=== PATIENT | male | born 1945 ===

== ENCOUNTER 2018-01-14 08:34 | Observation (INO) | payer OTHER ==
[2018-01-14 08:34] VITALS: BMI 28.1
[2018-01-14] MEDS ORDERED: Sodium Chloride 0.9% 1,000 ML IV ONE ×2 (09:31→10:58)
--- NOTE | 2018-01-14 09:49 | C.PDOC ---
History Of Present Illness 72 y/o male sent by Dr. Garcia for evaluation of elevated blood sugar and pain to left rib secondary to fall 2 days ago. Patient sent to rule out weakness and evaluate high blood sugar. Patient states he takes metformin at home with no improvement. Patient denies headache, nausea, vomiting, numbness or any other complaints at this time. Time Seen by Provider: 01/14/18 08:49 Chief Complaint (Nursing): Medical Clearance History Per: Patient History/Exam Limitations: no limitations Onset/Duration Of Symptoms: Days Current Symptoms Are (Timing): Still Present Severity: Mild Past Medical History Reviewed: Historical Data, Nursing Documentation, Vital Signs Vital Signs: Last Vital Signs Temp 98.1 F 01/14/18 08:37 Pulse 70 01/14/18 08:37 Resp 18 01/14/18 08:37 BP 192/90 H 01/14/18 08:37 Pulse Ox 96 01/14/18 12:01 - Medical History PMH: Diabetes, HTN, Hypercholesterolemia Surgical History: No Surg Hx - [facility] Procedures COLONOSCOPY (11/24/13) DX ULTRASOUND NEC (08/03/14) EXCISION OF STOMACH, ENDO, DIAGN (12/07/15) FLEXIBLE SIGMOIDOSCOPY (11/03/13) FLUOROSCOPY OF LEFT HEART USING LOW OSMOLAR CONTRAST (12/07/15) FLUOROSCOPY OF MULT COR ART USING L OSM CONTRAST (12/07/15) INSPECTION OF LOWER INTESTINAL TRACT, ENDO (12/07/15) INSPECTION OF UPPER INTESTINAL TRACT, ENDO (06/04/16) MEASURE OF CARDIAC SAMPL & PRESSURE, L HEART, PERC APPROACH (12/07/15) PERCUTAN NEEDLE BIOPSY OF PROSTATE (08/03/14) RADICAL EXCIS SKIN LES (11/23/12) TRANSFUSE NONAUT RED BLOOD CELLS IN PERIPH VEIN, PERC (12/07/15) TRANSFUSE NONAUT WHOLE BLOOD IN PERIPH VEIN, PERC (06/04/16) Family History: States: No Known Family Hx - Social History Hx Alcohol Use: No Hx Substance Use: No - Immunization History Hx Tetanus Toxoid Vaccination: No Hx Influenza Vaccination: No Hx Pneumococcal Vaccination: No Review Of Systems Constitutional: Negative for: Fever, Chills Cardiovascular: Negative for: Chest Pain Respiratory: Negative for: Shortness of Breath Gastrointestinal: Negative for: Nausea, Vomiting Musculoskeletal: Positive for: Other (rib pain) Skin: Negative for: Rash Neurological: Positive for: Weakness. Negative for: Numbness Physical Exam - Physical Exam Appears: Non-toxic, No Acute Distress Skin: Warm, Dry, No Rash Head: Atraumatic, Normacephalic Eye(s): bilateral: Normal Inspection Oral Mucosa: Moist Throat: Normal Neck: Supple Chest: Tenderness (left lateral rib ), No Ecchymosis Cardiovascular: Rhythm Regular Respiratory: Normal Breath Sounds, No Rales, No Rhonchi, No Wheezing, Other ( tenderness over lateral left rib area) Gastrointestinal/Abdominal: Soft, No Tenderness, No Guarding, No Rebound Back: Normal Inspection Extremity: Normal ROM, Capillary Refill (<2 seconds) Neurological/Psych: Oriented x3, Normal Speech, Normal Cognition, Normal Motor, Normal Sensation ED Course And Treatment - Laboratory Results Result Diagrams: 01/14/18 09:57 01/14/18 09:57 Lab Interpretation: Abnormal ECG: Interpreted By Ca ECG Rhythm: Sinus Bradycardia ECG Interpretation: No Acute Changes Rate From EC O2 Sat by Pulse Oximetry: 96 (RA) Pulse Ox Interpretation: Normal - Radiology CXR: Interpreted by Me CXR Interpretation: Yes: No Acute Disease Progress Note: CXR, EKG, IV fluids, UA. Trteated with additional NSS and insulin 8 U SQ Reassessment Condition: Improved - Physician Consult Information Physician Contacted: Rhett Durán Jr. Outcome Of Conversation: admit to obs Disposition Discussed With Dr.: Rhett Durán Jr. Doctor Will See Patient In The: Hospital - Disposition Disposition: HOSPITALIZED Disposition Time: 13:00 Condition: STABLE - Clinical Impression Clinical Impression: Weakness, Diabetes - PA / AERIAL INSTALLER / Resident Statement MD/DO has reviewed & agrees with the documentation as recorded. - Scribe Statement The provider has reviewed the documentation as recorded by the Paulinaibtiago Miranda All medical record entries made by the Archana were at my direction and personally dictated by me. I have reviewed the chart and agree that the record accurately reflects my personal performance of the history, physical exam, medical decision making, and the department course for this patient. I have also personally directed, reviewed, and agree with the discharge instructions and disposition. Decision To Admit - Pt Status Changed To: Hospital Disposition Of: Observation - . Bed Request Type: Regular Admitting Physician: Rhett Durán Jr. Patient Diagnosis: Weakness, Diabetes
[2018-01-14 10:06] LABS: BASO # 0.1 K/uL (0.0-0.2); BASO % 1.2 % (0.0-2.0); EOS % 0.6 % (0.0-4.0); HEMOGLOBIN 12.8 g/dL (12.0-18.0); LYMPH % 19.1 % (20.0-40.0); MEAN CELL VOLUME 87.8 fL (80.0-94.0); MEAN CORPUSCULAR HEMOGLOBIN 28.9 pg (27.0-31.0); MEAN CORPUSCULAR HGB CONC 32.9 g/dL (33.0-37.0); MONO # 0.4 K/uL (0.0-0.8); MONO % 8.1 % (0.0-10.0); NEUT # 3.7 K/uL (1.8-7.0); RBC 4.44 Mil/uL (4.40-5.90); RED CELL DISTRIBUTION WIDTH 14.1 % (11.5-14.5); WHITE BLOOD COUNT 5.3 K/uL (4.8-10.8)
[2018-01-14 10:13] LABS: URINE BILIRUBIN NEGATIVE (NEGATIVE); URINE BLOOD NEGATIVE (NEGATIVE); URINE CLARITY Clear (Clear); URINE COLOR Straw (YELLOW); URINE GLUCOSE (UA) 3+ mg/dL (Normal); URINE LEUKOCYTE ESTERASE NEG Leu/uL (Negative); URINE PROTEIN 2+ mg/dL (NEGATIVE); URINE UROBILINOGEN NORMAL mg/dL (0.2-1.0)
[2018-01-14 10:44] LABS: ALB/GLOB RATIO 1.3 (1.0-2.1); ALBUMIN 4.2 g/dL (3.5-5.0); ALT/SGPT 28 U/L (21-72); AST/SGOT 29 U/L (17-59); BLOOD UREA NITROGEN 15 mg/dL (9-20); CALCIUM 9.6 mg/dl (8.6-10.4); GFR NON-AFRICAN AMERICAN > 60
[2018-01-14] MEDS ORDERED: (Novolin R) Insulin Human Regular 100 units/ml vial ONE (11:26)
[2018-01-14] MEDS: (Novolin R) Insulin Human Regular 100 units/ml vial SC SCH ×3 (11:27→17:49)
--- NOTE | 2018-01-14 13:38 | CP.PCM.HP ---
History of Present Illness - History of Present Illness History of Present Illness: CC: sugar was high as told by "lady doctor" HPI: Patient is a 72 yo male with poorly described PMH of DM, Arthritis, HTN, CAD, mitral regurgitation (confirmed with Dr. Durán - PMD) presents to hospital after lady doctor checked his blood sugar and recommended he comes into the hospital. Patient does not regularly check his blood sugars at home. At admission his blood sugar 507, given 2 Liters of fluids and 8 units of insulin, and now currently at 331. Patient seems to be a poor historian not completely remembering his medical problems and not following multiple times outpatient for continued management. Patient states that he has not followed outpatient with numerous doctors including his hospice/home health aide, urologist (dr. thayer), wildlife science professor (Dr. Wyman). Patient states he has been peeing and drinking often for the past month however has not followed up with a doctor until today. PMH: DM, Arthritis, HTN, CAD PSH: back surgery (20 years ago), prostate radiation ??? Meds: Lactulose (PRN for constipation), Cosopt 1 drop bid, Lisinopril 10mg daily , Simvastatin 40mg daily, Omeprazole 20mg daily, Metformin 1000mg bid Allergies: NKDA Social Hx: Former smoker quit years ago, denies alcohol and drug use Code: Full Code PMD: Dr. Durán Review of Systems: Pertinent Positives: polyuria, polydipsia, constipation at times (2 days since last Bowel movement) Pertinent Negatives: abdominal pain, n/v, fevers, chills, sob, chest pain, numbness, tingling, vision changes, headaches, diarrhea Present on Admission - Present on Admission Any Indicators Present on Admission: No Review of Systems - Constitutional Constitutional: absent: Chills, Fatigue, Fever - EENT Eyes: absent: Blurred Vision, Change in Vision Additional comments: Right eye unspecified problem - Cardiovascular Cardiovascular: absent: Chest Pain, Chest Pain at Rest, Diaphoresis, Dyspnea, Pedal Edema - Respiratory Respiratory: absent: Cough, Dyspnea, Wheezing - Gastrointestinal Gastrointestinal: Constipation. absent: Abdominal Pain, Diarrhea, Nausea, Vomiting - Genitourinary Genitourinary: Urinary Frequency - Musculoskeletal Musculoskeletal: absent: Back Pain, Numbness, Tingling - Integumentary Integumentary: absent: Pruritus, Skin Ulcer - Neurological Neurological: absent: Numbness, Headaches, Tingling - Endocrine Endocrine: Polydipsia. absent: Palpitations Past Patient History - Infectious Disease Hx of Infectious Diseases: None, VRE - Past Medical History & Family History Past Medical History?: Yes - Past Social History Smoking Status: Former Smoker - CARDIAC Hx Hypercholesterolemia: Yes Hx Hypertension: Yes - PULMONARY Hx Respiratory Disorders: Yes (SOB) - NEUROLOGICAL Hx Neurological Disorder: No - HEENT Hx HEENT Problems: Yes (PARTIAL LOSS OF SIGHT RIGHT EYE FROM ACCIDENT) - RENAL Hx Chronic Kidney Disease: No - ENDOCRINE/METABOLIC Hx Endocrine Disorders: Yes Hx Diabetes Mellitus Type 2: Yes - HEMATOLOGICAL/ONCOLOGICAL Hx Blood Disorders: Yes Hx Cancer: Yes (PROSTATE) - INTEGUMENTARY Hx Dermatological Problems: No - MUSCULOSKELETAL/RHEUMATOLOGICAL Hx Falls: No - GASTROINTESTINAL Hx Gastrointestinal Disorders: Yes Hx Hemorrhoids: Yes Other/Comment: internal hemorrhoids - GENITOURINARY/GYNECOLOGICAL Hx Genitourinary Disorders: Yes Hx Prostate Cancer: Yes Hx Prostate Problems: Yes - PSYCHIATRIC Hx Substance Use: No - SURGICAL HISTORY Hx Surgeries: Yes Hx Eye Surgery: Yes (RIGHT) Hx Musculoskeletal Surgery: Yes (LUMBAR) Other/Comment: PROSTATE BX RADIATION - ANESTHESIA Hx Anesthesia: Yes Hx Anesthesia Reactions: Yes (DIFFICULTY VOIDING) Hx Malignant Hyperthermia: No Meds Allergies/Adverse Reactions: Allergies Allergy/AdvReac Type Severity Reaction Status Date / Time No Known Allergies Allergy Verified 01/14/18 09:36 Physical Exam - Constitutional Appears: Non-toxic, No Acute Distress - Head Exam Head Exam: NORMAL INSPECTION, NORMOCEPHALIC - Eye Exam Eye Exam: EOMI, Normal appearance. absent: Nystagmus, Scleral icterus - ENT Exam ENT Exam: Mucous Membranes Moist, Normal Exam - Respiratory Exam Respiratory Exam: Clear to Auscultation Bilateral, NORMAL BREATHING PATTERN. absent: Rales, Rhonchi, Wheezes - Cardiovascular Exam Cardiovascular Exam: REGULAR RHYTHM, +S1, +S2. absent: Tachycardia - GI/Abdominal Exam GI & Abdominal Exam: Normal Bowel Sounds, Soft. absent: Distended, Firm, Guarding, Tenderness - Extremities Exam Extremities exam: Positive for: normal inspection. Negative for: calf tenderness, pedal edema - Back Exam Back exam: NORMAL INSPECTION. absent: CVA tenderness (L), CVA tenderness (R) - Neurological Exam Neurological exam: Alert, Oriented x3 - Psychiatric Exam Psychiatric exam: Normal Affect, Normal Mood - Skin Skin Exam: Intact, Normal Color Results - Vital Signs Recent Vital Signs: Last Vital Signs Temp 98.1 F 01/14/18 08:37 Pulse 70 01/14/18 08:37 Resp 18 01/14/18 08:37 BP 192/90 H 01/14/18 08:37 Pulse Ox 96 01/14/18 13:02 - Labs Result Diagrams: 01/14/18 09:57 01/14/18 09:57 Labs: Laboratory Results - last 24 hr 01/14/18 01/14/18 01/14/18 09:57 09:57 09:57 WBC 5.3 RBC 4.44 Hgb 12.8 D Hct 39.0 MCV 87.8 D MCH 28.9 MCHC 32.9 L RDW 14.1 Plt Count 235 MPV 10.0 Neut % (Auto) 71.0 Lymph % (Auto) 19.1 L [place] % (Auto) 8.1 Eos % (Auto) 0.6 Baso % (Auto) 1.2 Neut # (Auto) 3.7 Lymph # (Auto) 1.0 [place] # (Auto) 0.4 Eos # (Auto) 0.0 Baso # (Auto) 0.1 Sodium 132 Potassium 4.8 Chloride 92 L Carbon Dioxide 30 Anion Gap 15 BUN 15 Creatinine 0.9 Est GFR ( Amer) > 60 Est GFR (Non-Af Amer) > 60 POC Glucose (mg/dL) Random Glucose 507 H* Calcium 9.6 Total Bilirubin 0.5 AST 29 ALT 28 Alkaline Phosphatase 121 CK-MB (Mass) 2.70 Troponin I < 0.0120 Total Protein 7.4 Albumin 4.2 Globulin 3.2 Albumin/Globulin Ratio 1.3 Urine Color Straw Urine Clarity Clear Urine pH 7.0 Ur Specific [place] 1.024 Urine Protein 2+ H Urine Glucose (UA) 3+ H Urine Ketones Negative Urine Blood Negative Urine Nitrate Negative Urine Bilirubin Negative Urine Urobilinogen Normal Ur Leukocyte Esterase Neg Urine RBC (Auto) 1 01/14/18 01/14/18 11:09 12:50 WBC RBC Hgb Hct MCV MCH MCHC RDW Plt Count MPV Neut % (Auto) Lymph % (Auto) [place] % (Auto) Eos % (Auto) Baso % (Auto) Neut # (Auto) Lymph # (Auto) [place] # (Auto) Eos # (Auto) Baso # (Auto) Sodium Potassium Chloride Carbon Dioxide Anion Gap BUN Creatinine Est GFR ( Amer) Est GFR (Non-Af Amer) POC Glucose (mg/dL) 443 H* 331 H Random Glucose Calcium Total Bilirubin AST ALT Alkaline Phosphatase CK-MB (Mass) Troponin I Total Protein Albumin Globulin Albumin/Globulin Ratio Urine Color Urine Clarity Urine pH Ur Specific [place] Urine Protein Urine Glucose (UA) Urine Ketones Urine Blood Urine Nitrate Urine Bilirubin Urine Urobilinogen Ur Leukocyte Esterase Urine RBC (Auto) Assessment & Plan - Assessment and Plan (Free Text) Assessment: DM2 Upon admission 507 blood sugar; s/p 2 units of NS and 8 units of insulin; Blood sugar 331 A1C pending ISS- high dose Hypoglycemic protocol; ACHS Metformin 1000mg po bid Levemir 30units sc daily NS @ 150mls/hr Carb Diet HTN 192/90 Lisinopril 40mg po daily (increased from 10mg home med) CAD Rosuvastatin 10mg po daily Hx of Mitral Regurgitation Cardio Consulted: Dr. Wyman- recommendations appreciated PPx DVT ppx: Heparin 5000 units sc q8h GI ppx: Protonix 40mg po daily
--- NOTE | 2018-01-14 13:45 | RAD ---
Chest x-ray two views History: Shortness of breath. Comparison: 06/04/2016 Findings: No focal infiltrate or effusion. Heart size within normal limits. Degenerative changes in the spine and shoulders. Impression: No focal infiltrate or effusion. Heart size within normal limits.
[2018-01-14] MEDS ORDERED: Glucagon Recombinant 1 mg Inj IM PRN ×2 (13:51→13:54)
[2018-01-14] MEDS ORDERED: Dextrose 50% SYRINGE Inj (50 ml) IV PRN ×2 (13:51→13:54)
[2018-01-14] MEDS ORDERED: Dextrose 50% SYRINGE Inj (50 ml) IVP PRN (13:51)
[2018-01-14] MEDS ORDERED: Insulin Detemir 100 units/ml Vial (Levemir) SC SCH (14:15)
[2018-01-14] MEDS: Pantoprazole 40 mg EC Tab PO SCH (14:28)
[2018-01-14 16:05] VITALS: RESP 20
[2018-01-14] MEDS: Sodium Chloride 0.9% 1,000 ML IV SCH ×2 (17:53→21:33)
[2018-01-14] MEDS ORDERED: Pneumococcal 23-Valent Vaccine IM ONE (19:09)
--- NOTE | 2018-01-14 23:15 | CP.PCM.CON ---
History of Present Illness - History of Present Illness History of Present Illness: HPI: Patient is a 72 yo male with poorly described PMH of DM, Arthritis, HTN, CAD, mitral regurgitation (confirmed with Dr. Durán - PMD) admitted for low sugar PMH: DM, Arthritis, HTN, CAD PSH: back surgery (20 years ago), prostate radiation ??? Meds: Lactulose (PRN for constipation), Cosopt 1 drop bid, Lisinopril 10mg daily , Simvastatin 40mg daily, Omeprazole 20mg daily, Metformin 1000mg bid Allergies: NKDA Social Hx: Former smoker quit years ago, denies alcohol and drug use Code: Full Code PMD: Dr. Durán Review of Systems: Pertinent Positives: polyuria, polydipsia, constipation at times (2 days since last Bowel movement) Pertinent Negatives: abdominal pain, n/v, fevers, chills, sob, chest pain, numbness, tingling, vision changes, headaches, diarrhea Present on Admission - Present on Admission Any Indicators Present on Admission: No Review of Systems - Constitutional Constitutional: absent: Chills, Fatigue, Fever - EENT Eyes: absent: Blurred Vision, Change in Vision Additional comments: Right eye unspecified problem - Cardiovascular Cardiovascular: absent: Chest Pain, Chest Pain at Rest, Diaphoresis, Dyspnea, Pedal Edema - Respiratory Respiratory: absent: Cough, Dyspnea, Wheezing - Gastrointestinal Gastrointestinal: Constipation. absent: Abdominal Pain, Diarrhea, Nausea, Vomiting - Genitourinary Genitourinary: Urinary Frequency - Musculoskeletal Musculoskeletal: absent: Back Pain, Numbness, Tingling - Integumentary Integumentary: absent: Pruritus, Skin Ulcer - Neurological Neurological: absent: Numbness, Headaches, Tingling - Endocrine Endocrine: Polydipsia. absent: Palpitations Physical Exam - Constitutional Appears: Non-toxic, No Acute Distress - Head Exam Head Exam: NORMAL INSPECTION, NORMOCEPHALIC - Eye Exam Eye Exam: EOMI, Normal appearance. absent: Nystagmus, Scleral icterus - ENT Exam ENT Exam: Mucous Membranes Moist, Normal Exam - Respiratory Exam Respiratory Exam: Clear to Auscultation Bilateral, NORMAL BREATHING PATTERN. absent: Rales, Rhonchi, Wheezes - Cardiovascular Exam Cardiovascular Exam: REGULAR RHYTHM, +S1, +S2. absent: Tachycardia - GI/Abdominal Exam GI & Abdominal Exam: Normal Bowel Sounds, Soft. absent: Distended, Firm, Guarding, Tenderness - Extremities Exam Extremities exam: Positive for: normal inspection. Negative for: calf tenderness, pedal edema - Back Exam Back exam: NORMAL INSPECTION. absent: CVA tenderness (L), CVA tenderness (R) - Neurological Exam Neurological exam: Alert, Oriented x3 - Psychiatric Exam Psychiatric exam: Normal Affect, Normal Mood - Skin Skin Exam: Intact, Normal Color Past Patient History - Infectious Disease Hx of Infectious Diseases: None, VRE - Past Medical History & Family History Past Medical History?: Yes - Past Social History Smoking Status: Former Smoker - CARDIAC Hx Hypercholesterolemia: Yes Hx Hypertension: Yes - PULMONARY Hx Respiratory Disorders: Yes (SOB) - NEUROLOGICAL Hx Neurological Disorder: No - HEENT Hx HEENT Problems: Yes (PARTIAL LOSS OF SIGHT RIGHT EYE FROM ACCIDENT) - RENAL Hx Chronic Kidney Disease: No - ENDOCRINE/METABOLIC Hx Endocrine Disorders: Yes Hx Diabetes Mellitus Type 2: Yes - HEMATOLOGICAL/ONCOLOGICAL Hx Blood Disorders: Yes Hx Cancer: Yes (PROSTATE) - INTEGUMENTARY Hx Dermatological Problems: No - MUSCULOSKELETAL/RHEUMATOLOGICAL Hx Falls: No - GASTROINTESTINAL Hx Gastrointestinal Disorders: Yes Hx Hemorrhoids: Yes Other/Comment: internal hemorrhoids - GENITOURINARY/GYNECOLOGICAL Hx Genitourinary Disorders: Yes Hx Prostate Cancer: Yes Hx Prostate Problems: Yes - PSYCHIATRIC Hx Substance Use: No - SURGICAL HISTORY Hx Surgeries: Yes Hx Eye Surgery: Yes (RIGHT) Hx Musculoskeletal Surgery: Yes (LUMBAR) Other/Comment: PROSTATE BX RADIATION - ANESTHESIA Hx Anesthesia: Yes Hx Anesthesia Reactions: Yes (DIFFICULTY VOIDING) Hx Malignant Hyperthermia: No Meds Allergies/Adverse Reactions: Allergies Allergy/AdvReac Type Severity Reaction Status Date / Time No Known Allergies Allergy Verified 01/14/18 09:36 - Medications Medications: Current Medications Dextrose (Dextrose 50% Inj) 0 ml IV STAT PRN; Protocol PRN Reason: Hypoglycemia Protocol Dextrose (Glutose 15) 15 gm PO ONCE PRN; Protocol PRN Reason: Hypoglycemia Protocol Glucagon (Glucagen Diagnostic Kit) 1 mg IM STAT PRN; Protocol PRN Reason: Hypoglycemia Protocol Heparin Sodium (Porcine) (Heparin) 5,000 units SC Q8 [facility] Last Admin: 01/14/18 21:27 Dose: 5,000 units Sodium Chloride (Sodium Chloride 0.9%) 1,000 mls @ 150 mls/hr IV .Q6H40M [facility] Last Admin: 01/14/18 21:33 Dose: 150 mls/hr Dextrose (Dextrose 5% In Water 1000 Ml) 1,000 mls @ 0 mls/hr IV .Q0M PRN; Protocol; Per Protocol PRN Reason: Hypoglycemia Protocol Insulin Detemir (Levemir) 30 unit SC DAILY [facility] Insulin Human Regular (Novolin R) 8 unit SC ACHS [facility] Last Admin: 01/14/18 17:49 Dose: 8 units Insulin Human Regular (Novolin R) 0 unit SC ACHS [facility] PRN Reason: Protocol Last Admin: 01/14/18 17:48 Dose: 6 units Lactulose (Enulose) 10 gm PO DAILY PRN PRN Reason: Constipation Last Admin: 01/14/18 17:48 Dose: 10 gm Lisinopril (Zestril) 40 mg PO DAILY [facility] Last Admin: 01/14/18 14:28 Dose: 40 mg Metformin HCl (Glucophage) 1,000 mg PO BID [facility] Last Admin: 01/14/18 17:48 Dose: 1,000 mg Pantoprazole Sodium (Protonix Ec Tab) 40 mg PO DAILY [facility] Last Admin: 01/14/18 14:28 Dose: 40 mg Rosuvastatin Calcium (Crestor) 10 mg PO HS [facility] Last Admin: 01/14/18 21:27 Dose: 10 mg Results - Vital Signs Recent Vital Signs: Last Vital Signs Temp 98.3 F 01/14/18 16:04 Pulse 74 01/14/18 16:04 Resp 20 01/14/18 16:04 BP 149/62 01/14/18 16:04 Pulse Ox 100 01/14/18 16:04 - Labs Result Diagrams: 01/14/18 09:57 01/14/18 09:57 Labs: Laboratory Results - last 24 hr 01/14/18 01/14/18 01/14/18 08:44 08:45 09:57 WBC 5.3 RBC 4.44 Hgb 12.8 D Hct 39.0 MCV 87.8 D MCH 28.9 MCHC 32.9 L RDW 14.1 Plt Count 235 MPV 10.0 Neut % (Auto) 71.0 Lymph % (Auto) 19.1 L [place] % (Auto) 8.1 Eos % (Auto) 0.6 Baso % (Auto) 1.2 Neut # (Auto) 3.7 Lymph # (Auto) 1.0 [place] # (Auto) 0.4 Eos # (Auto) 0.0 Baso # (Auto) 0.1 Sodium Potassium Chloride Carbon Dioxide Anion Gap BUN Creatinine Est GFR ( Amer) Est GFR (Non-Af Amer) POC Glucose (mg/dL) > 500 H* > 500 H* Random Glucose Hemoglobin A1c Calcium Total Bilirubin AST ALT Alkaline Phosphatase CK-MB (Mass) Troponin I Total Protein Albumin Globulin Albumin/Globulin Ratio Urine Color Urine Clarity Urine pH Ur Specific [place] Urine Protein Urine Glucose (UA) Urine Ketones Urine Blood Urine Nitrate Urine Bilirubin Urine Urobilinogen Ur Leukocyte Esterase Urine RBC (Auto) 01/14/18 01/14/18 01/14/18 09:57 09:57 11:09 WBC RBC Hgb Hct MCV MCH MCHC RDW Plt Count MPV Neut % (Auto) Lymph % (Auto) [place] % (Auto) Eos % (Auto) Baso % (Auto) Neut # (Auto) Lymph # (Auto) [place] # (Auto) Eos # (Auto) Baso # (Auto) Sodium 132 Potassium 4.8 Chloride 92 L Carbon Dioxide 30 Anion Gap 15 BUN 15 Creatinine 0.9 Est GFR ( Amer) > 60 Est GFR (Non-Af Amer) > 60 POC Glucose (mg/dL) 443 H* Random Glucose 507 H* Hemoglobin A1c Calcium 9.6 Total Bilirubin 0.5 AST 29 ALT 28 Alkaline Phosphatase 121 CK-MB (Mass) 2.70 Troponin I < 0.0120 Total Protein 7.4 Albumin 4.2 Globulin 3.2 Albumin/Globulin Ratio 1.3 Urine Color Straw Urine Clarity Clear Urine pH 7.0 Ur Specific [place] 1.024 Urine Protein 2+ H Urine Glucose (UA) 3+ H Urine Ketones Negative Urine Blood Negative Urine Nitrate Negative Urine Bilirubin Negative Urine Urobilinogen Normal Ur Leukocyte Esterase Neg Urine RBC (Auto) 1 01/14/18 01/14/18 01/14/18 12:50 16:20 18:26 WBC RBC Hgb Hct MCV MCH MCHC RDW Plt Count MPV Neut % (Auto) Lymph % (Auto) [place] % (Auto) Eos % (Auto) Baso % (Auto) Neut # (Auto) Lymph # (Auto) [place] # (Auto) Eos # (Auto) Baso # (Auto) Sodium Potassium Chloride Carbon Dioxide Anion Gap BUN Creatinine Est GFR ( Amer) Est GFR (Non-Af Amer) POC Glucose (mg/dL) 331 H 263 H Random Glucose Hemoglobin A1c 18.6 H Calcium Total Bilirubin AST ALT Alkaline Phosphatase CK-MB (Mass) Troponin I Total Protein Albumin Globulin Albumin/Globulin Ratio Urine Color Urine Clarity Urine pH Ur Specific [place] Urine Protein Urine Glucose (UA) Urine Ketones Urine Blood Urine Nitrate Urine Bilirubin Urine Urobilinogen Ur Leukocyte Esterase Urine RBC (Auto) 01/14/18 21:11 WBC RBC Hgb Hct MCV MCH MCHC RDW Plt Count MPV Neut % (Auto) Lymph % (Auto) [place] % (Auto) Eos % (Auto) Baso % (Auto) Neut # (Auto) Lymph # (Auto) [place] # (Auto) Eos # (Auto) Baso # (Auto) Sodium Potassium Chloride Carbon Dioxide Anion Gap BUN Creatinine Est GFR ( Amer) Est GFR (Non-Af Amer) POC Glucose (mg/dL) 147 H Random Glucose Hemoglobin A1c Calcium Total Bilirubin AST ALT Alkaline Phosphatase CK-MB (Mass) Troponin I Total Protein Albumin Globulin Albumin/Globulin Ratio Urine Color Urine Clarity Urine pH Ur Specific [place] Urine Protein Urine Glucose (UA) Urine Ketones Urine Blood Urine Nitrate Urine Bilirubin Urine Urobilinogen Ur Leukocyte Esterase Urine RBC (Auto) Assessment & Plan - Assessment and Plan (Free Text) Assessment: DM2 Upon admission 507 blood sugar; s/p 2 units of NS and 8 units of insulin; Blood sugar 331 A1C pending ISS- high dose Hypoglycemic protocol; ACHS Metformin 1000mg po bid Levemir 30units sc daily NS @ 150mls/hr Carb Diet HTN 192/90 Lisinopril 40mg po daily (increased from 10mg home med) CAD Rosuvastatin 10mg po daily Hx of Mitral Regurgitation ECHO ordered to evaluate MR PPx DVT ppx: Heparin 5000 units sc q8h GI ppx: Protonix 40mg po daily
[2018-01-15] MEDS: Sodium Chloride 0.9% 1,000 ML IV SCH ×2 (03:00→08:45)
[2018-01-15] MEDS: (Novolin R) Insulin Human Regular 100 units/ml vial SC SCH ×4 (08:30→12:29)
[2018-01-15] MEDS: Pantoprazole 40 mg EC Tab PO SCH (09:38)
[2018-01-15 11:24] LABS: BASO % 0.6 % (0.0-2.0); EOS % 0.7 % (0.0-4.0); HEMOGLOBIN 11.1 g/dL (12.0-18.0); LYMPH # 1.1 K/uL (1.0-4.3); LYMPH % 25.6 % (20.0-40.0); MEAN CELL VOLUME 87.3 fL (80.0-94.0); MEAN CORPUSCULAR HGB CONC 33.2 g/dL (33.0-37.0); MEAN PLATELET VOLUME 10.2 fL (7.2-11.7); MONO # 0.3 K/uL (0.0-0.8); MONO % 7.8 % (0.0-10.0); NEUT # 2.8 K/uL (1.8-7.0); NEUT % 65.3 % (50.0-75.0); RBC 3.82 Mil/uL (4.40-5.90); RED CELL DISTRIBUTION WIDTH 14.2 % (11.5-14.5); WHITE BLOOD COUNT 4.2 K/uL (4.8-10.8)
[2018-01-15 11:40] LABS: ALB/GLOB RATIO 1.2 (1.0-2.1); ALBUMIN 3.1 g/dL (3.5-5.0); ALT/SGPT 31 U/L (21-72); AST/SGOT 29 U/L (17-59); BLOOD UREA NITROGEN 13 mg/dL (9-20); CALCIUM 8.5 mg/dl (8.6-10.4); GFR NON-AFRICAN AMERICAN > 60
--- NOTE | 2018-01-15 14:17 | CP.PCM.PN ---
Subjective - Date & Time of Evaluation Date of Evaluation: 01/15/18 Objective - Vital Signs/Intake and Output Vital Signs (last 24 hours): Temp Pulse Resp BP Pulse Ox 97.7 F 78 20 176/78 H 99 01/15/18 08:00 01/15/18 08:00 01/15/18 08:00 01/15/18 08:00 01/15/18 08:00 Intake and Output: 01/15/18 01/15/18 06:59 18:59 Intake Total 1830 Output Total 650 Balance 1180 - Medications Medications: Current Medications Dextrose (Dextrose 50% Inj) 0 ml IV STAT PRN; Protocol PRN Reason: Hypoglycemia Protocol Dextrose (Glutose 15) 15 gm PO ONCE PRN; Protocol PRN Reason: Hypoglycemia Protocol Glucagon (Glucagen Diagnostic Kit) 1 mg IM STAT PRN; Protocol PRN Reason: Hypoglycemia Protocol Heparin Sodium (Porcine) (Heparin) 5,000 units SC Q8 [facility] Last Admin: 01/15/18 05:15 Dose: 5,000 units Sodium Chloride (Sodium Chloride 0.9%) 1,000 mls @ 150 mls/hr IV .Q6H40M [facility] Last Admin: 01/15/18 08:45 Dose: 150 mls/hr Dextrose (Dextrose 5% In Water 1000 Ml) 1,000 mls @ 0 mls/hr IV .Q0M PRN; Protocol; Per Protocol PRN Reason: Hypoglycemia Protocol Insulin Detemir (Levemir) 30 unit SC DAILY [facility] Last Admin: 01/15/18 09:38 Dose: 30 units Insulin Human Regular (Novolin R) 8 unit SC ACHS [facility] Last Admin: 01/15/18 12:28 Dose: 8 units Insulin Human Regular (Novolin R) 0 unit SC [facility] PRN Reason: Protocol Last Admin: 01/15/18 12:29 Dose: 8 units Lactulose (Enulose) 10 gm PO DAILY PRN PRN Reason: Constipation Last Admin: 01/14/18 17:48 Dose: 10 gm Lisinopril (Zestril) 40 mg PO DAILY [facility] Last Admin: 01/15/18 09:47 Dose: 40 mg Metformin HCl (Glucophage) 1,000 mg PO BID [facility] Last Admin: 01/15/18 09:38 Dose: 1,000 mg Pantoprazole Sodium (Protonix Ec Tab) 40 mg PO DAILY [facility] Last Admin: 01/15/18 09:38 Dose: 40 mg Rosuvastatin Calcium (Crestor) 10 mg PO [facility] Last Admin: 01/14/18 21:27 Dose: 10 mg - Labs Labs: 01/15/18 11:17 01/15/18 11:17
--- NOTE | 2018-01-15 17:01 | CP.PCM.DIS ---
Provider - Provider Date of Admission: 01/14/18 11:58 Attending physician: Rhett Durán Jr, MD Consults: Dr. Wyman Time Spent in preparation of Discharge (in minutes): 45 Hospital Course - Lab Results Lab Results: Most Recent Lab Values WBC 4.2 K/uL (4.8-10.8) L 01/15/18 11:17 RBC 3.82 Mil/uL (4.40-5.90) L 01/15/18 11:17 Hgb 11.1 g/dL (12.0-18.0) L 01/15/18 11:17 Hct 33.4 % (35.0-51.0) L 01/15/18 11:17 MCV 87.3 fL (80.0-94.0) 01/15/18 11:17 MCH 29.0 pg (27.0-31.0) 01/15/18 11:17 MCHC 33.2 g/dL (33.0-37.0) 01/15/18 11:17 RDW 14.2 % (11.5-14.5) 01/15/18 11:17 Plt Count 200 K/uL (130-400) 01/15/18 11:17 MPV 10.2 fL (7.2-11.7) 01/15/18 11:17 Neut % (Auto) 65.3 % (50.0-75.0) 01/15/18 11:17 Lymph % (Auto) 25.6 % (20.0-40.0) 01/15/18 11:17 [place] % (Auto) 7.8 % (0.0-10.0) 01/15/18 11:17 Eos % (Auto) 0.7 % (0.0-4.0) 01/15/18 11:17 Baso % (Auto) 0.6 % (0.0-2.0) 01/15/18 11:17 Neut # (Auto) 2.8 K/uL (1.8-7.0) 01/15/18 11:17 Lymph # (Auto) 1.1 K/uL (1.0-4.3) 01/15/18 11:17 [place] # (Auto) 0.3 K/uL (0.0-0.8) 08/23/18 11:17 Eos # (Auto) 0.0 K/uL (0.0-0.7) 01/15/18 11:17 Baso # (Auto) 0.0 K/uL (0.0-0.2) 01/15/18 11:17 Sodium 135 mmol/L (132-148) 01/15/18 11:17 Potassium 4.8 mmol/L (3.6-5.2) 01/15/18 11:17 Chloride 103 mmol/L (98-107) 01/15/18 11:17 Carbon Dioxide 25 mmol/L (22-30) 01/15/18 11:17 Anion Gap 12 (10-20) 01/15/18 11:17 BUN 13 mg/dL (9-20) 01/15/18 11:17 Creatinine 0.8 mg/dL (0.8-1.5) 01/15/18 11:17 Est GFR ( Amer) > 60 01/15/18 11:17 Est GFR (Non-Af Amer) > 60 01/15/18 11:17 POC Glucose (mg/dL) 355 mg/dL (65-110) H 01/15/18 11:10 Random Glucose 285 mg/dL (75-110) H 01/15/18 11:17 Hemoglobin A1c 18.6 % (4.2-6.5) H 01/14/18 18:26 Calcium 8.5 mg/dl (8.6-10.4) L 01/15/18 11:17 Phosphorus 3.0 mg/dL (2.5-4.5) 01/15/18 11:17 Magnesium 1.9 mg/dL (1.6-2.3) 01/15/18 11:17 Total Bilirubin 0.3 mg/dL (0.2-1.3) 01/15/18 11:17 AST 29 U/L (17-59) 01/15/18 11:17 ALT 31 U/L (21-72) 01/15/18 11:17 Alkaline Phosphatase 77 U/L (38-126) 01/15/18 11:17 CK-MB (Mass) 2.70 ng/mL (0.0-3.38) 01/14/18 09:57 Troponin I < 0.0120 ng/mL (0.00-0.120) 01/14/18 09:57 Total Protein 5.8 g/dL (6.3-8.3) L 01/15/18 11:17 Albumin 3.1 g/dL (3.5-5.0) L D 01/15/18 11:17 Globulin 2.7 gm/dL (2.2-3.9) 01/15/18 11:17 Albumin/Globulin Ratio 1.2 (1.0-2.1) 01/15/18 11:17 Urine Color Straw (YELLOW) 01/14/18 09:57 Urine Clarity Clear (Clear) 01/14/18 09:57 Urine pH 7.0 (5.0-8.0) 01/14/18 09:57 Ur Specific [place] 1.024 (1.003-1.030) 01/14/18 09:57 Urine Protein 2+ mg/dL (NEGATIVE) H 01/14/18 09:57 Urine Glucose (UA) 3+ mg/dL (Normal) H 01/14/18 09:57 Urine Ketones Negative mg/dL (NEGATIVE) 01/14/18 09:57 Urine Blood Negative (NEGATIVE) 01/14/18 09:57 Urine Nitrate Negative (NEGATIVE) 01/14/18 09:57 Urine Bilirubin Negative (NEGATIVE) 01/14/18 09:57 Urine Urobilinogen Normal mg/dL (0.2-1.0) 01/14/18 09:57 Ur Leukocyte Esterase Neg [place]/uL (Negative) 01/14/18 09:57 Urine RBC (Auto) 1 /hpf (0-3) 01/14/18 09:57 - Hospital Course Hospital Course: Upon Admission: HPI: Patient is a 72 yo male with poorly described PMH of DM, Arthritis, HTN, CAD, mitral regurgitation (confirmed with Dr. Durán - PMD) presents to hospital after lady doctor checked his blood sugar and recommended he comes into the hospital. Patient does not regularly check his blood sugars at home. At admission his blood sugar 507, given 2 Liters of fluids and 8 units of insulin, and now currently at 331. Patient seems to be a poor historian not completely remembering his medical problems and not following multiple times outpatient for continued management. Patient states that he has not followed outpatient with numerous doctors including his carding machine operator, urologist (dr. thayer), private inquiry agent (Dr. Wyman). Patient states he has been peeing and drinking often for the past month however has not followed up with a doctor until today. PMH: DM, Arthritis, HTN, CAD PSH: back surgery (20 years ago), prostate radiation ??? Meds: Lactulose (PRN for constipation), Cosopt 1 drop bid, Lisinopril 10mg daily , Simvastatin 40mg daily, Omeprazole 20mg daily, Metformin 1000mg bid Allergies: NKDA Social Hx: Former smoker quit years ago, denies alcohol and drug use Code: Full Code PMD: Dr. Durán Hospital Course: 72 yo male comes to hospital for evaluation of elevated blood sugars a/w with polyuria and polydipsia. On admission patient's blood sugar was above 500; treated with insulin and IVF 2L; continued on insulin sliding scale w/ metformin ; repeated sugars were 120-150; A1C was 18.6; patient educated to followup outpatient with Dr. Durán as his sugars are very uncontrolled and he is not compliant. Discharge Plan: Patient is stable for discharge to home as per Dr. Durán. Patient is to followup with Dr. Durán within 1 week of discharge from hospital. Patient is to followup with Dr. Wyman within 1 week of discharge from hospital. Patient is to resume all of his home medications as no medication adjustments were made during this admission. Patient is instructed to return to hospital if symptoms recur or worsen. Patient understands the plan as above and agrees. Disclaimer: Written above is a synopsis of patient current hospital admission. For full report refer to EMR. Discharge Exam - Head Exam Head Exam: NORMAL INSPECTION, NORMOCEPHALIC - Eye Exam Eye Exam: EOMI, Normal appearance. absent: Nystagmus, Scleral icterus - Respiratory Exam Respiratory Exam: NORMAL BREATHING PATTERN. absent: Accessory Muscle Use, Rales , Rhonchi, Wheezes - Cardiovascular Exam Cardiovascular Exam: REGULAR RHYTHM, RRR, +S1, +S2 - GI/Abdominal Exam GI & Abdominal Exam: Normal Bowel Sounds. absent: Distended, Firm - Extremities Exam Extremities exam: normal inspection - Back Exam Back exam: NORMAL INSPECTION - Neurological Exam Neurological exam: Alert, Normal Gait, Oriented x3 - Psychiatric Exam Psychiatric exam: Normal Affect, Normal Mood - Skin Skin Exam: Intact, Normal Color Discharge Plan - Follow Up Plan Condition: STABLE Disposition: HOME/ ROUTINE Instructions: Weakness (ED) Additional Instructions: Patient is stable for discharge to home as per Dr. Durán. Patient is to followup with Dr. Durán within 1 week of discharge from hospital. Patient is to followup with Dr. Wyman within 1 week of discharge from hospital. Patient is to resume all of his home medications as no medication adjustments were made during this admission. Patient is instructed to return to hospital if symptoms recur or worsen. Patient understands the plan as above and agrees. Referrals: Jesus Manuel Wyman MD [Staff Provider] -
[2018-01-15 17:36] VITALS: BP 131/55; PULSE 63; TEMP 98.3; O2SAT 95
--- NOTE | 2018-01-15 22:21 | CARD ---
APPROVED REPORT Date of service: 01/15/2018 EXAM: Two-dimensional and M-mode echocardiogram with Doppler and color Doppler. Other Information Quality : GoodRhythm : INDICATION Mitral Valve Disease Mitral Valve Prolapse RISK FACTORS Hypertension Diabetes 2D DIMENSIONS IVSd1.0 (0.7-1.1cm)LVDd4.5 (3.9-5.9cm) PWd1.2 (0.7-1.1cm)LVDs2.7 (2.5-4.0cm) FS (%) 40.9 %LVEF (%)71.8 (>50%) M-Mode DIMENSIONS Left Atrium (MM)3.63 (2.5-4.0cm)IVSd1.05 (0.7-1.1cm) Aortic Root4.00 (2.2-3.7cm)LVDd5.14 (4.0-5.6cm) Aortic Cusp Exc.2.23 (1.5-2.0cm)PWd0.92 (0.7-1.1cm) FS (%) 38 %LVDs3.20 (2.0-3.8cm) LVEF (%)68 (>50%) Mitral Valve MV E Tndpyqhq46.3cm/sMV A Otiwphxp72.3cm/sE/A ratio0.9 TDI E/Lateral E'0.0E/Medial E'0.0 Tricuspid Valve TR Peak Pfcpydea621ab/sTR Peak Gr.[id number] LEFT VENTRICLE The left ventricle is normal size. There is normal left ventricular wall thickness. Left ventricle systolic function is normal. The Ejection Fraction is >70%. There is normal LV segmental wall motion. Tissue Doppler imaging reveals abnormal left ventricular diastolic dysfunction. RIGHT VENTRICLE The right ventricle is normal size. There is normal right ventricular wall thickness. The right ventricular systolic function is normal. ATRIA The left atrium size is normal. The right atrium size is normal. The interatrial septum is intact with no evidence for an atrial septal defect. AORTIC VALVE The aortic valve is normal in structure. No aortic regurgitation is present. MITRAL VALVE The mitral valve is normal in structure. There is no evidence of mitral valve prolapse. There is no mitral valve stenosis. Mitral regurgitation is mild. TRICUSPID VALVE The tricuspid valve is normal in structure. There is mild tricuspid regurgitation. Right ventricular systolic pressure is estimated at less than 30 mmHg. There is no pulmonary hypertension. PULMONIC VALVE The pulmonic valve is not well visualized. There is no pulmonic valvular regurgitation. GREAT VESSELS The aortic root is normal in size. PERICARDIAL EFFUSION There is no significant pericardial effusion. <Conclusion> Left ventricle systolic function is normal. The Ejection Fraction is >70%. Diastolic dysfunction. No aortic regurgitation is present. Mitral regurgitation is mild. There is mild tricuspid regurgitation. There is no pulmonary hypertension. There is no pulmonic valvular regurgitation.
--- NOTE | 2018-01-16 02:19 | CARD ---
APPROVED REPORT Date of service: 01/14/2018 EKG Measurement Heart [id number] <Conclusion> Sinus bradycardia Minimal voltage criteria for LVH, may be normal variant Borderline ECG
== END 2018-01-15 19:10 | disposition home or self-care (01) ==
LOC: C.ER 08:34 → C.9E 11:58 → C.3T 14:18
PROVIDERS: ADMIT Internal Medicine; ATTEND Internal Medicine
DX: E11.65 Type 2 diabetes mellitus with hyperglycemia (principal); I10 Essential (primary) hypertension; I25.10 Atherosclerotic heart disease of native coronary artery without angina pectoris; I34.0 Nonrheumatic mitral (valve) insufficiency; Z85.46 Personal history of malignant neoplasm of prostate; Z87.891 Personal history of nicotine dependence; Z91.81 History of falling
CPT/HCPCS: 36415; 71046; 80053; 81001; 82553; 82948; 83036; 83735; 84100; 84484; 85025; 93306; 96360; 96372; 99283; G0378; J1644; J7030

== ENCOUNTER 2018-04-01 11:13 | Observation (INO) | payer OTHER ==
[2018-04-01 11:30] VITALS: BMI 20.4
--- NOTE | 2018-04-01 13:03 | C.PDOC ---
Time Seen by Provider: 04/01/18 12:21 Chief Complaint (Nursing): Medical Clearance Past Medical History Vital Signs: Last Vital Signs Temp 98.4 F 04/01/18 11:30 Pulse 74 04/01/18 11:30 Resp 18 04/01/18 11:30 BP 177/87 H 04/01/18 11:30 Pulse Ox 100 04/01/18 11:30 - Medical History PMH: Diabetes, HTN, Hypercholesterolemia Denies: Chronic Kidney Disease - [facility] Procedures COLONOSCOPY (11/24/13) DX ULTRASOUND NEC (08/03/14) EXCISION OF STOMACH, ENDO, DIAGN (12/07/15) FLEXIBLE SIGMOIDOSCOPY (11/03/13) FLUOROSCOPY OF LEFT HEART USING LOW OSMOLAR CONTRAST (12/07/15) FLUOROSCOPY OF MULT COR ART USING L OSM CONTRAST (12/07/15) INSPECTION OF LOWER INTESTINAL TRACT, ENDO (12/07/15) INSPECTION OF UPPER INTESTINAL TRACT, ENDO (06/04/16) MEASURE OF CARDIAC SAMPL & PRESSURE, L HEART, PERC APPROACH (12/07/15) PERCUTAN NEEDLE BIOPSY OF PROSTATE (08/03/14) RADICAL EXCIS SKIN LES (11/23/12) TRANSFUSE NONAUT RED BLOOD CELLS IN PERIPH VEIN, PERC (12/07/15) TRANSFUSE NONAUT WHOLE BLOOD IN PERIPH VEIN, PERC (06/04/16) Family History: States: Unknown Family Hx - Social History Hx Alcohol Use: No Hx Substance Use: No - Immunization History Hx Tetanus Toxoid Vaccination: No Hx Influenza Vaccination: No Hx Pneumococcal Vaccination: No ED Course And Treatment O2 Sat by Pulse Oximetry: 100 Disposition - Disposition Forms: [employer] (Greek)
--- NOTE | 2018-04-01 13:06 | C.PDOC ---
History Of Present Illness 72 year old male with a history of prostate cancer, hypertension, diabetes, and coronary artery disease was sent to the ED by Dr. Garcia for evaluation of recent weight loss. Pt reports he lost "20 pounds in 2 months". States he is frequently hungry and thirsty. Also notes urinating frequently. His sugar is usually in the 500s. He also notes he stubbed his right toe three days ago and continues to have pain. Poor historian. Denies fever, chest pain, sob, fever, abdominal pain, change in gait, nausea, vomiting and any other associated symptoms. Time Seen by Provider: 04/01/18 12:21 Chief Complaint (Nursing): Medical Clearance History Per: Patient History/Exam Limitations: other (poor historian.) Onset/Duration Of Symptoms: Days Current Symptoms Are (Timing): Still Present Past Medical History Reviewed: Historical Data, Nursing Documentation, Vital Signs Vital Signs: Last Vital Signs Temp 98.4 F 04/01/18 11:30 Pulse 74 04/01/18 11:30 Resp 18 04/01/18 11:30 BP 177/87 H 04/01/18 11:30 Pulse Ox 100 04/01/18 13:03 - Medical History PMH: Diabetes, HTN, Hypercholesterolemia Denies: Chronic Kidney Disease - [facility] Procedures COLONOSCOPY (11/24/13) DX ULTRASOUND NEC (08/03/14) EXCISION OF STOMACH, ENDO, DIAGN (12/07/15) FLEXIBLE SIGMOIDOSCOPY (11/03/13) FLUOROSCOPY OF LEFT HEART USING LOW OSMOLAR CONTRAST (12/07/15) FLUOROSCOPY OF MULT COR ART USING L OSM CONTRAST (12/07/15) INSPECTION OF LOWER INTESTINAL TRACT, ENDO (12/07/15) INSPECTION OF UPPER INTESTINAL TRACT, ENDO (06/04/16) MEASURE OF CARDIAC SAMPL & PRESSURE, L HEART, PERC APPROACH (12/07/15) PERCUTAN NEEDLE BIOPSY OF PROSTATE (08/03/14) RADICAL EXCIS SKIN LES (11/23/12) TRANSFUSE NONAUT RED BLOOD CELLS IN PERIPH VEIN, PERC (12/07/15) TRANSFUSE NONAUT WHOLE BLOOD IN PERIPH VEIN, PERC (06/04/16) Family History: States: Unknown Family Hx - Social History Hx Alcohol Use: No Hx Substance Use: No - Immunization History Hx Tetanus Toxoid Vaccination: No Hx Influenza Vaccination: No Hx Pneumococcal Vaccination: No Review Of Systems Except As Marked, All Systems Reviewed And Found Negative. Constitutional: Positive for: Weight loss (25-30lbs. ). Negative for: Fever Gastrointestinal: Negative for: Nausea, Vomiting Musculoskeletal: Positive for: Other (right toe pain.) Physical Exam - Physical Exam Appears: Well, Non-toxic, No Acute Distress, Chronically Ill Skin: Normal Color, Warm, Dry Head: Atraumatic, Normacephalic Eye(s): bilateral: Normal Inspection, EOMI Nose: Normal Oral Mucosa: Moist Neck: Normal ROM, Supple Chest: Symmetrical, No Deformity Cardiovascular: Rhythm Regular, Murmur Respiratory: Normal Breath Sounds, No Rales, No Rhonchi, No Wheezing Gastrointestinal/Abdominal: Normal Exam, Soft, No Tenderness Extremity: Normal ROM, Tenderness (over the right 1st toe with mild swelling and erythema), No Pedal Edema, No Calf Tenderness, Capillary Refill (less than 2 seconds.), No Deformity Neurological/Psych: Oriented x3, Normal Speech ED Course And Treatment - Laboratory Results Result Diagrams: 04/01/18 13:07 04/01/18 13:07 O2 Sat by Pulse Oximetry: 100 (RA) Pulse Ox Interpretation: Normal - Other Rad X-ray ABD obstr. series X-Ray: Viewed By Me, Read By Radiologist Interpretation: FINDINGS: CHEST: Lungs: No infiltrate. Vaguely nodular opacity at left base overlying posterior 9th rib and anterior 6th rib. This may be artifactual due to confluence. However, further radiographic evaluation is advised with shallow frontal oblique chest radiographs. As this could also represent a nipple shadow, recommend these additional views be performed with nipple markers. Cardiovascular: Normal size heart. No pulmonary vascular con gestion. Pleura: No pleural fluid. No pneumothorax. Other findings: None. ABDOMEN AND PELVIS: Bowel: No evidence of bowel obstruction. Moderate retained feces. No hepatic or splenic enlargement. No masses or abnormal intra-abdominal calcifications. Free air: None. Bones: Unremarkable. Other findings: None. IMPRESSION: Moderate retained feces. Nodular opacity seen at left lung base. Recommend further radiographic evaluation with shallow frontal obliques performed with radiopaque nipple markers. Progress Note: Plan: EKG. Blood sent. Urinalysis. X-ray Obstructive Series. 12:50pm : Spoke with Dr. Garcia regarding patient's case who notes the patient lost 25-30lbs in 6 months, has had frequent falls, unsteady gait, uncontrolled diabetes, and non-compliant with outpatient follow ups. Dr. Strong requests admission under Dr. Durán. 1:55pm : Case discussed with Dr Durán, agreed upon plan and admission. Disposition - Disposition Disposition: HOSPITALIZED Disposition Time: 16:00 Condition: STABLE - Clinical Impression Clinical Impression: Weight loss, unintentional, Uncontrolled diabetes mellitus - PA / LINE DECORATOR / Resident Statement MD/DO has reviewed & agrees with the documentation as recorded. - Scribe Statement The provider has reviewed the documentation as recorded by the Scribe (Bernie Spain) All medical record entries made by the Scribe were at my direction and personally dictated by me. I have reviewed the chart and agree that the record accurately reflects my personal performance of the history, physical exam, medical decision making, and the department course for this patient. I have also personally directed, reviewed, and agree with the discharge instructions and disposition.
[2018-04-01 13:15] LABS: BASO % 0.6 % (0.0-2.0); EOS % 0.3 % (0.0-4.0); HEMOGLOBIN 12.4 g/dL (12.0-18.0); LYMPH # 0.7 K/uL (1.0-4.3); LYMPH % 12.2 % (20.0-40.0); MEAN CELL VOLUME 89.4 fL (80.0-94.0); MEAN CORPUSCULAR HEMOGLOBIN 29.3 pg (27.0-31.0); MEAN CORPUSCULAR HGB CONC 32.7 g/dL (33.0-37.0); MEAN PLATELET VOLUME 9.3 fL (7.2-11.7); MONO # 0.4 K/uL (0.0-0.8); MONO % 7.7 % (0.0-10.0); NEUT # 4.5 K/uL (1.8-7.0); NEUT % 79.2 % (50.0-75.0); NRBC % 0.1 % (0.0-2.0); RBC 4.24 Mil/uL (4.40-5.90); URINE BILIRUBIN NEGATIVE (NEGATIVE); URINE BLOOD 1+ (NEGATIVE); URINE CLARITY Clear (Clear); URINE COLOR Straw (YELLOW); URINE GLUCOSE (UA) 3+ mg/dL (Normal); URINE LEUKOCYTE ESTERASE NEG Leu/uL (Negative); URINE PROTEIN 3+ mg/dL (NEGATIVE); URINE UROBILINOGEN NORMAL mg/dL (0.2-1.0); WHITE BLOOD COUNT 5.7 K/uL (4.8-10.8)
[2018-04-01 13:19] LABS: INR 0.9
[2018-04-01 13:37] LABS: ALB/GLOB RATIO 1.3 (1.0-2.1); ALBUMIN 4.2 g/dL (3.5-5.0); ALT/SGPT 42 U/L (21-72); AST/SGOT 50 U/L (17-59); BLOOD UREA NITROGEN 20 mg/dL (9-20); CALCIUM 9.2 mg/dl (8.6-10.4); GFR NON-AFRICAN AMERICAN > 60; LIPASE 180 U/L (23-300)
[2018-04-01 13:47] LABS: PROTHROMBIN TIME 9.9 SECONDS (9.7-12.2)
[2018-04-01] MEDS ORDERED: Sodium Chloride 0.9% 1,000 ML IV ONE ×2 (13:52→14:43)
[2018-04-01] MEDS ORDERED: (Novolin R) Insulin Human Regular 100 units/ml vial IVP ONE (13:53)
[2018-04-01] MEDS ORDERED: (Novolin R) Insulin Human Regular 100 units/ml vial ONE (14:03)
[2018-04-01] MEDS ORDERED: Sodium Chloride 0.9% 1,000 ML ONE (14:03)
--- NOTE | 2018-04-01 14:43 | RAD ---
Date of service: 04/01/2018 PROCEDURE: Radiographs of the chest and abdomen (obstructive series) HISTORY: Abd Pain COMPARISON: Chest radiograph 01/14/2018. TECHNIQUE: AP radiograph of the chest, with upright and supine radiographs of the abdomen. FINDINGS: CHEST: Lungs: No infiltrate. Vaguely nodular opacity at left base overlying posterior 9th rib and anterior 6th rib. This may be artifactual due to confluence. However, further radiographic evaluation is advised with shallow frontal oblique chest radiographs. As this could also represent a nipple shadow, recommend these additional views be performed with nipple markers. Cardiovascular: Normal size heart. No pulmonary vascular congestion. Pleura: No pleural fluid. No pneumothorax. Other findings: None ABDOMEN AND PELVIS: Bowel: No evidence of bowel obstruction. Moderate retained feces. No hepatic or splenic enlargement. No masses or abnormal intra-abdominal calcifications. Free air: None. Bones: Unremarkable. Other findings: None IMPRESSION: Moderate retained feces. Nodular opacity seen at left lung base. Recommend further radiographic evaluation with shallow frontal obliques performed with radiopaque nipple markers.
--- NOTE | 2018-04-01 15:02 | CP.PCM.HP ---
History of Present Illness - History of Present Illness History of Present Illness: cc: "weight loss" Mr. Samuel is a 72 year old male PMH uncontrolled DM, arthritis, HTN, CAD, prostate CA s/p radiation comes to [place] upon appointment with Dr. Garcia. In the ED he was found to have a blood sugar in the 500s and remained in the 400s despite insulin administration. Patient is noncompliant with his medication because he only takes 1 pill from each bottle despite dosing instructions. He also constantly skips meals when lunchtime passes and has lost about 20 lbs in the last year unintentionally. Complained in the ED about stomach cramping, however since had a BM and a meal and is no longer having such complaints. He tripped and stubbed his toe 3 days ago and complains that his R great toe is still throbbing, although he is able to bear weight and walk normally. PMD: Dr. Durán PMH: DM, Arthritis, HTN, CAD PSH: back surgery (20 years ago), prostate radiation ??? Meds: Glipezide 10mg bid, Jardiance 10mg daily, omeprazole 20mg daily, lisinopril 10mg daily, metformin 1000 bid Allergies: NKDA Social Hx: Former smoker quit years ago, denies alcohol and drug use Code: Full Code Present on Admission - Present on Admission Any Indicators Present on Admission: No Review of Systems - Constitutional Constitutional: Anorexia, Weight Loss. absent: Fatigue, Fever, Frequent Falls, Headache, Weight Gain - EENT Eyes: Requires Corrective Lenses. absent: Blind Spots, Blurred Vision, Diplopia, Discharge, Photophobia, Loss of Vision Ears: absent: Decreased Hearing, Tinnitus, Disequilibrium, Dizziness Nose/Mouth/Throat: absent: Hoarsness - Cardiovascular Cardiovascular: absent: Chest Pain, Chest Pain at Rest, Chest Pain with Activity, Claudication, Diaphoresis, Dyspnea on Exertion, Irregular Heart Rhythm, Lightheadedness, Pedal Edema, Radiating Pain - Respiratory Respiratory: absent: Cough, Dyspnea, Hemoptysis, Dyspnea on Exertion - Gastrointestinal Gastrointestinal: Cramping. absent: Abdominal Pain, Belching, Constipation, Diarrhea, Dyspepsia, Dysphagia, Odynophagia - Genitourinary Genitourinary: absent: Change in Urinary Stream, Difficulty Urinating, Dysuria - Musculoskeletal Musculoskeletal: Arthralgias, Tingling. absent: Back Pain, Muscle Cramps, Muscle Weakness, Myalgias, Numbness - Integumentary Integumentary: absent: Sores, Swelling, Unusual Bruising - Neurological Neurological: Sensory Deficit, Tingling. absent: Dizziness, Numbness, Frequent Falls - Psychiatric Psychiatric: absent: Hallucinations, Mood Swings - Endocrine Endocrine: Cold Intolorance. absent: Heat Intolorance, Polydipsia, Polyphagia, Polyuria - Hematologic/Lymphatic Hematologic: absent: Easy Bleeding, Easy Bruising Past Patient History - Infectious Disease Hx of Infectious Diseases: None, VRE - Past Medical History & Family History Past Medical History?: Yes - Past Social History Smoking Status: Former Smoker Alcohol: None Drugs: Denies - CARDIAC Hx Hypercholesterolemia: Yes Hx Hypertension: Yes - PULMONARY Hx Respiratory Disorders: Yes (SOB) - NEUROLOGICAL Hx Neurological Disorder: No - HEENT Hx HEENT Problems: Yes (PARTIAL LOSS OF SIGHT RIGHT EYE FROM ACCIDENT) - RENAL Hx Chronic Kidney Disease: No - ENDOCRINE/METABOLIC Hx Endocrine Disorders: Yes Hx Diabetes Mellitus Type 2: Yes - HEMATOLOGICAL/ONCOLOGICAL Hx Blood Disorders: Yes Hx Cancer: Yes (PROSTATE- treated) - INTEGUMENTARY Hx Dermatological Problems: No - MUSCULOSKELETAL/RHEUMATOLOGICAL Hx Falls: No - GASTROINTESTINAL Hx Gastrointestinal Disorders: Yes - GENITOURINARY/GYNECOLOGICAL Hx Genitourinary Disorders: Yes Hx Prostate Cancer: Yes Hx Prostate Problems: Yes - PSYCHIATRIC Hx Substance Use: No - SURGICAL HISTORY Hx Surgeries: Yes Hx Eye Surgery: Yes (RIGHT) Hx Musculoskeletal Surgery: Yes (LUMBAR) Other/Comment: PROSTATE BX RADIATION - ANESTHESIA Hx Anesthesia: Yes Hx Anesthesia Reactions: Yes (DIFFICULTY VOIDING) Hx Malignant Hyperthermia: No Meds Allergies/Adverse Reactions: Allergies Allergy/AdvReac Type Severity Reaction Status Date / Time No Known Allergies Allergy Verified 04/01/18 11:29 Physical Exam - Constitutional Appears: Non-toxic, No Acute Distress - Head Exam Head Exam: ATRAUMATIC, NORMOCEPHALIC - Eye Exam Eye Exam: EOMI, PERRL Additional comments: glasses L pterygium - ENT Exam ENT Exam: Mucous Membranes Moist Additional comments: poor dentition, does not have upper dentures - Respiratory Exam Respiratory Exam: Clear to Auscultation Bilateral, NORMAL BREATHING PATTERN. absent: Rales, Rhonchi, Wheezes - Cardiovascular Exam Cardiovascular Exam: REGULAR RHYTHM, +S1, +S2, Systolic Murmur. absent: Gallop, Rubs Additional comments: holosystolic whoosh with radiation to axilla - GI/Abdominal Exam GI & Abdominal Exam: Normal Bowel Sounds, Soft. absent: Tenderness - Extremities Exam Additional comments: IV access in R hand R great toe erythematous, warm to touch, full active and passive ROM with tenderness upon passively reaching barrier decreased sensation on bottom of feet bilaterally - Back Exam Back exam: absent: CVA tenderness (L), CVA tenderness (R) - Neurological Exam Neurological exam: Alert, CN II-XII Intact, Normal Gait, Oriented x3, Reflexes Normal - Psychiatric Exam Psychiatric exam: Normal Affect, Normal Mood - Skin Skin Exam: Dry, Normal Color, Warm Results - Vital Signs Recent Vital Signs: Last Vital Signs Temp 98.3 F 04/01/18 14:06 Pulse 63 04/01/18 14:06 Resp 16 04/01/18 14:06 BP 186/76 H 04/01/18 14:06 Pulse Ox 100 04/01/18 14:06 - Labs Result Diagrams: 04/01/18 13:07 04/01/18 13:07 Labs: Laboratory Results - last 24 hr 04/01/18 04/01/18 04/01/18 13:07 13:07 13:07 WBC 5.7 RBC 4.24 L Hgb 12.4 Hct 37.9 MCV 89.4 D MCH 29.3 MCHC 32.7 L RDW 15.0 H Plt Count 265 MPV 9.3 Neut % (Auto) 79.2 H Lymph % (Auto) 12.2 L [place] % (Auto) 7.7 Eos % (Auto) 0.3 Baso % (Auto) 0.6 Neut # (Auto) 4.5 Lymph # (Auto) 0.7 L [place] # (Auto) 0.4 Eos # (Auto) 0.0 Baso # (Auto) 0.0 PT 9.9 INR 0.9 APTT 28 Sodium Potassium Chloride Carbon Dioxide Anion Gap BUN Creatinine Est GFR ( Amer) Est GFR (Non-Af Amer) POC Glucose (mg/dL) Random Glucose Calcium Total Bilirubin AST ALT Alkaline Phosphatase Total Protein Albumin Globulin Albumin/Globulin Ratio Lipase Urine Color Straw Urine Clarity Clear Urine pH 6.0 Ur Specific [place] 1.030 Urine Protein 3+ H Urine Glucose (UA) 3+ H Urine Ketones Negative Urine Blood 1+ H Urine Nitrate Negative Urine Bilirubin Negative Urine Urobilinogen Normal Ur Leukocyte Esterase Neg Urine WBC (Auto) < 1 Urine RBC (Auto) 6 H 04/01/18 04/01/18 13:07 14:33 WBC RBC Hgb Hct MCV MCH MCHC RDW Plt Count MPV Neut % (Auto) Lymph % (Auto) [place] % (Auto) Eos % (Auto) Baso % (Auto) Neut # (Auto) Lymph # (Auto) [place] # (Auto) Eos # (Auto) Baso # (Auto) PT INR APTT Sodium 134 Potassium 4.3 Chloride 99 Carbon Dioxide 27 Anion Gap 12 BUN 20 Creatinine 0.8 Est GFR ( Amer) > 60 Est GFR (Non-Af Amer) > 60 POC Glucose (mg/dL) 463 H* Random Glucose 521 H* D Calcium 9.2 Total Bilirubin 0.4 AST 50 ALT 42 Alkaline Phosphatase 105 Total Protein 7.4 Albumin 4.2 Globulin 3.2 Albumin/Globulin Ratio 1.3 Lipase 180 Urine Color Urine Clarity Urine pH Ur Specific [place] Urine Protein Urine Glucose (UA) Urine Ketones Urine Blood Urine Nitrate Urine Bilirubin Urine Urobilinogen Ur Leukocyte Esterase Urine WBC (Auto) Urine RBC (Auto) Assessment & Plan - Assessment and Plan (Free Text) Assessment: 72yoM PMH DM2, arthritis, HTN, CAD, prostate CA s/p radiation admitted for uncontrolled DM. Plan: Diabetes Mellitus - uncontrolled - Blood glucose on admission 521 -> given 4u insulin in ED -> POC 463 - A1c (01/14) 18.6 last admission - f/u beta-hydroxybuterate - f/u Hgb A1c - home Metformin 1000mg po bid - home glipezide 10mg po bid - home Jardiance 10mg po daily non-formulary - Lantus 10u SC HS - ISS - high - Accucheck ACHS R great toe swelling - f/u XR R foot - Tylenol 650mg po q8 prn for pain Hypertension - home Lisinopril 10mg increased to 40mg po daily - monitor vitals CAD - Crestor 10mg po HS - f/u lipid panel Abdominal cramping - resolved - Obstructive series (04/01): moderate retained feces. Nodular opacities seen at L lung base - self resolved after patient ate lunch and had a BM PPx DVT: Heparin 5000u sc q12, SCDs GI: not indicated at this time Diet: HHD 2g Na, low carb 1/2NS@200 4L d/w Dr. Leeanna Peralta PGY-1 - Date & Time Date: 04/01/18 Time: 15:00
[2018-04-01] MEDS ORDERED: Dextrose 50% SYRINGE Inj (50 ml) IV PRN (15:13)
[2018-04-01] MEDS ORDERED: Glucagon Recombinant 1 mg Inj IM PRN (15:13)
[2018-04-01 16:05] VITALS: RESP 20
[2018-04-01] MEDS: Sodium Chloride 0.45% 1,000 ML IV SCH ×2 (16:55→21:45)
[2018-04-01] MEDS: (Novolog) Insulin Aspart, Recombinant 100 u/ml 10 ml vial SC SCH ×2 (16:55→22:49)
[2018-04-01] MEDS: GlipiZIDE 10 mg SR Tab PO SCH (18:45)
[2018-04-01] MEDS ORDERED: (Lantus) Insulin Glargine, Recombinant SC SCH (22:00)
[2018-04-02] MEDS: Sodium Chloride 0.45% 1,000 ML IV SCH ×2 (02:30→07:45)
[2018-04-02 06:15] LABS: BASO % 0.7 % (0.0-2.0); EOS # 0.1 K/uL (0.0-0.7); EOS % 1.3 % (0.0-4.0); LYMPH # 1.2 K/uL (1.0-4.3); LYMPH % 23.2 % (20.0-40.0); MEAN CELL VOLUME 89.3 fL (80.0-94.0); MEAN CORPUSCULAR HEMOGLOBIN 29.3 pg (27.0-31.0); MEAN CORPUSCULAR HGB CONC 32.8 g/dL (33.0-37.0); MEAN PLATELET VOLUME 8.9 fL (7.2-11.7); MONO # 0.5 K/uL (0.0-0.8); MONO % 9.6 % (0.0-10.0); NEUT # 3.3 K/uL (1.8-7.0); NEUT % 65.2 % (50.0-75.0); RBC 3.74 Mil/uL (4.40-5.90); RED CELL DISTRIBUTION WIDTH 15.1 % (11.5-14.5); WHITE BLOOD COUNT 5.1 K/uL (4.8-10.8)
[2018-04-02 06:40] LABS: LDL CHOLESTEROL 170 mg/dL (0-129)
[2018-04-02 06:41] LABS: ALB/GLOB RATIO 1.1 (1.0-2.1); ALT/SGPT 46 U/L (21-72); AST/SGOT 55 U/L (17-59); BLOOD UREA NITROGEN 16 mg/dL (9-20); CALCIUM 8.5 mg/dl (8.6-10.4); GFR NON-AFRICAN AMERICAN > 60; HDL CHOLESTEROL 60 mg/dL (30-70)
[2018-04-02] MEDS: (Novolog) Insulin Aspart, Recombinant 100 u/ml 10 ml vial SC SCH ×3 (07:27→17:17)
--- NOTE | 2018-04-02 08:37 | RAD ---
Date of service: 04/01/2018 PROCEDURE: Right Foot Radiographs. HISTORY: R toe swelling COMPARISON: None. FINDINGS: BONES: No fracture. First distal phalangeal medial exostosis. Osseous hypertrophic changes distal phalanges-2nd through 5th digits. Os peroneum present JOINTS: Mild 1st MTP arthrosis. Mild diffuse proximal and distal interphalangeal joint space narrowing SOFT TISSUES: Normal. OTHER FINDINGS: Clinodactyly and hammertoe like orientations noted. IMPRESSION: No fracture or lytic lesion. Multifocal arthrosis as above. Other findings as above.
[2018-04-02] MEDS: GlipiZIDE 10 mg SR Tab PO SCH (10:29)
--- NOTE | 2018-04-02 16:16 | CP.PCM.DIS ---
Provider - Provider Date of Admission: 04/01/18 13:57 Attending physician: Rhett Durán Jr, MD Time Spent in preparation of Discharge (in minutes): 45 Diagnosis - Discharge Diagnosis (1) Uncontrolled diabetes mellitus Status: Acute Hospital Course - Lab Results Lab Results: Most Recent Lab Values WBC 5.1 K/uL (4.8-10.8) 04/02/18 06:07 RBC 3.74 Mil/uL (4.40-5.90) L 04/02/18 06:07 Hgb 11.0 g/dL (12.0-18.0) L 04/02/18 06:07 Hct 33.4 % (35.0-51.0) L 04/02/18 06:07 MCV 89.3 fL (80.0-94.0) 04/02/18 06:07 MCH 29.3 pg (27.0-31.0) 04/02/18 06:07 MCHC 32.8 g/dL (33.0-37.0) L 04/02/18 06:07 RDW 15.1 % (11.5-14.5) H 04/02/18 06:07 Plt Count 224 K/uL (130-400) 04/02/18 06:07 MPV 8.9 fL (7.2-11.7) 04/02/18 06:07 Neut % (Auto) 65.2 % (50.0-75.0) 04/02/18 06:07 Lymph % (Auto) 23.2 % (20.0-40.0) 04/02/18 06:07 [place] % (Auto) 9.6 % (0.0-10.0) 04/02/18 06:07 Eos % (Auto) 1.3 % (0.0-4.0) 04/02/18 06:07 Baso % (Auto) 0.7 % (0.0-2.0) 04/02/18 06:07 Neut # (Auto) 3.3 K/uL (1.8-7.0) 04/02/18 06:07 Lymph # (Auto) 1.2 K/uL (1.0-4.3) 04/02/18 06:07 [place] # (Auto) 0.5 K/uL (0.0-0.8) 04/02/18 06:07 Eos # (Auto) 0.1 K/uL (0.0-0.7) 04/02/18 06:07 Baso # (Auto) 0.0 K/uL (0.0-0.2) 04/02/18 06:07 PT 9.9 SECONDS (9.7-12.2) 04/01/18 13:07 INR 0.9 04/01/18 13:07 APTT 28 SECONDS (21-34) 04/01/18 13:07 Sodium 138 mmol/L (132-148) 04/02/18 06:07 Potassium 4.6 mmol/L (3.6-5.2) 04/02/18 06:07 Chloride 109 mmol/L (98-107) H 04/02/18 06:07 Carbon Dioxide 27 mmol/L (22-30) 04/02/18 06:07 Anion Gap 7 (10-20) L 04/02/18 06:07 BUN 16 mg/dL (9-20) 04/02/18 06:07 Creatinine 0.7 mg/dL (0.8-1.5) L 04/02/18 06:07 Est GFR ( Amer) > 60 04/02/18 06:07 Est GFR (Non-Af Amer) > 60 04/02/18 06:07 POC Glucose (mg/dL) 292 mg/dL (65-110) H 04/02/18 11:00 Random Glucose 100 mg/dL (75-110) 04/02/18 06:07 Hemoglobin A1c 12.9 % (4.2-6.5) H D 04/02/18 06:07 Calcium 8.5 mg/dl (8.6-10.4) L 04/02/18 06:07 Phosphorus 3.0 mg/dL (2.5-4.5) 04/02/18 06:07 Magnesium 2.1 mg/dL (1.6-2.3) 04/02/18 06:07 Total Bilirubin 0.2 mg/dL (0.2-1.3) 04/02/18 06:07 AST 55 U/L (17-59) 04/02/18 06:07 ALT 46 U/L (21-72) 04/02/18 06:07 Alkaline Phosphatase 79 U/L (38-126) 04/02/18 06:07 Total Protein 5.7 g/dL (6.3-8.3) L 04/02/18 06:07 Albumin 3.0 g/dL (3.5-5.0) L D 04/02/18 06:07 Globulin 2.7 gm/dL (2.2-3.9) 04/02/18 06:07 Albumin/Globulin Ratio 1.1 (1.0-2.1) 04/02/18 06:07 Triglycerides 177 mg/dL (0-149) H 04/02/18 06:07 Cholesterol 266 mg/dL (0-199) H 04/02/18 06:07 LDL Cholesterol Direct 170 mg/dL (0-129) H 04/02/18 06:07 HDL Cholesterol 60 mg/dL (30-70) 04/02/18 06:07 Lipase 180 U/L (23-300) 04/01/18 13:07 Urine Color Straw (YELLOW) 04/01/18 13:07 Urine Clarity Clear (Clear) 04/01/18 13:07 Urine pH 6.0 (5.0-8.0) 04/01/18 13:07 Ur Specific [place] 1.030 (1.003-1.030) 04/01/18 13:07 Urine Protein 3+ mg/dL (NEGATIVE) H 04/01/18 13:07 Urine Glucose (UA) 3+ mg/dL (Normal) H 04/01/18 13:07 Urine Ketones Negative mg/dL (NEGATIVE) 04/01/18 13:07 Urine Blood 1+ (NEGATIVE) H 04/01/18 13:07 Urine Nitrate Negative (NEGATIVE) 04/01/18 13:07 Urine Bilirubin Negative (NEGATIVE) 04/01/18 13:07 Urine Urobilinogen Normal mg/dL (0.2-1.0) 04/01/18 13:07 Ur Leukocyte Esterase Neg [place]/uL (Negative) 04/01/18 13:07 Urine WBC (Auto) < 1 /hpf (0-5) 04/01/18 13:07 Urine RBC (Auto) 6 /hpf (0-3) H 04/01/18 13:07 B-Hydroxybutyrate 0.14 mM (0.02-0.27) 11/07/18 17:13 - Hospital Course Hospital Course: Mr. Samuel is a 72 year old male PMH uncontrolled DM, arthritis, HTN, CAD, prostate CA s/p radiation comes to [place] upon appointment with Dr. Garcia. In the ED he was found to have a blood sugar in the 500s and remained in the 400s despite insulin administration. Patient is noncompliant with his medication because he only takes 1 pill from each bottle despite dosing instructions. He also constantly skips meals when lunchtime passes and has lost about 20 lbs in the last year unintentionally. Complained in the ED about stomach cramping, however since had a BM and a meal and is no longer having such complaints. He tripped and stubbed his toe 3 days ago and complains that his R great toe is still throbbing, although he is able to bear weight and walk normally. ED did a Obstructive XR which was unremarkable. EKG and UA unremarkable. Restarted on home DM medications. Hgb A1c 12.9. XR of R foot showed no fracture; age related arthrosis. Overnight Lantus 10 given. Home Lisinopril 10mg increased to 40mg per PMD Dr. Durán. Home statin switched to Crestor while hospitalized. With compliance to medication, blood sugar stabilized to an acceptable level and patient clinically better. Primary Diagnosis: Uncontrolled Diabetes Mellitus type 2 Patient is clear for discharge per Dr. Durán. He is being discharged with a couple of medication changes and should take them as prescribed: Glipizide 10mg by mouth once a day Lisinopril 40mg by mouth once a day Metformin 1000mg by mouth twice a day Simvastatin 20mg by mouth at bedtime It is important to take your diabetes medication as prescribed. For example, your Metformin is given to you in 500mg tablets. So you must take two tablets each time, twice a day. Please take them as prescribed so your sugar doesn't spike again. You need to follow up with Dr. Durán on Fri or Mon. he is expecting you at the office. Please return to the ED if your sugar spikes again, if you feel headaches, nauseous, vomiting, dizziness, numbness, tingling. Plan was discussed with patient who understood and agreed. This is a summary of the hospital course. Please refer to the EMR for more detail. - Date & Time of H&P Date of H&P: 04/02/18 Time of H&P: 15:45 Discharge Exam - Head Exam Head Exam: ATRAUMATIC, NORMOCEPHALIC - Eye Exam Eye Exam: EOMI, PERRL Additional comments: glasses - ENT Exam ENT Exam: Mucous Membranes Moist Additional comments: poor dentition, does not have upper dentures - Respiratory Exam Respiratory Exam: Clear to PA & Lateral, NORMAL BREATHING PATTERN. absent: Rales, Rhonchi, Wheezes - Cardiovascular Exam Cardiovascular Exam: REGULAR RHYTHM, +S1, +S2, Systolic Murmur. absent: Gallop, Rubs Additional comments: holosystolic whoosh with radiation to axilla - GI/Abdominal Exam GI & Abdominal Exam: Normal Bowel Sounds, Soft. absent: Tenderness - Extremities Exam Additional comments: IV access in R hand removed prior to discharge R great toe erythematous, warm to touch, full active and passive ROM with tenderness upon passively reaching barrier decreased sensation on bottom of feet bilaterally - Neurological Exam Neurological exam: Alert, CN II-XII Intact, Normal Gait, Oriented x3, Reflexes Normal - Psychiatric Exam Psychiatric exam: Normal Affect, Normal Mood - Skin Skin Exam: Dry, Normal Color, Warm Discharge Plan - Discharge Medications Prescriptions: Glipizide [Glipizide Xl] 10 mg PO BID #14 tab.er.24 Lisinopril [Zestril] 40 mg PO DAILY #7 tab metFORMIN [glucOPHAGE] 1,000 mg PO BID #14 tab Simvastatin 20 mg PO HS #7 tablet - Follow Up Plan Condition: STABLE Disposition: HOME/ ROUTINE Instructions: Type 2 Diabetes, Diabetes Diet , Lisinopril, Simvastatin Additional Instructions: Patient is clear for discharge per Dr. Durán. He is being discharged with a couple of medication changes and should take them as prescribed: Glipizide 10mg by mouth once a day Lisinopril 40mg by mouth once a day Metformin 1000mg by mouth twice a day Simvastatin 20mg by mouth at bedtime It is important to take your diabetes medication as prescribed. For example, your Metformin is given to you in 500mg tablets. So you must take two tablets each time, twice a day. Please take them as prescribed so your sugar doesn't spike again. You need to follow up with Dr. Durán on Fri or Mon. he is expecting you at the office. Please return to the ED if your sugar spikes again, if you feel headaches, nauseous, vomiting, dizziness, numbness, tingling. Plan was discussed with patient who understood and agreed. Referrals: Rhett Durán Jr., MD [Medical Doctor] -
[2018-04-02 16:29] VITALS: BP 158/67; PULSE 61; TEMP 98.1; O2SAT 99
--- NOTE | 2018-04-02 21:44 | CARD ---
APPROVED REPORT Date of service: 04/01/2018 EKG Measurement Heart [id number] <Conclusion> Normal sinus rhythm Minimal voltage criteria for LVH, may be normal variant Borderline ECG
== END 2018-04-02 17:50 | disposition home or self-care (01) ==
LOC: C.ER 11:13 → C.9E 13:57 → C.5S 14:19
PROVIDERS: ADMIT Internal Medicine; ATTEND Internal Medicine
DX: E11.65 Type 2 diabetes mellitus with hyperglycemia (principal); I10 Essential (primary) hypertension; I25.10 Atherosclerotic heart disease of native coronary artery without angina pectoris; Z85.46 Personal history of malignant neoplasm of prostate; Z87.891 Personal history of nicotine dependence; Z91.14 Patient's other noncompliance with medication regimen; E78.00 Pure hypercholesterolemia, unspecified; S99.929A Unspecified injury of unspecified foot, initial encounter; W22.8XXA Striking against or struck by other objects, initial encounter; Z79.84 Long term (current) use of oral hypoglycemic drugs; Z92.3 Personal history of irradiation
CPT/HCPCS: 36415; 73630; 74022; 80053; 80061; 81001; 82009; 82948; 83036; 83690; 83735; 84100; 85025; 85610; 85730; 93005; 96361; 96372; 96374; 99285; G0378; J1644; J7030

== ENCOUNTER 2018-07-27 19:27 | Inpatient (IN) | payer MEDICARE, OTHER | END 2018-08-03 20:22 | disposition home or self-care (01) | DRG 638 | LOC: C.ER 19:27 → C.9E 21:41 → C.5S 22:35 | DX: E11.65 Type 2 diabetes mellitus with hyperglycemia (principal); Z68.1 Body mass index [BMI] 19.9 or less, adult; E78.2 Mixed hyperlipidemia; E87.5 Hyperkalemia; I11.9 Hypertensive heart disease without heart failure; I25.10 Atherosclerotic heart disease of native coronary artery without angina pectoris; N40.0 Benign prostatic hyperplasia without lower urinary tract symptoms; R29.6 Repeated falls; R62.7 Adult failure to thrive; Z79.84 Long term (current) use of oral hypoglycemic drugs; Z87.891 Personal history of nicotine dependence; E11.40 Type 2 diabetes mellitus with diabetic neuropathy, unspecified; G31.84 Mild cognitive impairment of uncertain or unknown etiology; I05.9 Rheumatic mitral valve disease, unspecified; Z85.46 Personal history of malignant neoplasm of prostate ==

== ENCOUNTER 2018-09-01 15:33 | Inpatient (IN) | payer OTHER ==
[2018-09-01 15:34] VITALS: BMI 20.4
--- NOTE | 2018-09-01 16:20 | C.PDOC ---
History Of Present Illness Patient is a 73 year old male, with a PMHx of prior anemia due to hematuria, who presents to the ED c/o recurrent hematuria that began today. Patient states that he has had intermittent hematuria for the past month, positive gross bright red blood with clots. Patient is positive for a chronic sanchez and is s/p multiple cystoscopy and CBI at [facility] for the same. He also currently c/o increased generalized weakness. Positive UO without difference. He denies any abdominal pain, swelling or other associated symptoms. RECUR HEMATURIA TODAY. INTERMIT HEMATURIA X 1 MO, +GROSS BRB W CLOTS. +CHRONIC SANCHEZ. S/P MULT CYSTOSCOPY AND CBI @ [facility] FOR SAME. HO PRIOR ANEMIA DUE TO HEMATURIA. PT CO INCR GEN WEAKNESS. +UO WO DIFF. NO ABD PAIN, SWELL OTHER ASSOC SX. FAMILY STATES BASELINE HGB >10 EXAM NONTOXIC HEENT NO PALLOR ABD SOFT NT ND NO R/G SANCHEZ IN PLACE +GROSS HEMATURIA REMAINDER NEG Time Seen by Provider: 09/01/18 16:10 Chief Complaint (Nursing): Male Genitourinary History Per: Patient History/Exam Limitations: no limitations Onset/Duration Of Symptoms: Hrs Current Symptoms Are (Timing): Still Present Associated Symptoms: Other (generalized weakness) Recent travel outside of the [place]: No Additional History Per: Patient Past Medical History Reviewed: Historical Data, Nursing Documentation, Vital Signs Vital Signs: Last Vital Signs Temp 98.3 F 09/01/18 15:47 Pulse 85 09/01/18 15:47 Resp 18 09/01/18 15:47 BP 120/67 09/01/18 15:47 Pulse Ox 99 09/01/18 15:47 - Medical History PMH: Diabetes, HTN, Hypercholesterolemia Denies: Chronic Kidney Disease Surgical History: No Surg Hx - [facility] Procedures COLONOSCOPY (11/24/13) DX ULTRASOUND NEC (08/03/14) EXCISION OF STOMACH, ENDO, DIAGN (12/07/15) FLEXIBLE SIGMOIDOSCOPY (11/03/13) FLUOROSCOPY OF LEFT HEART USING LOW OSMOLAR CONTRAST (12/07/15) FLUOROSCOPY OF MULT COR ART USING L OSM CONTRAST (12/07/15) INSPECTION OF LOWER INTESTINAL TRACT, ENDO (12/07/15) INSPECTION OF UPPER INTESTINAL TRACT, ENDO (06/04/16) MEASURE OF CARDIAC SAMPL & PRESSURE, L HEART, PERC APPROACH (12/07/15) PERCUTAN NEEDLE BIOPSY OF PROSTATE (08/03/14) RADICAL EXCIS SKIN LES (11/23/12) TRANSFUSE NONAUT RED BLOOD CELLS IN PERIPH VEIN, PERC (12/07/15) TRANSFUSE NONAUT WHOLE BLOOD IN PERIPH VEIN, PERC (06/04/16) Family History: States: Unknown Family Hx - Social History Hx Alcohol Use: No Hx Substance Use: No - Immunization History Hx Tetanus Toxoid Vaccination: No Hx Influenza Vaccination: No Hx Pneumococcal Vaccination: No Review Of Systems Except As Marked, All Systems Reviewed And Found Negative. Constitutional: Positive for: Weakness Gastrointestinal: Negative for: Abdominal Pain Genitourinary: Positive for: Hematuria (with positive bright red blood with clots) Physical Exam - Physical Exam Appears: Non-toxic Head: Atraumatic, Normacephalic, Other (NO PALLOR) Neck: Supple Chest: Symmetrical, No Deformity Cardiovascular: Rhythm Regular, No Murmur Respiratory: No Rales, No Rhonchi, No Wheezing, Other (NARD) Gastrointestinal/Abdominal: Soft, No Tenderness, No Distention, No Guarding, No Rebound Male Genital: Other (SANCHEZ IN PLACE +GROSS HEMATURIA) Extremity: Normal ROM Neurological/Psych: Oriented x3, Normal Speech, Normal Cognition ED Course And Treatment - Laboratory Results Result Diagrams: 09/01/18 16:50 O2 Sat by Pulse Oximetry: 99 (on RA) Pulse Ox Interpretation: Normal Progress Note: Plan: Labs. Urinalysis Progress - Re-Evaluation Re-evaluation Note: 09/01/18 17:13 EXMA UNCH. +ANEMIA WILL TRANSFUSE D/W DR KWONG WILL ADMIT - Data Reviewed Data Reviewed: Lab, Diagnostic imaging, Old records Disposition Counseled Patient/Family Regarding: Studies Performed, Diagnosis - Disposition Disposition: HOSPITALIZED Disposition Time: 17:14 Condition: STABLE Forms: [facility] ([place] Islander) - POA Present On Arrival: None - Clinical Impression Clinical Impression: Symptomatic anemia, Hematuria - Scribe Statement The provider has reviewed the documentation as recorded by the Archana Williamson All medical record entries made by the Paulinaibtiago were at my direction and personally dictated by me. I have reviewed the chart and agree that the record accurately reflects my personal performance of the history, physical exam, medical decision making, and the department course for this patient. I have also personally directed, reviewed, and agree with the discharge instructions and disposition.
[2018-09-01 17:03] LABS: BASO # 0.1 K/uL (0.0-0.2); BASO % 0.7 % (0.0-2.0); EOS # 0.1 K/uL (0.0-0.7); EOS % 0.9 % (0.0-4.0); HEMOGLOBIN 7.8 g/dL (12.0-18.0); LYMPH # 0.9 K/uL (1.0-4.3); LYMPH % 11.3 % (20.0-40.0); MEAN CELL VOLUME 89.1 fL (80.0-94.0); MEAN CORPUSCULAR HEMOGLOBIN 29.2 pg (27.0-31.0); MEAN CORPUSCULAR HGB CONC 32.8 g/dL (33.0-37.0); MEAN PLATELET VOLUME 7.4 fL (7.2-11.7); MONO # 0.7 K/uL (0.0-0.8); MONO % 9.4 % (0.0-10.0); NEUT % 77.7 % (50.0-75.0); RBC 2.66 Mil/uL (4.40-5.90); RED CELL DISTRIBUTION WIDTH 15.1 % (11.5-14.5); WHITE BLOOD COUNT 7.8 K/uL (4.8-10.8)
[2018-09-01 17:20] LABS: URINE BACTERIA RARE (<OCC); URINE BILIRUBIN NEGATIVE (NEGATIVE); URINE BLOOD 3+ (NEGATIVE); URINE CLARITY Hazy (Clear); URINE GLUCOSE (UA) 3+ mg/dL (Normal); URINE LEUKOCYTE ESTERASE NEG Leu/uL (Negative); URINE PROTEIN 2+ mg/dL (NEGATIVE); URINE UROBILINOGEN NORMAL mg/dL (0.2-1.0)
[2018-09-01 17:21] LABS: URINE COLOR RED (YELLOW)
[2018-09-01 17:48] LABS: BLOOD UREA NITROGEN 34 mg/dL (9-20); CALCIUM 8.2 mg/dl (8.6-10.4); GFR NON-AFRICAN AMERICAN 59
[2018-09-01 18:08] LABS: PROTHROMBIN TIME 10.8 SECONDS (9.7-12.2)
[2018-09-01] MEDS ORDERED: Glucagon Recombinant 1 mg Inj IM PRN (21:02)
[2018-09-01] MEDS ORDERED: Dextrose 50% SYRINGE Inj (50 ml) IV PRN (21:02)
[2018-09-01] MEDS: (Novolin R) Insulin Human Regular 100 units/ml vial SC SCH (23:01)
[2018-09-01] MEDS: (Lantus) Insulin Glargine, Recombinant SC SCH (23:02)
--- NOTE | 2018-09-02 03:55 | CP.PCM.HP ---
History of Present Illness - History of Present Illness History of Present Illness: cc: "look at my pee" Patient is a 73 year old male with a PMH DM, HTN, arthritis, CAD sent in by Dr. Garcia for pete red urine in Harris. Patient is a poor historian and does not remember when the Harris was placed or replaced. He is uncooperative with interview and physical, demanding that he be given pain medication and have his Harris changed prior to answering any questions. Admits to suprapubic pain. Denies other symptoms, including chest pain, shortness of breath, abdominal pain, numbness, tingling, bleeding from other areas. Patient does not recall when his last meal, nor his last BM was. He was recently hospitalized at [facility] 07/27-04/13 for poor DM control and frequent falls. PMH: DM, Arthritis, HTN, CAD PSH: back surgery (20 years ago), prostate radiation ??? Meds: -Glipizide 10mg by mouth PO daily -Lisinopril 40mg by mouth PO daily -Metformin 1000mg PO BID -Simvastatin 20mg PO HS Allergies: NKDA Social Hx: Former smoker quit years ago, denies alcohol and drug use Code: Full Code Present on Admission - Present on Admission Any Indicators Present on Admission: Yes History of Uncontrolled Diabetes: Yes Review of Systems - Review of Systems Systems not reviewed;Unavailable: Altered Mental Status, Uncooperative - Constitutional Constitutional: absent: Chills, Fever, Headache, Weakness Past Patient History - Infectious Disease Hx of Infectious Diseases: None - Past Medical History & Family History Past Medical History?: Yes - Past Social History Smoking Status: Former Smoker Alcohol: None Drugs: Denies - CARDIAC Hx Hypercholesterolemia: Yes Hx Hypertension: Yes - PULMONARY Hx Respiratory Disorders: Yes (SOB) - NEUROLOGICAL Hx Neurological Disorder: No - HEENT Hx HEENT Problems: Yes (PARTIAL LOSS OF SIGHT RIGHT EYE FROM ACCIDENT) - RENAL Hx Chronic Kidney Disease: No - ENDOCRINE/METABOLIC Hx Endocrine Disorders: Yes Hx Diabetes Mellitus Type 2: Yes - HEMATOLOGICAL/ONCOLOGICAL Hx Blood Disorders: Yes Hx Cancer: Yes (PROSTATE- treated) - INTEGUMENTARY Hx Dermatological Problems: No - MUSCULOSKELETAL/RHEUMATOLOGICAL Hx Falls: No - GASTROINTESTINAL Hx Gastrointestinal Disorders: Yes - GENITOURINARY/GYNECOLOGICAL Hx Genitourinary Disorders: Yes Hx Prostate Cancer: Yes Hx Prostate Problems: Yes - PSYCHIATRIC Hx Substance Use: No - SURGICAL HISTORY Hx Surgeries: Yes Hx Eye Surgery: Yes (RIGHT) Hx Musculoskeletal Surgery: Yes (LUMBAR) Other/Comment: PROSTATE BX RADIATION - ANESTHESIA Hx Anesthesia: Yes Hx Anesthesia Reactions: Yes (DIFFICULTY VOIDING) Hx Malignant Hyperthermia: No Meds Allergies/Adverse Reactions: Allergies Allergy/AdvReac Type Severity Reaction Status Date / Time No Known Allergies Allergy Verified 09/01/18 15:52 Physical Exam - Constitutional Appears: Non-toxic, No Acute Distress - Head Exam Head Exam: ATRAUMATIC, NORMOCEPHALIC - Eye Exam Eye Exam: EOMI, PERRL Pupil Exam: NORMAL ACCOMODATION - ENT Exam ENT Exam: Mucous Membranes Dry - Respiratory Exam Respiratory Exam: Clear to Auscultation Bilateral, NORMAL BREATHING PATTERN. absent: Rales, Rhonchi, Wheezes - Cardiovascular Exam Cardiovascular Exam: REGULAR RHYTHM, +S1, +S2, Systolic Murmur Additional comments: holosystolic murmur at apex - GI/Abdominal Exam GI & Abdominal Exam: Normal Bowel Sounds, Soft. absent: Tenderness - Exam Exam: absent: Bladder Distension Additional comments: Harris in place red dried blood at urethral meatus Harris collection bag showing heather red urine - Extremities Exam Extremities exam: Positive for: normal capillary refill, normal inspection, pedal pulses present - Back Exam Back exam: absent: CVA tenderness (L), CVA tenderness (R) - Neurological Exam Neurological exam: Alert Additional comments: forgetful, oriented to person only uncooperative with exam - Psychiatric Exam Psychiatric exam: Agitated - Skin Skin Exam: Dry, Pallor Results - Vital Signs Recent Vital Signs: Last Vital Signs Temp 98.7 F 09/02/18 00:14 Pulse 80 09/02/18 00:14 Resp 20 09/02/18 00:14 BP 156/42 H 09/02/18 00:14 Pulse Ox 97 09/02/18 00:00 - Labs Result Diagrams: 09/01/18 16:50 09/01/18 16:50 Labs: Laboratory Results - last 24 hr 09/01/18 09/01/18 09/01/18 16:50 16:50 16:50 WBC 7.8 D RBC 2.66 L Hgb 7.8 L Hct 23.7 L MCV 89.1 MCH 29.2 MCHC 32.8 L RDW 15.1 H Plt Count 428 H D MPV 7.4 Neut % (Auto) 77.7 H Lymph % (Auto) 11.3 L [place] % (Auto) 9.4 Eos % (Auto) 0.9 Baso % (Auto) 0.7 Neut # (Auto) 6.0 Lymph # (Auto) 0.9 L [place] # (Auto) 0.7 Eos # (Auto) 0.1 Baso # (Auto) 0.1 PT INR APTT Sodium 134 Potassium 4.6 Chloride 101 Carbon Dioxide 32 H Anion Gap 6 L BUN 34 H Creatinine 1.2 Est GFR ( Amer) > 60 Est GFR (Non-Af Amer) 59 POC Glucose (mg/dL) Random Glucose 185 H Calcium 8.2 L Urine Color Red Urine Clarity Hazy Urine pH 6.0 Ur Specific [place] 1.018 Urine Protein 2+ H Urine Glucose (UA) 3+ H Urine Ketones Negative Urine Blood 3+ H Urine Nitrate Negative Urine Bilirubin Negative Urine Urobilinogen Normal Ur Leukocyte Esterase Neg Urine WBC (Auto) 6 H Urine RBC (Auto) 80073 H Urine Bacteria Rare Blood Type Antibody Screen 09/01/18 09/01/18 09/01/18 17:38 17:42 21:03 WBC RBC Hgb Hct MCV MCH MCHC RDW Plt Count MPV Neut % (Auto) Lymph % (Auto) [place] % (Auto) Eos % (Auto) Baso % (Auto) Neut # (Auto) Lymph # (Auto) [place] # (Auto) Eos # (Auto) Baso # (Auto) PT 10.8 INR 1.0 APTT 30 Sodium Potassium Chloride Carbon Dioxide Anion Gap BUN Creatinine Est GFR ( Amer) Est GFR (Non-Af Amer) POC Glucose (mg/dL) 328 H Random Glucose Calcium Urine Color Urine Clarity Urine pH Ur Specific [place] Urine Protein Urine Glucose (UA) Urine Ketones Urine Blood Urine Nitrate Urine Bilirubin Urine Urobilinogen Ur Leukocyte Esterase Urine WBC (Auto) Urine RBC (Auto) Urine Bacteria Blood Type A POSITIVE Antibody Screen Negative Assessment & Plan - Assessment and Plan (Free Text) Assessment: 73yo M PMH DM, HTN, arthritis, CAD admitted for anemia and heather hematuria. 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 Leeanna Peralta PGY-1 - Date & Time Date: 09/01/18 Time: 21:05
[2018-09-02 07:24] LABS: BASO # 0.1 K/uL (0.0-0.2); BASO % 0.8 % (0.0-2.0); EOS # 0.1 K/uL (0.0-0.7); EOS % 0.7 % (0.0-4.0); HEMOGLOBIN 8.7 g/dL (12.0-18.0); LYMPH # 0.7 K/uL (1.0-4.3); LYMPH % 8.8 % (20.0-40.0); MEAN CORPUSCULAR HEMOGLOBIN 30.3 pg (27.0-31.0); MEAN CORPUSCULAR HGB CONC 34.4 g/dL (33.0-37.0); MEAN PLATELET VOLUME 7.8 fL (7.2-11.7); MONO # 0.6 K/uL (0.0-0.8); MONO % 7.8 % (0.0-10.0); NEUT # 6.2 K/uL (1.8-7.0); NEUT % 81.9 % (50.0-75.0); PLATELET COUNT 376 K/uL (130-400); RBC 2.86 Mil/uL (4.40-5.90); RED CELL DISTRIBUTION WIDTH 14.7 % (11.5-14.5); WHITE BLOOD COUNT 7.5 K/uL (4.8-10.8)
--- NOTE | 2018-09-02 07:24 | CP.PCM.PN ---
Subjective - Date & Time of Evaluation Date of Evaluation: 09/02/18 Time of Evaluation: 08:15 - Subjective Subjective: Medicine progress note for Dr. Durán Pt seen and examined at bedside. Patient continues to have heather hematuria w/ pain around the area. Denies burning, trauma, chest pain, headaches, vision changes, SOB, N/V. Objective - Vital Signs/Intake and Output Vital Signs (last 24 hours): Temp Pulse Resp BP Pulse Ox 98.7 F 80 20 156/42 H 97 09/02/18 00:14 09/02/18 00:14 09/02/18 00:14 09/02/18 00:14 09/02/18 00:00 Intake and Output: 09/02/18 09/02/18 06:59 18:59 Intake Total 1000 Output Total 1000 Balance 0 - Medications Medications: Current Medications Dextrose (Dextrose 50% Inj) 0 ml IV STAT PRN; Protocol PRN Reason: Hypoglycemia Protocol Dextrose (Glutose 15) 0 gm PO ONCE PRN; Protocol PRN Reason: Hypoglycemia Protocol Docusate Sodium (Colace) 100 mg PO BID [facility] Gabapentin (Neurontin) 300 mg PO TID [facility] Glipizide (Glucotrol Xl) 10 mg PO BID [facility] Glucagon (Glucagen Diagnostic Kit) 0 mg IM STAT PRN; Protocol PRN Reason: Hypoglycemia Protocol Home Med (Empagliflozin [Jardiance]) 10 mg PO DAILY [facility] Dextrose (Dextrose 5% In Water 1000 Ml) 1,000 mls @ 0 mls/hr IV .Q0M PRN; Protocol PRN Reason: Hypoglycemia Protocol Insulin Glargine (Lantus) 10 unit SC HS [facility] Last Admin: 09/01/18 23:02 Dose: 10 u Insulin Human Regular (Novolin R) 0 unit SC [facility]; Protocol Last Admin: 09/01/18 23:01 Dose: 2 u Lisinopril (Zestril) 40 mg PO DAILY [facility] Metformin HCl (Glucophage) 500 mg PO BID [facility] Rosuvastatin Calcium (Crestor) 5 mg PO HS [facility] Last Admin: 09/01/18 23:04 Dose: 5 mg Tamsulosin HCl (Flomax) 0.4 mg PO DAILY [facility] - Labs Labs: 09/01/18 16:50 09/01/18 16:50 PT 10.8 SECONDS (9.7-12.2) 09/01/18 17:42 INR 1.0 09/01/18 17:42 APTT 30 SECONDS (21-34) 09/01/18 17:42 - Constitutional Appears: Non-toxic, No Acute Distress - Head Exam Head Exam: NORMAL INSPECTION - Eye Exam Eye Exam: EOMI, Normal appearance - ENT Exam ENT Exam: Mucous Membranes Moist - Respiratory Exam Respiratory Exam: Clear to Ausculation Bilateral, NORMAL BREATHING PATTERN. absent: Rales, Rhonchi, Wheezes - Cardiovascular Exam Cardiovascular Exam: +S1, +S2, Murmur - GI/Abdominal Exam GI & Abdominal Exam: Soft, Normal Bowel Sounds - Exam Additional comments: sanchez in place, producing heather hematuria - Back Exam Back Exam: absent: CVA tenderness (L), CVA tenderness (R) - Neurological Exam Neurological Exam: Alert, Awake, Oriented x3 - Psychiatric Exam Psychiatric exam: Normal Affect, Normal Mood - Skin Skin Exam: Dry, Normal Color, Warm Assessment and Plan - Assessment and Plan (Free Text) Assessment: 73yo M PMH DM, HTN, arthritis, CAD, prostate cancer, admitted for anemia and heather hematuria. Plan: Heather hematuria Anemia Hgb 7.8 on admission; x 1 PRBC, now hgb 8.7 UA 2+ protein, 3+ glucose, 3+ blood, 6 WBC, [address] RBC UC: Staph aureus - vancomyocin 1g Q12 - F/u uro Dr. 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
[2018-09-02 07:46] LABS: ALB/GLOB RATIO 0.9 (1.0-2.1); ALBUMIN 2.5 g/dL (3.5-5.0); ALT/SGPT 62 U/L (21-72); AST/SGOT 82 U/L (17-59); BLOOD UREA NITROGEN 33 mg/dL (9-20); CALCIUM 7.8 mg/dl (8.6-10.4); GFR NON-AFRICAN AMERICAN > 60
[2018-09-02] MEDS: (Novolin R) Insulin Human Regular 100 units/ml vial SC SCH ×4 (08:25→22:10)
[2018-09-02 08:34] LABS: ANISOCYTOSIS SLIGHT; EOSINOPHIL 2 % (0-4); HYPOCHROMIC SLIGHT; LYMPHOCYTE 8 % (20-40); MONOCYTE 7 % (0-10); NEUTROPHIL 83 % (50-75); PLATELET ESTIMATE NORMAL (NORMAL); POIKILOCYTOSIS SLIGHT; TOTAL CELLS COUNTED 100
[2018-09-02 08:35] LABS: TARGET CELLS SLIGHT
[2018-09-02] MEDS: GlipiZIDE 10 mg SR Tab PO SCH ×2 (09:05→18:56)
--- NOTE | 2018-09-02 12:15 | CP.PCM.PN ---
Subjective - Date & Time of Evaluation Date of Evaluation: 09/02/18 Time of Evaluation: 12:13 - Subjective Subjective: Tcept thehis patient is a patient Monico Ya. Please call him and have Resident call me. I do not ac patients insurance. Nacho Objective - Vital Signs/Intake and Output Vital Signs (last 24 hours): Temp Pulse Resp BP Pulse Ox 98.8 F 76 20 168/68 H 99 09/02/18 07:00 09/02/18 09:08 09/02/18 07:00 09/02/18 09:08 09/02/18 07:00 Intake and Output: 09/02/18 09/02/18 06:59 18:59 Intake Total 1000 325 Output Total 1000 Balance 0 325 - Medications Medications: Current Medications Dextrose (Dextrose 50% Inj) 0 ml IV STAT PRN; Protocol PRN Reason: Hypoglycemia Protocol Dextrose (Glutose 15) 0 gm PO ONCE PRN; Protocol PRN Reason: Hypoglycemia Protocol Docusate Sodium (Colace) 100 mg PO BID [facility] Last Admin: 09/02/18 09:06 Dose: 100 mg Gabapentin (Neurontin) 300 mg PO TID [facility] Last Admin: 09/02/18 09:06 Dose: 300 mg Glipizide (Glucotrol Xl) 10 mg PO BID [facility] Last Admin: 09/02/18 09:05 Dose: 10 mg Glucagon (Glucagen Diagnostic Kit) 0 mg IM STAT PRN; Protocol PRN Reason: Hypoglycemia Protocol Home Med (Empagliflozin [Jardiance]) 10 mg PO DAILY [facility] Dextrose (Dextrose 5% In Water 1000 Ml) 1,000 mls @ 0 mls/hr IV .Q0M PRN; Protocol PRN Reason: Hypoglycemia Protocol Insulin Glargine (Lantus) 10 unit SC [facility] Last Admin: 09/01/18 23:02 Dose: 10 u Insulin Human Regular (Novolin R) 0 unit SC [facility]; Protocol Last Admin: 09/02/18 08:25 Dose: 4 u Lisinopril (Zestril) 40 mg PO DAILY [facility] Last Admin: 09/02/18 09:06 Dose: 40 mg Metformin HCl (Glucophage) 500 mg PO BID [facility] Last Admin: 09/02/18 09:06 Dose: 500 mg Rosuvastatin Calcium (Crestor) 5 mg PO [facility] Last Admin: 09/01/18 23:04 Dose: 5 mg Tamsulosin HCl (Flomax) 0.4 mg PO DAILY [facility] Last Admin: 09/02/18 09:05 Dose: 0.4 mg - Labs Labs: 09/02/18 07:12 09/02/18 07:12 PT 10.8 SECONDS (9.7-12.2) 09/01/18 17:42 INR 1.0 09/01/18 17:42 APTT 30 SECONDS (21-34) 09/01/18 17:42
[2018-09-02] MEDS: Oxycodone/Acetaminophen 5/325 mg Tab PO PRN (16:26)
[2018-09-02] MEDS ORDERED: Iodixanol 320 MG/ML 100 ML BOTTLE IV ONE (16:47)
[2018-09-02] MEDS: Vancomycin 1 gm/NS 200 ml 1 GM/200 ML BAG IVPB SCH (18:55)
[2018-09-02] MEDS: (Lantus) Insulin Glargine, Recombinant SC SCH (22:06)
[2018-09-03] MEDS: Oxycodone/Acetaminophen 5/325 mg Tab PO PRN ×3 (04:59→22:09)
[2018-09-03] MEDS: Vancomycin 1 gm/NS 200 ml 1 GM/200 ML BAG IVPB SCH ×2 (06:13→17:42)
[2018-09-03] MEDS: (Novolin R) Insulin Human Regular 100 units/ml vial SC SCH ×4 (07:24→21:34)
[2018-09-03 07:39] LABS: BASO % 0.8 % (0.0-2.0); EOS # 0.1 K/uL (0.0-0.7); EOS % 2.6 % (0.0-4.0); HEMOGLOBIN 8.6 g/dL (12.0-18.0); LYMPH # 0.7 K/uL (1.0-4.3); MEAN CELL VOLUME 88.5 fL (80.0-94.0); MEAN CORPUSCULAR HEMOGLOBIN 29.3 pg (27.0-31.0); MEAN CORPUSCULAR HGB CONC 33.1 g/dL (33.0-37.0); MEAN PLATELET VOLUME 7.8 fL (7.2-11.7); MONO # 0.5 K/uL (0.0-0.8); MONO % 10.3 % (0.0-10.0); NEUT # 3.4 K/uL (1.8-7.0); NEUT % 71.3 % (50.0-75.0); NRBC % 0.1 % (0.0-2.0); RBC 2.94 Mil/uL (4.40-5.90); WHITE BLOOD COUNT 4.7 K/uL (4.8-10.8)
[2018-09-03 07:51] LABS: ALBUMIN 2.6 g/dL (3.5-5.0); ALT/SGPT 51 U/L (21-72); AST/SGOT 65 U/L (17-59); BLOOD UREA NITROGEN 25 mg/dL (9-20); CALCIUM 8.2 mg/dl (8.6-10.4); GFR NON-AFRICAN AMERICAN > 60
[2018-09-03 08:36] LABS: TESTOSTERONE 341 ng/mL
[2018-09-03] MEDS: GlipiZIDE 10 mg SR Tab PO SCH ×2 (10:23→17:43)
--- NOTE | 2018-09-03 10:54 | CT ---
Date of service: 09/02/2018 PROCEDURE: CT Abdomen and Pelvis with and without intravenous contrast HISTORY: hx prostate cancer, BPH, heather hematuria COMPARISON: CT abdomen and pelvis with contrast performed 03/26/17 TECHNIQUE: Axial images of the abdomen were obtained in the pre contrast, portal venous and delayed phases of enhancement. Coronal and sagittal reformats were generated and reviewed. Contrast dose: 100 cc Visipaque 320 IV Radiation dose: Total exam DLP = 1436.45 mGy-cm. This CT exam was performed using one or more of the following dose reduction techniques: Automated exposure control, adjustment of the mA and/or kV according to patient size, and/or use of iterative reconstruction technique. FINDINGS: LOWER THORAX: Small bilateral pleural effusions and associated consolidations. No visible pneumothorax. LIVER: Unremarkable. GALLBLADDER AND BILE DUCTS: Contracted state limits evaluation. Otherwise unremarkable. PANCREAS: Unremarkable. SPLEEN: Unremarkable. ADRENALS: Unremarkable. KIDNEYS AND URETERS: The kidneys enhance symmetrically. Bilateral hydroureteronephrosis. Redundant appearance of the right ureter which makes and apparent loop at the L4 level. VASCULATURE: No aortic aneurysm. Dense atherosclerotic calcifications of the aorta and branches. BOWEL: Stomach is nondistended. Lack of oral contrast limits evaluation for bowel pathology. Bowel loops appear within normal limits of caliber without evidence of obstruction. Constipation. APPENDIX: The appendix appears within normal limits of caliber. No secondary signs of acute appendicitis. PERITONEUM: No significant free fluid. No definite free air. LYMPH NODES: No bulky adenopathy. BLADDER: Distended urinary bladder appears irregularly thick walled. Harris catheter present without decompression of the urinary bladder. Question presence of debris or neoplasm within the dependent portion of the urinary bladder. REPRODUCTIVE: Heterogeneous enlarged prostate gland measures approximately 5.3 x 6.3 cm. BONES: Osseous demineralization. Degenerative changes. OTHER FINDINGS: None. IMPRESSION: Bilateral hydroureteronephrosis. Redundant appearance of the right ureter which makes and apparent loop at the L4 level. Distended urinary bladder appears irregularly thick walled. Harris catheter present without decompression of the urinary bladder. Question presence of debris or neoplasm within the dependent portion of the urinary bladder. Heterogeneous enlarged prostate gland. Recommend correlation with PSA. Small bilateral pleural effusions. Additional findings as above. Preliminary impression was provided by [employer]
--- NOTE | 2018-09-03 11:43 | CP.PCM.PN ---
Subjective - Date & Time of Evaluation Date of Evaluation: 09/03/18 Time of Evaluation: 11:41 - Subjective Subjective: DR KWONG SERVICE-IM Pt s/e at bedside, complains of persistent hematuria per sanchez, pt denies pain in the region, denies CP SOB [facility] at this time, denies syncope. Pt understands he needs to be seen by Urology for possible Cystoscopy. Objective - Vital Signs/Intake and Output Vital Signs (last 24 hours): Temp Pulse Resp BP Pulse Ox 98.5 F 65 20 163/71 H 96 09/03/18 08:00 09/03/18 08:00 09/03/18 08:00 09/03/18 08:00 09/03/18 08:00 Intake and Output: 09/03/18 09/03/18 06:59 18:59 Output Total 2250 Balance -2250 - Medications Medications: Current Medications Dextrose (Dextrose 50% Inj) 0 ml IV STAT PRN; Protocol PRN Reason: Hypoglycemia Protocol Dextrose (Glutose 15) 0 gm PO ONCE PRN; Protocol PRN Reason: Hypoglycemia Protocol Docusate Sodium (Colace) 100 mg PO BID [facility] Last Admin: 09/03/18 10:23 Dose: 100 mg Gabapentin (Neurontin) 300 mg PO TID [facility] Last Admin: 09/03/18 10:24 Dose: 300 mg Glipizide (Glucotrol Xl) 10 mg PO BID [facility] Last Admin: 09/03/18 10:23 Dose: 10 mg Glucagon (Glucagen Diagnostic Kit) 0 mg IM STAT PRN; Protocol PRN Reason: Hypoglycemia Protocol Home Med (Empagliflozin [Jardiance]) 10 mg PO DAILY [facility] Dextrose (Dextrose 5% In Water 1000 Ml) 1,000 mls @ 0 mls/hr IV .Q0M PRN; Protocol PRN Reason: Hypoglycemia Protocol Vancomycin/Sodium Chloride (Vancomycin 1 Gm/Ns 200 Ml) 1 gm in 200 mls @ 133 mls/hr IVPB Q12H [facility]; Protocol Stop: 09/07/18 18:01 Last Admin: 09/03/18 06:13 Dose: 133 mls/hr Insulin Glargine (Lantus) 10 unit SC HS [facility] Last Admin: 09/02/18 22:06 Dose: 10 u Insulin Human Regular (Novolin R) 0 unit SC [facility]; Protocol Last Admin: 09/03/18 07:24 Dose: Not Given Lisinopril (Zestril) 40 mg PO DAILY [facility] Last Admin: 09/03/18 10:23 Dose: 40 mg Metformin HCl (Glucophage) 500 mg PO BID [facility] Last Admin: 09/02/18 09:06 Dose: 500 mg Oxycodone/Acetaminophen (Percocet 5/325 Mg Tab) 1 tab PO Q8H PRN PRN Reason: Pain, severe (8-10) Stop: 09/05/18 13:42 Last Admin: 09/03/18 04:59 Dose: 1 tab Rosuvastatin Calcium (Crestor) 5 mg PO HS [facility] Last Admin: 09/02/18 22:07 Dose: 5 mg Tamsulosin HCl (Flomax) 0.4 mg PO DAILY [facility] Last Admin: 09/03/18 10:23 Dose: 0.4 mg - Labs Labs: 09/03/18 07:15 09/03/18 07:15 PT 10.8 SECONDS (9.7-12.2) 09/01/18 17:42 INR 1.0 09/01/18 17:42 APTT 30 SECONDS (21-34) 09/01/18 17:42 - Additional Findings Additional findings: - Constitutional Appears: Non-toxic, No Acute Distress - Head Exam Head Exam: ATRAUMATIC, NORMOCEPHALIC - Eye Exam Eye Exam: EOMI, PERRL Pupil Exam: NORMAL ACCOMODATION - ENT Exam ENT Exam: Mucous Membranes Dry - Respiratory Exam Respiratory Exam: Clear to Auscultation Bilateral, NORMAL BREATHING PATTERN. absent: Rales, Rhonchi, Wheezes - Cardiovascular Exam Cardiovascular Exam: REGULAR RHYTHM, +S1, +S2, Systolic Murmur Additional comments: holosystolic murmur at apex - GI/Abdominal Exam GI & Abdominal Exam: Normal Bowel Sounds, Soft. absent: Tenderness - Exam Exam: absent: Bladder Distension Additional comments: Sanchez in place red dried blood at urethral meatus Sanchez collection bag showing heather red urine - Extremities Exam Extremities exam: Positive for: normal capillary refill, normal inspection, pedal pulses present - Back Exam Back exam: absent: CVA tenderness (L), CVA tenderness (R) - Neurological Exam Neurological exam: Alert Additional comments: forgetful, oriented to person only uncooperative with exam - Psychiatric Exam Psychiatric exam: Agitated - Skin Skin Exam: Dry, Pallor Assessment and Plan - Assessment and Plan (Free Text) Assessment: 73yo M PMH DM, HTN, arthritis, CAD, prostate cancer, admitted for anemia and heather hematuria. Plan: Heather hematuria Anemia Hgb 7.8 on admission; x 1 PRBC, now hgb 8.7 UA 2+ protein, 3+ glucose, 3+ blood, 6 WBC, [address]66 RBC UC: Staph aureus - vancomyocin 1g Q12 - F/u uro Dr. 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
[2018-09-03] MEDS: (Lantus) Insulin Glargine, Recombinant SC SCH (21:31)
[2018-09-04] MEDS: Vancomycin 1 gm/NS 200 ml 1 GM/200 ML BAG IVPB SCH (06:05)
[2018-09-04] MEDS: Oxycodone/Acetaminophen 5/325 mg Tab PO PRN ×2 (06:28→15:41)
[2018-09-04 06:41] LABS: BASO % 0.7 % (0.0-2.0); EOS # 0.1 K/uL (0.0-0.7); EOS % 2.4 % (0.0-4.0); HEMOGLOBIN 7.4 g/dL (12.0-18.0); LYMPH # 0.9 K/uL (1.0-4.3); LYMPH % 18.1 % (20.0-40.0); MEAN CELL VOLUME 88.4 fL (80.0-94.0); MEAN CORPUSCULAR HGB CONC 32.8 g/dL (33.0-37.0); MEAN PLATELET VOLUME 7.9 fL (7.2-11.7); MONO # 0.5 K/uL (0.0-0.8); MONO % 10.1 % (0.0-10.0); NEUT # 3.5 K/uL (1.8-7.0); NEUT % 68.7 % (50.0-75.0); RBC 2.57 Mil/uL (4.40-5.90); RED CELL DISTRIBUTION WIDTH 14.7 % (11.5-14.5); WHITE BLOOD COUNT 5.1 K/uL (4.8-10.8)
[2018-09-04 07:41] LABS: ALB/GLOB RATIO 0.9 (1.0-2.1); ALBUMIN 2.4 g/dL (3.5-5.0); ALT/SGPT 76 U/L (21-72); AST/SGOT 94 U/L (17-59); BLOOD UREA NITROGEN 33 mg/dL (9-20); CALCIUM 7.8 mg/dl (8.6-10.4); GFR NON-AFRICAN AMERICAN 59
[2018-09-04] MEDS: (Novolin R) Insulin Human Regular 100 units/ml vial SC SCH ×4 (08:04→21:27)
--- NOTE | 2018-09-04 08:26 | CP.PCM.PN ---
Subjective - Date & Time of Evaluation Date of Evaluation: 09/04/18 Time of Evaluation: 08:26 - Subjective Subjective: Dr Durán Service- IM Pt s/e at bedside, complains of dark red blood per sanchez, denies pain in the area, denies any syncope, racing heart, loss of vision/balance, pt understands and agrees with plan for cystoscopy w/ Dr Wellington today. denies CP SOB FC [place] Objective - Vital Signs/Intake and Output Vital Signs (last 24 hours): Temp Pulse Resp BP Pulse Ox 97.7 F 72 20 169/76 H 99 09/04/18 08:00 09/04/18 08:00 09/04/18 08:00 09/04/18 08:00 09/04/18 08:00 Intake and Output: 09/04/18 09/04/18 06:59 18:59 Output Total 700 Balance -700 - Medications Medications: Current Medications Dextrose (Dextrose 50% Inj) 0 ml IV STAT PRN; Protocol PRN Reason: Hypoglycemia Protocol Dextrose (Glutose 15) 0 gm PO ONCE PRN; Protocol PRN Reason: Hypoglycemia Protocol Docusate Sodium (Colace) 100 mg PO BID [facility] Last Admin: 09/03/18 17:43 Dose: 100 mg Gabapentin (Neurontin) 300 mg PO TID [facility] Last Admin: 09/03/18 17:44 Dose: 300 mg Glipizide (Glucotrol Xl) 10 mg PO BID [facility] Last Admin: 09/03/18 17:43 Dose: 10 mg Glucagon (Glucagen Diagnostic Kit) 0 mg IM STAT PRN; Protocol PRN Reason: Hypoglycemia Protocol Dextrose (Dextrose 5% In Water 1000 Ml) 1,000 mls @ 0 mls/hr IV .Q0M PRN; Protocol PRN Reason: Hypoglycemia Protocol Vancomycin/Sodium Chloride (Vancomycin 1 Gm/Ns 200 Ml) 1 gm in 200 mls @ 133 mls/hr IVPB Q12H [facility]; Protocol Stop: 09/07/18 18:01 Last Admin: 09/04/18 06:05 Dose: 133 mls/hr Insulin Glargine (Lantus) 10 unit SC HS [facility] Last Admin: 09/03/18 21:31 Dose: 10 u Insulin Human Regular (Novolin R) 0 unit SC ACHS [facility]; Protocol Last Admin: 09/04/18 08:04 Dose: Not Given Lisinopril (Zestril) 40 mg PO DAILY [facility] Last Admin: 09/03/18 10:23 Dose: 40 mg Metformin HCl (Glucophage) 500 mg PO BID [facility] Last Admin: 09/02/18 09:06 Dose: 500 mg Morphine Sulfate (Morphine) 1 mg IVP STAT STA Stop: 09/04/18 08:25 Oxycodone/Acetaminophen (Percocet 5/325 Mg Tab) 1 tab PO Q8H PRN PRN Reason: Pain, severe (8-10) Stop: 09/05/18 13:42 Last Admin: 09/04/18 06:28 Dose: 1 tab Rosuvastatin Calcium (Crestor) 5 mg PO HS [facility] Last Admin: 09/03/18 21:30 Dose: 5 mg Sitagliptin Phosphate (Januvia) 50 mg PO DAILY [facility] Tamsulosin HCl (Flomax) 0.4 mg PO DAILY [facility] Last Admin: 09/03/18 10:23 Dose: 0.4 mg - Labs Labs: 09/04/18 06:30 09/04/18 06:30 PT 10.8 SECONDS (9.7-12.2) 09/01/18 17:42 INR 1.0 09/01/18 17:42 APTT 30 SECONDS (21-34) 09/01/18 17:42 - Additional Findings Additional findings: - Constitutional Appears: Non-toxic, No Acute Distress - Head Exam Head Exam: ATRAUMATIC, NORMOCEPHALIC - Eye Exam Eye Exam: EOMI, PERRL Pupil Exam: NORMAL ACCOMODATION - ENT Exam ENT Exam: Mucous Membranes Dry - Respiratory Exam Respiratory Exam: Clear to Auscultation Bilateral, NORMAL BREATHING PATTERN. absent: Rales, Rhonchi, Wheezes - Cardiovascular Exam Cardiovascular Exam: REGULAR RHYTHM, +S1, +S2, Systolic Murmur Additional comments: holosystolic murmur at apex - GI/Abdominal Exam GI & Abdominal Exam: Normal Bowel Sounds, Soft. absent: Tenderness - Exam Exam: absent: Bladder Distension Additional comments: Sanchez in place red dried blood at urethral meatus Sanchez collection bag showing dark red urine - Extremities Exam Extremities exam: Positive for: normal capillary refill, normal inspection, pedal pulses present - Back Exam Back exam: absent: CVA tenderness (L), CVA tenderness (R) - Neurological Exam Neurological exam: Alert Additional comments: forgetful, oriented to person only uncooperative with exam - Psychiatric Exam Psychiatric exam: Agitated - Skin Skin Exam: Dry, Pallor Assessment and Plan - Assessment and Plan (Free Text) Assessment: 73yo M PMH DM, HTN, arthritis, CAD, prostate cancer, admitted for anemia and heather hematuria. Plan: Heather hematuria Anemia Hgb 7.4 today, down from yesterday UA 2+ protein, 3+ glucose, 3+ blood, 6 WBC, [address] RBC UC: pending - Urology Dr. 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
--- NOTE | 2018-09-04 09:26 | RAD ---
Chest x-ray single frontal view History: Preoperative evaluation. COMPARISON: 07/27/2018 Findings: Mild venous congestion. Right hilar prominence. Atherosclerotic calcification at the aortic knob. Tortuous aorta. Heart size within normal limits. Degenerative changes in the spine and shoulders. Impression: Mild venous congestion. Right hilar prominence. Atherosclerotic calcification at the aortic knob. Tortuous aorta.
[2018-09-04] MEDS: GlipiZIDE 10 mg SR Tab PO SCH ×2 (09:41→17:12)
[2018-09-04] MEDS ORDERED: Propofol 10 mg/ml Inj (20 ML) ONE (11:17)
[2018-09-04] MEDS ORDERED: Lidocaine 2% Jelly (Uro-Jet) ONE (11:18)
[2018-09-04] MEDS ORDERED: Iohexol 240 (50 ml) ONE (11:18)
[2018-09-04] MEDS ORDERED: cefTRIAXone 1 gm 1 GM/100 ML BAG IVPB ONE (11:18)
--- NOTE | 2018-09-04 11:36 | CP.PCM.CON ---
Past Patient History - Infectious Disease Hx of Infectious Diseases: None - Past Medical History & Family History Past Medical History?: Yes - Past Social History Smoking Status: Former Smoker Alcohol: None Drugs: Denies - CARDIAC Hx Hypercholesterolemia: Yes Hx Hypertension: Yes - PULMONARY Hx Respiratory Disorders: Yes (SOB) - NEUROLOGICAL Hx Neurological Disorder: No - HEENT Hx HEENT Problems: Yes (PARTIAL LOSS OF SIGHT RIGHT EYE FROM ACCIDENT) - RENAL Hx Chronic Kidney Disease: No - ENDOCRINE/METABOLIC Hx Diabetes Mellitus Type 2: Yes - HEMATOLOGICAL/ONCOLOGICAL Hx Blood Disorders: Yes Hx Cancer: Yes (PROSTATE- treated) - INTEGUMENTARY Hx Dermatological Problems: No - MUSCULOSKELETAL/RHEUMATOLOGICAL Hx Falls: No - GASTROINTESTINAL Hx Gastrointestinal Disorders: Yes - GENITOURINARY/GYNECOLOGICAL Hx Genitourinary Disorders: Yes Hx Prostate Cancer: Yes Hx Prostate Problems: Yes - PSYCHIATRIC Hx Substance Use: No - SURGICAL HISTORY Hx Surgeries: Yes Hx Eye Surgery: Yes (RIGHT) Hx Musculoskeletal Surgery: Yes (LUMBAR) Other/Comment: PROSTATE BX RADIATION - ANESTHESIA Hx Anesthesia: Yes Hx Anesthesia Reactions: Yes (DIFFICULTY VOIDING) Hx Malignant Hyperthermia: No Meds Allergies/Adverse Reactions: Allergies Allergy/AdvReac Type Severity Reaction Status Date / Time No Known Allergies Allergy Verified 09/01/18 15:52 - Medications Medications: Current Medications Dextrose (Dextrose 50% Inj) 0 ml IV STAT PRN; Protocol PRN Reason: Hypoglycemia Protocol Dextrose (Glutose 15) 0 gm PO ONCE PRN; Protocol PRN Reason: Hypoglycemia Protocol Docusate Sodium (Colace) 100 mg PO BID [facility] Last Admin: 09/04/18 09:41 Dose: Not Given Gabapentin (Neurontin) 300 mg PO TID [facility] Last Admin: 09/04/18 09:41 Dose: Not Given Glipizide (Glucotrol Xl) 10 mg PO BID [facility] Last Admin: 09/04/18 09:41 Dose: Not Given Glucagon (Glucagen Diagnostic Kit) 0 mg IM STAT PRN; Protocol PRN Reason: Hypoglycemia Protocol Dextrose (Dextrose 5% In Water 1000 Ml) 1,000 mls @ 0 mls/hr IV .Q0M PRN; Protocol PRN Reason: Hypoglycemia Protocol Insulin Glargine (Lantus) 10 unit SC [facility] Last Admin: 09/03/18 21:31 Dose: 10 u Insulin Human Regular (Novolin R) 0 unit SC [facility]; Protocol Last Admin: 09/04/18 08:04 Dose: Not Given Lisinopril (Zestril) 40 mg PO DAILY [facility] Last Admin: 09/04/18 09:41 Dose: Not Given Metformin HCl (Glucophage) 500 mg PO BID [facility] Last Admin: 09/02/18 09:06 Dose: 500 mg Oxycodone/Acetaminophen (Percocet 5/325 Mg Tab) 1 tab PO Q8H PRN PRN Reason: Pain, severe (8-10) Stop: 09/05/18 13:42 Last Admin: 09/04/18 06:28 Dose: 1 tab Rosuvastatin Calcium (Crestor) 5 mg PO HS [facility] Last Admin: 09/03/18 21:30 Dose: 5 mg Sitagliptin Phosphate (Januvia) 50 mg PO DAILY [facility] Last Admin: 09/04/18 09:41 Dose: Not Given Tamsulosin HCl (Flomax) 0.4 mg PO DAILY [facility] Last Admin: 09/04/18 09:41 Dose: Not Given Results - Vital Signs Recent Vital Signs: Last Vital Signs Temp 97.6 F 09/04/18 10:21 Pulse 65 09/04/18 10:21 Resp 20 09/04/18 10:21 BP 169/75 H 09/04/18 10:21 Pulse Ox 99 09/04/18 10:21 - Labs Result Diagrams: 09/04/18 06:30 09/04/18 06:30 Labs: Laboratory Results - last 24 hr 09/03/18 09/03/18 09/04/18 16:15 21:14 06:14 WBC RBC Hgb Hct MCV MCH MCHC RDW Plt Count MPV Neut % (Auto) Lymph % (Auto) [place] % (Auto) Eos % (Auto) Baso % (Auto) Neut # (Auto) Lymph # (Auto) [place] # (Auto) Eos # (Auto) Baso # (Auto) Sodium Potassium Chloride Carbon Dioxide Anion Gap BUN Creatinine Est GFR ( Amer) Est GFR (Non-Af Amer) POC Glucose (mg/dL) 216 H 257 H 178 H Random Glucose Calcium Phosphorus Magnesium Total Bilirubin AST ALT Alkaline Phosphatase Total Protein Albumin Globulin Albumin/Globulin Ratio 09/04/18 09/04/18 06:30 06:30 WBC 5.1 RBC 2.57 L Hgb 7.4 L Hct 22.7 L MCV 88.4 MCH 29.0 MCHC 32.8 L RDW 14.7 H Plt Count 328 MPV 7.9 Neut % (Auto) 68.7 Lymph % (Auto) 18.1 L [place] % (Auto) 10.1 H Eos % (Auto) 2.4 Baso % (Auto) 0.7 Neut # (Auto) 3.5 Lymph # (Auto) 0.9 L [place] # (Auto) 0.5 Eos # (Auto) 0.1 Baso # (Auto) 0.0 Sodium 133 Potassium 4.7 Chloride 105 Carbon Dioxide 29 Anion Gap 4 L BUN 33 H Creatinine 1.2 Est GFR ( Amer) > 60 Est GFR (Non-Af Amer) 59 POC Glucose (mg/dL) Random Glucose 174 H D Calcium 7.8 L Phosphorus 3.5 Magnesium 2.3 Total Bilirubin 0.1 L AST 94 H D ALT 76 H D Alkaline Phosphatase 171 H Total Protein 4.9 L Albumin 2.4 L Globulin 2.5 Albumin/Globulin Ratio 0.9 L Assessment & Plan - Assessment and Plan (Free Text) Assessment: IMP: hematuria hx of prostate ca DM full note tbd YS - Date & Time Date: 09/04/18 Time: 11:15
[2018-09-04] MEDS ORDERED: ePHEDrine 50 mg/ml Inj ONE (11:51)
--- NOTE | 2018-09-04 12:13 | PCM.SURG1 ---
Surgeon's Initial Post Op Note - Surgeon's Notes Surgeon: Justus Wellington Cloud Engagement Partner: none Type of Anesthesia: General LMA Pre-Operative Diagnosis: Hematuria Operative Findings: Bleeding of prostate and bladder origin. clot retention Post-Operative Diagnosis: same Operation Performed: cysto. evacuation of clots. tur-bn and prostate Specimen/Specimens Removed: bn, prostate Estimated Blood Loss: EBL {In ML}: 50 Blood Products Given: N/A Date of Surgery/Procedure: 09/04/18 Time of Surgery/Procedure: 12:15
[2018-09-04] MEDS ORDERED: Lactated Ringer's 1,000 ML IV SCH (12:30)
--- NOTE | 2018-09-04 13:15 | RAD ---
Date of service: 09/04/2018 HISTORY: HEMATURIA COMPARISON: None available. TECHNIQUE: 1 view obtained. FINDINGS: Large amount of stool in the colon and bowel gas obscure the renal silhouette bilaterally. There are no calcifications in the pelvis along the expected course of the ureters. BOWEL: Normal. No obstruction. No free air. BONES: Normal. OTHER FINDINGS: None. IMPRESSION: Evaluation of nephrolithiasis is not possible due to extensive fecal material and bowel gas obscuring the renal silhouette. No evidence of calcifications in the pelvis along the expected course of the ureters.
[2018-09-04] MEDS: Lactated Ringer's 1,000 ML IV SCH (16:01)
[2018-09-04] MEDS: (Lantus) Insulin Glargine, Recombinant SC SCH (21:15)
[2018-09-05] MEDS: Oxycodone/Acetaminophen 5/325 mg Tab PO PRN ×2 (05:23→16:02)
[2018-09-05 07:11] LABS: BASO # 0.1 K/uL (0.0-0.2); BASO % 0.7 % (0.0-2.0); EOS % 0.4 % (0.0-4.0); HEMOGLOBIN 6.9 g/dL (12.0-18.0); LYMPH # 0.7 K/uL (1.0-4.3); LYMPH % 7.5 % (20.0-40.0); MEAN CORPUSCULAR HEMOGLOBIN 30.4 pg (27.0-31.0); MEAN CORPUSCULAR HGB CONC 34.5 g/dL (33.0-37.0); MEAN PLATELET VOLUME 8.3 fL (7.2-11.7); MONO # 0.8 K/uL (0.0-0.8); MONO % 8.7 % (0.0-10.0); NEUT # 7.4 K/uL (1.8-7.0); NEUT % 82.7 % (50.0-75.0); PLATELET COUNT 343 K/uL (130-400); RBC 2.26 Mil/uL (4.40-5.90); RED CELL DISTRIBUTION WIDTH 14.7 % (11.5-14.5)
[2018-09-05 07:34] LABS: ALBUMIN 2.5 g/dL (3.5-5.0); ALT/SGPT 63 U/L (21-72); AST/SGOT 57 U/L (17-59); BLOOD UREA NITROGEN 31 mg/dL (9-20); CALCIUM 8.2 mg/dl (8.6-10.4); GFR NON-AFRICAN AMERICAN > 60
--- NOTE | 2018-09-05 08:06 | CP.PCM.PN ---
Subjective - Date & Time of Evaluation Date of Evaluation: 09/05/18 Time of Evaluation: 08:00 - Subjective Subjective: Medicine Progress Note for Dr. Durán: Patient was seen and examined at bedside in the AM. Patient states he has slight pain at the sanchez site but otherwise is feeling well. Patient denies chest pain, shortness of breath, nausea, vomiting, fever or chills. Objective - Vital Signs/Intake and Output Vital Signs (last 24 hours): Temp Pulse Resp BP Pulse Ox 98 F 82 20 152/61 H 96 09/05/18 07:00 09/05/18 07:46 09/05/18 07:00 09/05/18 07:00 09/05/18 07:00 Intake and Output: 09/05/18 09/05/18 06:59 18:59 Intake Total 92831 Output Total 09928 Balance -1950 - Medications Medications: Current Medications Dextrose (Dextrose 50% Inj) 0 ml IV STAT PRN; Protocol PRN Reason: Hypoglycemia Protocol Dextrose (Glutose 15) 0 gm PO ONCE PRN; Protocol PRN Reason: Hypoglycemia Protocol Docusate Sodium (Colace) 100 mg PO BID [facility] Last Admin: 09/04/18 18:15 Dose: 100 mg Gabapentin (Neurontin) 300 mg PO TID [facility] Last Admin: 09/04/18 18:15 Dose: 300 mg Glipizide (Glucotrol Xl) 10 mg PO BID [facility] Last Admin: 09/04/18 17:12 Dose: Not Given Glucagon (Glucagen Diagnostic Kit) 0 mg IM STAT PRN; Protocol PRN Reason: Hypoglycemia Protocol Lactated Ringer's (Lactated Ringer's) 1,000 mls @ 50 mls/hr IV .Q20H [facility] Last Admin: 09/04/18 16:01 Dose: Not Given Insulin Glargine (Lantus) 10 unit SC HS [facility] Last Admin: 09/04/18 21:15 Dose: 10 u Insulin Human Regular (Novolin R) 0 unit SC ACHS [facility]; Protocol Last Admin: 09/04/18 21:27 Dose: 4 u Lisinopril (Zestril) 40 mg PO DAILY [facility] Last Admin: 09/04/18 09:41 Dose: Not Given Metformin HCl (Glucophage) 500 mg PO BID [facility] Last Admin: 09/02/18 09:06 Dose: 500 mg Oxycodone/Acetaminophen (Percocet 5/325 Mg Tab) 1 tab PO Q8H PRN PRN Reason: Pain, severe (8-10) Stop: 09/05/18 13:42 Last Admin: 09/05/18 05:23 Dose: 1 tab Rosuvastatin Calcium (Crestor) 5 mg PO HS [facility] Last Admin: 09/04/18 21:15 Dose: 5 mg Sitagliptin Phosphate (Januvia) 50 mg PO DAILY [facility] Last Admin: 09/04/18 09:41 Dose: Not Given Tamsulosin HCl (Flomax) 0.4 mg PO DAILY [facility] Last Admin: 09/04/18 09:41 Dose: Not Given - Labs Labs: 09/05/18 07:00 09/05/18 07:00 PT 10.8 SECONDS (9.7-12.2) 09/01/18 17:42 INR 1.0 09/01/18 17:42 APTT 30 SECONDS (21-34) 09/01/18 17:42 - Constitutional Appears: No Acute Distress - Head Exam Head Exam: ATRAUMATIC, NORMAL INSPECTION - Eye Exam Eye Exam: EOMI, Normal appearance - ENT Exam ENT Exam: Mucous Membranes Moist - Respiratory Exam Respiratory Exam: Clear to Ausculation Bilateral, NORMAL BREATHING PATTERN - Cardiovascular Exam Cardiovascular Exam: REGULAR RHYTHM, +S1, +S2 - GI/Abdominal Exam GI & Abdominal Exam: Soft, Normal Bowel Sounds. absent: Tenderness - Exam Additional comments: sanchez - urine clear - Extremities Exam Extremities Exam: Normal Inspection - Neurological Exam Neurological Exam: Alert, Awake, Oriented x3 - Psychiatric Exam Psychiatric exam: Normal Affect - Skin Skin Exam: Normal Color Assessment and Plan - Assessment and Plan (Free Text) Assessment: 73yo M PMH DM, HTN, arthritis, CAD, prostate cancer, admitted for anemia and heather hematuria. Plan: Heather hematuria Anemia - H/H 6.8/19.9 * Transferred 1 unit of PRBC * f/u CBC @6pm - UA 2+ protein, 3+ glucose, 3+ blood, 6 WBC, 38397 RBC - UC: pending - Total PSA 0.1 - Testosterone level 341 - Images: * Abdomen/Pelvis CT: Bilateral hydroureteronephrosis. Redundant appearance of the right ureter which makes and apparent loop at the L4 level. Distended urinary bladder appears irregularly thick walled. Sanchez catheter present without decompression of the urinary bladder. Question presence of debris or neoplasm within the dependent portion of the urinary bladder. Heterogeneous enlarged prostate gland. Recommend correlation with PSA. Small bilateral pleural effusions. * Abdominal Xray: Evaluation of nephrolithiasis is not possible due to extensive fecal material and bowel gas obscuring the renal silhouette. No evidence of calcifications in the pelvis along the expected course of the ureters. - Urology Dr. Ya recommending inpatient care to be continued with Dr Justus Wellington --> help appreciated * s/p Cystoscopy 09/04/18 * per Dr. 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
[2018-09-05] MEDS: (Novolin R) Insulin Human Regular 100 units/ml vial SC SCH ×4 (08:28→21:40)
[2018-09-05 08:55] LABS: BANDS 1 % (0-2); EOSINOPHIL 1 % (0-4); LYMPHOCYTE 9 % (20-40); MONOCYTE 9 % (0-10); NEUTROPHIL 80 % (50-75); TOTAL CELLS COUNTED 100
[2018-09-05 08:56] LABS: PLATELET ESTIMATE NORMAL (NORMAL)
[2018-09-05 08:57] LABS: GIANT PLATELETS PRESENT
[2018-09-05 08:58] LABS: ANISOCYTOSIS SLIGHT; OVALOCYTES SLIGHT
[2018-09-05] MEDS: GlipiZIDE 10 mg SR Tab PO SCH ×2 (09:27→17:32)
[2018-09-05] MEDS: Lactated Ringer's 1,000 ML IV SCH (11:22)
[2018-09-05 19:33] LABS: BASO # 0.1 K/uL (0.0-0.2); BASO % 1.1 % (0.0-2.0); EOS # 0.1 K/uL (0.0-0.7); EOS % 0.7 % (0.0-4.0); HEMOGLOBIN 8.1 g/dL (12.0-18.0); LYMPH # 0.6 K/uL (1.0-4.3); LYMPH % 7.7 % (20.0-40.0); MEAN CELL VOLUME 90.5 fL (80.0-94.0); MEAN CORPUSCULAR HEMOGLOBIN 29.3 pg (27.0-31.0); MEAN CORPUSCULAR HGB CONC 32.4 g/dL (33.0-37.0); MEAN PLATELET VOLUME 8.3 fL (7.2-11.7); MONO # 0.6 K/uL (0.0-0.8); MONO % 7.3 % (0.0-10.0); NEUT # 6.5 K/uL (1.8-7.0); NEUT % 83.2 % (50.0-75.0); PLATELET COUNT 289 K/uL (130-400); RBC 2.76 Mil/uL (4.40-5.90); WHITE BLOOD COUNT 7.8 K/uL (4.8-10.8)
[2018-09-05 20:58] LABS: ANISOCYTOSIS SLIGHT; BURR CELLS SLIGHT; HYPOCHROMIC SLIGHT; LYMPHOCYTE 9 % (20-40); MICROCYTOSIS SLIGHT; MONOCYTE 3 % (0-10); NEUTROPHIL 88 % (50-75); OVALOCYTES SLIGHT; PLATELET ESTIMATE INCREASED (NORMAL); POIKILOCYTOSIS SLIGHT; TARGET CELLS SLIGHT; TOTAL CELLS COUNTED 100
[2018-09-05 20:59] LABS: LARGE PLATELETS PRESENT; PLATELET CLUMPS PRESENT
[2018-09-05] MEDS: (Lantus) Insulin Glargine, Recombinant SC SCH (21:39)
--- NOTE | 2018-09-06 06:20 | OP ---
PROCEDURE DATE: 09/04/2018 PREOPERATIVE DIAGNOSES: Hematuria. Urinary retention. POSTOPERATIVE DIAGNOSES: Hematuria. Urinary retention. Clot retention. Bleeding of prostatic origin. 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 PROCEDURES: Cystoscopy. Evacuation of clots from the bladder. Fulguration of prostatic bleeding. Transurethral resection of bladder neck. Attempted retrograde pyelogram OPERATING SURGEON: Karen Wellington MD DESCRIPTION OF THE PROCEDURE: As follows. The patient received general anesthesia. Production Machine Tender film of the abdomen was obtained. The patient was placed in lithotomy position. Perioperative antibiotics were administered. The genitalia were prepped and draped in a sterile fashion. A 22-Jamaican cystoscope sheath was introduced under direct vision. Urethra, prostate, and bladder were inspected. FINDINGS: There was no stricture in the anterior urethra. There was active arterial bleeding from the prostatic urethra. There was active venous bleeding from the prostatic urethra. The bladder was full of clots. There was no visibility of the bladder due to the clots. The clots were evacuated. Clot evacuation required use of both a Wale syringe as well as the Microvasive evacuator. Ultimately, all the clots were removed. Approximately, 3 units of blood and clots from the bladder were removed. The bladder was then able to be better inspected. Clot evacuation required exchanging the cystoscope sheath for the 26-Jamaican continuous flow resectoscope sheath. The resectoscope had been inserted under direct vision using the visual obturator. The bladder was then inspected. There were no focal lesions within the bladder. There was diffuse moderate cystitis. There was no bladder tumor. There was no bladder stone. The right ureteral orifice was able to be identified. The left ureteral orifice could not be identified. Attempted retrograde pyelogram was performed. The fulguration of further bleeding within the prostatic urethra was performed with the looped electrode. Additionally, resection of the continuous of the left bladder neck and floor of the bladder extending into the prostate was performed. Hemostasis was thus complete. The bladder was reinspected and confirmed the above findings. There was moderate to marked bladder trabeculation. There was no bladder stone. There was no bladder tumor. The hemostasis was complete. The resectoscope and sheath removed. Harris catheter was inserted. Bladder drainage was clear and bladder irrigation was clear. Exam under anesthesia was performed. The prostate was firm. Prostate demonstrated moderate induration and fixation. There was no abnormal pelvic mass. The patient tolerated the procedure without complication. The patient was returned to the supine position. The patient was transferred to recovery room in satisfactory condition. Karen Wellington MD cc: Rhett Durán MD
--- NOTE | 2018-09-06 06:37 | CON ---
DATE: 09/04/2018 REQUESTED BY: Rhett Durán MD Urology consultation is filled by Dr. Karen Wellington. HISTORY OF PRESENT ILLNESS: The patient is a 73-year-old male with hematuria and urinary retention. The patient is in otherwise fair health. The patient has history of prostate carcinoma. The patient was treated with androgen deprivation therapy and radiation therapy in 2014. The patient has been followed by his urologist as an outpatient and was doing well, without evidence of prostate cancer recurrence. The patient now presents with gross hematuria. He was admitted to the hospital on 09/01/2018. Multiple previous urologists have been contacted during this admission. The consultation request was asked on 09/02/2018 by the nursing staff as well as by the medical social worker. Thereafter, I was informed that a request for Urology consultation by another urologist had been submitted. Subsequently, I was informed that the patient's original urologist and then another urologist would be treating the patient. This morning, there was some clarification of the multiple requests for urologists. Thus, I am seeing the patient today. The patient reports no flank pain. No weight loss. He has no recent fever or rigors. The patient reports no history of urolithiasis. The patient does have history of diabetes, which has been previously poorly controlled. The patient does report abdominal pain. He reports that he is comfortable at present. PHYSICAL EXAMINATION: GENERAL: The patient is a well-developed, well-nourished male, appearing his stated age. The patient is awake and alert. ABDOMEN: Soft. There is moderate bladder distention. Abdomen is nontender. BACK: No CVA tenderness. GENITALIA: Without inflammation. The urine has marked hematuria via the Harris catheter. LABORATORY DATA: Reviewed. Marked anemia is noted. IMPRESSION: Hematuria. History of prostate carcinoma. History of previous radiation for prostate carcinoma. Diabetes mellitus. The hematuria may be related to possible infection, urolithiasis, neoplasia, or inflammation related to previous radiation therapy such as radiation cystitis. The sequence of events requesting Urology consultation has been discussed with the resident staff. Apparently, Dr. Griffith declined the consultation and referred the patient back to Dr. Ya. The medical social worker thought he was communicating with Dr. Ya and Miki was communicating with Dr. Olivares. When I left pre-cysto orders for the patient, I was told that Dr. Ya would be performing the cystoscopy. This morning, the resident contacted Dr. Ya, who declined to see the patient. RECOMMENDATION AND PLAN: For cystoscopy. Possible biopsy, fulguration, resection. Serum PSA. Urine culture. Urine cytology. Review CT scan. Further therapy to follow according to the patient's clinical course as well as results of above. Hitchins MD Amish cc: Rhett Durán MD
[2018-09-06] MEDS: (Novolin R) Insulin Human Regular 100 units/ml vial SC SCH ×4 (07:35→22:17)
--- NOTE | 2018-09-06 07:59 | CP.PCM.PN ---
Subjective - Date & Time of Evaluation Date of Evaluation: 09/06/18 Time of Evaluation: 09:00 - Subjective Subjective: Medicine Progress Note for Dr. Durán's Service: Patient was seen and examined at bedside in the AM. Patient states he has slight pain at the sanchez site and he is having blood again in his sanchez bag. Patient denies chest pain, shortness of breath, nausea, vomiting, fever or chills. Objective - Vital Signs/Intake and Output Vital Signs (last 24 hours): Temp Pulse Resp BP Pulse Ox 97.9 F 83 20 164/63 H 100 09/06/18 07:52 09/06/18 07:52 09/06/18 07:52 09/06/18 07:52 09/06/18 07:52 Intake and Output: 09/06/18 09/06/18 06:59 18:59 Intake Total 800 Output Total 1250 Balance -450 - Medications Medications: Current Medications Dextrose (Dextrose 50% Inj) 0 ml IV STAT PRN; Protocol PRN Reason: Hypoglycemia Protocol Dextrose (Glutose 15) 0 gm PO ONCE PRN; Protocol PRN Reason: Hypoglycemia Protocol Docusate Sodium (Colace) 100 mg PO BID [facility] Last Admin: 09/05/18 17:32 Dose: 100 mg Gabapentin (Neurontin) 300 mg PO TID [facility] Last Admin: 09/05/18 17:32 Dose: 300 mg Glipizide (Glucotrol Xl) 10 mg PO BID [facility] Last Admin: 09/05/18 17:32 Dose: 10 mg Glucagon (Glucagen Diagnostic Kit) 0 mg IM STAT PRN; Protocol PRN Reason: Hypoglycemia Protocol Insulin Glargine (Lantus) 10 unit SC HS [facility] Last Admin: 09/05/18 21:39 Dose: 10 u Insulin Human Regular (Novolin R) 0 unit SC ACHS [facility]; Protocol Last Admin: 09/05/18 21:40 Dose: 2 u Lisinopril (Zestril) 40 mg PO DAILY [facility] Last Admin: 09/05/18 09:27 Dose: 40 mg Metformin HCl (Glucophage) 500 mg PO BID [facility] Last Admin: 09/02/18 09:06 Dose: 500 mg Oxycodone/Acetaminophen (Percocet 5/325 Mg Tab) 1 tab PO Q8 PRN PRN Reason: Pain, severe (8-10) Stop: 09/08/18 15:29 Last Admin: 09/06/18 00:00 Dose: 1 tab Rosuvastatin Calcium (Crestor) 5 mg PO HS [facility] Last Admin: 09/05/18 21:39 Dose: 5 mg Sitagliptin Phosphate (Januvia) 50 mg PO DAILY [facility] Last Admin: 09/05/18 09:27 Dose: 50 mg Tamsulosin HCl (Flomax) 0.4 mg PO DAILY [facility] Last Admin: 09/05/18 09:27 Dose: 0.4 mg - Labs Labs: 09/05/18 19:29 09/05/18 07:00 PT 10.8 SECONDS (9.7-12.2) 09/01/18 17:42 INR 1.0 09/01/18 17:42 APTT 30 SECONDS (21-34) 09/01/18 17:42 - Constitutional Appears: No Acute Distress - Head Exam Head Exam: ATRAUMATIC, NORMAL INSPECTION - Eye Exam Eye Exam: EOMI, Normal appearance - ENT Exam ENT Exam: Mucous Membranes Moist - Respiratory Exam Respiratory Exam: Clear to Ausculation Bilateral, NORMAL BREATHING PATTERN - Cardiovascular Exam Cardiovascular Exam: REGULAR RHYTHM, +S1, +S2 - GI/Abdominal Exam GI & Abdominal Exam: Soft, Normal Bowel Sounds. absent: Tenderness - Exam Additional comments: minor pelvic tenderness; sanchez bag- bloody urine - Extremities Exam Extremities Exam: Normal Inspection - Neurological Exam Neurological Exam: Alert, Awake, Oriented x3 - Psychiatric Exam Psychiatric exam: Normal Affect - Skin Skin Exam: Normal Color Assessment and Plan - Assessment and Plan (Free Text) Assessment: 73yo M PMH DM, HTN, arthritis, CAD, prostate cancer, admitted for anemia and heather hematuria. Plan: Heather hematuria Anemia - H/H 6.8/19.9 * Transferred 1 unit of PRBC * f/u CBC @6pm - UA 2+ protein, 3+ glucose, 3+ blood, 6 WBC, 30883 RBC - UC: pending - Total PSA 0.1 - Testosterone level 341 - Images: * Abdomen/Pelvis CT: Bilateral hydroureteronephrosis. Redundant appearance of the right ureter which makes and apparent loop at the L4 level. Distended urinary bladder appears irregularly thick walled. Sanchez catheter present without decompression of the urinary bladder. Question presence of debris or neoplasm within the dependent portion of the urinary bladder. Heterogeneous enlarged prostate gland. Recommend correlation with PSA. Small bilateral pleural effusions. * Abdominal Xray: Evaluation of nephrolithiasis is not possible due to extensive fecal material and bowel gas obscuring the renal silhouette. No evidence of calcifications in the pelvis along the expected course of the ureters. - Urology Dr. Ya recommending inpatient care to be continued with Dr Justus Wellington --> help appreciated * s/p Cystoscopy 09/04/18 * per Dr. Karen Wellington - 2L of old blood was removed from the bladder; biopsy was completed - f/u pathology results * 09/06/18: Patient began to have blood in his sanchez bag. Spoke with Dr. 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 Leeanna Cameron PGY-2
[2018-09-06 09:02] LABS: BASO # 0.1 K/uL (0.0-0.2); BASO % 0.8 % (0.0-2.0); EOS # 0.2 K/uL (0.0-0.7); LYMPH # 0.6 K/uL (1.0-4.3); LYMPH % 6.1 % (20.0-40.0); MEAN CORPUSCULAR HGB CONC 33.3 g/dL (33.0-37.0); MEAN PLATELET VOLUME 8.4 fL (7.2-11.7); MONO # 0.8 K/uL (0.0-0.8); MONO % 8.8 % (0.0-10.0); NEUT # 7.9 K/uL (1.8-7.0); NEUT % 82.3 % (50.0-75.0); PLATELET COUNT 294 K/uL (130-400); RBC 2.66 Mil/uL (4.40-5.90); RED CELL DISTRIBUTION WIDTH 14.7 % (11.5-14.5); WHITE BLOOD COUNT 9.6 K/uL (4.8-10.8)
[2018-09-06 09:10] LABS: ALB/GLOB RATIO 0.9 (1.0-2.1); ALBUMIN 2.4 g/dL (3.5-5.0); ALT/SGPT 60 U/L (21-72); AST/SGOT 59 U/L (17-59); BLOOD UREA NITROGEN 27 mg/dL (9-20); GFR NON-AFRICAN AMERICAN > 60
[2018-09-06] MEDS: Oxycodone/Acetaminophen 5/325 mg Tab PO PRN ×3 (09:28→20:01)
[2018-09-06] MEDS: GlipiZIDE 10 mg SR Tab PO SCH ×2 (09:29→17:37)
[2018-09-06 10:25] LABS: BANDS 1 % (0-2); EOSINOPHIL 2 % (0-4); LYMPHOCYTE 9 % (20-40); MONOCYTE 4 % (0-10); NEUTROPHIL 84 % (50-75); PLATELET ESTIMATE NORMAL (NORMAL); TOTAL CELLS COUNTED 100
[2018-09-06 10:26] LABS: ANISOCYTOSIS SLIGHT; HYPOCHROMIC SLIGHT; POIKILOCYTOSIS SLIGHT
[2018-09-06] MEDS: (Lantus) Insulin Glargine, Recombinant SC SCH (22:20)
--- NOTE | 2018-09-06 22:27 | PCM.URO ---
Urology Progress Note - General General: Tolerating Diet - Subjective Abdominal Pain: No Flank Pain: No Nausea: No Vomiting: No Hematuria: Yes (urine was clear yesterday. Now hematuria) Dsypnea: No Chest Pain: No Fever & Chills: No - Objective Lab Studies: Reviewed Lab Results Last 24 Hours: Laboratory Results - last 24 hr 09/05/18 09/06/18 09/06/18 21:09 01:49 06:10 WBC RBC Hgb Hct MCV MCH MCHC RDW Plt Count MPV Neut % (Auto) Lymph % (Auto) [place] % (Auto) Eos % (Auto) Baso % (Auto) Neut # (Auto) Lymph # (Auto) [place] # (Auto) Eos # (Auto) Baso # (Auto) Neutrophils % (Manual) Band Neutrophils % Lymphocytes % (Manual) Monocytes % (Manual) Eosinophils % (Manual) Platelet Estimate Hypochromasia (manual) Poikilocytosis (manual Anisocytosis (manual) Sodium Potassium Chloride Carbon Dioxide Anion Gap BUN Creatinine Est GFR ( Amer) Est GFR (Non-Af Amer) POC Glucose (mg/dL) 331 H 174 H 78 Random Glucose Calcium Phosphorus Magnesium Total Bilirubin AST ALT Alkaline Phosphatase Total Protein Albumin Globulin Albumin/Globulin Ratio 09/06/18 09/06/18 09/06/18 08:48 08:48 11:12 WBC 9.6 RBC 2.66 L Hgb 8.0 L Hct 24.0 L MCV 90.0 MCH 30.0 MCHC 33.3 RDW 14.7 H Plt Count 294 MPV 8.4 Neut % (Auto) 82.3 H Lymph % (Auto) 6.1 L [place] % (Auto) 8.8 Eos % (Auto) 2.0 Baso % (Auto) 0.8 Neut # (Auto) 7.9 H Lymph # (Auto) 0.6 L [place] # (Auto) 0.8 Eos # (Auto) 0.2 Baso # (Auto) 0.1 Neutrophils % (Manual) 84 H Band Neutrophils % 1 Lymphocytes % (Manual) 9 L Monocytes % (Manual) 4 Eosinophils % (Manual) 2 Platelet Estimate Normal Hypochromasia (manual) Slight Poikilocytosis (manual Slight Anisocytosis (manual) Slight Sodium 137 Potassium 4.3 Chloride 106 Carbon Dioxide 28 Anion Gap 7 L BUN 27 H Creatinine 1.0 Est GFR ( Amer) > 60 Est GFR (Non-Af Amer) > 60 POC Glucose (mg/dL) 339 H Random Glucose 132 H D Calcium 8.0 L Phosphorus 3.4 Magnesium 2.2 Total Bilirubin < 0.1 L AST 59 ALT 60 Alkaline Phosphatase 157 H Total Protein 5.0 L Albumin 2.4 L Globulin 2.6 Albumin/Globulin Ratio 0.9 L 09/06/18 09/06/18 16:45 21:09 WBC RBC Hgb Hct MCV MCH MCHC RDW Plt Count MPV Neut % (Auto) Lymph % (Auto) [place] % (Auto) Eos % (Auto) Baso % (Auto) Neut # (Auto) Lymph # (Auto) [place] # (Auto) Eos # (Auto) Baso # (Auto) Neutrophils % (Manual) Band Neutrophils % Lymphocytes % (Manual) Monocytes % (Manual) Eosinophils % (Manual) Platelet Estimate Hypochromasia (manual) Poikilocytosis (manual Anisocytosis (manual) Sodium Potassium Chloride Carbon Dioxide Anion Gap BUN Creatinine Est GFR ( Amer) Est GFR (Non-Af Amer) POC Glucose (mg/dL) 203 H 251 H Random Glucose Calcium Phosphorus Magnesium Total Bilirubin AST ALT Alkaline Phosphatase Total Protein Albumin Globulin Albumin/Globulin Ratio Intake & Output: Intake & Output 09/06/18 09/06/18 09/07/18 06:59 18:59 06:59 Intake Total 800 3350 Output Total 1250 1350 6100 Balance -450 -1350 -2750 Intake: Oral 800 350 Other 3000 Output: Urine 1250 1350 6100 Urethral (Harris) 1250 1350 Vital Signs: Vital Signs - 24 hr 09/05/18 09/05/18 09/06/18 23:00 23:25 07:50 Temperature 98.1 F Pulse Rate 91 H 89 85 Respiratory 20 Rate Blood Pressure 161/71 H O2 Sat by Pulse 96 Oximetry 09/06/18 09/06/18 09/06/18 07:52 09:30 12:00 Temperature 97.9 F Pulse Rate 83 79 76 Respiratory 20 Rate Blood Pressure 164/63 H 165/67 H O2 Sat by Pulse 100 Oximetry 09/06/18 09/06/18 09/06/18 16:00 20:05 20:15 Temperature 98.0 F 98.1 F Pulse Rate 82 94 H 94 H Respiratory 20 16 Rate Blood Pressure 147/64 147/61 O2 Sat by Pulse 97 Oximetry - Physical Exam Abdominal Exam: Soft, Non-Tender, Non-Distended Urinary Catheter Draining Well: Yes Urine Color: [place] Extremities: Normal: Bilateral - Male Phallus: Normal Scrotum: Normal - Plan Catheter Care: Yes Intake & Output: Yes See Orders: Yes Additional Information: IMP: stable p cysto. Previous resolution of hematuria, such that cbi was sstopped. Today pt has recurrent hematuria. P: catheter irrigation. cbi. Discussed w pt and suni and resident staff. YS - Date & Time of Note Date: 09/06/18 Time: 13:10
[2018-09-07] MEDS: Oxycodone/Acetaminophen 5/325 mg Tab PO PRN ×2 (03:50→13:07)
[2018-09-07 06:45] LABS: BASO % 0.5 % (0.0-2.0); EOS # 0.2 K/uL (0.0-0.7); EOS % 3.7 % (0.0-4.0); LYMPH # 0.6 K/uL (1.0-4.3); LYMPH % 10.4 % (20.0-40.0); MEAN CELL VOLUME 90.4 fL (80.0-94.0); MEAN CORPUSCULAR HEMOGLOBIN 30.7 pg (27.0-31.0); MEAN PLATELET VOLUME 8.6 fL (7.2-11.7); MONO # 0.6 K/uL (0.0-0.8); MONO % 9.1 % (0.0-10.0); NEUT # 4.6 K/uL (1.8-7.0); NEUT % 76.3 % (50.0-75.0); RBC 1.94 Mil/uL (4.40-5.90); RED CELL DISTRIBUTION WIDTH 14.5 % (11.5-14.5)
[2018-09-07 07:04] LABS: WHITE BLOOD COUNT 6.1 K/uL (4.8-10.8)
[2018-09-07 07:49] LABS: ALBUMIN 2.2 g/dL (3.5-5.0); BLOOD UREA NITROGEN 28 mg/dL (9-20); CALCIUM 7.5 mg/dl (8.6-10.4); GFR NON-AFRICAN AMERICAN > 60
--- NOTE | 2018-09-07 07:49 | CP.PCM.PN ---
Subjective - Date & Time of Evaluation Date of Evaluation: 09/07/18 Time of Evaluation: 07:55 - Subjective Subjective: Medicine progress note for Dr. Durán patient seen and examined at bedside. Patient lying comfortably, complaining of pain at sanchez site. Patient has persistent hematuria through CBI. Patient denies headaches, chest pain, SOB, nausea, vomiting, abdominal pain, fevers, chills. Objective - Vital Signs/Intake and Output Vital Signs (last 24 hours): Temp Pulse Resp BP Pulse Ox 99.3 F 92 H 20 152/67 H 96 09/06/18 23:11 09/06/18 23:20 09/06/18 23:11 09/06/18 23:11 09/07/18 02:49 Intake and Output: 09/07/18 09/07/18 06:59 18:59 Intake Total 7750 Output Total 9600 Balance -1850 - Medications Medications: Current Medications Dextrose (Dextrose 50% Inj) 0 ml IV STAT PRN; Protocol PRN Reason: Hypoglycemia Protocol Dextrose (Glutose 15) 0 gm PO ONCE PRN; Protocol PRN Reason: Hypoglycemia Protocol Docusate Sodium (Colace) 100 mg PO BID [facility] Last Admin: 09/06/18 17:37 Dose: 100 mg Gabapentin (Neurontin) 300 mg PO TID [facility] Last Admin: 09/06/18 17:37 Dose: 300 mg Glipizide (Glucotrol Xl) 10 mg PO BID [facility] Last Admin: 09/06/18 17:37 Dose: 10 mg Glucagon (Glucagen Diagnostic Kit) 0 mg IM STAT PRN; Protocol PRN Reason: Hypoglycemia Protocol Insulin Glargine (Lantus) 10 unit SC HS [facility] Last Admin: 09/06/18 22:20 Dose: 10 u Insulin Human Regular (Novolin R) 0 unit SC ACHS [facility]; Protocol Last Admin: 09/06/18 22:17 Dose: Not Given Lisinopril (Zestril) 40 mg PO DAILY [facility] Last Admin: 09/06/18 09:29 Dose: 40 mg Metformin HCl (Glucophage) 500 mg PO BID [facility] Last Admin: 09/02/18 09:06 Dose: 500 mg Oxycodone/Acetaminophen (Percocet 5/325 Mg Tab) 1 tab PO Q8 PRN PRN Reason: Pain, severe (8-10) Stop: 09/08/18 15:29 Last Admin: 09/07/18 03:50 Dose: 1 tab Rosuvastatin Calcium (Crestor) 5 mg PO HS [facility] Last Admin: 09/06/18 22:19 Dose: 5 mg Sitagliptin Phosphate (Januvia) 50 mg PO DAILY [facility] Last Admin: 09/06/18 09:28 Dose: 50 mg Tamsulosin HCl (Flomax) 0.4 mg PO DAILY [facility] Last Admin: 09/06/18 09:28 Dose: 0.4 mg - Labs Labs: 09/07/18 06:29 09/06/18 08:48 PT 10.8 SECONDS (9.7-12.2) 09/01/18 17:42 INR 1.0 09/01/18 17:42 APTT 30 SECONDS (21-34) 09/01/18 17:42 - Constitutional Appears: Non-toxic, No Acute Distress - Head Exam Head Exam: NORMAL INSPECTION - Eye Exam Eye Exam: EOMI, Normal appearance Additional comments: pale sclera - ENT Exam ENT Exam: Mucous Membranes Moist - Respiratory Exam Respiratory Exam: Clear to Ausculation Bilateral, NORMAL BREATHING PATTERN. absent: Rales, Rhonchi, Wheezes - Cardiovascular Exam Cardiovascular Exam: +S1, +S2, Murmur - GI/Abdominal Exam GI & Abdominal Exam: Soft, Normal Bowel Sounds - Exam Additional comments: continue bladder irrigation sanchez in place - Extremities Exam Extremities Exam: Full ROM, Normal Inspection. 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 Amish on case - s/p cystoscopy on 09/04: no stricture in anterior urethra, active arterial & venous bleeding from prostate urethra, bladder full of clots, fulguration of bleeding from prostate - f/u biopsy of bladder - lidocaine 2% topical for pain control - possible D/c CBI pending urine becoming free of hematuria - Total PSA 0.1 - Testosterone level 341 - Images: * Abdomen/Pelvis CT: Bilateral hydroureteronephrosis. Redundant appearance of the right ureter which makes and apparent loop at the L4 level. Distended urinary bladder appears irregularly thick walled. Sanchez catheter present without decompression of the urinary bladder. Question presence of debris or neoplasm within the dependent portion of the urinary bladder. Heterogeneous enlarged prostate gland. Recommend correlation with PSA. Small bilateral pleural effusions. * Abdominal Xray: Evaluation of nephrolithiasis is not possible due to extensive fecal material and bowel gas obscuring the renal silhouette. No evidence of calcifications in the pelvis along the expected course of the ureters. 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 - ISS - hypoglycemia protocol - c/w home medications Januvia 50mg po daily, Glipizide 10mg po BID, Glargine 10u SC HS, Crestor 5mg po HS - metformin 500mg po BID - restarted 09/07 (held due to IV contrast in CT head) Peripheral Neuropathy - Gabapentin 300mg po TID Hypertension Mitral Valve disease - Lisinopril 40mg po daily BPH - Flomax 0.4mg po daily Prophylaxis - VTE contraindication secondary to hematuria - SCDs - Colace 100mg po BID - PT recommends subacute rehab
[2018-09-07 07:50] LABS: ALT/SGPT 82 U/L (21-72); AST/SGOT 85 U/L (17-59)
[2018-09-07] MEDS: (Novolin R) Insulin Human Regular 100 units/ml vial SC SCH ×4 (08:30→21:31)
[2018-09-07] MEDS: GlipiZIDE 10 mg SR Tab PO SCH ×2 (10:07→17:03)
[2018-09-07 19:45] LABS: BASO # 0.1 K/uL (0.0-0.2); BASO % 0.9 % (0.0-2.0); EOS # 0.2 K/uL (0.0-0.7); EOS % 2.3 % (0.0-4.0); LYMPH # 0.6 K/uL (1.0-4.3); LYMPH % 7.1 % (20.0-40.0); MEAN CELL VOLUME 88.8 fL (80.0-94.0); MEAN CORPUSCULAR HEMOGLOBIN 30.5 pg (27.0-31.0); MEAN CORPUSCULAR HGB CONC 34.4 g/dL (33.0-37.0); MEAN PLATELET VOLUME 8.2 fL (7.2-11.7); MONO # 0.7 K/uL (0.0-0.8); MONO % 8.4 % (0.0-10.0); NEUT # 6.5 K/uL (1.8-7.0); NEUT % 81.3 % (50.0-75.0); PLATELET COUNT 254 K/uL (130-400); RBC 2.86 Mil/uL (4.40-5.90); RED CELL DISTRIBUTION WIDTH 14.7 % (11.5-14.5)
[2018-09-07 19:49] LABS: HEMOGLOBIN 8.7 g/dL (12.0-18.0)
[2018-09-07 20:11] LABS: BANDS 3 % (0-2); EOSINOPHIL 1 % (0-4); LYMPHOCYTE 10 % (20-40); MONOCYTE 9 % (0-10); NEUTROPHIL 77 % (50-75); OVALOCYTES SLIGHT; PLATELET ESTIMATE NORMAL (NORMAL); POIKILOCYTOSIS SLIGHT; TOTAL CELLS COUNTED 100
[2018-09-07] MEDS: (Lantus) Insulin Glargine, Recombinant SC SCH (21:38)
[2018-09-08] MEDS: Oxycodone/Acetaminophen 5/325 mg Tab PO PRN ×3 (00:56→21:36)
--- NOTE | 2018-09-08 06:43 | CP.PCM.PN ---
Subjective - Date & Time of Evaluation Date of Evaluation: 09/08/18 Time of Evaluation: 07:30 - Subjective Subjective: Medicine progress note for Dr. Durán patient seen and examined at bedside. Patient lying comfortably, complaining of pain at sanchez site. Patient has decreased hematuria through CBI from yesterday. Patient denies headaches, chest pain, SOB, nausea, vomiting, abdominal pain, fevers, chills. Objective - Vital Signs/Intake and Output Vital Signs (last 24 hours): Temp Pulse Resp BP Pulse Ox 98.5 F 87 20 161/64 H 95 09/07/18 23:39 09/07/18 23:39 09/07/18 23:39 09/07/18 23:39 09/07/18 23:39 Intake and Output: 09/07/18 09/08/18 18:59 06:59 Intake Total 850 03611 Output Total 1750 86533 Balance -900 -8584 - Medications Medications: Current Medications Dextrose (Dextrose 50% Inj) 0 ml IV STAT PRN; Protocol PRN Reason: Hypoglycemia Protocol Dextrose (Glutose 15) 0 gm PO ONCE PRN; Protocol PRN Reason: Hypoglycemia Protocol Docusate Sodium (Colace) 100 mg PO BID [facility] Last Admin: 09/07/18 17:04 Dose: 100 mg Gabapentin (Neurontin) 300 mg PO TID [facility] Last Admin: 09/07/18 17:03 Dose: 300 mg Glipizide (Glucotrol Xl) 10 mg PO BID [facility] Last Admin: 09/07/18 17:03 Dose: 10 mg Glucagon (Glucagen Diagnostic Kit) 0 mg IM STAT PRN; Protocol PRN Reason: Hypoglycemia Protocol Insulin Glargine (Lantus) 10 unit SC HS [facility] Last Admin: 09/07/18 21:38 Dose: 10 units Insulin Human Regular (Novolin R) 0 unit SC ACHS [facility]; Protocol Last Admin: 09/07/18 21:31 Dose: Not Given Lidocaine HCl (Xylocaine 2%) 0 ea TOP Q12H PRN Lisinopril (Zestril) 40 mg PO DAILY [facility] Last Admin: 09/07/18 10:07 Dose: 40 mg Metformin HCl (Glucophage) 500 mg PO BID [facility] Last Admin: 09/07/18 17:03 Dose: 500 mg Oxycodone/Acetaminophen (Percocet 5/325 Mg Tab) 1 tab PO Q8 PRN PRN Reason: Pain, severe (8-10) Stop: 09/08/18 15:29 Last Admin: 09/08/18 00:56 Dose: 1 tab Rosuvastatin Calcium (Crestor) 5 mg PO HS [facility] Last Admin: 09/07/18 21:38 Dose: 5 mg Sitagliptin Phosphate (Januvia) 50 mg PO DAILY [facility] Last Admin: 09/07/18 10:07 Dose: 50 mg Tamsulosin HCl (Flomax) 0.4 mg PO DAILY [facility] Last Admin: 09/07/18 10:07 Dose: 0.4 mg - Labs Labs: 09/07/18 19:36 09/07/18 06:29 PT 10.8 SECONDS (9.7-12.2) 09/01/18 17:42 INR 1.0 09/01/18 17:42 APTT 30 SECONDS (21-34) 09/01/18 17:42 - Constitutional Appears: Non-toxic, No Acute Distress - Head Exam Head Exam: NORMAL INSPECTION - Eye Exam Eye Exam: Normal appearance - ENT Exam ENT Exam: Mucous Membranes Moist - Respiratory Exam Respiratory Exam: Clear to Ausculation Bilateral, NORMAL BREATHING PATTERN. absent: Rales, Rhonchi, Wheezes - Cardiovascular Exam Cardiovascular Exam: +S1, +S2, Murmur - GI/Abdominal Exam GI & Abdominal Exam: Soft, Normal Bowel Sounds - Exam Additional comments: continuous bladder irrigation sanhcez in place - Extremities Exam Extremities Exam: Full ROM, Normal Inspection. 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 - AM H/h stable @ 8.8 - s/p 2 units for h/h in 6s on 09/07 - hgb 6.9 09/05, received X 1 PRBC - transfuse as necessary - see further plan below Heather hematuria 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 Redundant appearance of the right ureter which makes and apparent loop at the L4 level. Distended urinary bladder appears irregularly thick walled. Sanchez catheter present without decompression of the urinary bladder. Question presence of debris or neoplasm within the dependent portion of the urinary bladder. Heterogeneous enlarged prostate gland. Recommend correlation with PSA. Small bilateral pleural effusions. * Abdominal Xray: Evaluation of nephrolithiasis is not possible due to extensive fecal material and bowel gas obscuring the renal silhouette. No evidence of calcifications in the pelvis along the expected course of the ureters. 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 BG 185 OA Hgb A1c (07/27/18) 16.5 BG >500 09/07 - Accuchecks [facility] - ISS - hypoglycemia protocol - c/w home medications Januvia 50mg po daily, Glipizide 10mg po BID, Glargine 10u SC HS, Crestor 5mg po HS - metformin 500mg po BID - restarted 09/07 (held due to IV contrast in CT head) Peripheral Neuropathy - Gabapentin 300mg po TID Hypertension Mitral Valve disease - Lisinopril 40mg po daily - resume home medication amlodipine 10 mg daily BPH - Flomax 0.4mg po daily Prophylaxis - VTE contraindication secondary to hematuria - SCDs - Colace 100mg po BID - PT recommends subacute rehab will d/c w/ Dr. Durán.
[2018-09-08 07:54] LABS: BASO % 0.7 % (0.0-2.0); EOS # 0.3 K/uL (0.0-0.7); EOS % 4.5 % (0.0-4.0); HEMOGLOBIN 8.8 g/dL (12.0-18.0); LYMPH # 0.9 K/uL (1.0-4.3); LYMPH % 15.2 % (20.0-40.0); MEAN CELL VOLUME 89.8 fL (80.0-94.0); MEAN CORPUSCULAR HEMOGLOBIN 30.3 pg (27.0-31.0); MEAN CORPUSCULAR HGB CONC 33.7 g/dL (33.0-37.0); MEAN PLATELET VOLUME 8.4 fL (7.2-11.7); MONO # 0.6 K/uL (0.0-0.8); MONO % 9.2 % (0.0-10.0); NEUT # 4.2 K/uL (1.8-7.0); NEUT % 70.4 % (50.0-75.0); NRBC % 0.1 % (0.0-2.0); RBC 2.91 Mil/uL (4.40-5.90); RED CELL DISTRIBUTION WIDTH 14.8 % (11.5-14.5)
[2018-09-08 08:13] LABS: ALBUMIN 2.6 g/dL (3.5-5.0); ALT/SGPT 84 U/L (21-72); AST/SGOT 87 U/L (17-59); BLOOD UREA NITROGEN 27 mg/dL (9-20); GFR NON-AFRICAN AMERICAN 54
[2018-09-08] MEDS: (Novolin R) Insulin Human Regular 100 units/ml vial SC SCH ×4 (09:03→21:34)
[2018-09-08] MEDS: GlipiZIDE 10 mg SR Tab PO SCH ×2 (09:03→17:56)
[2018-09-08] MEDS: Lidocaine 2% Jelly (30 ml) TOP PRN (10:49)
[2018-09-08] MEDS ORDERED: Oxycodone/Acetaminophen 5/325 mg Tab PO PRN (15:00)
--- NOTE | 2018-09-08 15:50 | CARD ---
APPROVED REPORT Date of service: 09/04/2018 EKG Measurement Heart [id number] <Conclusion> Normal sinus rhythm Septal infarct, age undetermined Abnormal ECG
[2018-09-08] MEDS: (Lantus) Insulin Glargine, Recombinant SC SCH (21:34)
[2018-09-09] MEDS: Oxycodone/Acetaminophen 5/325 mg Tab PO PRN ×3 (05:37→18:37)
[2018-09-09 07:18] LABS: BASO % 0.7 % (0.0-2.0); EOS # 0.3 K/uL (0.0-0.7); EOS % 4.8 % (0.0-4.0); HEMOGLOBIN 8.6 g/dL (12.0-18.0); LYMPH # 0.8 K/uL (1.0-4.3); LYMPH % 13.7 % (20.0-40.0); MEAN CELL VOLUME 90.1 fL (80.0-94.0); MEAN CORPUSCULAR HEMOGLOBIN 30.8 pg (27.0-31.0); MEAN CORPUSCULAR HGB CONC 34.2 g/dL (33.0-37.0); MEAN PLATELET VOLUME 8.3 fL (7.2-11.7); MONO # 0.6 K/uL (0.0-0.8); MONO % 10.7 % (0.0-10.0); NEUT # 4.2 K/uL (1.8-7.0); NEUT % 70.1 % (50.0-75.0); NRBC % 0.1 % (0.0-2.0); RBC 2.79 Mil/uL (4.40-5.90); RED CELL DISTRIBUTION WIDTH 14.6 % (11.5-14.5)
[2018-09-09] MEDS: (Novolin R) Insulin Human Regular 100 units/ml vial SC SCH ×4 (07:35→21:23)
[2018-09-09 07:50] LABS: ALB/GLOB RATIO 0.9 (1.0-2.1); ALBUMIN 2.6 g/dL (3.5-5.0); ALT/SGPT 80 U/L (21-72); AST/SGOT 79 U/L (17-59); BLOOD UREA NITROGEN 29 mg/dL (9-20); CALCIUM 8.3 mg/dl (8.6-10.4); GFR NON-AFRICAN AMERICAN 59
--- NOTE | 2018-09-09 09:11 | CP.PCM.PN ---
Subjective - Date & Time of Evaluation Date of Evaluation: 09/09/18 Time of Evaluation: 09:00 - Subjective Subjective: Medicine progress note for Dr. Durán. Pt seen and examined at bedside. Pt has complaint of pain around sanchez site. Has no other complaints. Denies headaches, vision changes, chest pain, SOB, coughing, abdominal pain, nausea, vomiting, fevers, chills. Objective - Vital Signs/Intake and Output Vital Signs (last 24 hours): Temp Pulse Resp BP Pulse Ox 98.0 F 80 18 186/77 H 99 09/09/18 07:02 09/09/18 07:49 09/09/18 07:02 09/09/18 07:02 09/09/18 07:02 Intake and Output: 09/09/18 09/09/18 06:59 18:59 Intake Total 87900 200 Output Total 57532 1450 Balance 500 -1250 - Medications Medications: Current Medications Amlodipine Besylate (Norvasc) 10 mg PO DAILY [facility] Last Admin: 09/08/18 12:30 Dose: 10 mg Dextrose (Dextrose 50% Inj) 0 ml IV STAT PRN; Protocol PRN Reason: Hypoglycemia Protocol Dextrose (Glutose 15) 0 gm PO ONCE PRN; Protocol PRN Reason: Hypoglycemia Protocol Docusate Sodium (Colace) 100 mg PO BID [facility] Last Admin: 09/08/18 17:56 Dose: 100 mg Gabapentin (Neurontin) 300 mg PO TID [facility] Last Admin: 09/08/18 17:56 Dose: 300 mg Glipizide (Glucotrol Xl) 10 mg PO BID [facility] Last Admin: 09/08/18 17:56 Dose: 10 mg Glucagon (Glucagen Diagnostic Kit) 0 mg IM STAT PRN; Protocol PRN Reason: Hypoglycemia Protocol Insulin Glargine (Lantus) 10 unit SC HS [facility] Last Admin: 09/08/18 21:34 Dose: 10 units Insulin Human Regular (Novolin R) 0 unit SC ACHS [facility]; Protocol Last Admin: 09/08/18 21:34 Dose: Not Given Lidocaine HCl (Xylocaine 2%) 0 ea TOP Q12H PRN Last Admin: 09/08/18 10:49 Dose: 1 applic Lisinopril (Zestril) 40 mg PO DAILY [facility] Last Admin: 09/08/18 09:03 Dose: 40 mg Metformin HCl (Glucophage) 500 mg PO BID [facility] Last Admin: 09/08/18 17:56 Dose: 500 mg Oxycodone/Acetaminophen (Percocet 5/325 Mg Tab) 1 tab PO Q8H PRN PRN Reason: Pain, severe (8-10) Stop: 09/11/18 15:01 Last Admin: 09/09/18 05:37 Dose: 1 tab Rosuvastatin Calcium (Crestor) 5 mg PO HS [facility] Last Admin: 09/08/18 21:34 Dose: 5 mg Sitagliptin Phosphate (Januvia) 50 mg PO DAILY [facility] Last Admin: 09/08/18 09:03 Dose: 50 mg Tamsulosin HCl (Flomax) 0.4 mg PO DAILY [facility] Last Admin: 09/08/18 12:30 Dose: 0.4 mg - Labs Labs: 09/09/18 07:06 09/09/18 07:06 PT 10.8 SECONDS (9.7-12.2) 09/01/18 17:42 INR 1.0 09/01/18 17:42 APTT 30 SECONDS (21-34) 09/01/18 17:42 - Constitutional Appears: Non-toxic, No Acute Distress - Head Exam Head Exam: NORMAL INSPECTION - Eye Exam Eye Exam: Normal appearance - ENT Exam ENT Exam: Mucous Membranes Moist - Respiratory Exam Respiratory Exam: Clear to Ausculation Bilateral, NORMAL BREATHING PATTERN. absent: Rales, Rhonchi, Wheezes - Cardiovascular Exam Cardiovascular Exam: +S1, +S2, Murmur - GI/Abdominal Exam GI & Abdominal Exam: Soft, Normal Bowel Sounds. absent: Rigid - Exam Additional comments: CBI in place - Extremities Exam Extremities Exam: Full ROM, Normal Inspection. 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 - AM H/h stable @ mid 8s - s/p 2 units for h/h in 6s on 09/07 - hgb 6.9 09/05, received X 1 PRBC - transfuse as necessary - see further plan below Heather hematuria - resolving 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 treatment - urology Eric Wellington on case - s/p cystoscopy on 09/04: no stricture in anterior urethra, active arterial & venous bleeding from prostate urethra, bladder full of clots, fulguration of bleeding from prostate - biopsy of bladder - chronic inflammation - lidocaine 2% topical for pain control - will require hyperbaric oxygen therapy per urology - unlikely to happen in patient - if patient h/h stable, possible d/c /friday back to [facility] (nursing rehab) - pt has tentative appt at [facility] unit on Thursday 09/14 @ 11:30 AM - will need transportation set up - possible D/C CBI pending urine becoming free of hematuria - Total PSA 0.1 - Testosterone level 341 - Images: * Abdomen/Pelvis CT: Bilateral hydroureteronephrosis. Redundant appearance of the right ureter which makes and apparent loop at the L4 level. Distended urinary bladder appears irregularly thick walled. Sanchez catheter present without decompression of the urinary bladder. Question presence of debris or neoplasm within the dependent portion of the urinary bladder. Heterogeneous enlarged prostate gland. Recommend correlation with PSA. Small bilateral pleural effusions. * Abdominal Xray: Evaluation of nephrolithiasis is not possible due to extensive fecal material and bowel gas obscuring the renal silhouette. No evidence of calcifications in the pelvis along the expected course of the ureters. 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 - BG 185 OA - Hgb A1c (07/27/18) 16.5 - Accuchecks ACHS - ISS - hypoglycemia protocol - c/w home medications Januvia 50mg po daily, Glipizide 10mg po BID, Glargine 10u SC HS, Crestor 5mg po HS - metformin 500mg po BID - restarted 09/07 (held due to IV contrast in CT head) Peripheral Neuropathy - Gabapentin 300mg po TID Hypertension Mitral Valve disease - Lisinopril 40mg po daily - resume home medication amlodipine 10 mg daily BPH - Flomax 0.4mg po daily - start proscar 5 mg Po daily per urology Prophylaxis - VTE contraindication secondary to hematuria - SCDs - Colace 100mg po BID - PT recommends subacute rehab Dispo: Patient will require hyperbaric oxygen therapy for persistent hematuria. Therapy unlikely to be performed as inpatient due to insurance issues. Patients insurance accepted at [facility], has an appointment on Thursday 09/14 @ 11:30. Patient can possibly be d/c'ed / Friday pending stable H/H back to [facility] (long term) and have follow up at [place].
[2018-09-09] MEDS: GlipiZIDE 10 mg SR Tab PO SCH ×2 (09:34→17:26)
[2018-09-09] MEDS: Lidocaine 2% Jelly (30 ml) TOP PRN (12:31)
--- NOTE | 2018-09-09 15:42 | PCM.URO ---
Urology Progress Note - General General: Tolerating Diet - Subjective Abdominal Pain: Yes Flank Pain: No Nausea: No Vomiting: No Hematuria: Yes (intermittent) Chest Pain: No Fever & Chills: No - Objective Lab Results Last 24 Hours: Laboratory Results - last 24 hr 09/08/18 09/08/18 09/09/18 16:25 20:54 06:15 WBC RBC Hgb Hct MCV MCH MCHC RDW Plt Count MPV Neut % (Auto) Lymph % (Auto) [place] % (Auto) Eos % (Auto) Baso % (Auto) Neut # (Auto) Lymph # (Auto) [place] # (Auto) Eos # (Auto) Baso # (Auto) Sodium Potassium Chloride Carbon Dioxide Anion Gap BUN Creatinine Est GFR ( Amer) Est GFR (Non-Af Amer) POC Glucose (mg/dL) 174 H 231 H 98 Random Glucose Calcium Total Bilirubin AST ALT Alkaline Phosphatase Total Protein Albumin Globulin Albumin/Globulin Ratio 09/09/18 09/09/18 09/09/18 07:06 07:06 11:25 WBC 6.0 RBC 2.79 L Hgb 8.6 L Hct 25.1 L MCV 90.1 MCH 30.8 MCHC 34.2 RDW 14.6 H Plt Count 322 MPV 8.3 Neut % (Auto) 70.1 Lymph % (Auto) 13.7 L [place] % (Auto) 10.7 H Eos % (Auto) 4.8 H Baso % (Auto) 0.7 Neut # (Auto) 4.2 Lymph # (Auto) 0.8 L [place] # (Auto) 0.6 Eos # (Auto) 0.3 Baso # (Auto) 0.0 Sodium 137 Potassium 4.6 Chloride 106 Carbon Dioxide 30 Anion Gap 6 L BUN 29 H Creatinine 1.2 Est GFR ( Amer) > 60 Est GFR (Non-Af Amer) 59 POC Glucose (mg/dL) 192 H Random Glucose 85 D Calcium 8.3 L Total Bilirubin < 0.1 L AST 79 H ALT 80 H Alkaline Phosphatase 171 H Total Protein 5.3 L Albumin 2.6 L Globulin 2.7 Albumin/Globulin Ratio 0.9 L Intake & Output: Intake & Output 09/08/18 09/09/18 09/09/18 18:59 06:59 18:59 Intake Total 7800 88418 200 Output Total 9400 36012 2250 Balance -1600 500 -2050 Intake: Oral 200 Other 7800 48051 Output: Urine 9400 36260 2250 Urethral (Harris) 5200 2250 Other: # Bowel Movements 2 Vital Signs: Vital Signs - 24 hr 09/08/18 09/08/18 09/08/18 15:44 23:14 23:20 Temperature 98.6 F Pulse Rate 70 82 86 Respiratory 20 Rate Blood Pressure 165/72 H O2 Sat by Pulse 96 Oximetry 09/09/18 09/09/18 09/09/18 07:02 07:49 09:37 Temperature 98.0 F Pulse Rate 87 80 86 Respiratory 18 Rate Blood Pressure 186/77 H 181/79 H O2 Sat by Pulse 99 Oximetry 09/09/18 12:00 Temperature Pulse Rate 82 Respiratory Rate Blood Pressure O2 Sat by Pulse Oximetry - Physical Exam Abdominal Exam: Soft, Non-Tender, Non-Distended Back: No CVA Tenderness Genitalia: Without Inflammation Urinary Catheter Draining Well: Yes Urine Color: Clear (previous hematuria this am, now clear and back on CBI) - Male Phallus: Normal Scrotum: Normal - Plan Catheter Care: Yes Intake & Output: Yes Additional Information: IMP: hematuria. Prob due to radiation cystitis and prostatitis. Rec/p: cbi and try to taper and stop. hyperbaric oxygen. Discussed w pt, resident staff, and attending physician - Date & Time of Note Date: 09/09/18 Time: 13:20
[2018-09-09] MEDS: (Lantus) Insulin Glargine, Recombinant SC SCH (21:47)
[2018-09-10] MEDS: Oxycodone/Acetaminophen 5/325 mg Tab PO PRN ×4 (00:51→19:02)
[2018-09-10 07:24] LABS: BASO # 0.1 K/uL (0.0-0.2); BASO % 0.8 % (0.0-2.0); EOS # 0.3 K/uL (0.0-0.7); EOS % 4.4 % (0.0-4.0); HEMOGLOBIN 8.1 g/dL (12.0-18.0); LYMPH # 0.9 K/uL (1.0-4.3); LYMPH % 13.6 % (20.0-40.0); MEAN CELL VOLUME 90.4 fL (80.0-94.0); MEAN CORPUSCULAR HEMOGLOBIN 30.7 pg (27.0-31.0); MEAN PLATELET VOLUME 8.1 fL (7.2-11.7); MONO # 0.6 K/uL (0.0-0.8); MONO % 9.7 % (0.0-10.0); NEUT # 4.7 K/uL (1.8-7.0); NEUT % 71.5 % (50.0-75.0); NRBC % 0.1 % (0.0-2.0); RBC 2.65 Mil/uL (4.40-5.90); RED CELL DISTRIBUTION WIDTH 14.3 % (11.5-14.5); WHITE BLOOD COUNT 6.6 K/uL (4.8-10.8)
[2018-09-10 08:01] LABS: ALBUMIN 2.5 g/dL (3.5-5.0); ALT/SGPT 56 U/L (21-72); AST/SGOT 59 U/L (17-59); BLOOD UREA NITROGEN 30 mg/dL (9-20); GFR NON-AFRICAN AMERICAN 59
[2018-09-10] MEDS: (Novolin R) Insulin Human Regular 100 units/ml vial SC SCH ×4 (08:45→21:32)
[2018-09-10] MEDS: GlipiZIDE 10 mg SR Tab PO SCH ×2 (09:10→18:12)
--- NOTE | 2018-09-10 11:04 | CP.PCM.DIS ---
Provider - Provider Date of Admission: 09/04/18 08:25 Attending physician: Rhett Durán Jr, MD Consults: 09/01/18 21:05 Case Management Referral Routine Comment: Physician Instructions: Reason For Exam: Reason for Referral: Discharge Planning 09/02/18 16:08 Urology Consult Routine Comment: Consulting Provider: Karen Wellington Consulting Physician: Karen Wellington Reason for Consult: heather hematuria Time Spent in preparation of Discharge (in minutes): 45 Diagnosis - Discharge Diagnosis (1) Hematuria Status: Chronic (2) Symptomatic anemia Status: Resolved (3) Prostate cancer Status: Chronic Hospital Course - Lab Results Lab Results: Most Recent Lab Values WBC 6.6 K/uL (4.8-10.8) 09/10/18 07:00 RBC 2.65 Mil/uL (4.40-5.90) L 09/10/18 07:00 Hgb 8.1 g/dL (12.0-18.0) L 09/10/18 07:00 Hct 24.0 % (35.0-51.0) L 09/10/18 07:00 MCV 90.4 fL (80.0-94.0) 09/10/18 07:00 MCH 30.7 pg (27.0-31.0) 09/10/18 07:00 MCHC 34.0 g/dL (33.0-37.0) 09/10/18 07:00 RDW 14.3 % (11.5-14.5) 09/10/18 07:00 Plt Count 335 K/uL (130-400) 09/10/18 07:00 MPV 8.1 fL (7.2-11.7) 09/10/18 07:00 Neut % (Auto) 71.5 % (50.0-75.0) 09/10/18 07:00 Lymph % (Auto) 13.6 % (20.0-40.0) L 09/10/18 07:00 [place] % (Auto) 9.7 % (0.0-10.0) 09/10/18 07:00 Eos % (Auto) 4.4 % (0.0-4.0) H 09/10/18 07:00 Baso % (Auto) 0.8 % (0.0-2.0) 09/10/18 07:00 Neut # (Auto) 4.7 K/uL (1.8-7.0) 09/10/18 07:00 Lymph # (Auto) 0.9 K/uL (1.0-4.3) L 09/10/18 07:00 [place] # (Auto) 0.6 K/uL (0.0-0.8) 09/10/18 07:00 Eos # (Auto) 0.3 K/uL (0.0-0.7) 09/10/18 07:00 Baso # (Auto) 0.1 K/uL (0.0-0.2) 09/10/18 07:00 Neutrophils % (Manual) 77 % (50-75) H 09/07/18 19:36 Band Neutrophils % 3 % (0-2) H 09/07/18 19:36 Lymphocytes % (Manual) 10 % (20-40) L 09/07/18 19:36 Monocytes % (Manual) 9 % (0-10) 09/07/18 19:36 Eosinophils % (Manual) 1 % (0-4) 09/07/18 19:36 Platelet Estimate Normal (NORMAL) 09/07/18 19:36 Plt Clumps, EDTA Present 09/05/18 19:29 Large Platelets Present 09/05/18 19:29 Giant Platelets Present 09/05/18 07:00 Hypochromasia (manual) Slight 09/06/18 08:48 Poikilocytosis (manual Slight 09/07/18 19:36 Anisocytosis (manual) Slight 09/06/18 08:48 Microcytosis (manual) Slight 09/05/18 19:29 Macrocytosis (manual) Slight 09/05/18 19:29 Target Cells Slight 09/05/18 19:29 Ovalocytes Slight 09/07/18 19:36 [place] Cells Slight 09/05/18 19:29 Retic Count 1.7 % (0.5-1.5) H 09/03/18 07:15 PT 10.8 SECONDS (9.7-12.2) 09/01/18 17:42 INR 1.0 09/01/18 17:42 APTT 30 SECONDS (21-34) 09/01/18 17:42 Sodium 132 mmol/L (132-148) 09/10/18 06:55 Potassium 4.7 mmol/L (3.6-5.2) 09/10/18 06:55 Chloride 103 mmol/L (98-107) 09/10/18 06:55 Carbon Dioxide 29 mmol/L (22-30) 09/10/18 06:55 Anion Gap 5 (10-20) L 09/10/18 06:55 BUN 30 mg/dL (9-20) H 09/10/18 06:55 Creatinine 1.2 mg/dL (0.8-1.5) 09/10/18 06:55 Est GFR ( Amer) > 60 09/10/18 06:55 Est GFR (Non-Af Amer) 59 09/10/18 06:55 POC Glucose (mg/dL) 168 mg/dL (65-110) H 09/10/18 06:05 Random Glucose 155 mg/dL (75-110) H D 09/10/18 06:55 Calcium 8.0 mg/dl (8.6-10.4) L 09/10/18 06:55 Phosphorus 3.0 mg/dL (2.5-4.5) 09/07/18 06:29 Magnesium 2.3 mg/dL (1.6-2.3) 09/07/18 06:29 Total Bilirubin 0.1 mg/dL (0.2-1.3) L 09/10/18 06:55 AST 59 U/L (17-59) D 09/10/18 06:55 ALT 56 U/L (21-72) 09/10/18 06:55 Alkaline Phosphatase 153 U/L (38-126) H 09/10/18 06:55 Total Protein 5.0 g/dL (6.3-8.3) L 09/10/18 06:55 Albumin 2.5 g/dL (3.5-5.0) L 09/10/18 06:55 Globulin 2.5 gm/dL (2.2-3.9) 09/10/18 06:55 Albumin/Globulin Ratio 1.0 (1.0-2.1) 09/10/18 06:55 Free PSA <0.1 ng/mL 09/03/18 07:15 % Free PSA Unable to calculate % (calc) (>25) 09/03/18 07:15 Total PSA 0.1 ng/mL (< or = 4.0) 09/03/18 07:15 Testosterone Level 341 ng/mL 09/03/18 07:15 Urine Color Red (YELLOW) 09/01/18 16:50 Urine Clarity Hazy (Clear) 09/01/18 16:50 Urine pH 6.0 (5.0-8.0) 09/01/18 16:50 Ur Specific [place] 1.018 (1.003-1.030) 09/01/18 16:50 Urine Protein 2+ mg/dL (NEGATIVE) H 09/01/18 16:50 Urine Glucose (UA) 3+ mg/dL (Normal) H 09/01/18 16:50 Urine Ketones Negative mg/dL (NEGATIVE) 09/01/18 16:50 Urine Blood 3+ (NEGATIVE) H 09/01/18 16:50 Urine Nitrate Negative (NEGATIVE) 09/01/18 16:50 Urine Bilirubin Negative (NEGATIVE) 09/01/18 16:50 Urine Urobilinogen Normal mg/dL (0.2-1.0) 09/01/18 16:50 Ur Leukocyte Esterase Neg [place]/uL (Negative) 09/01/18 16:50 Urine WBC (Auto) 6 /hpf (0-5) H 09/01/18 16:50 Urine RBC (Auto) 12638 /hpf (0-3) H 09/01/18 16:50 Urine Bacteria Rare (<OCC) 09/01/18 16:50 Blood Type A POSITIVE 09/05/18 09:16 Antibody Screen Negative 09/05/18 09:16 - Hospital Course Hospital Course: Patient was admitted for heather hematuria s/p proastate CA radiation therapy. Dr Wellington did a cystoscopy showing radiation vascular/endothelial camage, poor healing. bladder was irrigated and clots removed. Pts sanchez no longer dark reds now pale pink. as per Dr Wellington pt is unable to have bleeding controlled during cystoscopy so pt will require hyperbaric therapy. [facility] insurance, pt instructed to go for his appt on thursday 09/14 @ 11am. f/u with Dr Durán within 7 days of discharge Discharge Exam - Head Exam Head Exam: NORMAL INSPECTION - Additional Findings Additional findings: - Constitutional Appears: Non-toxic, No Acute Distress - Head Exam Head Exam: NORMAL INSPECTION - Eye Exam Eye Exam: Normal appearance - ENT Exam ENT Exam: Mucous Membranes Moist - Respiratory Exam Respiratory Exam: Clear to Ausculation Bilateral, NORMAL BREATHING PATTERN. absent: Rales, Rhonchi, Wheezes - Cardiovascular Exam Cardiovascular Exam: +S1, +S2, Murmur - GI/Abdominal Exam GI & Abdominal Exam: Soft, Normal Bowel Sounds. absent: Rigid - Exam Additional comments: CBI in place - Extremities Exam Extremities Exam: Full ROM, Normal Inspection. absent: Calf Tenderness, Pedal Edema - Back Exam Back Exam: absent: CVA tenderness (L), CVA tenderness (R) - Neurological Exam Neurological Exam: Alert, Awake, Oriented x3 - Psychiatric Exam Psychiatric exam: Normal Affect, Normal Mood - Skin Skin Exam: Dry, Intact, Normal Color, Warm Discharge Plan - Discharge Medications Prescriptions: amLODIPine [Norvasc] 10 mg PO DAILY #30 tab Empagliflozin [Jardiance] 10 mg PO DAILY #30 tablet Gabapentin [Neurontin] 300 mg PO TID #90 cap Glipizide [Glipizide Xl] 10 mg PO BID #14 tab.er.24 Insulin Glargine, Recombina [Lantus] 10 unit SC HS #3 l Lisinopril [Zestril] 40 mg PO DAILY #30 tab metFORMIN [glucOPHAGE] 500 mg PO BID #60 tab Simvastatin 20 mg PO HS #30 tablet Tamsulosin [Flomax] 0.4 mg PO DAILY #30 cap - Follow Up Plan Condition: STABLE Disposition: REHAB FACILITY/REHAB UNIT Instructions: Blood in the Urine (Hematuria), Adult (DC), Normocytic Normochromic Anemia (DC) Additional Instructions: Patient is to be discharged to [facility] on the following medications amLODIPine [Norvasc] 10 mg PO DAILY #30 tab take at 8am Empagliflozin [Jardiance] 10 mg PO DAILY #30 tablet take at 8am Gabapentin [Neurontin] 300 mg PO TID #90 cap take at 8am 12pm and 8pm Glipizide [Glipizide Xl] 10 mg PO BID #14 tab.er.24 take at 8am and 8pm Insulin Glargine, Recombina [Lantus] 10 unit SC HS #3 take before bedtime Lisinopril [Zestril] 40 mg PO DAILY #30 tab take at 8am metFORMIN [glucOPHAGE] 500 mg PO BID #60 tab take at 8am and 8pm Simvastatin 20 mg PO HS #30 tablet take at bedtime Tamsulosin [Flomax] 0.4 mg PO DAILY #30 cap take at 8am Please follow up with Dr Ya in office within 7 days of discharge Please follow up with Dr Durán in office within 7 days of discharge Please go to [facility] for Hyperbaric Oxygen therapy Friday for wound care Please seek medical attention immediately if symptoms return [facility] PGY1 Referrals: Rhett Durán Jr., MD [Medical Doctor] - Tino Olivares MD [Staff Provider] -
[2018-09-10] MEDS: Lidocaine 2% Jelly (30 ml) TOP PRN (14:43)
[2018-09-10] MEDS: (Lantus) Insulin Glargine, Recombinant SC SCH (21:59)
[2018-09-11] MEDS: Oxycodone/Acetaminophen 5/325 mg Tab PO PRN ×3 (01:45→16:05)
[2018-09-11 07:36] LABS: BASO % 0.8 % (0.0-2.0); EOS # 0.3 K/uL (0.0-0.7); EOS % 5.4 % (0.0-4.0); HEMOGLOBIN 8.5 g/dL (12.0-18.0); LYMPH % 16.6 % (20.0-40.0); MEAN CELL VOLUME 90.2 fL (80.0-94.0); MEAN CORPUSCULAR HEMOGLOBIN 31.3 pg (27.0-31.0); MEAN CORPUSCULAR HGB CONC 34.7 g/dL (33.0-37.0); MEAN PLATELET VOLUME 7.8 fL (7.2-11.7); MONO # 0.7 K/uL (0.0-0.8); MONO % 11.5 % (0.0-10.0); NEUT # 3.8 K/uL (1.8-7.0); NEUT % 65.7 % (50.0-75.0); RBC 2.73 Mil/uL (4.40-5.90); RED CELL DISTRIBUTION WIDTH 14.8 % (11.5-14.5); WHITE BLOOD COUNT 5.8 K/uL (4.8-10.8)
[2018-09-11 07:51] LABS: ALBUMIN 2.7 g/dL (3.5-5.0); ALT/SGPT 51 U/L (21-72); AST/SGOT 46 U/L (17-59); BLOOD UREA NITROGEN 27 mg/dL (9-20); CALCIUM 8.3 mg/dl (8.6-10.4); GFR NON-AFRICAN AMERICAN > 60
[2018-09-11] MEDS: (Novolin R) Insulin Human Regular 100 units/ml vial SC SCH ×4 (07:52→22:20)
[2018-09-11] MEDS: GlipiZIDE 10 mg SR Tab PO SCH ×2 (09:31→17:12)
--- NOTE | 2018-09-11 16:06 | CP.PCM.PN ---
Subjective - Date & Time of Evaluation Date of Evaluation: 09/11/18 Time of Evaluation: 16:05 - Subjective Subjective: DR KWONG SERVICE Pt s/e at [facility], CBI was dc'd pt then noticed worsening bleeding per sanchez. Denies CP SOB FC NV. Likely DC tomorrow pending AM Labs Objective - Vital Signs/Intake and Output Vital Signs (last 24 hours): Temp Pulse Resp BP Pulse Ox 98.3 F 85 20 175/77 H 98 09/11/18 07:29 09/11/18 07:29 09/11/18 07:29 09/11/18 07:29 09/11/18 07:29 Intake and Output: 09/11/18 09/11/18 06:59 18:59 Intake Total 73053 Output Total 96660 Balance -6100 - Medications Medications: Current Medications Amlodipine Besylate (Norvasc) 10 mg PO DAILY [facility] Last Admin: 09/11/18 09:32 Dose: 10 mg Dextrose (Dextrose 50% Inj) 0 ml IV STAT PRN; Protocol PRN Reason: Hypoglycemia Protocol Dextrose (Glutose 15) 0 gm PO ONCE PRN; Protocol PRN Reason: Hypoglycemia Protocol Docusate Sodium (Colace) 100 mg PO BID [facility] Last Admin: 09/11/18 09:32 Dose: 100 mg Finasteride (Proscar) 5 mg PO DAILY [facility] Last Admin: 09/11/18 09:31 Dose: 5 mg Gabapentin (Neurontin) 300 mg PO TID [facility] Last Admin: 09/11/18 13:41 Dose: 300 mg Glipizide (Glucotrol Xl) 10 mg PO BID [facility] Last Admin: 09/11/18 09:31 Dose: 10 mg Glucagon (Glucagen Diagnostic Kit) 0 mg IM STAT PRN; Protocol PRN Reason: Hypoglycemia Protocol Insulin Glargine (Lantus) 10 unit SC HS [facility] Last Admin: 09/10/18 21:59 Dose: 10 units Insulin Human Regular (Novolin R) 0 unit SC ACHS [facility]; Protocol Last Admin: 09/11/18 12:13 Dose: 2 u Lidocaine HCl (Xylocaine 2%) 0 ea TOP Q12H PRN Last Admin: 09/10/18 14:43 Dose: 1 applic Lisinopril (Zestril) 40 mg PO DAILY [facility] Last Admin: 09/11/18 09:31 Dose: 40 mg Metformin HCl (Glucophage) 500 mg PO BID [facility] Last Admin: 09/11/18 09:31 Dose: 500 mg Oxycodone/Acetaminophen (Percocet 5/325 Mg Tab) 1 tab PO Q6H PRN PRN Reason: Pain, severe (8-10) Stop: 09/11/18 21:31 Last Admin: 09/11/18 09:27 Dose: 1 tab Rosuvastatin Calcium (Crestor) 5 mg PO HS [facility] Last Admin: 09/10/18 21:59 Dose: 5 mg Sitagliptin Phosphate (Januvia) 50 mg PO DAILY [facility] Last Admin: 09/11/18 09:31 Dose: 50 mg Tamsulosin HCl (Flomax) 0.4 mg PO DAILY [facility] Last Admin: 09/11/18 09:32 Dose: 0.4 mg - Labs Labs: 09/11/18 07:11 09/11/18 07:11 PT 10.8 SECONDS (9.7-12.2) 09/01/18 17:42 INR 1.0 09/01/18 17:42 APTT 30 SECONDS (21-34) 09/01/18 17:42 - Additional Findings Additional findings: - Constitutional Appears: Non-toxic, No Acute Distress - Head Exam Head Exam: NORMAL INSPECTION - Eye Exam Eye Exam: Normal appearance - ENT Exam ENT Exam: Mucous Membranes Moist - Respiratory Exam Respiratory Exam: Clear to Ausculation Bilateral, NORMAL BREATHING PATTERN. absent: Rales, Rhonchi, Wheezes - Cardiovascular Exam Cardiovascular Exam: +S1, +S2, Murmur - GI/Abdominal Exam GI & Abdominal Exam: Soft, Normal Bowel Sounds. absent: Rigid - Exam Additional comments: CBI in place - Extremities Exam Extremities Exam: Full ROM, Normal Inspection. 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 - AM H/h stable @ mid 8s - s/p 2 units for h/h in 6s on 09/07 - hgb 6.9 09/05, received X 1 PRBC - transfuse as necessary - see further plan below Heather hematuria - resolving 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 treatment - urology Eric Wellington on case - s/p cystoscopy on 09/04: no stricture in anterior urethra, active arterial & venous bleeding from prostate urethra, bladder full of clots, fulguration of bleeding from prostate - biopsy of bladder - chronic inflammation - lidocaine 2% topical for pain control - will require hyperbaric oxygen therapy per urology - unlikely to happen in patient - if patient h/h stable, possible d/c /friday back to [facility] (nursing rehab) - pt has tentative appt at [facility] Hyperbaric unit on Thursday 09/14 @ 11:30 AM - will need transportation set up - possible D/C CBI pending urine becoming free of hematuria - Total PSA 0.1 - Testosterone level 341 - Images: * Abdomen/Pelvis CT: Bilateral hydroureteronephrosis. Redundant appearance of the right ureter which makes and apparent loop at the L4 level. Distended urinary bladder appears irregularly thick walled. Sanchez catheter present without decompression of the urinary bladder. Question presence of debris or neoplasm within the dependent portion of the urinary bladder. Heterogeneous enlarged prostate gland. Recommend correlation with PSA. Small bilateral pleural effusions. * Abdominal Xray: Evaluation of nephrolithiasis is not possible due to extensive fecal material and bowel gas obscuring the renal silhouette. No evidence of calcifications in the pelvis along the expected course of the ureters. 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 - BG 185 OA - Hgb A1c (07/27/18) 16.5 - Accuchecks ACHS - ISS - hypoglycemia protocol - c/w home medications Januvia 50mg po daily, Glipizide 10mg po BID, Glargine 10u SC HS, Crestor 5mg po HS - metformin 500mg po BID - restarted 09/07 (held due to IV contrast in CT head) Peripheral Neuropathy - Gabapentin 300mg po TID Hypertension Mitral Valve disease - Lisinopril 40mg po daily - resume home medication amlodipine 10 mg daily BPH - Flomax 0.4mg po daily - start proscar 5 mg Po daily per urology Prophylaxis - VTE contraindication secondary to hematuria - SCDs - Colace 100mg po BID - PT recommends subacute rehab Dispo: Patient will require hyperbaric oxygen therapy for persistent hematuria. Therapy unlikely to be performed as inpatient due to insurance issues. Patients insurance accepted at [facility] ([facility] has an appointment on Thursday 09/14 @ 11:30. Patient can possibly be d/c'ed / Friday pending stable H/H back to [facility] (correction) and have follow up at [place]. Assessment and Plan (1) Hematuria Status: Chronic (2) Symptomatic anemia Status: Resolved (3) Prostate cancer Status: Chronic
[2018-09-11] MEDS: (Lantus) Insulin Glargine, Recombinant SC SCH (22:19)
[2018-09-12] MEDS: Oxycodone/Acetaminophen 5/325 mg Tab PO PRN ×4 (00:30→20:39)
[2018-09-12 07:18] LABS: BASO # 0.1 K/uL (0.0-0.2); BASO % 0.7 % (0.0-2.0); EOS # 0.2 K/uL (0.0-0.7); EOS % 3.3 % (0.0-4.0); HEMOGLOBIN 8.4 g/dL (12.0-18.0); LYMPH # 0.9 K/uL (1.0-4.3); LYMPH % 12.2 % (20.0-40.0); MEAN CELL VOLUME 90.5 fL (80.0-94.0); MEAN CORPUSCULAR HEMOGLOBIN 31.8 pg (27.0-31.0); MEAN CORPUSCULAR HGB CONC 35.1 g/dL (33.0-37.0); MEAN PLATELET VOLUME 7.7 fL (7.2-11.7); MONO # 0.7 K/uL (0.0-0.8); NEUT # 5.5 K/uL (1.8-7.0); NEUT % 74.8 % (50.0-75.0); RBC 2.63 Mil/uL (4.40-5.90); RED CELL DISTRIBUTION WIDTH 15.1 % (11.5-14.5); WHITE BLOOD COUNT 7.4 K/uL (4.8-10.8)
[2018-09-12 07:19] LABS: ALB/GLOB RATIO 1.1 (1.0-2.1); ALT/SGPT 42 U/L (21-72); AST/SGOT 43 U/L (17-59); BLOOD UREA NITROGEN 25 mg/dL (9-20); CALCIUM 8.7 mg/dl (8.6-10.4); GFR NON-AFRICAN AMERICAN > 60
[2018-09-12] MEDS: (Novolin R) Insulin Human Regular 100 units/ml vial SC SCH ×4 (07:41→21:37)
[2018-09-12] MEDS: GlipiZIDE 10 mg SR Tab PO SCH ×2 (10:06→17:42)
--- NOTE | 2018-09-12 18:12 | CP.PCM.PN ---
Subjective - Date & Time of Evaluation Date of Evaluation: 09/12/18 Time of Evaluation: 18:05 - Subjective Subjective: DR KWONG SERVICE- IM Pt s/e at bedside, pt reporting clotted blood per sanchez. pt still reports discomfort per urethra but is able to tolerate. denies CP SOB FC NV, 12 point ros otherwise neg. Objective - Vital Signs/Intake and Output Vital Signs (last 24 hours): Temp Pulse Resp BP Pulse Ox 98.4 F 93 H 20 156/66 H 97 09/12/18 16:00 09/12/18 16:00 09/12/18 16:00 09/12/18 16:00 09/12/18 16:00 Intake and Output: 09/12/18 09/12/18 06:59 18:59 Intake Total 9990 480 Output Total 4950 2000 Balance 5040 -1520 - Medications Medications: Current Medications Amlodipine Besylate (Norvasc) 10 mg PO DAILY [facility] Last Admin: 09/12/18 10:06 Dose: 10 mg Dextrose (Dextrose 50% Inj) 0 ml IV STAT PRN; Protocol PRN Reason: Hypoglycemia Protocol Dextrose (Glutose 15) 0 gm PO ONCE PRN; Protocol PRN Reason: Hypoglycemia Protocol Docusate Sodium (Colace) 100 mg PO BID [facility] Last Admin: 09/12/18 17:42 Dose: 100 mg Finasteride (Proscar) 5 mg PO DAILY [facility] Last Admin: 09/12/18 10:06 Dose: 5 mg Gabapentin (Neurontin) 300 mg PO TID [facility] Last Admin: 09/12/18 17:42 Dose: 300 mg Glipizide (Glucotrol Xl) 10 mg PO BID [facility] Last Admin: 09/12/18 17:42 Dose: 10 mg Glucagon (Glucagen Diagnostic Kit) 0 mg IM STAT PRN; Protocol PRN Reason: Hypoglycemia Protocol Insulin Glargine (Lantus) 10 unit SC HS [facility] Last Admin: 09/11/18 22:19 Dose: 10 units Insulin Human Regular (Novolin R) 0 unit SC ACHS [facility]; Protocol Last Admin: 09/12/18 17:42 Dose: 4 u Lidocaine HCl (Xylocaine 2%) 0 ea TOP Q12H PRN Last Admin: 09/10/18 14:43 Dose: 1 applic Lisinopril (Zestril) 40 mg PO DAILY [facility] Last Admin: 09/12/18 10:06 Dose: 40 mg Metformin HCl (Glucophage) 500 mg PO BID [facility] Last Admin: 09/12/18 17:42 Dose: 500 mg Oxycodone/Acetaminophen (Percocet 5/325 Mg Tab) 1 tab PO Q6H PRN PRN Reason: Pain, severe (8-10) Stop: 09/14/18 23:30 Last Admin: 09/12/18 14:26 Dose: 1 tab Rosuvastatin Calcium (Crestor) 5 mg PO HS [facility] Last Admin: 09/11/18 22:19 Dose: 5 mg Sitagliptin Phosphate (Januvia) 50 mg PO DAILY [facility] Last Admin: 09/12/18 10:06 Dose: 50 mg Tamsulosin HCl (Flomax) 0.4 mg PO DAILY [facility] Last Admin: 09/12/18 10:06 Dose: 0.4 mg - Labs Labs: 09/12/18 06:56 09/12/18 06:56 PT 10.8 SECONDS (9.7-12.2) 09/01/18 17:42 INR 1.0 09/01/18 17:42 APTT 30 SECONDS (21-34) 09/01/18 17:42 - Additional Findings Additional findings: - Constitutional Appears: Non-toxic, No Acute Distress - Head Exam Head Exam: NORMAL INSPECTION - Eye Exam Eye Exam: Normal appearance - ENT Exam ENT Exam: Mucous Membranes Moist - Respiratory Exam Respiratory Exam: Clear to Ausculation Bilateral, NORMAL BREATHING PATTERN. absent: Rales, Rhonchi, Wheezes - Cardiovascular Exam Cardiovascular Exam: +S1, +S2, Murmur - GI/Abdominal Exam GI & Abdominal Exam: Soft, Normal Bowel Sounds. absent: Rigid - Exam Additional comments: CBI in place - Extremities Exam Extremities Exam: Full ROM, Normal Inspection. absent: Calf Tenderness, Pedal Edema - Back Exam Back Exam: absent: CVA tenderness (L), CVA tenderness (R) - Neurological Exam Neurological Exam: Alert, Awake, Oriented x3 - Psychiatric Exam Psychiatric exam: Normal Affect, Normal Mood - Skin Skin Exam: Dry, Intact, Normal Color, Warm Assessment and Plan (1) Hematuria Status: Chronic (2) Symptomatic anemia Status: Resolved (3) Prostate cancer Status: Chronic - Assessment and Plan (Free Text) Assessment: 73yo M PMH DM, HTN, arthritis, CAD, prostate cancer, admitted for anemia and heather hematuria; now s/p cystoscopy on 09/04, currently has CBI in place urine pinkish color, heather hematuria resolving Plan: Anemia Heather hematuria - resolving 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 - AM H/h stable @ mid 8s - s/p 2 units for h/h in 6s on 09/07 - hgb 6.9 09/05, received X 1 PRBC - transfuse as necessary - see further plan below Heather hematuria - resolving 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 treatment - urology Eric Wellington on case - Dr Olivares covering balcony worker recs if sanchez become clotted or output decreases * continue CBI * flush until clots no longer seen * if hematuria persists, consider using Alum 30g/ NS 3L as CBI fluid: works as an astringent - s/p cystoscopy on 09/04: no stricture in anterior urethra, active arterial & venous bleeding from prostate urethra, bladder full of clots, fulguration of bleeding from prostate - biopsy of bladder - chronic inflammation - lidocaine 2% topical for pain control - will require hyperbaric oxygen therapy per urology - unlikely to happen in patient - if patient h/h stable, possible d/c /friday back to [facility] (nursing rehab) - pt has tentative appt at [facility] Hyperbaric unit on Thursday 09/14 @ 11:30 AM - will need transportation set up - possible D/C CBI pending urine becoming free of hematuria - Total PSA 0.1 - Testosterone level 341 - Images: * Abdomen/Pelvis CT: Bilateral hydroureteronephrosis. Redundant appearance of the right ureter which makes and apparent loop at the L4 level. Distended urinary bladder appears irregularly thick walled. Sanchez catheter present without decompression of the urinary bladder. Question presence of debris or neoplasm within the dependent portion of the urinary bladder. Heterogeneous enlarged prostate gland. Recommend correlation with PSA. Small bilateral pleural effusions. * Abdominal Xray: Evaluation of nephrolithiasis is not possible due to extensive fecal material and bowel gas obscuring the renal silhouette. No evidence of calcifications in the pelvis along the expected course of the ureters. 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 - BG 185 OA - Hgb A1c (07/27/18) 16.5 - Accuchecks ACHS - ISS - hypoglycemia protocol - c/w home medications Januvia 50mg po daily, Glipizide 10mg po BID, Glargine 10u SC HS, Crestor 5mg po HS - metformin 500mg po BID - restarted 09/07 (held due to IV contrast in CT head) Peripheral Neuropathy - Gabapentin 300mg po TID Hypertension Mitral Valve disease - Lisinopril 40mg po daily - resume home medication amlodipine 10 mg daily BPH - Flomax 0.4mg po daily - start proscar 5 mg Po daily per urology Prophylaxis - VTE contraindication secondary to hematuria - SCDs - Colace 100mg po BID - PT recommends subacute rehab Dispo: Patient will require hyperbaric oxygen therapy for persistent hematuria. Therapy unlikely to be performed as inpatient due to insurance issues. Patients insurance accepted at [facility], has an appointment on Thursday 09/14 @ 11:30. Patient can possibly be d/c'ed / Friday pending stable H/H back to [facility] (long term) and have follow up at [place]. Sanchez maintainance * continue CBI * flush until clots no longer seen * if hematuria persists, consider using Alum 30g/ NS 3L as CBI fluid: works as an astringent * Monitor H&H CK PGY1 d/w Dr Kwong
[2018-09-12] MEDS: (Lantus) Insulin Glargine, Recombinant SC SCH (22:08)
[2018-09-13] MEDS: Oxycodone/Acetaminophen 5/325 mg Tab PO PRN ×4 (02:32→23:42)
[2018-09-13] MEDS: (Novolin R) Insulin Human Regular 100 units/ml vial SC SCH ×4 (08:04→21:52)
[2018-09-13 08:15] LABS: BASO # 0.1 K/uL (0.0-0.2); BASO % 0.5 % (0.0-2.0); EOS % 0.4 % (0.0-4.0); MEAN CELL VOLUME 91.1 fL (80.0-94.0); MEAN CORPUSCULAR HEMOGLOBIN 31.4 pg (27.0-31.0); MEAN CORPUSCULAR HGB CONC 34.4 g/dL (33.0-37.0); MEAN PLATELET VOLUME 7.9 fL (7.2-11.7); MONO # 0.8 K/uL (0.0-0.8); MONO % 7.6 % (0.0-10.0); NEUT # 8.9 K/uL (1.8-7.0); NEUT % 82.5 % (50.0-75.0); NRBC % 0.1 % (0.0-2.0); PLATELET COUNT 402 K/uL (130-400); RBC 1.96 Mil/uL (4.40-5.90); RED CELL DISTRIBUTION WIDTH 14.9 % (11.5-14.5); WHITE BLOOD COUNT 10.8 K/uL (4.8-10.8)
[2018-09-13 08:25] LABS: HEMOGLOBIN 6.2 g/dL (12.0-18.0)
[2018-09-13 08:37] LABS: ALBUMIN 2.6 g/dL (3.5-5.0); ALT/SGPT 35 U/L (21-72); AST/SGOT 34 U/L (17-59); BLOOD UREA NITROGEN 37 mg/dL (9-20); CALCIUM 8.3 mg/dl (8.6-10.4); GFR NON-AFRICAN AMERICAN 54
--- NOTE | 2018-09-13 09:05 | CP.PCM.PN ---
Subjective - Date & Time of Evaluation Date of Evaluation: 09/13/18 Time of Evaluation: 09:03 - Subjective Subjective: DR KWONG SERVICE- IM Pt s/e at bedside, persistent hematuria, per nursing Hg dropped to 6.2 today, pt understands and agrees with plan to transfuse 2 more PRBCs, agrees with plan for Alum/NS CBI. denies CP SOB FC NV, syncope. Objective - Vital Signs/Intake and Output Vital Signs (last 24 hours): Temp Pulse Resp BP Pulse Ox 97.8 F 82 20 160/72 H 99 09/13/18 07:00 09/13/18 07:00 09/13/18 07:00 09/13/18 07:00 09/13/18 07:00 Intake and Output: 09/13/18 09/13/18 06:59 18:59 Intake Total 16353 93906 Output Total 99278 44776 Balance -1130 -1550 - Medications Medications: Current Medications Amlodipine Besylate (Norvasc) 10 mg PO DAILY [facility] Last Admin: 09/12/18 10:06 Dose: 10 mg Dextrose (Dextrose 50% Inj) 0 ml IV STAT PRN; Protocol PRN Reason: Hypoglycemia Protocol Dextrose (Glutose 15) 0 gm PO ONCE PRN; Protocol PRN Reason: Hypoglycemia Protocol Docusate Sodium (Colace) 100 mg PO BID [facility] Last Admin: 09/12/18 17:42 Dose: 100 mg Finasteride (Proscar) 5 mg PO DAILY [facility] Last Admin: 09/12/18 10:06 Dose: 5 mg Gabapentin (Neurontin) 300 mg PO TID [facility] Last Admin: 09/12/18 17:42 Dose: 300 mg Glipizide (Glucotrol Xl) 10 mg PO BID [facility] Last Admin: 09/12/18 17:42 Dose: 10 mg Glucagon (Glucagen Diagnostic Kit) 0 mg IM STAT PRN; Protocol PRN Reason: Hypoglycemia Protocol Insulin Glargine (Lantus) 10 unit SC HS [facility] Last Admin: 09/12/18 22:08 Dose: 10 units Insulin Human Regular (Novolin R) 0 unit SC ACHS [facility]; Protocol Last Admin: 09/13/18 08:04 Dose: 4 u Lidocaine HCl (Xylocaine 2%) 0 ea TOP Q12H PRN Last Admin: 09/10/18 14:43 Dose: 1 applic Lisinopril (Zestril) 40 mg PO DAILY [facility] Last Admin: 09/12/18 10:06 Dose: 40 mg Metformin HCl (Glucophage) 500 mg PO BID [facility] Last Admin: 09/12/18 17:42 Dose: 500 mg Oxycodone/Acetaminophen (Percocet 5/325 Mg Tab) 1 tab PO Q6H PRN PRN Reason: Pain, severe (8-10) Stop: 09/14/18 23:30 Last Admin: 09/13/18 02:32 Dose: 1 tab Rosuvastatin Calcium (Crestor) 5 mg PO HS [facility] Last Admin: 09/12/18 22:08 Dose: 5 mg Sitagliptin Phosphate (Januvia) 50 mg PO DAILY [facility] Last Admin: 09/12/18 10:06 Dose: 50 mg Tamsulosin HCl (Flomax) 0.4 mg PO DAILY [facility] Last Admin: 09/12/18 10:06 Dose: 0.4 mg - Labs Labs: 09/13/18 07:50 09/13/18 07:50 PT 10.8 SECONDS (9.7-12.2) 09/01/18 17:42 INR 1.0 09/01/18 17:42 APTT 30 SECONDS (21-34) 09/01/18 17:42 - Additional Findings Additional findings: - Constitutional Appears: Non-toxic, No Acute Distress - Head Exam Head Exam: NORMAL INSPECTION - Eye Exam Eye Exam: Normal appearance - ENT Exam ENT Exam: Mucous Membranes Moist - Respiratory Exam Respiratory Exam: Clear to Ausculation Bilateral, NORMAL BREATHING PATTERN. absent: Rales, Rhonchi, Wheezes - Cardiovascular Exam Cardiovascular Exam: +S1, +S2, Murmur - GI/Abdominal Exam GI & Abdominal Exam: Soft, Normal Bowel Sounds. absent: Rigid - Exam Additional comments: CBI in place - Extremities Exam Extremities Exam: Full ROM, Normal Inspection. absent: Calf Tenderness, Pedal Edema - Back Exam Back Exam: absent: CVA tenderness (L), CVA tenderness (R) - Neurological Exam Neurological Exam: Alert, Awake, Oriented x3 - Psychiatric Exam Psychiatric exam: Normal Affect, Normal Mood - Skin Skin Exam: Dry, Intact, Normal Color, Warm Assessment and Plan (1) Hematuria Status: Chronic (2) Symptomatic anemia Status: Resolved (3) Prostate cancer Status: Chronic - Assessment and Plan (Free Text) Assessment: 73yo M PMH DM, HTN, arthritis, CAD, prostate cancer, admitted for anemia and heather hematuria; now s/p cystoscopy on 09/04, currently has CBI in place urine pinkish color, heather hematuria resolving Plan: Anemia Heather hematuria - resolving 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 - AM H&H 6.2 transfusing 2u PRBCs CBI changed to Alum 30g/NS 3L @ 125ml/hr daily: Dr Olivares recs - transfuse as necessary - monitor AM CBC - see further plan below Heather hematuria - resolving 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 treatment - urology Eric Wellington on case - Dr Olivares covering building components designer recs if sanchez become clotted or output decreases * continue CBI * flush until clots no longer seen * if hematuria persists, consider using Alum 30g/ NS 3L as CBI fluid: works as an astringent - s/p cystoscopy on 09/04: no stricture in anterior urethra, active arterial & venous bleeding from prostate urethra, bladder full of clots, fulguration of bleeding from prostate - biopsy of bladder - chronic inflammation - lidocaine 2% topical for pain control - will require hyperbaric oxygen therapy per urology - unlikely to happen in patient - if patient h/h stable, possible d/c /friday back to [facility] (nursing rehab) - pt has tentative appt at [facility] Hyperbaric unit on Thursday 09/14 @ 11:30 AM - will need transportation set up - possible D/C CBI pending urine becoming free of hematuria - Total PSA 0.1 - Testosterone level 341 - Images: * Abdomen/Pelvis CT: Bilateral hydroureteronephrosis. Redundant appearance of the right ureter which makes and apparent loop at the L4 level. Distended urinary bladder appears irregularly thick walled. Sanchez catheter present without decompression of the urinary bladder. Question presence of debris or neoplasm within the dependent portion of the urinary bladder. Heterogeneous enlarged prostate gland. Recommend correlation with PSA. Small bilateral pleural effusions. * Abdominal Xray: Evaluation of nephrolithiasis is not possible due to extensive fecal material and bowel gas obscuring the renal silhouette. No evidence of calcifications in the pelvis along the expected course of the ureters. 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 - BG 185 OA - Hgb A1c (07/27/18) 16.5 - Accuchecks ACHS - ISS - hypoglycemia protocol - c/w home medications Januvia 50mg po daily, Glipizide 10mg po BID, Glargine 10u SC HS, Crestor 5mg po HS - metformin 500mg po BID - restarted 09/07 (held due to IV contrast in CT head) Peripheral Neuropathy - Gabapentin 300mg po TID Hypertension Mitral Valve disease - Lisinopril 40mg po daily - resume home medication amlodipine 10 mg daily BPH - Flomax 0.4mg po daily - start proscar 5 mg Po daily per urology Prophylaxis - VTE contraindication secondary to hematuria - SCDs - Colace 100mg po BID - PT recommends subacute rehab Dispo: Patient will require hyperbaric oxygen therapy for persistent hematuria. Therapy unlikely to be performed as inpatient due to insurance issues. Patients insurance accepted at [facility] ([facility] has an appointment on Thursday 09/14 @ 11:30. possible d/c early tmrw AM if Hg stable. set up for transportation to [facility] wound center Sanchez maintainance * continue CBI * flush until clots no longer seen * Alum 30g/ NS 3L as CBI fluid: works as an astringent * Monitor H&H CK PGY1 d/w Dr Kwong
[2018-09-13] MEDS: GlipiZIDE 10 mg SR Tab PO SCH ×2 (09:44→17:01)
[2018-09-13 10:01] LABS: BANDS 1 % (0-2); EOSINOPHIL 1 % (0-4); LYMPHOCYTE 9 % (20-40); MONOCYTE 7 % (0-10); NEUTROPHIL 82 % (50-75); TOTAL CELLS COUNTED 100
[2018-09-13 10:02] LABS: ANISOCYTOSIS MODERATE; HYPOCHROMIC MODERATE; PLATELET ESTIMATE SLIGHTLY INCREASED (NORMAL); POIKILOCYTOSIS SLIGHT
[2018-09-13 10:03] LABS: OVALOCYTES SLIGHT; POLYCHROMIC SLIGHT; SCHISTOCYTES SLIGHT; TOXIC GRANULATION PRESENT
[2018-09-13 10:04] LABS: BURR CELLS SLIGHT; LARGE PLATELETS PRESENT
[2018-09-13] MEDS: (Lantus) Insulin Glargine, Recombinant SC SCH (21:53)
[2018-09-14] MEDS: Oxycodone/Acetaminophen 5/325 mg Tab PO PRN ×3 (06:01→17:02)
[2018-09-14 06:56] LABS: BASO # 0.1 K/uL (0.0-0.2); BASO % 0.6 % (0.0-2.0); EOS # 0.1 K/uL (0.0-0.7); EOS % 1.2 % (0.0-4.0); HEMOGLOBIN 8.9 g/dL (12.0-18.0); LYMPH # 0.8 K/uL (1.0-4.3); LYMPH % 6.3 % (20.0-40.0); MEAN CELL VOLUME 88.3 fL (80.0-94.0); MEAN CORPUSCULAR HEMOGLOBIN 29.8 pg (27.0-31.0); MEAN CORPUSCULAR HGB CONC 33.7 g/dL (33.0-37.0); MEAN PLATELET VOLUME 7.8 fL (7.2-11.7); MONO # 1.1 K/uL (0.0-0.8); MONO % 9.6 % (0.0-10.0); NEUT # 9.8 K/uL (1.8-7.0); NEUT % 82.3 % (50.0-75.0); PLATELET COUNT 345 K/uL (130-400); RED CELL DISTRIBUTION WIDTH 14.6 % (11.5-14.5); WHITE BLOOD COUNT 11.9 K/uL (4.8-10.8)
[2018-09-14 07:19] LABS: ALB/GLOB RATIO 1.1 (1.0-2.1); ALBUMIN 2.8 g/dL (3.5-5.0); ALT/SGPT 33 U/L (21-72); AST/SGOT 35 U/L (17-59); BLOOD UREA NITROGEN 36 mg/dL (9-20); CALCIUM 8.3 mg/dl (8.6-10.4); GFR NON-AFRICAN AMERICAN > 60
[2018-09-14] MEDS: (Novolin R) Insulin Human Regular 100 units/ml vial SC SCH ×4 (08:14→21:15)
--- NOTE | 2018-09-14 08:26 | CP.PCM.PN ---
Subjective - Date & Time of Evaluation Date of Evaluation: 09/14/18 Time of Evaluation: 08:21 - Subjective Subjective: PGY-1 Medicine Progress Note for Dr. Durán's service S/E at bedside Offers no complaints Sanchez bag filled with dark-red colored urine Denies dizziness, lightheadedness, sob, n/v, constipation or diarrhea s/p 2 units of prbcs on 02-13 Objective - Vital Signs/Intake and Output Vital Signs (last 24 hours): Temp Pulse Resp BP Pulse Ox 98.0 F 86 20 170/68 H 96 09/14/18 07:40 09/14/18 07:40 09/14/18 07:40 09/14/18 07:40 09/14/18 07:40 Intake and Output: 09/14/18 09/14/18 06:59 18:59 Intake Total 725 0 Output Total 2250 1800 Balance -1525 -1800 - Medications Medications: Current Medications Amlodipine Besylate (Norvasc) 10 mg PO DAILY [facility] Last Admin: 09/13/18 09:44 Dose: 10 mg Dextrose (Dextrose 50% Inj) 0 ml IV STAT PRN; Protocol PRN Reason: Hypoglycemia Protocol Dextrose (Glutose 15) 0 gm PO ONCE PRN; Protocol PRN Reason: Hypoglycemia Protocol Docusate Sodium (Colace) 100 mg PO BID [facility] Last Admin: 09/13/18 17:01 Dose: 100 mg Finasteride (Proscar) 5 mg PO DAILY [facility] Last Admin: 09/13/18 09:44 Dose: 5 mg Gabapentin (Neurontin) 300 mg PO TID [facility] Last Admin: 09/13/18 17:01 Dose: 300 mg Glipizide (Glucotrol Xl) 10 mg PO BID [facility] Last Admin: 09/13/18 17:01 Dose: 10 mg Glucagon (Glucagen Diagnostic Kit) 0 mg IM STAT PRN; Protocol PRN Reason: Hypoglycemia Protocol Ammonium Alum 30 gm/ Sodium (Chloride) 3,000 mls @ 125 mls/hr IR Q24H [facility] Last Admin: 09/13/18 10:53 Dose: 125 mls/hr Insulin Glargine (Lantus) 10 unit SC HS [facility] Last Admin: 09/13/18 21:53 Dose: 10 units Insulin Human Regular (Novolin R) 0 unit SC ACHS [facility]; Protocol Last Admin: 09/14/18 08:14 Dose: 2 u Lidocaine HCl (Xylocaine 2%) 0 ea TOP Q12H PRN Last Admin: 09/10/18 14:43 Dose: 1 applic Lisinopril (Zestril) 40 mg PO DAILY [facility] Last Admin: 09/13/18 09:44 Dose: 40 mg Metformin HCl (Glucophage) 500 mg PO BID [facility] Last Admin: 09/13/18 17:01 Dose: 500 mg Oxycodone/Acetaminophen (Percocet 5/325 Mg Tab) 1 tab PO Q6H PRN PRN Reason: Pain, severe (8-10) Stop: 09/14/18 23:30 Last Admin: 09/14/18 06:01 Dose: 1 tab Rosuvastatin Calcium (Crestor) 5 mg PO HS [facility] Last Admin: 09/13/18 21:52 Dose: 5 mg Sitagliptin Phosphate (Januvia) 50 mg PO DAILY [facility] Last Admin: 09/13/18 09:44 Dose: 50 mg Tamsulosin HCl (Flomax) 0.4 mg PO DAILY [facility] Last Admin: 09/13/18 09:43 Dose: 0.4 mg - Labs Labs: 09/14/18 06:47 09/14/18 06:47 PT 10.8 SECONDS (9.7-12.2) 09/01/18 17:42 INR 1.0 09/01/18 17:42 APTT 30 SECONDS (21-34) 09/01/18 17:42 - Constitutional Appears: Non-toxic, No Acute Distress - Head Exam Head Exam: NORMAL INSPECTION - Eye Exam Eye Exam: EOMI - ENT Exam ENT Exam: Mucous Membranes Dry - Respiratory Exam Respiratory Exam: Clear to Ausculation Bilateral, NORMAL BREATHING PATTERN. absent: Rales, Rhonchi, Wheezes - Cardiovascular Exam Cardiovascular Exam: REGULAR RHYTHM, +S1, +S2 - GI/Abdominal Exam GI & Abdominal Exam: Soft, Normal Bowel Sounds - Exam Additional comments: sanchez in place with CBI running - Extremities Exam Extremities Exam: Normal Inspection. 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 - AM H&H 6.2 transfusing 2u PRBCs CBI changed to Alum 30g/NS 3L @ 125ml/hr daily: Dr Olivares recs - transfuse as necessary - repeat cbc @ 6pm pending - see further plan below - urology Eric Wellington on case - Dr Olivares covering dehydrogenation operator recs if sanchez become clotted or output decreases * continue CBI * flush until clots no longer seen - s/p cystoscopy on 09/04: no stricture in anterior urethra, active arterial & venous bleeding from prostate urethra, bladder full of clots, fulguration of bleeding from prostate - biopsy of bladder - chronic inflammation - lidocaine 2% topical for pain control - will require hyperbaric oxygen therapy per urology - unlikely to happen in patient - pt has tentative appt at [facility] Hyperbaric unit on Thursday 09/14 @ 11:30 AM - will need transportation set up -unlikely in setting of persistent hematuria - Total PSA 0.1 - Testosterone level 341 - Images: * Abdomen/Pelvis CT: Bilateral hydroureteronephrosis. Redundant appearance of the right ureter which makes and apparent loop at the L4 level. Distended urinary bladder appears irregularly thick walled. Sanchez catheter present without decompression of the urinary bladder. Question presence of debris or neoplasm within the dependent portion of the urinary bladder. Heterogeneous en larged prostate gland. Recommend correlation with PSA. Small bilateral pleural effusions. * Abdominal Xray: Evaluation of nephrolithiasis is not possible due to extensive fecal material and bowel gas obscuring the renal silhouette. No evidence of calcifications in the pelvis along the expected course of the ureters. 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 - BG 185 OA - Hgb A1c (07/27/18) 16.5 - Accuchecks [facility] - ISS - hypoglycemia protocol - c/w home medications Januvia 50mg po daily, Glipizide 10mg po BID, Glargine 10u SC HS, Crestor 5mg po HS, metformin 500mg po BID Peripheral Neuropathy - Gabapentin 300mg po TID Hypertension Mitral Valve disease - Lisinopril 40mg po daily - amlodipine 10 mg daily BPH - Flomax 0.4mg po daily - start proscar 5 mg Po daily per urology Prophylaxis - VTE contraindication secondary to hematuria - SCDs - Colace 100mg po BID - PT recommends subacute rehab Dispo: Patient will require hyperbaric oxygen therapy for persistent hematuria. Therapy unlikely to be performed as inpatient due to insurance issues. Patients insurance accepted at [facility], has an appointment on Thursday 09/14 @ 11:30. Sanchez maintainance * continue CBI * flush until clots no longer seen * Alum 30g/ NS 3L as CBI fluid: works as an astringent * Monitor H&H Phyllis Herrera PGY-1 Case d/w Dr. Durán
[2018-09-14 08:59] LABS: ANISOCYTOSIS SLIGHT; BANDS 1 % (0-2); BASOPHIL 1 % (0-2); EOSINOPHIL 1 % (0-4); LYMPHOCYTE 7 % (20-40); MONOCYTE 6 % (0-10); NEUTROPHIL 84 % (50-75); PLATELET ESTIMATE NORMAL (NORMAL); POIKILOCYTOSIS SLIGHT; TOTAL CELLS COUNTED 100
[2018-09-14 09:00] LABS: HYPOCHROMIC SLIGHT; TARGET CELLS SLIGHT
[2018-09-14] MEDS: GlipiZIDE 10 mg SR Tab PO SCH ×2 (10:11→17:04)
[2018-09-14 16:37] LABS: HEMOGLOBIN 8.6 g/dL (12.0-18.0); MEAN CELL VOLUME 89.6 fL (80.0-94.0); MEAN CORPUSCULAR HEMOGLOBIN 30.4 pg (27.0-31.0); MEAN PLATELET VOLUME 8.1 fL (7.2-11.7); RBC 2.82 Mil/uL (4.40-5.90); RED CELL DISTRIBUTION WIDTH 14.2 % (11.5-14.5); WHITE BLOOD COUNT 11.4 K/uL (4.8-10.8)
[2018-09-14] MEDS: (Lantus) Insulin Glargine, Recombinant SC SCH (21:18)
[2018-09-15] MEDS: Oxycodone/Acetaminophen 5/325 mg Tab PO PRN ×3 (01:55→16:41)
[2018-09-15] MEDS: (Novolin R) Insulin Human Regular 100 units/ml vial SC SCH ×4 (07:31→21:54)
[2018-09-15 07:42] LABS: BASO % 0.4 % (0.0-2.0); EOS # 0.1 K/uL (0.0-0.7); EOS % 0.9 % (0.0-4.0); HEMOGLOBIN 8.3 g/dL (12.0-18.0); LYMPH # 0.8 K/uL (1.0-4.3); LYMPH % 7.1 % (20.0-40.0); MEAN CELL VOLUME 88.9 fL (80.0-94.0); MEAN CORPUSCULAR HEMOGLOBIN 30.1 pg (27.0-31.0); MEAN CORPUSCULAR HGB CONC 33.9 g/dL (33.0-37.0); MONO % 8.9 % (0.0-10.0); NEUT # 9.5 K/uL (1.8-7.0); NEUT % 82.7 % (50.0-75.0); PLATELET COUNT 368 K/uL (130-400); RBC 2.77 Mil/uL (4.40-5.90); RED CELL DISTRIBUTION WIDTH 14.4 % (11.5-14.5); WHITE BLOOD COUNT 11.5 K/uL (4.8-10.8)
--- NOTE | 2018-09-15 07:44 | CP.PCM.PN ---
Subjective - Date & Time of Evaluation Date of Evaluation: 09/15/18 Time of Evaluation: 07:42 - Subjective Subjective: Medicine Progress Note for Dr. Durán's service S/E at bedside Offers no acute complaints Sanchez bag filled with red-tinged urine Denies f,c, sob, dizziness, lightheadedness, n/v, constipation or diarrhea, and dysuria. Objective - Vital Signs/Intake and Output Vital Signs (last 24 hours): Temp Pulse Resp BP Pulse Ox 98.7 F 90 20 158/67 H 98 09/15/18 06:00 09/14/18 23:31 09/14/18 23:31 09/14/18 23:31 09/14/18 23:31 Intake and Output: 09/15/18 09/15/18 06:59 18:59 Intake Total 300 07522 Output Total 1500 07768 Balance -1200 -550 - Medications Medications: Current Medications Amlodipine Besylate (Norvasc) 10 mg PO DAILY [facility] Last Admin: 09/14/18 10:08 Dose: 10 mg Dextrose (Dextrose 50% Inj) 0 ml IV STAT PRN; Protocol PRN Reason: Hypoglycemia Protocol Dextrose (Glutose 15) 0 gm PO ONCE PRN; Protocol PRN Reason: Hypoglycemia Protocol Docusate Sodium (Colace) 100 mg PO BID [facility] Last Admin: 09/14/18 17:05 Dose: 100 mg Finasteride (Proscar) 5 mg PO DAILY [facility] Last Admin: 09/14/18 10:08 Dose: 5 mg Gabapentin (Neurontin) 300 mg PO TID [facility] Last Admin: 09/14/18 17:05 Dose: 300 mg Glipizide (Glucotrol Xl) 10 mg PO BID [facility] Last Admin: 09/14/18 17:04 Dose: 10 mg Glucagon (Glucagen Diagnostic Kit) 0 mg IM STAT PRN; Protocol PRN Reason: Hypoglycemia Protocol Ammonium Alum 30 gm/ Sodium (Chloride) 3,000 mls @ 125 mls/hr IR Q24H [facility] Last Admin: 09/14/18 11:31 Dose: 125 mls/hr Insulin Glargine (Lantus) 10 unit SC HS [facility] Last Admin: 09/14/18 21:18 Dose: 10 units Insulin Human Regular (Novolin R) 0 unit SC ACHS [facility]; Protocol Last Admin: 09/15/18 07:31 Dose: Not Given Lidocaine HCl (Xylocaine 2%) 0 ea TOP Q12H PRN Last Admin: 09/10/18 14:43 Dose: 1 applic Lisinopril (Zestril) 40 mg PO DAILY [facility] Last Admin: 09/14/18 10:08 Dose: 40 mg Metformin HCl (Glucophage) 500 mg PO BID [facility] Last Admin: 09/14/18 17:04 Dose: 500 mg Oxycodone/Acetaminophen (Percocet 5/325 Mg Tab) 2 tab PO Q6H PRN PRN Reason: Pain, moderate (4-7) Stop: 09/17/18 11:21 Last Admin: 09/15/18 01:55 Dose: 2 tab Rosuvastatin Calcium (Crestor) 5 mg PO HS [facility] Last Admin: 09/14/18 21:12 Dose: 5 mg Sitagliptin Phosphate (Januvia) 50 mg PO DAILY [facility] Last Admin: 09/14/18 10:08 Dose: 50 mg Tamsulosin HCl (Flomax) 0.4 mg PO DAILY [facility] Last Admin: 09/14/18 10:09 Dose: 0.4 mg - Labs Labs: 09/14/18 16:32 09/14/18 06:47 PT 10.8 SECONDS (9.7-12.2) 09/01/18 17:42 INR 1.0 09/01/18 17:42 APTT 30 SECONDS (21-34) 09/01/18 17:42 - Additional Findings Additional findings: - Constitutional Appears: Non-toxic, No Acute Distress - Head Exam Head Exam: NORMAL INSPECTION - Eye Exam Eye Exam: EOMI - ENT Exam ENT Exam: Mucous Membranes Dry - Respiratory Exam Respiratory Exam: Clear to Ausculation Bilateral, NORMAL BREATHING PATTERN. absent: Rales, Rhonchi, Wheezes - Cardiovascular Exam Cardiovascular Exam: REGULAR RHYTHM, +S1, +S2 - GI/Abdominal Exam GI & Abdominal Exam: Soft, Normal Bowel Sounds - Exam Additional comments: sanchez in place with CBI running - Extremities Exam Extremities Exam: Normal Inspection. 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 - hemodynamically stable transfusing 2u PRBCs CBI changed to Alum 30g/NS 3L @ 125ml/hr daily: Dr Olivares recs - transfuse as necessary - repeat cbc @ 6pm pending - see further plan below - urology Eric Wellington on case - Dr Olivares covering electronic sensing equipment assembler recs if sanchez become clotted or output decreases * continue CBI * flush until clots no longer seen - s/p cystoscopy on 09/04: no stricture in anterior urethra, active arterial & venous bleeding from prostate urethra, bladder full of clots, fulguration of bleeding from prostate - biopsy of bladder - chronic inflammation - lidocaine 2% topical for pain control - will require hyperbaric oxygen therapy per urology - unlikely to happen in patient - pt has tentative appt at [facility] Hyper[facility]ic unit on Thursday 09/14 @ 11:30 AM - will need transportation set up -unlikely in setting of persistent hematuria - Total PSA 0.1 - Testosterone level 341 - Images: * Abdomen/Pelvis CT: Bilateral hydroureteronephrosis. Redundant appearance of the right ureter which makes and apparent loop at the L4 level. Distended urinary bladder appears irregularly thick walled. Sanchez catheter present without decompression of the urinary bladder. Question presence of debris or neoplasm within the dependent portion of the urinary bladder. Heterogeneous enlarged prostate gland. Recommend correlation with PSA. Small bilateral pleural effusions. * Abdominal Xray: Evaluation of nephrolithiasis is not possible due to extensive fecal material and bowel gas obscuring the renal silhouette. No evidence of calcifications in the pelvis along the expected course of the ureters. 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 - BG 185 OA - Hgb A1c (07/27/18) 16.5 - Accuchecks [facility] - ISS - hypoglycemia protocol - c/w home medications Januvia 50mg po daily, Glipizide 10mg po BID, Glargine 10u SC HS, Crestor 5mg po HS, metformin 500mg po BID Peripheral Neuropathy - Gabapentin 300mg po TID Hypertension Mitral Valve disease - Lisinopril 40mg po daily - amlodipine 10 mg daily BPH - Flomax 0.4mg po daily - start proscar 5 mg Po daily per urology Prophylaxis - VTE contraindication secondary to hematuria - SCDs - Colace 100mg po BID - PT recommends subacute rehab Dispo: Patient will require hyperbaric oxygen therapy for persistent hematuria. Therapy unlikely to be performed as inpatient due to insurance issues. Continues to have significant hematuria. Was unable to make followup appointment for david Sanchez maintainance * continue CBI * flush until clots no longer seen * Alum 30g/ NS 3L as CBI fluid: works as an astringent * Monitor H&H Dispo: Will discuss with urology for further plan as patient continues to have hematuria and needs plan prior to d/c Phyllis Herrera PGY-1 Case d/w Dr. Durán
[2018-09-15] MEDS: GlipiZIDE 10 mg SR Tab PO SCH ×2 (09:32→17:20)
[2018-09-15 09:58] LABS: ANISOCYTOSIS SLIGHT; EOSINOPHIL 1 % (0-4); LYMPHOCYTE 9 % (20-40); MONOCYTE 5 % (0-10); NEUTROPHIL 85 % (50-75); PLATELET ESTIMATE NORMAL (NORMAL); POIKILOCYTOSIS SLIGHT; TOTAL CELLS COUNTED 100
[2018-09-15 09:59] LABS: HYPOCHROMIC SLIGHT
[2018-09-15 10:00] LABS: BURR CELLS SLIGHT; TARGET CELLS SLIGHT
[2018-09-15 20:07] LABS: HEMOGLOBIN 7.1 g/dL (12.0-18.0); MEAN CELL VOLUME 89.1 fL (80.0-94.0); MEAN CORPUSCULAR HEMOGLOBIN 29.6 pg (27.0-31.0); MEAN CORPUSCULAR HGB CONC 33.2 g/dL (33.0-37.0); MEAN PLATELET VOLUME 7.9 fL (7.2-11.7); RBC 2.39 Mil/uL (4.40-5.90); RED CELL DISTRIBUTION WIDTH 14.6 % (11.5-14.5); WHITE BLOOD COUNT 13.1 K/uL (4.8-10.8)
[2018-09-15] MEDS: (Lantus) Insulin Glargine, Recombinant SC SCH (21:52)
[2018-09-16] MEDS: Oxycodone/Acetaminophen 5/325 mg Tab PO PRN ×3 (01:07→16:10)
[2018-09-16 07:19] LABS: BASO # 0.1 K/uL (0.0-0.2); BASO % 0.6 % (0.0-2.0); EOS # 0.1 K/uL (0.0-0.7); EOS % 0.7 % (0.0-4.0); HEMOGLOBIN 7.7 g/dL (12.0-18.0); LYMPH # 0.9 K/uL (1.0-4.3); LYMPH % 7.2 % (20.0-40.0); MEAN CELL VOLUME 90.3 fL (80.0-94.0); MEAN CORPUSCULAR HEMOGLOBIN 30.6 pg (27.0-31.0); MEAN CORPUSCULAR HGB CONC 33.9 g/dL (33.0-37.0); MEAN PLATELET VOLUME 8.2 fL (7.2-11.7); MONO # 1.1 K/uL (0.0-0.8); MONO % 8.4 % (0.0-10.0); NEUT # 10.4 K/uL (1.8-7.0); NEUT % 83.1 % (50.0-75.0); PLATELET COUNT 327 K/uL (130-400); RBC 2.52 Mil/uL (4.40-5.90); RED CELL DISTRIBUTION WIDTH 13.6 % (11.5-14.5); WHITE BLOOD COUNT 12.5 K/uL (4.8-10.8)
[2018-09-16] MEDS: (Novolin R) Insulin Human Regular 100 units/ml vial SC SCH ×4 (07:22→21:48)
[2018-09-16 07:52] LABS: ALBUMIN 2.5 g/dL (3.5-5.0); ALT/SGPT 57 U/L (21-72); AST/SGOT 51 U/L (17-59); BLOOD UREA NITROGEN 42 mg/dL (9-20); GFR NON-AFRICAN AMERICAN 59
--- NOTE | 2018-09-16 09:26 | CP.PCM.PN ---
Subjective - Date & Time of Evaluation Date of Evaluation: 09/16/18 Time of Evaluation: 09:22 - Subjective Subjective: Medicine Progress Note for Dr. Durán's service S/E at bedside Offers no acute complaints as per nursing received 1 unit of prbcs Denies f,c, cp, sob, n/v, constipation or diarrhea, and dysuria Objective - Vital Signs/Intake and Output Vital Signs (last 24 hours): Temp Pulse Resp BP Pulse Ox 98.4 F 98 H 20 157/67 H 99 09/16/18 07:00 09/16/18 07:00 09/16/18 07:00 09/16/18 07:00 09/16/18 07:00 Intake and Output: 09/16/18 09/16/18 06:59 18:59 Intake Total 1100 Output Total 900 Balance 200 - Medications Medications: Current Medications Amlodipine Besylate (Norvasc) 10 mg PO DAILY [facility] Last Admin: 09/15/18 09:38 Dose: 10 mg Dextrose (Dextrose 50% Inj) 0 ml IV STAT PRN; Protocol PRN Reason: Hypoglycemia Protocol Dextrose (Glutose 15) 0 gm PO ONCE PRN; Protocol PRN Reason: Hypoglycemia Protocol Docusate Sodium (Colace) 100 mg PO BID [facility] Last Admin: 09/15/18 17:21 Dose: 100 mg Finasteride (Proscar) 5 mg PO DAILY [facility] Last Admin: 09/15/18 09:32 Dose: 5 mg Gabapentin (Neurontin) 300 mg PO TID [facility] Last Admin: 09/15/18 17:21 Dose: 300 mg Glipizide (Glucotrol Xl) 10 mg PO BID [facility] Last Admin: 09/15/18 17:20 Dose: 10 mg Glucagon (Glucagen Diagnostic Kit) 0 mg IM STAT PRN; Protocol PRN Reason: Hypoglycemia Protocol Ammonium Alum 30 gm/ Sodium (Chloride) 3,000 mls @ 125 mls/hr IR Q24H [facility] Last Admin: 09/15/18 10:15 Dose: 125 mls/hr Insulin Glargine (Lantus) 10 unit SC HS [facility] Last Admin: 09/15/18 21:52 Dose: 10 units Insulin Human Regular (Novolin R) 0 unit SC ACHS [facility]; Protocol Last Admin: 09/16/18 07:22 Dose: 2 u Lidocaine HCl (Xylocaine 2%) 0 ea TOP Q12H PRN Last Admin: 09/10/18 14:43 Dose: 1 applic Lisinopril (Zestril) 40 mg PO DAILY [facility] Last Admin: 09/15/18 09:32 Dose: 40 mg Metformin HCl (Glucophage) 500 mg PO BID [facility] Last Admin: 09/15/18 17:21 Dose: 500 mg Oxycodone/Acetaminophen (Percocet 5/325 Mg Tab) 2 tab PO Q6H PRN PRN Reason: Pain, moderate (4-7) Stop: 09/17/18 11:21 Last Admin: 09/16/18 01:07 Dose: 2 tab Rosuvastatin Calcium (Crestor) 5 mg PO HS [facility] Last Admin: 09/15/18 21:52 Dose: 5 mg Sitagliptin Phosphate (Januvia) 50 mg PO DAILY [facility] Last Admin: 09/15/18 09:32 Dose: 50 mg Tamsulosin HCl (Flomax) 0.4 mg PO DAILY [facility] Last Admin: 09/15/18 09:32 Dose: 0.4 mg - Labs Labs: 09/16/18 07:10 09/16/18 07:10 PT 10.8 SECONDS (9.7-12.2) 09/01/18 17:42 INR 1.0 09/01/18 17:42 APTT 30 SECONDS (21-34) 09/01/18 17:42 - Additional Findings Additional findings: - Constitutional Appears: Non-toxic, No Acute Distress - Head Exam Head Exam: NORMAL INSPECTION - Eye Exam Eye Exam: EOMI - ENT Exam ENT Exam: Mucous Membranes Dry - Respiratory Exam Respiratory Exam: Clear to Ausculation Bilateral, NORMAL BREATHING PATTERN. absent: Rales, Rhonchi, Wheezes - Cardiovascular Exam Cardiovascular Exam: REGULAR RHYTHM, +S1, +S2 - GI/Abdominal Exam GI & Abdominal Exam: Soft, Normal Bowel Sounds - Exam Additional comments: sanchez in place with CBI running - Extremities Exam Extremities Exam: Normal Inspection. 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 - hemodynamically stable transfused 2u PRBCs; transfused 1 u of pRBC on 09/15 CBI changed to Alum 30g/NS 3L @ 125ml/hr daily: Dr Olivares recs - transfuse as necessary - repeat cbc @ 6pm pending - see further plan below - urology Eric Wellington on case - Dr Olivares covering digital controls technical officer recs if sanchez become clotted or output decreases * continue CBI * flush until clots no longer seen - s/p cystoscopy on 09/04: no stricture in anterior urethra, active arterial & venous bleeding from prostate urethra, bladder full of clots, fulguration of bleeding from prostate - biopsy of bladder - chronic inflammation - lidocaine 2% topical for pain control - will require hyperbaric oxygen therapy per urology - unlikely to happen in patient - pt has tentative appt at [facility] Hyperbaric unit on Thursday 09/14 @ 11:30 AM - will need transportation set up -unlikely in setting of persistent hematuria - Total PSA 0.1 - Testosterone level 341 - Images: * Abdomen/Pelvis CT: Bilateral hydroureteronephrosis. Redundant appearance of the right ureter which makes and apparent loop at the L4 level. Distended urinary bladder appears irregularly thick walled. Sanchez catheter present without decompression of the urinary bladder. Question presence of debris or neoplasm within the dependent portion of the urinary bladder. Heterogeneous enlarged prostate gland. Recommend correlation with PSA. Small bilateral pleural effusions. * Abdominal Xray: Evaluation of nephrolithiasis is not possible due to extensive fecal material and bowel gas obscuring the renal silhouette. No evidence of calcifications in the pelvis along the expected course of the ureters. 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 - BG 185 OA - Hgb A1c (07/27/18) 16.5 - Accuchecks [facility] - ISS - hypoglycemia protocol - c/w home medications Januvia 50mg po daily, Glipizide 10mg po BID, Glargine 10u SC HS, Crestor 5mg po HS, metformin 500mg po BID Peripheral Neuropathy - Gabapentin 300mg po TID Hypertension Mitral Valve disease - Lisinopril 40mg po daily - amlodipine 10 mg daily BPH - Flomax 0.4mg po daily - start proscar 5 mg Po daily per urology Prophylaxis - VTE contraindication secondary to hematuria - SCDs - Colace 100mg po BID - PT recommends subacute rehab Sanchez maintainance * continue CBI * flush until clots no longer seen * Alum 30g/ NS 3L as CBI fluid: works as an astringent * Monitor H&H Dispo: Will discuss with urology for further plan as patient continues to have hematuria and needs plan prior to d/c Phyllis Herrera PGY-1 Case d/w Dr. Durán Dispo: pending update from urology for continued hematuria prior to discharge PGY-1 Phyllis Herrera Case d/w Dr. Durán
[2018-09-16] MEDS: GlipiZIDE 10 mg SR Tab PO SCH ×2 (09:40→17:55)
[2018-09-16 10:07] LABS: ANISOCYTOSIS SLIGHT; EOSINOPHIL 2 % (0-4); HYPOCHROMIC SLIGHT; LYMPHOCYTE 9 % (20-40); MONOCYTE 4 % (0-10); NEUTROPHIL 85 % (50-75); PLATELET ESTIMATE NORMAL (NORMAL); POIKILOCYTOSIS SLIGHT; TARGET CELLS SLIGHT; TOTAL CELLS COUNTED 100
[2018-09-16 10:08] LABS: BURR CELLS SLIGHT; GIANT PLATELETS PRESENT; LARGE PLATELETS PRESENT; OVALOCYTES SLIGHT
[2018-09-16 20:12] LABS: MEAN CELL VOLUME 89.5 fL (80.0-94.0); MEAN CORPUSCULAR HEMOGLOBIN 29.8 pg (27.0-31.0); MEAN CORPUSCULAR HGB CONC 33.3 g/dL (33.0-37.0); MEAN PLATELET VOLUME 7.9 fL (7.2-11.7); RBC 2.01 Mil/uL (4.40-5.90); WHITE BLOOD COUNT 12.9 K/uL (4.8-10.8)
[2018-09-16] MEDS: (Lantus) Insulin Glargine, Recombinant SC SCH (21:46)
[2018-09-17] MEDS: Oxycodone/Acetaminophen 5/325 mg Tab PO PRN ×3 (01:30→17:01)
[2018-09-17] MEDS: (Novolin R) Insulin Human Regular 100 units/ml vial SC SCH ×4 (07:58→22:26)
[2018-09-17] MEDS: GlipiZIDE 10 mg SR Tab PO SCH ×2 (09:39→17:59)
[2018-09-17 14:28] LABS: BASO % 0.4 % (0.0-2.0); EOS # 0.1 K/uL (0.0-0.7); EOS % 0.8 % (0.0-4.0); HEMOGLOBIN 7.7 g/dL (12.0-18.0); LYMPH # 0.4 K/uL (1.0-4.3); LYMPH % 3.6 % (20.0-40.0); MEAN CELL VOLUME 90.1 fL (80.0-94.0); MEAN CORPUSCULAR HEMOGLOBIN 31.6 pg (27.0-31.0); MONO # 0.9 K/uL (0.0-0.8); MONO % 8.2 % (0.0-10.0); NEUT # 9.6 K/uL (1.8-7.0); NRBC % 0.1 % (0.0-2.0); PLATELET COUNT 266 K/uL (130-400); RBC 2.46 Mil/uL (4.40-5.90); RED CELL DISTRIBUTION WIDTH 13.8 % (11.5-14.5)
[2018-09-17 14:47] LABS: EOSINOPHIL 2 % (0-4); MONOCYTE 8 % (0-10); PLATELET ESTIMATE NORMAL (NORMAL); TOTAL CELLS COUNTED 100
[2018-09-17 14:48] LABS: ANISOCYTOSIS SLIGHT; HYPOCHROMIC SLIGHT; LARGE PLATELETS PRESENT; LYMPHOCYTE 5 % (20-40); NEUTROPHIL 85 % (50-75); POIKILOCYTOSIS SLIGHT
--- NOTE | 2018-09-17 16:29 | CP.PCM.PN ---
Subjective - Date & Time of Evaluation Date of Evaluation: 09/17/18 Time of Evaluation: 16:26 - Subjective Subjective: Medicine Progress Note for Dr. Durán's service S/E at bedside Offers no acute complaints s/p 2 units of prbcs continues to have hematuria pending urological update as CBI non-effective Denies fevers, chills, chest pain, sob, n/v, constipation or diarrhea, and dysuria. Objective - Vital Signs/Intake and Output Vital Signs (last 24 hours): Temp Pulse Resp BP Pulse Ox 98.7 F 96 H 19 142/71 95 09/17/18 08:17 09/17/18 08:17 09/17/18 08:17 09/17/18 08:17 09/17/18 07:00 Intake and Output: 09/17/18 09/17/18 06:59 18:59 Intake Total 1350 76405 Output Total 1100 04703 Balance 250 -500 - Medications Medications: Current Medications Amlodipine Besylate (Norvasc) 10 mg PO DAILY [facility] Last Admin: 09/17/18 09:38 Dose: 10 mg Dextrose (Dextrose 50% Inj) 0 ml IV STAT PRN; Protocol PRN Reason: Hypoglycemia Protocol Dextrose (Glutose 15) 0 gm PO ONCE PRN; Protocol PRN Reason: Hypoglycemia Protocol Docusate Sodium (Colace) 100 mg PO BID [facility] Last Admin: 09/17/18 09:38 Dose: 100 mg Finasteride (Proscar) 5 mg PO DAILY [facility] Last Admin: 09/17/18 09:38 Dose: 5 mg Gabapentin (Neurontin) 300 mg PO TID [facility] Last Admin: 09/17/18 14:06 Dose: 300 mg Glipizide (Glucotrol Xl) 10 mg PO BID [facility] Last Admin: 09/17/18 09:39 Dose: Not Given Glucagon (Glucagen Diagnostic Kit) 0 mg IM STAT PRN; Protocol PRN Reason: Hypoglycemia Protocol Insulin Glargine (Lantus) 10 unit SC HS [facility] Last Admin: 09/16/18 21:46 Dose: 10 units Insulin Human Regular (Novolin R) 0 unit SC [facility]; Protocol Last Admin: 09/17/18 11:44 Dose: 4 u Lidocaine HCl (Xylocaine 2%) 0 ea TOP Q12H PRN Last Admin: 09/10/18 14:43 Dose: 1 applic Lisinopril (Zestril) 40 mg PO DAILY [facility] Last Admin: 09/17/18 09:37 Dose: 40 mg [facility] Oxycodone/Acetaminophen (Percocet 5/325 Mg Tab) 2 tab PO Q4H PRN PRN Reason: Pain, moderate (4-7) Stop: 09/20/18 13:44 Rosuvastatin Calcium (Crestor) 5 mg PO HS [facility] Last Admin: 09/16/18 21:45 Dose: 5 mg Sitagliptin Phosphate (Januvia) 50 mg PO DAILY [facility] Last Admin: 09/17/18 09:39 Dose: Not Given Tamsulosin HCl (Flomax) 0.4 mg PO DAILY [facility] Last Admin: 09/17/18 09:37 Dose: 0.4 mg - Labs Labs: 09/17/18 14:18 09/16/18 07:10 PT 10.8 SECONDS (9.7-12.2) 09/01/18 17:42 INR 1.0 09/01/18 17:42 APTT 30 SECONDS (21-34) 09/01/18 17:42 - Constitutional Appears: Non-toxic, No Acute Distress, Chronically Ill - Head Exam Head Exam: NORMAL INSPECTION, NORMOCEPHALIC - Eye Exam Eye Exam: EOMI, Normal appearance. absent: Nystagmus, Scleral icterus - ENT Exam ENT Exam: Mucous Membranes Dry - Respiratory Exam Respiratory Exam: Clear to Ausculation Bilateral, NORMAL BREATHING PATTERN - Cardiovascular Exam Cardiovascular Exam: REGULAR RHYTHM, +S1, +S2 - GI/Abdominal Exam GI & Abdominal Exam: Soft, Normal Bowel Sounds. absent: Tenderness - Exam Additional comments: sanchez with CBI and heather hematuria in collecting bag - Extremities Exam Extremities Exam: Normal Inspection - Back Exam Back Exam: NORMAL INSPECTION - Neurological Exam Neurological Exam: Awake, Oriented x3 - Psychiatric Exam Psychiatric exam: Normal Affect, Normal Mood - Skin Skin Exam: Dry, Intact, Normal Color Assessment and Plan - Assessment and Plan (Free Text) Assessment: 73yo M PMH DM, HTN, arthritis, CAD, prostate cancer, admitted for anemia and heather hematuria; now s/p cystoscopy on 09/04, currently has CBI in place urine pinkish color, heather hematuria still present Anemia 2/2 Heather hematuria 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 - hemodynamically stable transfused 2u PRBCs; transfused 1 u of pRBC on 09/15; transfused 2 units of pRBC on 09/16 CBI changed to Alum 30g/NS 3L @ 125ml/hr daily: Dr Olivares recs - transfuse as necessary - repeat cbc @ 6pm pending - see further plan below - urology Eric Wellington on case - Dr Olivares covering non categorical preschool teacher recs if sanchez become clotted or output decreases * continue CBI * flush until clots no longer seen - s/p cystoscopy on 09/04: no stricture in anterior urethra, active arterial & venous bleeding from prostate urethra, bladder full of clots, fulguration of bleeding from prostate - biopsy of bladder - chronic inflammation - lidocaine 2% topical for pain control - will require hyperbaric oxygen therapy per urology - unlikely to happen in patient - pt has tentative appt at [facility] unit on Thursday 09/14 @ 11:30 AM - will need transportation set up -unlikely in setting of persistent hematuria - Total PSA 0.1 - Testosterone level 341 - Images: * Abdomen/Pelvis CT: Bilateral hydroureteronephrosis. Redundant appearance of the right ureter which makes and apparent loop at the L4 level. Distended urinary bladder appears irregularly thick walled. Sanchez catheter present without decompression of the urinary bladder. Question presence of debris or neoplasm within the dependent portion of the urinary bladder. Heterogeneous enlarged prostate gland. Recommend correlation with PSA. Small bilateral pleural effusions. * Abdominal Xray: Evaluation of nephrolithiasis is not possible due to extensive fecal material and bowel gas obscuring the renal silhouette. No evidence of calcifications in the pelvis along the expected course of the ureters. 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 - BG 185 OA - Hgb A1c (07/27/18) 16.5 - Accuchecks [facility] - ISS - hypoglycemia protocol - c/w home medications Januvia 50mg po daily, Glipizide 10mg po BID, Glargine 10u SC HS, Crestor 5mg po HS, metformin 500mg po BID Peripheral Neuropathy - Gabapentin 300mg po TID Hypertension Mitral Valve disease - Lisinopril 40mg po daily - amlodipine 10 mg daily BPH - Flomax 0.4mg po daily - start proscar 5 mg Po daily per urology Prophylaxis - VTE contraindication secondary to hematuria - SCDs - Colace 100mg po BID - PT recommends subacute rehab Sanchez maintainance * continue CBI * flush until clots no longer seen * Alum 30g/ NS 3L as CBI fluid: works as an astringent * Monitor H&H Dispo: Will discuss with urology for further plan as patient continues to have hematuria and needs plan prior to d/c Phyllis Herrera PGY-1 Case d/w Dr. Durán Dispo: pending update from urology for continued hematuria prior to discharge PGY-1 Phyllis Herrera Case d/w Dr. Durán
[2018-09-17 19:48] LABS: HEMOGLOBIN 7.3 g/dL (12.0-18.0); MEAN CELL VOLUME 89.7 fL (80.0-94.0); MEAN CORPUSCULAR HEMOGLOBIN 30.4 pg (27.0-31.0); MEAN CORPUSCULAR HGB CONC 33.9 g/dL (33.0-37.0); MEAN PLATELET VOLUME 8.3 fL (7.2-11.7); RBC 2.41 Mil/uL (4.40-5.90); RED CELL DISTRIBUTION WIDTH 13.7 % (11.5-14.5)
[2018-09-17] MEDS: (Lantus) Insulin Glargine, Recombinant SC SCH (22:33)
[2018-09-18] MEDS: Oxycodone/Acetaminophen 5/325 mg Tab PO PRN ×3 (00:56→14:14)
--- NOTE | 2018-09-18 07:14 | CP.PCM.PN ---
Subjective - Date & Time of Evaluation Date of Evaluation: 09/18/18 Time of Evaluation: 07:14 - Subjective Subjective: PGY1 Medicine Progress Note for Dr. Durán Patient seen and evaluated at bedside this morning. Patient was transfused overnight (2 units PRBC). Patient is currently without complaints. Patient continues to have hematuria; pending urological update. Patient otherwise denies headache, fever, chills, dysuria, chest pain, shortness of breath, abdominal pain, nausea, vomiting, constipation and/or diarrhea. Objective - Vital Signs/Intake and Output Vital Signs (last 24 hours): Temp Pulse Resp BP Pulse Ox 98.5 F 100 H 20 130/71 97 09/18/18 04:24 09/18/18 04:24 09/18/18 04:24 09/18/18 04:24 09/17/18 23:50 Intake and Output: 09/18/18 09/18/18 06:59 18:59 Intake Total 1153 Output Total 950 Balance 203 - Medications Medications: Current Medications Amlodipine Besylate (Norvasc) 10 mg PO DAILY [facility] Last Admin: 09/17/18 09:38 Dose: 10 mg Dextrose (Dextrose 50% Inj) 0 ml IV STAT PRN; Protocol PRN Reason: Hypoglycemia Protocol Dextrose (Glutose 15) 0 gm PO ONCE PRN; Protocol PRN Reason: Hypoglycemia Protocol Docusate Sodium (Colace) 100 mg PO BID [facility] Last Admin: 09/17/18 17:57 Dose: 100 mg Finasteride (Proscar) 5 mg PO DAILY [facility] Last Admin: 09/17/18 09:38 Dose: 5 mg Gabapentin (Neurontin) 300 mg PO TID [facility] Last Admin: 09/17/18 17:57 Dose: 300 mg Glipizide (Glucotrol Xl) 10 mg PO BID [facility] Last Admin: 09/17/18 17:59 Dose: 10 mg Glucagon (Glucagen Diagnostic Kit) 0 mg IM STAT PRN; Protocol PRN Reason: Hypoglycemia Protocol Insulin Glargine (Lantus) 10 unit SC HS [facility] Last Admin: 09/17/18 22:33 Dose: 10 units Insulin Human Regular (Novolin R) 0 unit SC ACHS [facility]; Protocol Last Admin: 09/17/18 22:26 Dose: Not Given Lidocaine HCl (Xylocaine 2%) 0 ea TOP Q12H PRN Last Admin: 09/10/18 14:43 Dose: 1 applic Lisinopril (Zestril) 40 mg PO DAILY [facility] Last Admin: 09/17/18 09:37 Dose: 40 mg Metformin HCl (Glucophage) 500 mg PO BIDCC [facility] Last Admin: 09/17/18 17:58 Dose: 500 mg Oxycodone/Acetaminophen (Percocet 5/325 Mg Tab) 2 tab PO Q4H PRN PRN Reason: Pain, moderate (4-7) Stop: 09/20/18 13:44 Last Admin: 09/18/18 00:56 Dose: 2 tab Rosuvastatin Calcium (Crestor) 5 mg PO HS [facility] Last Admin: 09/17/18 22:33 Dose: 5 mg Sitagliptin Phosphate (Januvia) 50 mg PO DAILY [facility] Last Admin: 09/17/18 09:39 Dose: Not Given Tamsulosin HCl (Flomax) 0.4 mg PO DAILY [facility] Last Admin: 09/17/18 09:37 Dose: 0.4 mg - Labs Labs: 09/17/18 19:39 09/16/18 07:10 PT 10.8 SECONDS (9.7-12.2) 09/01/18 17:42 INR 1.0 09/01/18 17:42 APTT 30 SECONDS (21-34) 09/01/18 17:42 - Additional Findings Additional findings: - Constitutional Appears: Non-toxic, No Acute Distress, Chronically Ill - Head Exam Head Exam: NORMAL INSPECTION, NORMOCEPHALIC - Eye Exam Eye Exam: EOMI, Normal appearance. absent: Nystagmus, Scleral icterus - ENT Exam ENT Exam: Mucous Membranes Dry - Respiratory Exam Respiratory Exam: Clear to Ausculation Bilateral, NORMAL BREATHING PATTERN - Cardiovascular Exam Cardiovascular Exam: REGULAR RHYTHM, +S1, +S2 - GI/Abdominal Exam GI & Abdominal Exam: Soft, Normal Bowel Sounds. absent: Tenderness - Exam Additional comments: sanchez with CBI and hematuria in collecting bag - Extremities Exam Extremities Exam: Normal Inspection - Back Exam Back Exam: NORMAL INSPECTION - Neurological Exam Neurological Exam: Awake, Oriented x3 - Psychiatric Exam Psychiatric exam: Normal Affect, Normal Mood - Skin Skin Exam: Dry, Intact, Normal Color Assessment and Plan - Assessment and Plan (Free Text) Assessment: 73yo M PMH DM, HTN, arthritis, CAD, prostate cancer, admitted for anemia and heather hematuria; now s/p cystoscopy on 09/04, currently has CBI in place urine pinkish color, heather hematuria still present Anemia 2/2 Heather hematuria 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 - Hemodynamically stable transfused 2u PRBCs; transfused 1 u of pRBC on 09/15; transfused 2 units of pRBC on 09/16; transfused 2 units PRBC on 09/17 CBI changed to Alum 30g/NS 3L @ 125ml/hr daily: Dr Olivares recs - Continue to transfuse as necessary - Hemoglobin improved to 9.2 - Urology Eric Wellington consulted; recommendations appreciated - Dr Olivares covering cone worker recs if sanchez become clotted or output decreases * continue CBI * flush until clots no longer seen - s/p cystoscopy on 09/04: no stricture in anterior urethra, active arterial & venous bleeding from prostate urethra, bladder full of clots, fulguration of bleeding from prostate - biopsy of bladder - chronic inflammation - lidocaine 2% topical for pain control - will require hyperbaric oxygen therapy per urology - unlikely to happen in patient - pt has tentative appt at [facility] on Thursday 09/14 @ 11:30 AM - will need transportation set up -unlikely in setting of persistent hematuria - Total PSA 0.1 - Testosterone level 341 - Images: * Abdomen/Pelvis CT: Bilateral hydroureteronephrosis. Redundant appearance of the right ureter which makes and apparent loop at the L4 level. Distended urinary bladder appears irregularly thick walled. Sanchez catheter present without decompression of the urinary bladder. Question presence of debris or neoplasm within the dependent portion of the urinary bladder. Heterogeneous enlarged prostate gland. Recommend correlation with PSA. Small bilateral pleural effusions. * Abdominal Xray: Evaluation of nephrolithiasis is not possible due to extensive fecal material and bowel gas obscuring the renal silhouette. No evidence of calcifications in the pelvis along the expected course of the ureters. 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 - BG 185 OA - Hgb A1c (07/27/18) 16.5 - Accuchecks [facility] - ISS - hypoglycemia protocol - Continue home medications Januvia 50mg po daily, Glipizide 10mg po BID, Glargine 10u SC HS, Crestor 5mg po HS, metformin 500mg po BID Peripheral Neuropathy - Continue Gabapentin 300mg po TID Hypertension in the setting of Mitral Valve disease - Continue Lisinopril 40mg po daily - Continue amlodipine 10 mg daily BPH - Continue Flomax 0.4mg po daily - Continue proscar 5 mg Po daily per urology Prophylaxis - VTE contraindication secondary to hematuria - SCDs - Colace 100mg po BID - PT recommends subacute rehab Sanchez maintainance * Continue CBI * Flush until clots no longer seen * Alum 30g/ NS 3L as CBI fluid: works as an astringent * Monitor H&H Dispo: Awaiting urology recommendations for further plan as patient continues to have hematuria and needs plan prior to d/c Discussed with Dr. Leeanna Wilson PGY1
[2018-09-18] MEDS: (Novolin R) Insulin Human Regular 100 units/ml vial SC SCH ×4 (07:28→22:06)
[2018-09-18 08:01] LABS: BASO # 0.1 K/uL (0.0-0.2); BASO % 0.7 % (0.0-2.0); EOS # 0.2 K/uL (0.0-0.7); EOS % 1.9 % (0.0-4.0); HEMOGLOBIN 9.2 g/dL (12.0-18.0); LYMPH # 0.8 K/uL (1.0-4.3); LYMPH % 8.9 % (20.0-40.0); MEAN CELL VOLUME 89.6 fL (80.0-94.0); MEAN CORPUSCULAR HEMOGLOBIN 31.8 pg (27.0-31.0); MEAN CORPUSCULAR HGB CONC 35.5 g/dL (33.0-37.0); MEAN PLATELET VOLUME 7.9 fL (7.2-11.7); MONO # 1.1 K/uL (0.0-0.8); MONO % 12.9 % (0.0-10.0); NEUT # 6.5 K/uL (1.8-7.0); NEUT % 75.6 % (50.0-75.0); NRBC % 0.1 % (0.0-2.0); PLATELET COUNT 261 K/uL (130-400); RED CELL DISTRIBUTION WIDTH 14.3 % (11.5-14.5); WHITE BLOOD COUNT 8.6 K/uL (4.8-10.8)
[2018-09-18] MEDS: GlipiZIDE 10 mg SR Tab PO SCH ×2 (09:41→18:55)
[2018-09-18 10:08] LABS: ANISOCYTOSIS SLIGHT; BANDS 2 % (0-2); BASOPHIL 2 % (0-2); EOSINOPHIL 1 % (0-4); HYPOCHROMIC SLIGHT; LYMPHOCYTE 7 % (20-40); MONOCYTE 15 % (0-10); NEUTROPHIL 73 % (50-75); OVALOCYTES SLIGHT; PLATELET ESTIMATE NORMAL (NORMAL); POIKILOCYTOSIS SLIGHT; TOTAL CELLS COUNTED 100
[2018-09-18 10:09] LABS: LARGE PLATELETS PRESENT
[2018-09-18 10:33] LABS: ALBUMIN 2.4 g/dL (3.5-5.0); CALCIUM 7.9 mg/dl (8.6-10.4)
[2018-09-18] MEDS: (Lantus) Insulin Glargine, Recombinant SC SCH (22:07)
--- NOTE | 2018-09-19 00:15 | CP.PCM.PN ---
Subjective - Date & Time of Evaluation Date of Evaluation: 09/19/18 Time of Evaluation: 00:13 - Subjective Subjective: Medicine Progress Note for Dr. Durán's service S/E at bedside Refused CBC although importance was explained due to persistent hematuria and multiple blood transfusions previously given Denies fevers, chills, chest pain, sob, n/v, constipation or diarrhea, dizziness, lightheadedness Objective - Vital Signs/Intake and Output Vital Signs (last 24 hours): Temp Pulse Resp BP Pulse Ox 98.7 F 94 H 20 136/69 98 09/18/18 23:34 09/18/18 23:34 09/18/18 23:34 09/18/18 23:34 09/18/18 23:34 Intake and Output: 09/18/18 09/19/18 18:59 06:59 Intake Total 1300 16961 Output Total 1050 50898 Balance 250 -350 - Medications Medications: Current Medications Amlodipine Besylate (Norvasc) 10 mg PO DAILY [facility] Last Admin: 09/18/18 09:30 Dose: 10 mg Dextrose (Dextrose 50% Inj) 0 ml IV STAT PRN; Protocol PRN Reason: Hypoglycemia Protocol Dextrose (Glutose 15) 0 gm PO ONCE PRN; Protocol PRN Reason: Hypoglycemia Protocol Docusate Sodium (Colace) 100 mg PO BID [facility] Last Admin: 09/18/18 17:14 Dose: 100 mg Finasteride (Proscar) 5 mg PO DAILY [facility] Last Admin: 09/18/18 09:30 Dose: 5 mg Gabapentin (Neurontin) 300 mg PO TID [facility] Last Admin: 09/18/18 17:15 Dose: 300 mg Glipizide (Glucotrol Xl) 10 mg PO BID [facility] Last Admin: 09/18/18 18:55 Dose: Not Given Glucagon (Glucagen Diagnostic Kit) 0 mg IM STAT PRN; Protocol PRN Reason: Hypoglycemia Protocol Insulin Glargine (Lantus) 10 unit SC HS [facility] Last Admin: 09/18/18 22:07 Dose: 10 units Insulin Human Regular (Novolin R) 0 unit SC ACHS [facility]; Protocol Last Admin: 09/18/18 22:06 Dose: 2 u Lidocaine HCl (Xylocaine 2%) 0 ea TOP Q12H PRN Last Admin: 09/10/18 14:43 Dose: 1 applic Lisinopril (Zestril) 40 mg PO DAILY [facility] Last Admin: 09/18/18 09:31 Dose: 40 mg Metformin HCl (Glucophage) 500 mg PO BIDCC [facility] Last Admin: 09/18/18 17:14 Dose: 500 mg Oxycodone/Acetaminophen (Percocet 5/325 Mg Tab) 2 tab PO Q4H PRN PRN Reason: Pain, moderate (4-7) Stop: 09/20/18 13:44 Last Admin: 09/18/18 14:14 Dose: 2 tab Rosuvastatin Calcium (Crestor) 5 mg PO HS [facility] Last Admin: 09/18/18 22:05 Dose: 5 mg Sitagliptin Phosphate (Januvia) 50 mg PO DAILY [facility] Last Admin: 09/18/18 09:31 Dose: 50 mg Tamsulosin HCl (Flomax) 0.4 mg PO DAILY [facility] Last Admin: 09/18/18 09:31 Dose: 0.4 mg - Labs Labs: 09/18/18 07:51 09/18/18 10:04 PT 10.8 SECONDS (9.7-12.2) 09/01/18 17:42 INR 1.0 09/01/18 17:42 APTT 30 SECONDS (21-34) 09/01/18 17:42 - Additional Findings Additional findings: - Constitutional Appears: Non-toxic, No Acute Distress, Chronically Ill - Head Exam Head Exam: NORMAL INSPECTION, NORMOCEPHALIC - Eye Exam Eye Exam: EOMI, Normal appearance. absent: Nystagmus, Scleral icterus - ENT Exam ENT Exam: Mucous Membranes Dry - Respiratory Exam Respiratory Exam: Clear to Ausculation Bilateral, NORMAL BREATHING PATTERN - Cardiovascular Exam Cardiovascular Exam: REGULAR RHYTHM, +S1, +S2 - GI/Abdominal Exam GI & Abdominal Exam: Soft, Normal Bowel Sounds. absent: Tenderness - Exam Additional comments: sanchez with CBI and hematuria in collecting bag - Extremities Exam Extremities Exam: Normal Inspection - Back Exam Back Exam: NORMAL INSPECTION - Neurological Exam Neurological Exam: Awake, Oriented x3 - Psychiatric Exam Psychiatric exam: Normal Affect, Normal Mood - Skin Skin Exam: Dry, Intact, Normal Color Assessment and Plan - Assessment and Plan (Free Text) Assessment: 73yo M PMH DM, HTN, arthritis, CAD, prostate cancer, admitted for anemia and heather hematuria; now s/p cystoscopy on 09/04, currently has CBI in place urine pinkish color, heather hematuria still present Anemia 2/2 Heather hematuria 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 - Hemodynamically stable transfused 2u PRBCs; transfused 1 u of pRBC on 09/15; transfused 2 units of pRBC on 09/16; transfused 2 units PRBC on 09/17 CBI changed to Alum 30g/NS 3L @ 125ml/hr daily: Dr Olivares recs - Continue to transfuse as necessary; patient refused CBC overnight - Urology Eric Wellington consulted; recommendations appreciated - Dr Olivares covering internal combustion engine assembler recs if sanchez become clotted or output decreases * continue CBI * flush until clots no longer seen - s/p cystoscopy on 09/04: no stricture in anterior urethra, active arterial & venous bleeding from prostate urethra, bladder full of clots, fulguration of bleeding from prostate - biopsy of bladder - chronic inflammation - lidocaine 2% topical for pain control - will require hyperbaric oxygen therapy per urology - unlikely to happen in patient - pt has tentative appt at [facility] on Thursday 09/14 @ 11:30 AM - will need transportation set up -unlikely in setting of persistent hematuria - Total PSA 0.1 - Testosterone level 341 - Images: * Abdomen/Pelvis CT: Bilateral hydroureteronephrosis. Redundant appearance of the right ureter which makes and apparent loop at the L4 level. Distended urinary bladder appears irregularly thick walled. Sanchez catheter present without decompression of the urinary bladder. Question presence of debris or neoplasm within the dependent portion of the urinary bladder. Heterogeneous enlarged prostate gland. Recommend correlation with PSA. Small bilateral pleural effusions. * Abdominal Xray: Evaluation of nephrolithiasis is not possible due to extensive fecal material and bowel gas obscuring the renal silhouette. No evidence of calcifications in the pelvis along the expected course of the ureters. 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 - BG 185 OA - Hgb A1c (07/27/18) 16.5 - Accuchecks [facility] - ISS - hypoglycemia protocol - Continue home medications Januvia 50mg po daily, Glipizide 10mg po BID, Glargine 10u SC HS, Crestor 5mg po HS, metformin 500mg po BID Peripheral Neuropathy - Continue Gabapentin 300mg po TID Hypertension in the setting of Mitral Valve disease - Continue Lisinopril 40mg po daily - Continue amlodipine 10 mg daily BPH - Continue Flomax 0.4mg po daily - Continue proscar 5 mg Po daily per urology Prophylaxis - VTE contraindication secondary to hematuria - SCDs - Colace 100mg po BID - PT recommends subacute rehab Sanchez maintainance * Continue CBI * Flush until clots no longer seen * Alum 30g/ NS 3L as CBI fluid: works as an astringent * Monitor H&H Dispo: Awaiting urology recommendations for further plan as patient continues to have hematuria and needs plan prior to d/c Discussed with Dr. Leeanna Wilson PGY1
[2018-09-19] MEDS: Oxycodone/Acetaminophen 5/325 mg Tab PO PRN ×3 (05:04→13:32)
[2018-09-19] MEDS: (Novolin R) Insulin Human Regular 100 units/ml vial SC SCH ×4 (07:58→21:56)
[2018-09-19 08:21] LABS: BASO # 0.1 K/uL (0.0-0.2); BASO % 0.5 % (0.0-2.0); EOS # 0.1 K/uL (0.0-0.7); EOS % 0.9 % (0.0-4.0); LYMPH # 0.7 K/uL (1.0-4.3); LYMPH % 6.5 % (20.0-40.0); MEAN CELL VOLUME 90.4 fL (80.0-94.0); MEAN CORPUSCULAR HEMOGLOBIN 31.8 pg (27.0-31.0); MEAN CORPUSCULAR HGB CONC 35.2 g/dL (33.0-37.0); MEAN PLATELET VOLUME 8.4 fL (7.2-11.7); MONO # 1.1 K/uL (0.0-0.8); MONO % 11.3 % (0.0-10.0); NEUT % 80.8 % (50.0-75.0); PLATELET COUNT 284 K/uL (130-400); RBC 2.13 Mil/uL (4.40-5.90); RED CELL DISTRIBUTION WIDTH 14.5 % (11.5-14.5)
[2018-09-19 08:31] LABS: HEMOGLOBIN 6.8 g/dL (12.0-18.0)
[2018-09-19] MEDS: GlipiZIDE 10 mg SR Tab PO SCH ×2 (09:31→17:39)
[2018-09-19 12:13] LABS: BANDS 4 % (0-2); EOSINOPHIL 1 % (0-4); LYMPHOCYTE 7 % (20-40); METAMYELOCYTE 1 % (0-0); MONOCYTE 10 % (0-10); NEUTROPHIL 77 % (50-75); PLATELET ESTIMATE NORMAL (NORMAL); TOTAL CELLS COUNTED 100
[2018-09-19 12:14] LABS: ANISOCYTOSIS SLIGHT; OVALOCYTES SLIGHT; POIKILOCYTOSIS SLIGHT; POLYCHROMIC SLIGHT
[2018-09-19] MEDS: (Lantus) Insulin Glargine, Recombinant SC SCH (21:58)
--- NOTE | 2018-09-20 00:44 | CP.PCM.PN ---
Subjective - Date & Time of Evaluation Date of Evaluation: 09/20/18 Time of Evaluation: 00:42 - Subjective Subjective: Medicine Progress Note for Dr. Durán's service S/E at bedside Nurses reported fever BCX, U/A pending Denies cp, sob, n/v, constipation or diarrhea, and dysuria. Objective - Vital Signs/Intake and Output Vital Signs (last 24 hours): Temp Pulse Resp BP Pulse Ox 101.4 F H 79 20 118/74 98 09/19/18 23:50 09/19/18 23:50 09/19/18 23:50 09/19/18 22:32 09/19/18 23:50 Intake and Output: 09/19/18 09/20/18 18:59 06:59 Intake Total 9740 9325 Output Total 31365 4630 Balance -1162 -225 - Medications Medications: Current Medications Acetaminophen (Tylenol 325mg Tab) 650 mg PO Q6 PRN PRN Reason: Fever >100.4 F Amlodipine Besylate (Norvasc) 10 mg PO DAILY [facility] Last Admin: 09/19/18 09:31 Dose: 10 mg Dextrose (Dextrose 50% Inj) 0 ml IV STAT PRN; Protocol PRN Reason: Hypoglycemia Protocol Dextrose (Glutose 15) 0 gm PO ONCE PRN; Protocol PRN Reason: Hypoglycemia Protocol Docusate Sodium (Colace) 100 mg PO BID [facility] Last Admin: 09/19/18 17:35 Dose: 100 mg Finasteride (Proscar) 5 mg PO DAILY [facility] Last Admin: 09/19/18 09:32 Dose: 5 mg Gabapentin (Neurontin) 300 mg PO TID [facility] Last Admin: 09/19/18 17:35 Dose: 300 mg Glipizide (Glucotrol Xl) 10 mg PO BID [facility] Last Admin: 09/19/18 17:39 Dose: 10 mg Glucagon (Glucagen Diagnostic Kit) 0 mg IM STAT PRN; Protocol PRN Reason: Hypoglycemia Protocol Insulin Glargine (Lantus) 10 unit SC HS [facility] Last Admin: 09/19/18 21:58 Dose: 10 units Insulin Human Regular (Novolin R) 0 unit SC ACHS [facility]; Protocol Last Admin: 09/19/18 21:56 Dose: Not Given Lidocaine HCl (Xylocaine 2%) 0 ea TOP Q12H PRN Last Admin: 09/10/18 14:43 Dose: 1 applic Lisinopril (Zestril) 40 mg PO DAILY [facility] Last Admin: 09/19/18 09:31 Dose: 40 mg Metformin HCl (Glucophage) 500 mg PO BIDCC [facility] Last Admin: 09/19/18 17:35 Dose: 500 mg Oxycodone/Acetaminophen (Percocet 5/325 Mg Tab) 2 tab PO Q4H PRN PRN Reason: Pain, moderate (4-7) Stop: 09/20/18 13:44 Last Admin: 09/19/18 13:32 Dose: 2 tab Rosuvastatin Calcium (Crestor) 5 mg PO HS [facility] Last Admin: 09/19/18 21:58 Dose: 5 mg Sitagliptin Phosphate (Januvia) 50 mg PO DAILY [facility] Last Admin: 09/19/18 09:32 Dose: 50 mg Tamsulosin HCl (Flomax) 0.4 mg PO DAILY [facility] Last Admin: 09/19/18 09:31 Dose: 0.4 mg - Labs Labs: 09/19/18 07:06 09/18/18 10:04 PT 10.8 SECONDS (9.7-12.2) 09/01/18 17:42 INR 1.0 09/01/18 17:42 APTT 30 SECONDS (21-34) 09/01/18 17:42 - Additional Findings Additional findings: - Constitutional Appears: Non-toxic, No Acute Distress, Chronically Ill - Head Exam Head Exam: NORMAL INSPECTION, NORMOCEPHALIC - Eye Exam Eye Exam: EOMI, Normal appearance. absent: Nystagmus, Scleral icterus - ENT Exam ENT Exam: Mucous Membranes Dry - Respiratory Exam Respiratory Exam: Clear to Ausculation Bilateral, NORMAL BREATHING PATTERN - Cardiovascular Exam Cardiovascular Exam: REGULAR RHYTHM, +S1, +S2 - GI/Abdominal Exam GI & Abdominal Exam: Soft, Normal Bowel Sounds. absent: Tenderness - Exam Additional comments: sanchez with CBI and hematuria in collecting bag - Extremities Exam Extremities Exam: Normal Inspection - Back Exam Back Exam: NORMAL INSPECTION - Neurological Exam Neurological Exam: Awake, Oriented x3 - Psychiatric Exam Psychiatric exam: Normal Affect, Normal Mood - Skin Skin Exam: Dry, Intact, Normal Color Assessment and Plan - Assessment and Plan (Free Text) Assessment: 73yo M PMH DM, HTN, arthritis, CAD, prostate cancer, admitted for anemia and heather hematuria; now s/p cystoscopy on 09/04, currently has CBI in place urine pinkish color, heather hematuria still present Anemia 2/2 Heather hematuria 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 - Hemodynamically stable transfused 2u PRBCs; transfused 1 u of pRBC on 09/15; transfused 2 units of pRBC on 09/16; transfused 2 units PRBC on 09/17; transfused 2 units pRBC on 09/19 CBI changed to Alum 30g/NS 3L @ 125ml/hr daily: Dr Olivares recs - Continue to transfuse as necessary; patient refused CBC overnight - Urology Eric Wellington consulted; recommendations appreciated - 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 in recs if sanchez become clotted or output decreases * continue CBI * flush until clots no longer seen - s/p cystoscopy on 09/04: no stricture in anterior urethra, active arterial & venous bleeding from prostate urethra, bladder full of clots, fulguration of bleeding from prostate - biopsy of bladder - chronic inflammation - lidocaine 2% topical for pain control - will require hyperbaric oxygen therapy per urology - unlikely to happen in patient - pt has tentative appt at [facility] on Thursday 09/14 @ 11:30 AM - will need transportation set up -unlikely in setting of persistent hematuria - Total PSA 0.1 - Testosterone level 341 - Images: * Abdomen/Pelvis CT: Bilateral hydroureteronephrosis. Redundant appearance of the right ureter which makes and apparent loop at the L4 level. Distended urinary bladder appears irregularly thick walled. Sanchez catheter present wit hout decompression of the urinary bladder. Question presence of debris or neoplasm within the dependent portion of the urinary bladder. Heterogeneous enlarged prostate gland. Recommend correlation with PSA. Small bilateral pleural effusions. * Abdominal Xray: Evaluation of nephrolithiasis is not possible due to extensive fecal material and bowel gas obscuring the renal silhouette. No evidence of c alcifications in the pelvis along the expected course of the ureters. 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 - BG 185 OA - Hgb A1c (07/27/18) 16.5 - Accuchecks [facility] - hypoglycemia protocol - Continue home medications Januvia 50mg po daily, Glipizide 10mg po BID, Glargine 10u SC HS, Crestor 5mg po HS, metformin 500mg po BID Peripheral Neuropathy - Continue Gabapentin 300mg po TID Hypertension in the setting of Mitral Valve disease - Continue Lisinopril 40mg po daily - Continue amlodipine 10 mg daily BPH - Continue Flomax 0.4mg po daily - Continue proscar 5 mg Po daily per urology Prophylaxis - VTE contraindication secondary to hematuria - SCDs - Colace 100mg po BID - PT recommends subacute rehab Sanchez maintainance * Continue CBI * Flush until clots no longer seen * Alum 30g/ NS 3L as CBI fluid: works as an astringent * Monitor H&H Dispo: Awaiting urology recommendations for further plan as patient continues to have hematuria and needs plan prior to d/c Discussed with Dr. Leeanna Herrera PGY1
[2018-09-20 01:33] LABS: URINE BILIRUBIN NEGATIVE (NEGATIVE); URINE BLOOD 3+ (NEGATIVE); URINE CLARITY Hazy (Clear); URINE COLOR Red (YELLOW); URINE GLUCOSE (UA) NORMAL (Normal); URINE LEUKOCYTE ESTERASE 1+ Leu/uL (Negative); URINE PROTEIN 1+ mg/dL (NEGATIVE); URINE UROBILINOGEN NORMAL mg/dL (0.2-1.0)
[2018-09-20 02:30] LABS: BASO # 0.1 K/uL (0.0-0.2); BASO % 0.5 % (0.0-2.0); HEMOGLOBIN 8.3 g/dL (12.0-18.0); LYMPH # 0.5 K/uL (1.0-4.3); LYMPH % 2.2 % (20.0-40.0); MEAN CELL VOLUME 88.1 fL (80.0-94.0); MEAN CORPUSCULAR HEMOGLOBIN 29.3 pg (27.0-31.0); MEAN CORPUSCULAR HGB CONC 33.3 g/dL (33.0-37.0); MEAN PLATELET VOLUME 7.9 fL (7.2-11.7); MONO # 2.2 K/uL (0.0-0.8); MONO % 10.4 % (0.0-10.0); NEUT # 18.3 K/uL (1.8-7.0); NEUT % 86.9 % (50.0-75.0); PLATELET COUNT 257 K/uL (130-400); RBC 2.82 Mil/uL (4.40-5.90); RED CELL DISTRIBUTION WIDTH 14.9 % (11.5-14.5); WHITE BLOOD COUNT 21.1 K/uL (4.8-10.8)
[2018-09-20 03:17] LABS: ABG ALLEN TEST POS; ARTERIAL BLOOD GAS HCO3 22.4 mmol/L (21-28); ARTERIAL BLOOD GAS O2 SAT 99.4 % (95-98); ARTERIAL BLOOD GAS PCO2 30 mm/Hg (35-45); ARTERIAL BLOOD GAS PH 7.43 (7.35-7.45); ARTERIAL BLOOD GAS PO2 124 mm/Hg (80-100); ARTERIAL BLOOD GAS TCO2 20.8 mmol/L (22-28)
[2018-09-20 03:34] LABS: INR 1.1; PROTHROMBIN TIME 11.8 SECONDS (9.7-12.2)
[2018-09-20 03:38] LABS: ALBUMIN 2.3 g/dL (3.5-5.0); ALT/SGPT 57 U/L (21-72); AST/SGOT 48 U/L (17-59); BLOOD UREA NITROGEN 53 mg/dL (9-20); CALCIUM 7.8 mg/dl (8.6-10.4); GFR NON-AFRICAN AMERICAN 49
[2018-09-20 03:43] LABS: BANDS 4 % (0-2); LYMPHOCYTE 2 % (20-40); METAMYELOCYTE 1 % (0-0); MONOCYTE 6 % (0-10); MYELOCYTE 5 % (0-0); NEUTROPHIL 81 % (50-75); PLATELET ESTIMATE NORMAL (NORMAL); REACTIVE LYMPHOCYTES 1 % (0-0); TOTAL CELLS COUNTED 100
[2018-09-20] MEDS ORDERED: (Novolog) Insulin Aspart, Recombinant 100 u/ml 10 ml vial SC ONE (03:46)
[2018-09-20] MEDS ORDERED: Dextrose 50% SYRINGE Inj (50 ml) IV STA (03:46)
[2018-09-20] MEDS ORDERED: Albuterol-Ipratrop 3 mg / 0.5 (3 ml) UD INH STA (03:47)
[2018-09-20] MEDS ORDERED: Sodium Chloride 0.9% 1,000 ML IV SCH (05:30)
[2018-09-20 05:56] LABS: CALCIUM 7.9 mg/dl (8.6-10.4)
[2018-09-20 06:04] LABS: CALCIUM 7.8 mg/dl (8.6-10.4)
[2018-09-20 07:25] LABS: CALCIUM 8.4 mg/dl (8.6-10.4)
[2018-09-20] MEDS ORDERED: Piperacill/Tazo 3.375gm in Dex 3.375 GM/50 ML BAG IVPB STA (08:08)
[2018-09-20] MEDS ORDERED: Vancomycin 1 gm/NS 200 ml 1 GM/200 ML BAG IVPB STA ×2 (08:08→13:18)
[2018-09-20 08:09] LABS: BASO # 0.1 K/uL (0.0-0.2); BASO % 0.3 % (0.0-2.0); HEMOGLOBIN 7.8 g/dL (12.0-18.0); LYMPH # 0.6 K/uL (1.0-4.3); LYMPH % 2.9 % (20.0-40.0); MEAN CELL VOLUME 89.5 fL (80.0-94.0); MEAN CORPUSCULAR HEMOGLOBIN 30.4 pg (27.0-31.0); MEAN PLATELET VOLUME 8.1 fL (7.2-11.7); MONO # 2.3 K/uL (0.0-0.8); MONO % 10.3 % (0.0-10.0); NEUT # 19.6 K/uL (1.8-7.0); NEUT % 86.5 % (50.0-75.0); PLATELET COUNT 271 K/uL (130-400); RBC 2.55 Mil/uL (4.40-5.90); WHITE BLOOD COUNT 22.6 K/uL (4.8-10.8)
[2018-09-20] MEDS ORDERED: POLYETHYLENE GLYCOL 3350 17 GM/Dose PACKET PO PRN (08:14)
[2018-09-20] MEDS: (Novolin R) Insulin Human Regular 100 units/ml vial SC SCH ×3 (08:56→17:27)
[2018-09-20 09:20] LABS: ALB/GLOB RATIO 0.9 (1.0-2.1); ALBUMIN 2.3 g/dL (3.5-5.0); CALCIUM 8.3 mg/dl (8.6-10.4)
[2018-09-20 09:26] LABS: TROPONIN I 0.016 ng/mL (0.00-0.120)
[2018-09-20] MEDS ORDERED: Vancomycin 1 gm/NS 200 ml 1 GM/200 ML BAG IVPB ONE (10:00)
[2018-09-20] MEDS ORDERED: Piperacill/Tazo 3.375gm in Dex 3.375 GM/50 ML BAG IVPB ONE (10:00)
--- NOTE | 2018-09-20 10:09 | CP.PCM.CON ---
History of Present Illness - History of Present Illness History of Present Illness: Neurology consult dictated. Consult called by DR. Herrera, hospitalist as code stroke. Not thought to be a TPA candidate, as symptoms resolved. This morning, this patient is encephalopathic and speaking nonsensical words in jordanian. However, he does follow commands at will, and does not have any focal weakness. IT is possible he may have had a watershed stroke secondary to chronic anemia and decreased blood pressure. Therefore, MRI brain would be advisable. In addition, we will do a metabolic workup including ammonia and amylase lipase. VEEG for [address] conway Neurology Past Patient History - Infectious Disease Hx of Infectious Diseases: None - Past Medical History & Family History Past Medical History?: Yes - Past Social History Smoking Status: Former Smoker Alcohol: None Drugs: Denies - CARDIAC Hx Hypercholesterolemia: Yes Hx Hypertension: Yes - PULMONARY Hx Respiratory Disorders: Yes (SOB) - NEUROLOGICAL Hx Neurological Disorder: No - HEENT Hx HEENT Problems: Yes (PARTIAL LOSS OF SIGHT RIGHT EYE FROM ACCIDENT) - RENAL Hx Chronic Kidney Disease: No - ENDOCRINE/METABOLIC Hx Diabetes Mellitus Type 2: Yes - HEMATOLOGICAL/ONCOLOGICAL Hx Blood Disorders: Yes Hx Cancer: Yes (PROSTATE- treated) - INTEGUMENTARY Hx Dermatological Problems: No - MUSCULOSKELETAL/RHEUMATOLOGICAL Hx Falls: No - GASTROINTESTINAL Hx Gastrointestinal Disorders: Yes - GENITOURINARY/GYNECOLOGICAL Hx Genitourinary Disorders: Yes Hx Prostate Cancer: Yes Hx Prostate Problems: Yes - PSYCHIATRIC Hx Substance Use: No - SURGICAL HISTORY Hx Surgeries: Yes Hx Eye Surgery: Yes (RIGHT) Hx Musculoskeletal Surgery: Yes (LUMBAR) Other/Comment: PROSTATE BX RADIATION - ANESTHESIA Hx Anesthesia: Yes Hx Anesthesia Reactions: Yes (DIFFICULTY VOIDING) Hx Malignant Hyperthermia: No Meds Home Medications: Home Medication List Medication Instructions Recorded Confirmed Type Empagliflozin [Jardiance] 10 mg PO DAILY #30 tablet 09/10/18 Rx Gabapentin [Neurontin] 300 mg PO TID #90 cap 09/10/18 Rx Glipizide [Glipizide Xl] 10 mg PO BID #14 tab.er.24 09/10/18 Rx Insulin Glargine, Recombina 10 unit SC HS #3 l 09/10/18 Rx [Lantus] Lisinopril [Zestril] 40 mg PO DAILY #30 tab 09/10/18 Rx Simvastatin 20 mg PO HS #30 tablet 09/10/18 Rx Tamsulosin [Flomax] 0.4 mg PO DAILY #30 cap 09/10/18 Rx amLODIPine [Norvasc] 10 mg PO DAILY #30 tab 09/10/18 Rx metFORMIN [glucOPHAGE] 500 mg PO BID #60 tab 09/10/18 Rx Allergies/Adverse Reactions: Allergies Allergy/AdvReac Type Severity Reaction Status Date / Time No Known Allergies Allergy Verified 09/01/18 15:52 - Medications Medications: Current Medications Acetaminophen (Tylenol 325mg Tab) 650 mg PO Q6 PRN PRN Reason: Fever >100.4 F Amlodipine Besylate (Norvasc) 10 mg PO DAILY [facility] Last Admin: 09/19/18 09:31 Dose: 10 mg Dextrose (Dextrose 50% Inj) 0 ml IV STAT PRN; Protocol PRN Reason: Hypoglycemia Protocol Dextrose (Glutose 15) 0 gm PO ONCE PRN; Protocol PRN Reason: Hypoglycemia Protocol Docusate Sodium (Colace) 100 mg PO BID [facility] Last Admin: 09/19/18 17:35 Dose: 100 mg Finasteride (Proscar) 5 mg PO DAILY [facility] Last Admin: 09/19/18 09:32 Dose: 5 mg Gabapentin (Neurontin) 300 mg PO TID [facility] Last Admin: 09/19/18 17:35 Dose: 300 mg Glipizide (Glucotrol Xl) 10 mg PO BID [facility] Last Admin: 09/19/18 17:39 Dose: 10 mg Glucagon (Glucagen Diagnostic Kit) 0 mg IM STAT PRN; Protocol PRN Reason: Hypoglycemia Protocol Sodium Chloride (Sodium Chloride 0.9%) 1,000 mls @ 100 mls/hr IV .Q10H [facility] Last Admin: 09/20/18 05:42 Dose: 100 mls/hr Vancomycin/Sodium Chloride (Vancomycin 1 Gm/Ns 200 Ml) 1 gm in 200 mls @ 133 mls/hr IVPB ONCE ONE; Protocol Stop: 09/20/18 11:30 Piperacillin Sod/Tazobactam Sod (Zosyn 3.375 Gm Iv Premix) 3.375 gm in 50 mls @ 100 mls/hr IVPB ONCE ONE; Protocol Stop: 09/20/18 10:29 Insulin Glargine (Lantus) 10 unit SC [facility] Last Admin: 09/19/18 21:58 Dose: 10 units Insulin Human Regular (Novolin R) 0 unit SC ACHS [facility]; Protocol Last Admin: 09/20/18 08:56 Dose: Not Given Lidocaine HCl (Xylocaine 2%) 0 ea TOP Q12H PRN Last Admin: 09/10/18 14:43 Dose: 1 applic Lisinopril (Zestril) 40 mg PO DAILY [facility] Last Admin: 09/19/18 09:31 Dose: 40 mg Metformin HCl (Glucophage) 500 mg PO BIDCC [facility] Last Admin: 09/20/18 08:58 Dose: Not Given Oxycodone/Acetaminophen (Percocet 5/325 Mg Tab) 2 tab PO Q4H PRN PRN Reason: Pain, moderate (4-7) Stop: 09/20/18 13:44 Last Admin: 09/19/18 13:32 Dose: 2 tab Polyethylene Glycol (Miralax) 17 gm PO DAILY PRN PRN Reason: Constipation Rosuvastatin Calcium (Crestor) 5 mg PO [facility] Last Admin: 09/19/18 21:58 Dose: 5 mg Sitagliptin Phosphate (Januvia) 50 mg PO DAILY [facility] Last Admin: 09/19/18 09:32 Dose: 50 mg Tamsulosin HCl (Flomax) 0.4 mg PO DAILY [facility] Last Admin: 09/19/18 09:31 Dose: 0.4 mg Results - Vital Signs Recent Vital Signs: Last Vital Signs Temp 98.3 F 09/20/18 07:00 Pulse 116 H 09/20/18 07:00 Resp 20 09/20/18 07:00 BP 133/52 L 09/20/18 07:00 Pulse Ox 96 09/20/18 07:00 - Labs Result Diagrams: 09/20/18 07:47 09/20/18 08:45 Labs: Laboratory Results - last 24 hr 09/16/18 09/19/18 09/19/18 20:51 07:06 11:32 WBC RBC Hgb Hct MCV MCH MCHC RDW Plt Count MPV Neut % (Auto) Lymph % (Auto) Whitman % (Auto) Eos % (Auto) Baso % (Auto) Neut # (Auto) Lymph # (Auto) Whitman # (Auto) Eos # (Auto) Baso # (Auto) Neutrophils % (Manual) 77 H Band Neutrophils % 4 H Lymphocytes % (Manual) 7 L Reactive Lymphs % Monocytes % (Manual) 10 Eosinophils % (Manual) 1 Metamyelocytes % 1 H Myelocytes % Platelet Estimate Normal Polychromasia Slight Poikilocytosis (manual Slight Anisocytosis (manual) Slight Ovalocytes Slight PT INR APTT Puncture Site pCO2 pO2 HCO3 ABG pH ABG Total CO2 ABG O2 Saturation ABG Base Excess Wilber Test ABG Potassium Sodium Chloride Glucose Lactate Liter Flow Crit Value Called To Crit Value Called By Crit Value Read Back Blood Gas Notified Time Potassium Carbon Dioxide Anion Gap BUN Creatinine Est GFR ( Amer) Est GFR (Non-Af Amer) POC Glucose (mg/dL) 95 Random Glucose Lactic Acid Calcium Phosphorus Magnesium Total Bilirubin AST ALT Alkaline Phosphatase Troponin I Total Protein Albumin Globulin Albumin/Globulin Ratio Arterial Blood Potassium Urine Color Urine Clarity Urine pH Ur Specific Loring Urine Protein Urine Glucose (UA) Urine Ketones Urine Blood Urine Nitrate Urine Bilirubin Urine Urobilinogen Ur Leukocyte Esterase Urine WBC (Auto) Urine RBC (Auto) Blood Type A POSITIVE Antibody Screen Negative 09/19/18 09/19/18 09/20/18 16:09 21:11 01:22 WBC RBC Hgb Hct MCV MCH MCHC RDW Plt Count MPV Neut % (Auto) Lymph % (Auto) Whitman % (Auto) Eos % (Auto) Baso % (Auto) Neut # (Auto) Lymph # (Auto) Whitman # (Auto) Eos # (Auto) Baso # (Auto) Neutrophils % (Manual) Band Neutrophils % Lymphocytes % (Manual) Reactive Lymphs % Monocytes % (Manual) Eosinophils % (Manual) Metamyelocytes % Myelocytes % Platelet Estimate Polychromasia Poikilocytosis (manual Anisocytosis (manual) Ovalocytes PT INR APTT Puncture Site pCO2 pO2 HCO3 ABG pH ABG Total CO2 ABG O2 Saturation ABG Base Excess Wilber Test ABG Potassium Sodium Chloride Glucose Lactate Liter Flow Crit Value Called To Crit Value Called By Crit Value Read Back Blood Gas Notified Time Potassium Carbon Dioxide Anion Gap BUN Creatinine Est GFR ( Amer) Est GFR (Non-Af Amer) POC Glucose (mg/dL) 322 H 263 H Random Glucose Lactic Acid Calcium Phosphorus Magnesium Total Bilirubin AST ALT Alkaline Phosphatase Troponin I Total Protein Albumin Globulin Albumin/Globulin Ratio Arterial Blood Potassium Urine Color Red Urine Clarity Hazy Urine pH 6.0 Ur Specific Loring 1.004 Urine Protein 1+ H Urine Glucose (UA) Normal Urine Ketones Negative Urine Blood 3+ H Urine Nitrate Negative Urine Bilirubin Negative Urine Urobilinogen Normal Ur Leukocyte Esterase 1+ H Urine WBC (Auto) 309 H Urine RBC (Auto) 85162 H Blood Type Antibody Screen 09/20/18 09/20/18 09/20/18 02:20 02:29 03:10 WBC 21.1 H D RBC 2.82 L Hgb 8.3 L Hct 24.8 L MCV 88.1 D MCH 29.3 MCHC 33.3 RDW 14.9 H Plt Count 257 MPV 7.9 Neut % (Auto) 86.9 H Lymph % (Auto) 2.2 L Whitman % (Auto) 10.4 H Eos % (Auto) 0.0 Baso % (Auto) 0.5 Neut # (Auto) 18.3 H Lymph # (Auto) 0.5 L Whitman # (Auto) 2.2 H Eos # (Auto) 0.0 Baso # (Auto) 0.1 Neutrophils % (Manual) 81 H Band Neutrophils % 4 H Lymphocytes % (Manual) 2 L Reactive Lymphs % 1 H Monocytes % (Manual) 6 Eosinophils % (Manual) Metamyelocytes % 1 H Myelocytes % 5 H Platelet Estimate Normal Polychromasia Poikilocytosis (manual Anisocytosis (manual) Ovalocytes PT INR APTT Puncture Site Lr pCO2 30 L pO2 124 H HCO3 22.4 ABG pH 7.43 ABG Total CO2 20.8 L ABG O2 Saturation 99.4 H ABG Base Excess -3.3 L Wilber Test Pos ABG Potassium 6.2 H* Sodium 130.0 L Chloride 106.0 Glucose 171 H Lactate 1.6 Liter Flow 2.0 Crit Value Called To Krishna rn Crit Value Called By Ros bottom stop attacher Crit Value Read Back Y Blood Gas Notified Time 317 Potassium Carbon Dioxide Anion Gap BUN Creatinine Est GFR ( Amer) Est GFR (Non-Af Amer) POC Glucose (mg/dL) 221 H Random Glucose Lactic Acid Calcium Phosphorus Magnesium Total Bilirubin AST ALT Alkaline Phosphatase Troponin I Total Protein Albumin Globulin Albumin/Globulin Ratio Arterial Blood Potassium 6.2 H* Urine Color Urine Clarity Urine pH Ur Specific Loring Urine Protein Urine Glucose (UA) Urine Ketones Urine Blood Urine Nitrate Urine Bilirubin Urine Urobilinogen Ur Leukocyte Esterase Urine WBC (Auto) Urine RBC (Auto) Blood Type Antibody Screen 09/20/18 09/20/18 09/20/18 03:18 03:18 03:18 WBC RBC Hgb Hct MCV MCH MCHC RDW Plt Count MPV Neut % (Auto) Lymph % (Auto) Whitman % (Auto) Eos % (Auto) Baso % (Auto) Neut # (Auto) Lymph # (Auto) Whitman # (Auto) Eos # (Auto) Baso # (Auto) Neutrophils % (Manual) Band Neutrophils % Lymphocytes % (Manual) Reactive Lymphs % Monocytes % (Manual) Eosinophils % (Manual) Metamyelocytes % Myelocytes % Platelet Estimate Polychromasia Poikilocytosis (manual Anisocytosis (manual) Ovalocytes PT 11.8 INR 1.1 APTT 28.0 Puncture Site pCO2 pO2 HCO3 ABG pH ABG Total CO2 ABG O2 Saturation ABG Base Excess Wilber Test ABG Potassium Sodium 135 Chloride 106 Glucose Lactate Liter Flow Crit Value Called To Crit Value Called By Crit Value Read Back Blood Gas Notified Time Potassium 6.7 H* D Carbon Dioxide 21 L Anion Gap 14 BUN 53 H Creatinine 1.4 Est GFR ( Amer) 60 Est GFR (Non-Af Amer) 49 POC Glucose (mg/dL) Random Glucose 181 H D Lactic Acid 1.8 Calcium 7.8 L Phosphorus 3.6 Magnesium 2.4 H Total Bilirubin 0.2 AST 48 ALT 57 Alkaline Phosphatase 187 H Troponin I < 0.0120 Total Protein 4.5 L Albumin 2.3 L Globulin 2.3 Albumin/Globulin Ratio 1.0 Arterial Blood Potassium Urine Color Urine Clarity Urine pH Ur Specific Loring Urine Protein Urine Glucose (UA) Urine Ketones Urine Blood Urine Nitrate Urine Bilirubin Urine Urobilinogen Ur Leukocyte Esterase Urine WBC (Auto) Urine RBC (Auto) Blood Type Antibody Screen 09/20/18 09/20/18 09/20/18 05:26 05:26 07:09 WBC RBC Hgb Hct MCV MCH MCHC RDW Plt Count MPV Neut % (Auto) Lymph % (Auto) Whitman % (Auto) Eos % (Auto) Baso % (Auto) Neut # (Auto) Lymph # (Auto) Whitman # (Auto) Eos # (Auto) Baso # (Auto) Neutrophils % (Manual) Band Neutrophils % Lymphocytes % (Manual) Reactive Lymphs % Monocytes % (Manual) Eosinophils % (Manual) Metamyelocytes % Myelocytes % Platelet Estimate Polychromasia Poikilocytosis (manual Anisocytosis (manual) Ovalocytes PT INR APTT Puncture Site pCO2 pO2 HCO3 ABG pH ABG Total CO2 ABG O2 Saturation ABG Base Excess Wilber Test ABG Potassium Sodium 133 134 136 Chloride 106 106 107 Glucose Lactate Liter Flow Crit Value Called To Crit Value Called By Crit Value Read Back Blood Gas Notified Time Potassium 6.3 H* 6.3 H* 5.8 H Carbon Dioxide 22 22 24 Anion Gap 11 12 11 BUN 52 H 52 H 52 H Creatinine 1.5 1.5 1.6 H Est GFR ( Amer) 55 55 51 Est GFR (Non-Af Amer) 46 46 42 POC Glucose (mg/dL) Random Glucose 246 H D 246 H 100 D Lactic Acid Calcium 7.9 L 7.8 L 8.4 L Phosphorus Magnesium Total Bilirubin AST ALT Alkaline Phosphatase Troponin I Total Protein Albumin Globulin Albumin/Globulin Ratio Arterial Blood Potassium Urine Color Urine Clarity Urine pH Ur Specific Loring Urine Protein Urine Glucose (UA) Urine Ketones Urine Blood Urine Nitrate Urine Bilirubin Urine Urobilinogen Ur Leukocyte Esterase Urine WBC (Auto) Urine RBC (Auto) Blood Type Antibody Screen 09/20/18 09/20/18 09/20/18 07:38 07:47 08:45 WBC 22.6 H RBC 2.55 L Hgb 7.8 L Hct 22.8 L MCV 89.5 MCH 30.4 MCHC 34.0 RDW 15.0 H Plt Count 271 MPV 8.1 Neut % (Auto) 86.5 H Lymph % (Auto) 2.9 L Whitman % (Auto) 10.3 H Eos % (Auto) 0.0 Baso % (Auto) 0.3 Neut # (Auto) 19.6 H Lymph # (Auto) 0.6 L Whitman # (Auto) 2.3 H Eos # (Auto) 0.0 Baso # (Auto) 0.1 Neutrophils % (Manual) Band Neutrophils % Lymphocytes % (Manual) Reactive Lymphs % Monocytes % (Manual) Eosinophils % (Manual) Metamyelocytes % Myelocytes % Platelet Estimate Polychromasia Poikilocytosis (manual Anisocytosis (manual) Ovalocytes PT INR APTT Puncture Site pCO2 pO2 HCO3 ABG pH ABG Total CO2 ABG O2 Saturation ABG Base Excess Wilber Test ABG Potassium Sodium 136 Chloride 107 Glucose Lactate Liter Flow Crit Value Called To Crit Value Called By Crit Value Read Back Blood Gas Notified Time Potassium 5.7 H Carbon Dioxide 21 L Anion Gap 13 BUN 54 H Creatinine 1.5 Est GFR ( Amer) 55 Est GFR (Non-Af Amer) 46 POC Glucose (mg/dL) 102 Random Glucose 69 L D Lactic Acid Calcium 8.3 L Phosphorus 4.1 Magnesium 2.5 H Total Bilirubin 0.2 AST 47 ALT 55 Alkaline Phosphatase 189 H Troponin I 0.0160 Total Protein 4.8 L Albumin 2.3 L Globulin 2.5 Albumin/Globulin Ratio 0.9 L Arterial Blood Potassium Urine Color Urine Clarity Urine pH Ur Specific Loring Urine Protein Urine Glucose (UA) Urine Ketones Urine Blood Urine Nitrate Urine Bilirubin Urine Urobilinogen Ur Leukocyte Esterase Urine WBC (Auto) Urine RBC (Auto) Blood Type Antibody Screen
[2018-09-20] MEDS: GlipiZIDE 10 mg SR Tab PO SCH (10:12)
--- NOTE | 2018-09-20 10:49 | PCM.SEPTIC ---
Sepsis Progress Note - Reassessment Type Date of Evaluation: 09/20/18 Time of Evaluation: 10:48 Reassessment Type: Non-invasive reassessment - Non Invasive Reassessment Were the most recent vital sign reviewed: Yes Vital Sign (Latest): Temp Pulse Resp BP Pulse Ox 98.3 F 116 H 20 133/52 L 96 09/20/18 07:00 09/20/18 07:00 09/20/18 07:00 09/20/18 07:00 09/20/18 07:00 Cardiovascular: No: Murmur, Bradycardia, Tachycardia Respiratory: No: Accessory Muscle Use, Rales, Rhonchi, Wheezing Capillary Refill: Normal (Less than 2 sec) Skin: Warm, Dry
[2018-09-20 11:06] LABS: BANDS 15 % (0-2); LYMPHOCYTE 6 % (20-40); MONOCYTE 11 % (0-10); NEUTROPHIL 68 % (50-75); TOTAL CELLS COUNTED 100
[2018-09-20 11:07] LABS: PLATELET ESTIMATE NORMAL (NORMAL)
[2018-09-20 11:08] LABS: ANISOCYTOSIS SLIGHT
[2018-09-20 11:11] LABS: POIKILOCYTOSIS SLIGHT
[2018-09-20 11:12] LABS: OVALOCYTES SLIGHT
[2018-09-20] MEDS ORDERED: AMINOCAPROIC ACID IR ONE ×2 (11:15→15:00)
[2018-09-20] MEDS ORDERED: SODIUM CHLORIDE 0.9% IR ONE ×2 (11:15→15:00)
--- NOTE | 2018-09-20 11:49 | CP.PCM.CON ---
History of Present Illness - History of Present Illness History of Present Illness: ICU consulted for hematuria, urinary track infection (MSSA) and encephalopathy 73 y/o male with PMH DM, HTN, arthritis, CAD sent dx with hematuria. Patient has been diagnosed with hematuria and has been on CBI for more than 7 days, as per nursing. a stroke code called in AM. Patient is awake, alert, does not want any peripheral line. Patietn had high fevers and sepsis code was called. Patient seen at bedside. Patient notes he has pain at penile site. CBI reveals hematuria, with no grodd clots. (-) chest pain, no headaches, no dizziness. PMH: DM, Arthritis, HTN, CAD PSH: back surgery (20 years ago), prostate radiation ??? Allergies: NKDA Social Hx: Former smoker quit years ago, denies alcohol and drug use Review of Systems - Review of Systems All systems: reviewed and no additional remarkable complaints except Past Patient History - Infectious Disease Hx of Infectious Diseases: None - Past Medical History & Family History Past Medical History?: Yes - Past Social History Smoking Status: Former Smoker Alcohol: None Drugs: Denies - CARDIAC Hx Hypercholesterolemia: Yes Hx Hypertension: Yes - PULMONARY Hx Respiratory Disorders: Yes (SOB) - NEUROLOGICAL Hx Neurological Disorder: No - HEENT Hx HEENT Problems: Yes (PARTIAL LOSS OF SIGHT RIGHT EYE FROM ACCIDENT) - RENAL Hx Chronic Kidney Disease: No - ENDOCRINE/METABOLIC Hx Diabetes Mellitus Type 2: Yes - HEMATOLOGICAL/ONCOLOGICAL Hx Blood Disorders: Yes Hx Cancer: Yes (PROSTATE- treated) - INTEGUMENTARY Hx Dermatological Problems: No - MUSCULOSKELETAL/RHEUMATOLOGICAL Hx Falls: No - GASTROINTESTINAL Hx Gastrointestinal Disorders: Yes - GENITOURINARY/GYNECOLOGICAL Hx Genitourinary Disorders: Yes Hx Prostate Cancer: Yes Hx Prostate Problems: Yes - PSYCHIATRIC Hx Substance Use: No - SURGICAL HISTORY Hx Surgeries: Yes Hx Eye Surgery: Yes (RIGHT) Hx Musculoskeletal Surgery: Yes (LUMBAR) Other/Comment: PROSTATE BX RADIATION - ANESTHESIA Hx Anesthesia: Yes Hx Anesthesia Reactions: Yes (DIFFICULTY VOIDING) Hx Malignant Hyperthermia: No Meds Home Medications: Home Medication List Medication Instructions Recorded Confirmed Type Empagliflozin [Jardiance] 10 mg PO DAILY #30 tablet 09/10/18 Rx Gabapentin [Neurontin] 300 mg PO TID #90 cap 09/10/18 Rx Glipizide [Glipizide Xl] 10 mg PO BID #14 tab.er.24 09/10/18 Rx Insulin Glargine, Recombina 10 unit SC HS #3 l 09/10/18 Rx [Lantus] Lisinopril [Zestril] 40 mg PO DAILY #30 tab 09/10/18 Rx Simvastatin 20 mg PO HS #30 tablet 09/10/18 Rx Tamsulosin [Flomax] 0.4 mg PO DAILY #30 cap 09/10/18 Rx amLODIPine [Norvasc] 10 mg PO DAILY #30 tab 09/10/18 Rx metFORMIN [glucOPHAGE] 500 mg PO BID #60 tab 09/10/18 Rx Allergies/Adverse Reactions: Allergies Allergy/AdvReac Type Severity Reaction Status Date / Time No Known Allergies Allergy Verified 09/01/18 15:52 - Medications Medications: Current Medications Acetaminophen (Tylenol 325mg Tab) 650 mg PO Q6 PRN PRN Reason: Fever >100.4 F Amlodipine Besylate (Norvasc) 10 mg PO DAILY [facility] Last Admin: 09/20/18 10:12 Dose: Not Given Dextrose (Dextrose 50% Inj) 0 ml IV STAT PRN; Protocol PRN Reason: Hypoglycemia Protocol Dextrose (Glutose 15) 0 gm PO ONCE PRN; Protocol PRN Reason: Hypoglycemia Protocol Docusate Sodium (Colace) 100 mg PO BID [facility] Last Admin: 09/20/18 10:12 Dose: Not Given Finasteride (Proscar) 5 mg PO DAILY [facility] Last Admin: 09/20/18 10:12 Dose: Not Given Gabapentin (Neurontin) 300 mg PO TID [facility] Last Admin: 09/20/18 10:12 Dose: Not Given Glipizide (Glucotrol Xl) 10 mg PO BID [facility] Last Admin: 09/20/18 10:12 Dose: Not Given Glucagon (Glucagen Diagnostic Kit) 0 mg IM STAT PRN; Protocol PRN Reason: Hypoglycemia Protocol Sodium Chloride (Sodium Chloride 0.9%) 1,000 mls @ 100 mls/hr IV .Q10H [facility] Last Admin: 09/20/18 05:42 Dose: 100 mls/hr Aminocaproic Acid 5,000 mg/ (Dextrose) 120 mls @ 100 mls/hr IV ONCE ONE Stop: 09/20/18 12:26 Insulin Glargine (Lantus) 10 unit SC [facility] Last Admin: 09/19/18 21:58 Dose: 10 units Insulin Human Regular (Novolin R) 0 unit SC ACHS [facility]; Protocol Last Admin: 09/20/18 08:56 Dose: Not Given Lidocaine HCl (Xylocaine 2%) 0 ea TOP Q12H PRN Last Admin: 09/10/18 14:43 Dose: 1 applic Polyethylene Glycol (Miralax) 17 gm PO DAILY PRN PRN Reason: Constipation Rosuvastatin Calcium (Crestor) 5 mg PO HS [facility] Last Admin: 09/19/18 21:58 Dose: 5 mg Sitagliptin Phosphate (Januvia) 50 mg PO DAILY [facility] Last Admin: 09/20/18 10:12 Dose: Not Given Tamsulosin HCl (Flomax) 0.4 mg PO DAILY [facility] Last Admin: 09/20/18 10:12 Dose: Not Given Physical Exam - Head Exam Head Exam: ATRAUMATIC, NORMAL INSPECTION, NORMOCEPHALIC - ENT Exam ENT Exam: Mucous Membranes Moist - Respiratory Exam Respiratory Exam: Clear to Auscultation Bilateral, NORMAL BREATHING PATTERN. absent: Rales, Respiratory Distress, Stridor - Cardiovascular Exam Cardiovascular Exam: Tachycardia, +S1, +S2, Systolic Murmur - GI/Abdominal Exam GI & Abdominal Exam: Normal Bowel Sounds, Soft, Tenderness Additional comments: suprapubic tenderness - Neurological Exam Neurological exam: Alert, Oriented x3 - Skin Skin Exam: Normal Color, Warm Results - Vital Signs Recent Vital Signs: Last Vital Signs Temp 102.0 F H 09/20/18 11:43 Pulse 120 H 09/20/18 10:48 Resp 16 09/20/18 10:48 BP 122/70 09/20/18 10:48 Pulse Ox 100 09/20/18 10:48 - Labs Result Diagrams: 09/20/18 07:47 09/20/18 08:45 Labs: Laboratory Results - last 24 hr 09/16/18 09/19/18 09/19/18 20:51 07:06 16:09 WBC RBC Hgb Hct MCV MCH MCHC RDW Plt Count MPV Neut % (Auto) Lymph % (Auto) Fallon % (Auto) Eos % (Auto) Baso % (Auto) Neut # (Auto) Lymph # (Auto) [place]on # (Auto) Eos # (Auto) Baso # (Auto) Neutrophils % (Manual) 77 H Band Neutrophils % 4 H Lymphocytes % (Manual) 7 L Reactive Lymphs % Monocytes % (Manual) 10 Eosinophils % (Manual) 1 Metamyelocytes % 1 H Myelocytes % Platelet Estimate Normal Polychromasia Slight Poikilocytosis (manual Slight Anisocytosis (manual) Slight Ovalocytes Slight PT INR APTT Puncture Site pCO2 pO2 HCO3 ABG pH ABG Total CO2 ABG O2 Saturation ABG Base Excess Wilber Test ABG Potassium Sodium Chloride Glucose Lactate Liter Flow Crit Value Called To Crit Value Called By Crit Value Read Back Blood Gas Notified Time Potassium Carbon Dioxide Anion Gap BUN Creatinine Est GFR ( Amer) Est GFR (Non-Af Amer) POC Glucose (mg/dL) 322 H Random Glucose Lactic Acid Calcium Phosphorus Magnesium Total Bilirubin AST ALT Alkaline Phosphatase Troponin I Total Protein Albumin Globulin Albumin/Globulin Ratio Arterial Blood Potassium Urine Color Urine Clarity Urine pH Ur Specific Somers Urine Protein Urine Glucose (UA) Urine Ketones Urine Blood Urine Nitrate Urine Bilirubin Urine Urobilinogen Ur Leukocyte Esterase Urine WBC (Auto) Urine RBC (Auto) Blood Type A POSITIVE Antibody Screen Negative 09/19/18 09/20/18 09/20/18 21:11 01:22 02:20 WBC 21.1 H D RBC 2.82 L Hgb 8.3 L Hct 24.8 L MCV 88.1 D MCH 29.3 MCHC 33.3 RDW 14.9 H Plt Count 257 MPV 7.9 Neut % (Auto) 86.9 H Lymph % (Auto) 2.2 L Fallon % (Auto) 10.4 H Eos % (Auto) 0.0 Baso % (Auto) 0.5 Neut # (Auto) 18.3 H Lymph # (Auto) 0.5 L Fallon # (Auto) 2.2 H Eos # (Auto) 0.0 Baso # (Auto) 0.1 Neutrophils % (Manual) 81 H Band Neutrophils % 4 H Lymphocytes % (Manual) 2 L Reactive Lymphs % 1 H Monocytes % (Manual) 6 Eosinophils % (Manual) Metamyelocytes % 1 H Myelocytes % 5 H Platelet Estimate Normal Polychromasia Poikilocytosis (manual Anisocytosis (manual) Ovalocytes PT INR APTT Puncture Site pCO2 pO2 HCO3 ABG pH ABG Total CO2 ABG O2 Saturation ABG Base Excess Wilber Test ABG Potassium Sodium Chloride Glucose Lactate Liter Flow Crit Value Called To Crit Value Called By Crit Value Read Back Blood Gas Notified Time Potassium Carbon Dioxide Anion Gap BUN Creatinine Est GFR ( Amer) Est GFR (Non-Af Amer) POC Glucose (mg/dL) 263 H Random Glucose Lactic Acid Calcium Phosphorus Magnesium Total Bilirubin AST ALT Alkaline Phosphatase Troponin I Total Protein Albumin Globulin Albumin/Globulin Ratio Arterial Blood Potassium Urine Color Red Urine Clarity Hazy Urine pH 6.0 Ur Specific Somers 1.004 Urine Protein 1+ H Urine Glucose (UA) Normal Urine Ketones Negative Urine Blood 3+ H Urine Nitrate Negative Urine Bilirubin Negative Urine Urobilinogen Normal Ur Leukocyte Esterase 1+ H Urine WBC (Auto) 309 H Urine RBC (Auto) 09169 H Blood Type Antibody Screen 09/20/18 09/20/18 09/20/18 02:29 03:10 03:18 WBC RBC Hgb Hct MCV MCH MCHC RDW Plt Count MPV Neut % (Auto) Lymph % (Auto) Fallon % (Auto) Eos % (Auto) Baso % (Auto) Neut # (Auto) Lymph # (Auto) Fallon # (Auto) Eos # (Auto) Baso # (Auto) Neutrophils % (Manual) Band Neutrophils % Lymphocytes % (Manual) Reactive Lymphs % Monocytes % (Manual) Eosinophils % (Manual) Metamyelocytes % Myelocytes % Platelet Estimate Polychromasia Poikilocytosis (manual Anisocytosis (manual) Ovalocytes PT INR APTT Puncture Site Lr pCO2 30 L pO2 124 H HCO3 22.4 ABG pH 7.43 ABG Total CO2 20.8 L ABG O2 Saturation 99.4 H ABG Base Excess -3.3 L Wilber Test Pos ABG Potassium 6.2 H* Sodium 130.0 L 135 Chloride 106.0 106 Glucose 171 H Lactate 1.6 Liter Flow 2.0 Crit Value Called To Krishna rn Crit Value Called By Ros insurance appraiser Crit Value Read Back Y Blood Gas Notified Time 317 Potassium 6.7 H* D Carbon Dioxide 21 L Anion Gap 14 BUN 53 H Creatinine 1.4 Est GFR ( Amer) 60 Est GFR (Non-Af Amer) 49 POC Glucose (mg/dL) 221 H Random Glucose 181 H D Lactic Acid Calcium 7.8 L Phosphorus 3.6 Magnesium 2.4 H Total Bilirubin 0.2 AST 48 ALT 57 Alkaline Phosphatase 187 H Troponin I < 0.0120 Total Protein 4.5 L Albumin 2.3 L Globulin 2.3 Albumin/Globulin Ratio 1.0 Arterial Blood Potassium 6.2 H* Urine Color Urine Clarity Urine pH Ur Specific Somers Urine Protein Urine Glucose (UA) Urine Ketones Urine Blood Urine Nitrate Urine Bilirubin Urine Urobilinogen Ur Leukocyte Esterase Urine WBC (Auto) Urine RBC (Auto) Blood Type Antibody Screen 09/20/18 09/20/18 09/20/18 03:18 03:18 05:26 WBC RBC Hgb Hct MCV MCH MCHC RDW Plt Count MPV Neut % (Auto) Lymph % (Auto) Fallon % (Auto) Eos % (Auto) Baso % (Auto) Neut # (Auto) Lymph # (Auto) Fallon # (Auto) Eos # (Auto) Baso # (Auto) Neutrophils % (Manual) Band Neutrophils % Lymphocytes % (Manual) Reactive Lymphs % Monocytes % (Manual) Eosinophils % (Manual) Metamyelocytes % Myelocytes % Platelet Estimate Polychromasia Poikilocytosis (manual Anisocytosis (manual) Ovalocytes PT 11.8 INR 1.1 APTT 28.0 Puncture Site pCO2 pO2 HCO3 ABG pH ABG Total CO2 ABG O2 Saturation ABG Base Excess Wilber Test ABG Potassium Sodium 133 Chloride 106 Glucose Lactate Liter Flow Crit Value Called To Crit Value Called By Crit Value Read Back Blood Gas Notified Time Potassium 6.3 H* Carbon Dioxide 22 Anion Gap 11 BUN 52 H Creatinine 1.5 Est GFR ( Amer) 55 Est GFR (Non-Af Amer) 46 POC Glucose (mg/dL) Random Glucose 246 H D Lactic Acid 1.8 Calcium 7.9 L Phosphorus Magnesium Total Bilirubin AST ALT Alkaline Phosphatase Troponin I Total Protein Albumin Globulin Albumin/Globulin Ratio Arterial Blood Potassium Urine Color Urine Clarity Urine pH Ur Specific [place] Urine Protein Urine Glucose (UA) Urine Ketones Urine Blood Urine Nitrate Urine Bilirubin Urine Urobilinogen Ur Leukocyte Esterase Urine WBC (Auto) Urine RBC (Auto) Blood Type Antibody Screen 09/20/18 09/20/18 09/20/18 05:26 07:09 07:38 WBC RBC Hgb Hct MCV MCH MCHC RDW Plt Count MPV Neut % (Auto) Lymph % (Auto) Fallon % (Auto) Eos % (Auto) Baso % (Auto) Neut # (Auto) Lymph # (Auto) Fallon # (Auto) Eos # (Auto) Baso # (Auto) Neutrophils % (Manual) Band Neutrophils % Lymphocytes % (Manual) Reactive Lymphs % Monocytes % (Manual) Eosinophils % (Manual) Metamyelocytes % Myelocytes % Platelet Estimate Polychromasia Poikilocytosis (manual Anisocytosis (manual) Ovalocytes PT INR APTT Puncture Site pCO2 pO2 HCO3 ABG pH ABG Total CO2 ABG O2 Saturation ABG Base Excess Wilber Test ABG Potassium Sodium 134 136 Chloride 106 107 Glucose Lactate Liter Flow Crit Value Called To Crit Value Called By Crit Value Read Back Blood Gas Notified Time Potassium 6.3 H* 5.8 H Carbon Dioxide 22 24 Anion Gap 12 11 BUN 52 H 52 H Creatinine 1.5 1.6 H Est GFR ( Amer) 55 51 Est GFR (Non-Af Amer) 46 42 POC Glucose (mg/dL) 102 Random Glucose 246 H 100 D Lactic Acid Calcium 7.8 L 8.4 L Phosphorus Magnesium Total Bilirubin AST ALT Alkaline Phosphatase Troponin I Total Protein Albumin Globulin Albumin/Globulin Ratio Arterial Blood Potassium Urine Color Urine Clarity Urine pH Ur Specific [place] Urine Protein Urine Glucose (UA) Urine Ketones Urine Blood Urine Nitrate Urine Bilirubin Urine Urobilinogen Ur Leukocyte Esterase Urine WBC (Auto) Urine RBC (Auto) Blood Type Antibody Screen 09/20/18 09/20/18 09/20/18 07:47 08:45 09:26 WBC 22.6 H RBC 2.55 L Hgb 7.8 L Hct 22.8 L MCV 89.5 MCH 30.4 MCHC 34.0 RDW 15.0 H Plt Count 271 MPV 8.1 Neut % (Auto) 86.5 H Lymph % (Auto) 2.9 L Fallon % (Auto) 10.3 H Eos % (Auto) 0.0 Baso % (Auto) 0.3 Neut # (Auto) 19.6 H Lymph # (Auto) 0.6 L Fallon # (Auto) 2.3 H Eos # (Auto) 0.0 Baso # (Auto) 0.1 Neutrophils % (Manual) 68 Band Neutrophils % 15 H* Lymphocytes % (Manual) 6 L Reactive Lymphs % Monocytes % (Manual) 11 H Eosinophils % (Manual) Metamyelocytes % Myelocytes % Platelet Estimate Normal Polychromasia Poikilocytosis (manual Slight Anisocytosis (manual) Slight Ovalocytes Slight PT INR APTT Puncture Site pCO2 pO2 HCO3 ABG pH ABG Total CO2 ABG O2 Saturation ABG Base Excess Wilber Test ABG Potassium Sodium 136 Chloride 107 Glucose Lactate Liter Flow Crit Value Called To Crit Value Called By Crit Value Read Back Blood Gas Notified Time Potassium 5.7 H Carbon Dioxide 21 L Anion Gap 13 BUN 54 H Creatinine 1.5 Est GFR ( Amer) 55 Est GFR (Non-Af Amer) 46 POC Glucose (mg/dL) Random Glucose 69 L D Lactic Acid 2.2 H Calcium 8.3 L Phosphorus 4.1 Magnesium 2.5 H Total Bilirubin 0.2 AST 47 ALT 55 Alkaline Phosphatase 189 H Troponin I 0.0160 Total Protein 4.8 L Albumin 2.3 L Globulin 2.5 Albumin/Globulin Ratio 0.9 L Arterial Blood Potassium Urine Color Urine Clarity Urine pH Ur Specific [place] Urine Protein Urine Glucose (UA) Urine Ketones Urine Blood Urine Nitrate Urine Bilirubin Urine Urobilinogen Ur Leukocyte Esterase Urine WBC (Auto) Urine RBC (Auto) Blood Type Antibody Screen Assessment & Plan - Assessment and Plan (Free Text) Assessment: -Sepsis: source likely abdomen, possible urine/colitis, with hematuria, possibility of trasnlocation of bacteria from urine/bladder into blood stream, obtain CT abd/pelvis, serial lactic and 30 ml/kg of IVF bolus and then mckay cul ture, with abx, start ceftriaxone (MSSA) + vanco 1 gm x1, pending cultures -Hematuria: start amiocaproic acid irrigation, possible IV amincaprioic acid -emcephalopathy: suspect delirium 2nd sepsis, obtain utox, ammonia and avoid sedation and frequent re-oriantation, ?stroke, unlikley obtiain CT head -CAD: at risk of cad: will trasnfuse to keep hb stable keep hb >8.0, hold antiplatelet given hematuria dvt ppx: scds (no hepain as (+)hematuria) -PUD ppx protonix q12 -cc time 45 minutes -patient will benefit from ICU level care until hematuria resolves and source of infection controlled. -d/w ICU and nursing team. -urology follow up requested as findings ni bladder on CT reveals large clot + urine, may need cystoscopy -NPO - Date & Time Date: 09/20/18 Time: 11:57
--- NOTE | 2018-09-20 13:01 | PCM.SEPTIC ---
Sepsis Progress Note - Reassessment Type Date of Evaluation: 09/20/18 Time of Evaluation: 13:00 Reassessment Type: Non-invasive reassessment - Non Invasive Reassessment Were the most recent vital sign reviewed: Yes Vital Sign (Latest): Temp Pulse Resp BP Pulse Ox 102.0 F H 120 H 16 122/70 100 09/20/18 11:43 09/20/18 10:48 09/20/18 10:48 09/20/18 10:48 09/20/18 10:48 Cardiovascular: Yes: Regular Rate, Rhythm Respiratory: Yes: Normal Breath Sounds Capillary Refill: Normal (Less than 2 sec) Pulses: Normal Radial, Normal Dorsalis Pedis, Normal Posterior Tibialis Skin: Normal Color - Invasive Reassessment (complete 2 of 4) Was a Central Venous Pressure Measurement obtained within 6 Hours after the presentation of septic shock: No Was a central venous oxygen measurement obtained within 6 hours after the presentation of septic shock: No Was a bedside cardiovascular ultrasound performed within 6 hours after the presentation of septic shock: No Was a passive leg raise performed or was a fluid challenge performed within 6 hrs of the initial fluid bolus: No
--- NOTE | 2018-09-20 13:20 | CON ---
DATE: 09/20/2018 Neurology consult called by Dr. Herrera, hospitalist. HISTORY OF PRESENT ILLNESS: Mr. Garret Samuel is a 73-year-old male who was admitted on 09/02/2018 with past medical history of diabetes, hypertension, arthritis, CAD, and history of postradiation cystitis. He was sent in on 09/02/2018 for and Harris. The patient did not remember when the Harris was placed. At the time of admission, he was a bit confused that he was speaking in Welsh and quite alert, aware, oriented x3. He had at that time. The patient was hospitalized and developed severe anemia and was transfused multiple times. 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 They recommended hyperbaric oxygen. Bleeding continued to be severe with a max low hemoglobin at 7.7, now 7.8. The patient continued to be monitored until last night at approximately 12:42 when the patient had acute change in mental status. Apparently, they had seen him a couple of hours before and then when they came back to see him again, the patient was not speaking properly and he was not following commands and he could not move his legs. CAT scan of the head was done, which was normal. Lab work resulted a critical value of potassium. EKG was ordered , troponin was negative. Insulin, Kayexalate, and D50 were given and the patient was admitted to telemetry. At the point of change in mental status, temperature was 101.4, pulse 79, respiratory rate 20, blood pressure 118/74, and pulse ox 98%. CAT scan of the head was done and was significant only for diffuse atrophy. At the time, the patient was on the following medications: Acetaminophen, amlodipine, Dextrose, finasteride, gabapentin 300 mg t.i.d., glipizide, glucagon, insulin, lidocaine, lisinopril, metformin, Percocet 2 tabs p.o. every 4 hours p.r.n., Crestor, Januvia, and tamsulosin. His labs are as follows: White count 10, hemoglobin 6.8, hematocrit 19.3, BUN and creatinine 50 and 1.4 respectively, 112 platelets. This morning, the patient is awake, he is able to follow commands, speaking gibberish and following commands sporadically. REVIEW OF SYSTEMS: Was not possible due to the patient's mental status and confusion. PAST MEDICAL HISTORY: As follows. Diabetes type 1, arthritis, hypertension, CAD, prostatitis and cystitis status post radiation. PAST SURGICAL HISTORY: surgery 20 years ago, prostate radiation. SOCIAL HISTORY: The patient was a former smoker who quit years ago. Denies alcohol and tobacco. ALLERGIES: NO KNOWN DRUG ALLERGIES. NEUROLOGIC: On exam, the patient is awake, alert and oriented to person only. He does not know the date or the time. Attention is very poor. It is not possible to do mini mental status exam as the patient is not cooperative. Speech is fluent and not coherent. He cannot name, he cannot repeat. The only command that he follows for me was time in Peruvian. He did not answer what his name is when still continues in Peruvian and does not follow any other commands. He is moving all extremities equally. There is no facial asymmetry. Pupils equal, round, and reactive to light. Reflexes are +1 in upper and lower limbs bilaterally. Sensory is not able to be determined. Per history apparently, there is a loss of sight . LABORATORY DATA: As follows: White count 22.6, hemoglobin 7.8, hematocrit 20.8, platelets 271, neutrophils 82.5. Chemistry: Sodium 136, potassium 5.7, chloride 107, bicarb 21, BUN 54, creatinine 1.5, random glucose 69, calcium 8.3, AST/ALT 47 and 55. Urine shows 1+ protein, 3+ glucose, 3+ blood, 1+ leukocyte esterase, 309 white count and 2000 RBCs. IMPRESSION: This is a 73-year-old male with what acute watershed infarct resulting in confusion, possibly may have onset of seizure in light of all his medical stressors including chronic and severe anemia and hematuria. PLAN: 1. MRI of the brain without contrast in the morning. 2. Video EEG for 24 hours. 3. Check ammonia level. Our team will follow. Thank you for this consult. Shameka Pritchard MD
[2018-09-20 14:24] LABS: URINE BILIRUBIN NEGATIVE (NEGATIVE); URINE CLARITY Turbid (Clear); URINE COLOR Red (YELLOW); URINE GLUCOSE (UA) NORMAL (Normal); URINE LEUKOCYTE ESTERASE NEG Leu/uL (Negative); URINE PROTEIN 2+ mg/dL (NEGATIVE); URINE UROBILINOGEN NORMAL mg/dL (0.2-1.0)
[2018-09-20 14:29] LABS: URINE BLOOD 3+ (NEGATIVE)
[2018-09-20 14:32] LABS: CK-MB 1.81 ng/mL (0.0-3.38); TROPONIN I 0.021 ng/mL (0.00-0.120)
[2018-09-20] MEDS: cefTRIAXone 2 GM in Sodium Chloride 0.9% 100 ML IVPB SCH (14:35)
[2018-09-20] MEDS: Dextrose 5%/0.9% NS 1,000 ML IV SCH (14:35)
[2018-09-20 14:46] LABS: BARBITURATES, UR NEGATIVE (NEGATIVE); BENZODIAZEPINES, UR NEGATIVE (NEGATIVE); OPIATES, UR NEGATIVE (NEGATIVE); PHENCYCLIDINE, UR NEGATIVE (NEGATIVE)
[2018-09-20] MEDS ORDERED: Iohexol 240 (50 ml) PO ONE (15:00)
--- NOTE | 2018-09-20 15:07 | CT ---
Date of service: 09/20/2018 PROCEDURE: CT Abdomen and Pelvis without intravenous contrast HISTORY: r/o abcess COMPARISON: 09/02/2018 TECHNIQUE: Without contrast.. Contrast dose: 0 Radiation dose: Total exam DLP = 542.82 mGy-cm. This CT exam was performed using one or more of the following dose reduction techniques: Automated exposure control, adjustment of the mA and/or kV according to patient size, and/or use of iterative reconstruction technique. FINDINGS: LOWER THORAX: Small left pleural effusion. No right pleural effusion. No infiltrate at lung bases. LIVER: Unremarkable. No gross lesion or ductal dilatation. GALLBLADDER AND BILE DUCTS: Unremarkable. PANCREAS: Unremarkable. No gross lesion or ductal dilatation. SPLEEN: Unremarkable. ADRENALS: Mild bilateral adrenal hypertrophy. KIDNEYS AND URETERS: Bilateral hydroureteronephrosis. No mass or calculus. VASCULATURE: Unremarkable. No aortic aneurysm. There is atherosclerotic calcification of the abdominal aorta. BOWEL: Unremarkable. No obstruction. No gross mural thickening. APPENDIX: Unremarkable. Normal appendix. PERITONEUM: Unremarkable. No free fluid. No free air. LYMPH NODES: Unremarkable. No enlarged lymph nodes. BLADDER: The bladder is significant for extensive heterogeneous high attenuation material within the bladder lumen, possibly blood. Cannot exclude underlying neoplasm. Harris catheter balloon noted. Mild diffuse thickening of the bladder wall common nonspecific. Correlate for cystitis. REPRODUCTIVE: Unremarkable prostate BONES: No acute fracture. OTHER FINDINGS: None. IMPRESSION: Extensive heterogeneous high attenuation material within the bladder lumen suspicious for blood. Harris catheter noted. Mild diffuse thickening of the bladder wall common nonspecific. Small left pleural effusion. Bilateral hydroureteronephrosis without evidence of obstructing calculus.
--- NOTE | 2018-09-20 15:29 | CP.PCM.CON ---
History of Present Illness - History of Present Illness History of Present Illness: 73 y/o male recently diagnosed with hematuria and has been on CBI for more than 7 days, Developed AMS and co=de stroke called Now in ICU awake and alert Patient had high fevers and sepsis code was called. Septic work up done and empiric IV antibiotics started PMH: DM, Arthritis, HTN, CAD PSH: back surgery (20 years ago), prostate radiation ? Allergies: NKDA Social Hx: Former smoker quit years ago, denies alcohol and drug use Review of Systems - Review of Systems All systems: reviewed and no additional remarkable complaints except - Constitutional Constitutional: As Per HPI - EENT Eyes: absent: As Per HPI, Blind Spots, Blurred Vision, Change in Vision, Decreased Night Vision, Diplopia, Discharge, Dry Eye, Exophthalmos, Floaters, Irritation, Itchy Eyes, Loss of Peripheral Vision, Pain, Photophobia, Requires Corrective Lenses, Sees Flashes, Spots in Vision, Tunnel Vision, Other Visual Disturbances, Loss of Vision, Other Ears: absent: As Per HPI, Decreased Hearing, Ear Discharge, Ear Pain, Tinnitus, Abnormal Hearing, Disequilibrium, Dizziness, Other Nose/Mouth/Throat: absent: As Per HPI, Epistaxis, Nasal Congestion, Nasal Discharge, Nasal Obstruction, Nasal Trauma, Nose Pain, Post Nasal Drip, Sinus Pain, Sinus Pressure, Bleeding Gums, Change in Voice, Dental Pain, Dry Mouth, Dysphagia, Halitosis, Hoarsness, Lip Swelling, Mouth Lesions, Mouth Pain, Odynophagia, Sore Throat, Throat Swelling, Tongue Swelling, Facial Pain, Neck Pain, Neck Mass, Other - Cardiovascular Cardiovascular: As Per HPI - Respiratory Respiratory: absent: As Per HPI, Cough, Dyspnea, Hemoptysis, Dyspnea on Exertion, Wheezing, Snoring, Stridor, Pain on Inspiration, Chest Congestion, Excessive Mucous Production, Change in Mucous Color, Pain with Coughing, Other - Gastrointestinal Gastrointestinal: absent: As Per HPI, Abdominal Pain, Belching, Bloating, Change in Bowel Habits, Change in Stool Character, Coffee Ground Emesis, Constipation, Cramping, Diarrhea, Dyspepsia, Dysphagia, Early Satiety, Excessive Flatus, Fecal Incontinence, Heartburn, Hematemesis, Hematochezia, Loose Stools, Melena, Nausea, Odynophagia, Temesmus, Vomiting, Other - Genitourinary Genitourinary: As Per HPI - Integumentary Integumentary: absent: As Per HPI, Acne, Alopecia, Bleeding Lesions, Change in Hair, Change in Nails, Change in Pigmentation, Changing Lesions, Dry Skin, Erythema, Furuncle, Hirsutism, Lesions, New Lesions, Non-Healing Lesions, Photosensitivity, Pruritus, Rash, Skin Pain, Skin Ulcer, Sores, Striae, Swelling, Unusual Bruising, Wounds, Jaundice, Other - Neurological Neurological: As Per HPI - Psychiatric Psychiatric: absent: As Per HPI, Abnormal Sleep Pattern, Anhedonia, Anxiety, Auditory Hallucinations, Behavioral Changes, Change in Appetite, Change in Libi do, Confusion, Depression, Difficulty Concentrating, Hallucinations, Homicidal Ideation, Hopelessness, Irritability, Memory Loss, Mood Swings, Panic Attacks, Paranoia, Suicidal Ideation, Visual Hallucinations, Tactile Hallucinations, Other - Endocrine Endocrine: absent: As Per HPI, Change in Body Appearance, Change in Libido, Cold Intolorance, Deepening of Voice, Excessive Sweating, Fatigue, Flushing, Heat Intolorance, Increase in Ring/Shoe/Hat Size, Palpitations, Polydipsia, Polyphagia, Polyuria, Other - Hematologic/Lymphatic Hematologic: absent: As Per HPI, Easy Bleeding, Easy Bruising, Lymphadenopathy, Other Past Patient History - Infectious Disease Hx of Infectious Diseases: None - Past Medical History & Family History Past Medical History?: Yes - Past Social History Smoking Status: Former Smoker Alcohol: None Drugs: Denies - CARDIAC Hx Hypercholesterolemia: Yes Hx Hypertension: Yes - PULMONARY Hx Respiratory Disorders: Yes (SOB) - NEUROLOGICAL Hx Neurological Disorder: No - HEENT Hx HEENT Problems: Yes (PARTIAL LOSS OF SIGHT RIGHT EYE FROM ACCIDENT) - RENAL Hx Chronic Kidney Disease: No - ENDOCRINE/METABOLIC Hx Diabetes Mellitus Type 2: Yes - HEMATOLOGICAL/ONCOLOGICAL Hx Blood Disorders: Yes Hx Cancer: Yes (PROSTATE- treated) - INTEGUMENTARY Hx Dermatological Problems: No - MUSCULOSKELETAL/RHEUMATOLOGICAL Hx Falls: No - GASTROINTESTINAL Hx Gastrointestinal Disorders: Yes - GENITOURINARY/GYNECOLOGICAL Hx Genitourinary Disorders: Yes Hx Prostate Cancer: Yes Hx Prostate Problems: Yes - PSYCHIATRIC Hx Substance Use: No - SURGICAL HISTORY Hx Surgeries: Yes Hx Eye Surgery: Yes (RIGHT) Hx Musculoskeletal Surgery: Yes (LUMBAR) Other/Comment: PROSTATE BX RADIATION - ANESTHESIA Hx Anesthesia: Yes Hx Anesthesia Reactions: Yes (DIFFICULTY VOIDING) Hx Malignant Hyperthermia: No Meds Home Medications: Home Medication List Medication Instructions Recorded Confirmed Type Empagliflozin [Jardiance] 10 mg PO DAILY #30 tablet 09/10/18 Rx Gabapentin [Neurontin] 300 mg PO TID #90 cap 09/10/18 Rx Glipizide [Glipizide Xl] 10 mg PO BID #14 tab.er.24 09/10/18 Rx Insulin Glargine, Recombina 10 unit SC HS #3 l 09/10/18 Rx [Lantus] Lisinopril [Zestril] 40 mg PO DAILY #30 tab 09/10/18 Rx Simvastatin 20 mg PO HS #30 tablet 09/10/18 Rx Tamsulosin [Flomax] 0.4 mg PO DAILY #30 cap 09/10/18 Rx amLODIPine [Norvasc] 10 mg PO DAILY #30 tab 09/10/18 Rx metFORMIN [glucOPHAGE] 500 mg PO BID #60 tab 09/10/18 Rx Allergies/Adverse Reactions: Allergies Allergy/AdvReac Type Severity Reaction Status Date / Time No Known Allergies Allergy Verified 09/01/18 15:52 - Medications Medications: Current Medications Acetaminophen (Tylenol 325mg Tab) 650 mg PO Q6 PRN PRN Reason: Fever >100.4 F Bisacodyl (Dulcolax) 10 mg MI DAILY PRN PRN Reason: Constipation Dextrose (Dextrose 50% Inj) 0 ml IV STAT PRN; Protocol PRN Reason: Hypoglycemia Protocol Dextrose (Glutose 15) 0 gm PO ONCE PRN; Protocol PRN Reason: Hypoglycemia Protocol Docusate Sodium (Colace) 100 mg PO BID [facility] Last Admin: 09/20/18 10:12 Dose: Not Given Finasteride (Proscar) 5 mg PO DAILY [facility] Last Admin: 09/20/18 10:12 Dose: Not Given Gabapentin (Neurontin) 300 mg PO TID [facility] Last Admin: 09/20/18 14:43 Dose: 300 mg Glucagon (Glucagen Diagnostic Kit) 0 mg IM STAT PRN; Protocol PRN Reason: Hypoglycemia Protocol Dextrose/Sodium Chloride (Dextrose 5%/0.9% Ns 1000 Ml) 1,000 mls @ 50 mls/hr IV .Q20H [facility] Last Admin: 09/20/18 14:35 Dose: 50 mls/hr Ceftriaxone Sodium 2 gm/ (Sodium Chloride) 100 mls @ 100 mls/hr IVPB DAILY [facility]; Protocol Last Admin: 09/20/18 14:35 Dose: 100 mls/hr Insulin Glargine (Lantus) 10 unit SC HS [facility] Last Admin: 09/19/18 21:58 Dose: 10 units Insulin Human Regular (Novolin R) 0 unit SC ACHS [facility]; Protocol Last Admin: 09/20/18 11:58 Dose: Not Given Lidocaine HCl (Xylocaine 2%) 0 ea TOP Q12H PRN Last Admin: 09/10/18 14:43 Dose: 1 applic Polyethylene Glycol (Miralax) 17 gm PO DAILY PRN PRN Reason: Constipation Rosuvastatin Calcium (Crestor) 5 mg PO HS [facility] Last Admin: 09/19/18 21:58 Dose: 5 mg Sitagliptin Phosphate (Januvia) 50 mg PO DAILY [facility] Last Admin: 09/20/18 10:12 Dose: Not Given Tamsulosin HCl (Flomax) 0.4 mg PO DAILY [facility] Last Admin: 09/20/18 10:12 Dose: Not Given Physical Exam - Constitutional Appears: Non-toxic, No Acute Distress, Chronically Ill - Head Exam Head Exam: ATRAUMATIC, NORMAL INSPECTION, NORMOCEPHALIC - Eye Exam Eye Exam: EOMI, Normal appearance, PERRL Pupil Exam: NORMAL ACCOMODATION, PERRL - ENT Exam ENT Exam: Mucous Membranes Moist, Normal Exam - Neck Exam Neck exam: Positive for: Normal Inspection - Respiratory Exam Respiratory Exam: Clear to Auscultation Bilateral, NORMAL BREATHING PATTERN - Cardiovascular Exam Cardiovascular Exam: REGULAR RHYTHM - GI/Abdominal Exam GI & Abdominal Exam: Normal Bowel Sounds, Soft. absent: Tenderness - Rectal Exam Rectal Exam: Deferred - Exam Exam: NORMAL INSPECTION - Extremities Exam Extremities exam: Positive for: normal inspection - Back Exam Back exam: NORMAL INSPECTION - Neurological Exam Neurological exam: Alert, CN II-XII Intact, Normal Gait, Oriented x3, Reflexes Normal - Psychiatric Exam Psychiatric exam: Normal Affect, Normal Mood - Skin Skin Exam: Dry, Intact, Normal Color, Warm Results - Vital Signs Recent Vital Signs: Last Vital Signs Temp 101.4 F H 09/20/18 12:43 Pulse 120 H 09/20/18 10:48 Resp 16 09/20/18 10:48 BP 122/70 09/20/18 10:48 Pulse Ox 100 09/20/18 10:48 - Labs Result Diagrams: 09/20/18 07:47 09/20/18 08:45 Labs: Laboratory Results - last 24 hr 09/16/18 09/19/18 09/19/18 20:51 16:09 21:11 WBC RBC Hgb Hct MCV MCH MCHC RDW Plt Count MPV Neut % (Auto) Lymph % (Auto) Greene % (Auto) Eos % (Auto) Baso % (Auto) Neut # (Auto) Lymph # (Auto) Greene # (Auto) Eos # (Auto) Baso # (Auto) Neutrophils % (Manual) Band Neutrophils % Lymphocytes % (Manual) Reactive Lymphs % Monocytes % (Manual) Metamyelocytes % Myelocytes % Platelet Estimate Poikilocytosis (manual Anisocytosis (manual) Ovalocytes PT INR APTT Fibrinogen Puncture Site pCO2 pO2 HCO3 ABG pH ABG Total CO2 ABG O2 Saturation ABG Base Excess Wilber Test ABG Potassium Sodium Chloride Glucose Lactate Liter Flow Crit Value Called To Crit Value Called By Crit Value Read Back Blood Gas Notified Time Potassium Carbon Dioxide Anion Gap BUN Creatinine Est GFR ( Amer) Est GFR (Non-Af Amer) POC Glucose (mg/dL) 322 H 263 H Random Glucose Lactic Acid Calcium Phosphorus Magnesium Total Bilirubin AST ALT Alkaline Phosphatase Ammonia CK-MB (Mass) Troponin I NT-Pro-B Natriuret Pep Total Protein Albumin Globulin Albumin/Globulin Ratio Arterial Blood Potassium Urine Color Urine Clarity Urine pH Ur Specific [place] Urine Protein Urine Glucose (UA) Urine Ketones Urine Blood Urine Nitrate Urine Bilirubin Urine Urobilinogen Ur Leukocyte Esterase Urine WBC (Auto) Urine RBC (Auto) Urine Opiates Screen Urine Methadone Screen Ur Barbiturates Screen Ur Phencyclidine Scrn Ur Amphetamines Screen U Benzodiazepines Scrn U Oth Cocaine Metabols U Cannabinoids Screen Blood Type A POSITIVE Antibody Screen Negative 09/20/18 09/20/18 09/20/18 01:22 02:20 02:29 WBC 21.1 H D RBC 2.82 L Hgb 8.3 L Hct 24.8 L MCV 88.1 D MCH 29.3 MCHC 33.3 RDW 14.9 H Plt Count 257 MPV 7.9 Neut % (Auto) 86.9 H Lymph % (Auto) 2.2 L Greene % (Auto) 10.4 H Eos % (Auto) 0.0 Baso % (Auto) 0.5 Neut # (Auto) 18.3 H Lymph # (Auto) 0.5 L Greene # (Auto) 2.2 H Eos # (Auto) 0.0 Baso # (Auto) 0.1 Neutrophils % (Manual) 81 H Band Neutrophils % 4 H Lymphocytes % (Manual) 2 L Reactive Lymphs % 1 H Monocytes % (Manual) 6 Metamyelocytes % 1 H Myelocytes % 5 H Platelet Estimate Normal Poikilocytosis (manual Anisocytosis (manual) Ovalocytes PT INR APTT Fibrinogen Puncture Site pCO2 pO2 HCO3 ABG pH ABG Total CO2 ABG O2 Saturation ABG Base Excess Wilber Test ABG Potassium Sodium Chloride Glucose Lactate Liter Flow Crit Value Called To Crit Value Called By Crit Value Read Back Blood Gas Notified Time Potassium Carbon Dioxide Anion Gap BUN Creatinine Est GFR ( Amer) Est GFR (Non-Af Amer) POC Glucose (mg/dL) 221 H Random Glucose Lactic Acid Calcium Phosphorus Magnesium Total Bilirubin AST ALT Alkaline Phosphatase Ammonia CK-MB (Mass) Troponin I NT-Pro-B Natriuret Pep Total Protein Albumin Globulin Albumin/Globulin Ratio Arterial Blood Potassium Urine Color Red Urine Clarity Hazy Urine pH 6.0 Ur Specific [place] 1.004 Urine Protein 1+ H Urine Glucose (UA) Normal Urine Ketones Negative Urine Blood 3+ H Urine Nitrate Negative Urine Bilirubin Negative Urine Urobilinogen Normal Ur Leukocyte Esterase 1+ H Urine WBC (Auto) 309 H Urine RBC (Auto) 27921 H Urine Opiates Screen Urine Methadone Screen Ur Barbiturates Screen Ur Phencyclidine Scrn Ur Amphetamines Screen U Benzodiazepines Scrn U Oth Cocaine Metabols U Cannabinoids Screen Blood Type Antibody Screen 09/20/18 09/20/18 09/20/18 03:10 03:18 03:18 WBC RBC Hgb Hct MCV MCH MCHC RDW Plt Count MPV Neut % (Auto) Lymph % (Auto) Greene % (Auto) Eos % (Auto) Baso % (Auto) Neut # (Auto) Lymph # (Auto) Greene # (Auto) Eos # (Auto) Baso # (Auto) Neutrophils % (Manual) Band Neutrophils % Lymphocytes % (Manual) Reactive Lymphs % Monocytes % (Manual) Metamyelocytes % Myelocytes % Platelet Estimate Poikilocytosis (manual Anisocytosis (manual) Ovalocytes PT 11.8 INR 1.1 APTT 28.0 Fibrinogen Puncture Site Lr pCO2 30 L pO2 124 H HCO3 22.4 ABG pH 7.43 ABG Total CO2 20.8 L ABG O2 Saturation 99.4 H ABG Base Excess -3.3 L Wilber Test Pos ABG Potassium 6.2 H* Sodium 130.0 L 135 Chloride 106.0 106 Glucose 171 H Lactate 1.6 Liter Flow 2.0 Crit Value Called To Krishna rn Crit Value Called By Ros color making supervisor Crit Value Read Back Y Blood Gas Notified Time 317 Potassium 6.7 H* D Carbon Dioxide 21 L Anion Gap 14 BUN 53 H Creatinine 1.4 Est GFR ( Amer) 60 Est GFR (Non-Af Amer) 49 POC Glucose (mg/dL) Random Glucose 181 H D Lactic Acid Calcium 7.8 L Phosphorus 3.6 Magnesium 2.4 H Total Bilirubin 0.2 AST 48 ALT 57 Alkaline Phosphatase 187 H Ammonia CK-MB (Mass) Troponin I < 0.0120 NT-Pro-B Natriuret Pep Total Protein 4.5 L Albumin 2.3 L Globulin 2.3 Albumin/Globulin Ratio 1.0 Arterial Blood Potassium 6.2 H* Urine Color Urine Clarity Urine pH Ur Specific [place] Urine Protein Urine Glucose (UA) Urine Ketones Urine Blood Urine Nitrate Urine Bilirubin Urine Urobilinogen Ur Leukocyte Esterase Urine WBC (Auto) Urine RBC (Auto) Urine Opiates Screen Urine Methadone Screen Ur Barbiturates Screen Ur Phencyclidine Scrn Ur Amphetamines Screen U Benzodiazepines Scrn U Oth Cocaine Metabols U Cannabinoids Screen Blood Type Antibody Screen 09/20/18 09/20/18 09/20/18 03:18 05:26 05:26 WBC RBC Hgb Hct MCV MCH MCHC RDW Plt Count MPV Neut % (Auto) Lymph % (Auto) Greene % (Auto) Eos % (Auto) Baso % (Auto) Neut # (Auto) Lymph # (Auto) Greene # (Auto) Eos # (Auto) Baso # (Auto) Neutrophils % (Manual) Band Neutrophils % Lymphocytes % (Manual) Reactive Lymphs % Monocytes % (Manual) Metamyelocytes % Myelocytes % Platelet Estimate Poikilocytosis (manual Anisocytosis (manual) Ovalocytes PT INR APTT Fibrinogen Puncture Site pCO2 pO2 HCO3 ABG pH ABG Total CO2 ABG O2 Saturation ABG Base Excess Wilber Test ABG Potassium Sodium 133 134 Chloride 106 106 Glucose Lactate Liter Flow Crit Value Called To Crit Value Called By Crit Value Read Back Blood Gas Notified Time Potassium 6.3 H* 6.3 H* Carbon Dioxide 22 22 Anion Gap 11 12 BUN 52 H 52 H Creatinine 1.5 1.5 Est GFR ( Amer) 55 55 Est GFR (Non-Af Amer) 46 46 POC Glucose (mg/dL) Random Glucose 246 H D 246 H Lactic Acid 1.8 Calcium 7.9 L 7.8 L Phosphorus Magnesium Total Bilirubin AST ALT Alkaline Phosphatase Ammonia CK-MB (Mass) Troponin I NT-Pro-B Natriuret Pep Total Protein Albumin Globulin Albumin/Globulin Ratio Arterial Blood Potassium Urine Color Urine Clarity Urine pH Ur Specific [place] Urine Protein Urine Glucose (UA) Urine Ketones Urine Blood Urine Nitrate Urine Bilirubin Urine Urobilinogen Ur Leukocyte Esterase Urine WBC (Auto) Urine RBC (Auto) Urine Opiates Screen Urine Methadone Screen Ur Barbiturates Screen Ur Phencyclidine Scrn Ur Amphetamines Screen U Benzodiazepines Scrn U Oth Cocaine Metabols U Cannabinoids Screen Blood Type Antibody Screen 09/20/18 09/20/18 09/20/18 07:09 07:38 07:47 WBC 22.6 H RBC 2.55 L Hgb 7.8 L Hct 22.8 L MCV 89.5 MCH 30.4 MCHC 34.0 RDW 15.0 H Plt Count 271 MPV 8.1 Neut % (Auto) 86.5 H Lymph % (Auto) 2.9 L Greene % (Auto) 10.3 H Eos % (Auto) 0.0 Baso % (Auto) 0.3 Neut # (Auto) 19.6 H Lymph # (Auto) 0.6 L Greene # (Auto) 2.3 H Eos # (Auto) 0.0 Baso # (Auto) 0.1 Neutrophils % (Manual) 68 Band Neutrophils % 15 H* Lymphocytes % (Manual) 6 L Reactive Lymphs % Monocytes % (Manual) 11 H Metamyelocytes % Myelocytes % Platelet Estimate Normal Poikilocytosis (manual Slight Anisocytosis (manual) Slight Ovalocytes Slight PT INR APTT Fibrinogen Puncture Site pCO2 pO2 HCO3 ABG pH ABG Total CO2 ABG O2 Saturation ABG Base Excess Wilber Test ABG Potassium Sodium 136 Chloride 107 Glucose Lactate Liter Flow Crit Value Called To Crit Value Called By Crit Value Read Back Blood Gas Notified Time Potassium 5.8 H Carbon Dioxide 24 Anion Gap 11 BUN 52 H Creatinine 1.6 H Est GFR ( Amer) 51 Est GFR (Non-Af Amer) 42 POC Glucose (mg/dL) 102 Random Glucose 100 D Lactic Acid Calcium 8.4 L Phosphorus Magnesium Total Bilirubin AST ALT Alkaline Phosphatase Ammonia CK-MB (Mass) Troponin I NT-Pro-B Natriuret Pep Total Protein Albumin Globulin Albumin/Globulin Ratio Arterial Blood Potassium Urine Color Urine Clarity Urine pH Ur Specific [place] Urine Protein Urine Glucose (UA) Urine Ketones Urine Blood Urine Nitrate Urine Bilirubin Urine Urobilinogen Ur Leukocyte Esterase Urine WBC (Auto) Urine RBC (Auto) Urine Opiates Screen Urine Methadone Screen Ur Barbiturates Screen Ur Phencyclidine Scrn Ur Amphetamines Screen U Benzodiazepines Scrn U Oth Cocaine Metabols U Cannabinoids Screen Blood Type Antibody Screen 09/20/18 09/20/18 09/20/18 08:45 09:26 11:16 WBC RBC Hgb Hct MCV MCH MCHC RDW Plt Count MPV Neut % (Auto) Lymph % (Auto) Greene % (Auto) Eos % (Auto) Baso % (Auto) Neut # (Auto) Lymph # (Auto) Greene # (Auto) Eos # (Auto) Baso # (Auto) Neutrophils % (Manual) Band Neutrophils % Lymphocytes % (Manual) Reactive Lymphs % Monocytes % (Manual) Metamyelocytes % Myelocytes % Platelet Estimate Poikilocytosis (manual Anisocytosis (manual) Ovalocytes PT INR APTT Fibrinogen Puncture Site pCO2 pO2 HCO3 ABG pH ABG Total CO2 ABG O2 Saturation ABG Base Excess Wilber Test ABG Potassium Sodium 136 Chloride 107 Glucose Lactate Liter Flow Crit Value Called To Crit Value Called By Crit Value Read Back Blood Gas Notified Time Potassium 5.7 H Carbon Dioxide 21 L Anion Gap 13 BUN 54 H Creatinine 1.5 Est GFR ( Amer) 55 Est GFR (Non-Af Amer) 46 POC Glucose (mg/dL) Random Glucose 69 L D Lactic Acid 2.2 H Calcium 8.3 L Phosphorus 4.1 Magnesium 2.5 H Total Bilirubin 0.2 AST 47 ALT 55 Alkaline Phosphatase 189 H Ammonia < 9 L CK-MB (Mass) Troponin I 0.0160 NT-Pro-B Natriuret Pep Total Protein 4.8 L Albumin 2.3 L Globulin 2.5 Albumin/Globulin Ratio 0.9 L Arterial Blood Potassium Urine Color Urine Clarity Urine pH Ur Specific [place] Urine Protein Urine Glucose (UA) Urine Ketones Urine Blood Urine Nitrate Urine Bilirubin Urine Urobilinogen Ur Leukocyte Esterase Urine WBC (Auto) Urine RBC (Auto) Urine Opiates Screen Urine Methadone Screen Ur Barbiturates Screen Ur Phencyclidine Scrn Ur Amphetamines Screen U Benzodiazepines Scrn U Oth Cocaine Metabols U Cannabinoids Screen Blood Type Antibody Screen 09/20/18 09/20/18 09/20/18 11:51 13:47 13:47 WBC RBC Hgb Hct MCV MCH MCHC RDW Plt Count MPV Neut % (Auto) Lymph % (Auto) [place] % (Auto) Eos % (Auto) Baso % (Auto) Neut # (Auto) Lymph # (Auto) [place] # (Auto) Eos # (Auto) Baso # (Auto) Neutrophils % (Manual) Band Neutrophils % Lymphocytes % (Manual) Reactive Lymphs % Monocytes % (Manual) Metamyelocytes % Myelocytes % Platelet Estimate Poikilocytosis (manual Anisocytosis (manual) Ovalocytes PT INR APTT Fibrinogen 525 H Puncture Site pCO2 pO2 HCO3 ABG pH ABG Total CO2 ABG O2 Saturation ABG Base Excess Wilber Test ABG Potassium Sodium Chloride Glucose Lactate Liter Flow Crit Value Called To Crit Value Called By Crit Value Read Back Blood Gas Notified Time Potassium Carbon Dioxide Anion Gap BUN Creatinine Est GFR ( Amer) Est GFR (Non-Af Amer) POC Glucose (mg/dL) 108 Random Glucose Lactic Acid 1.2 Calcium Phosphorus Magnesium Total Bilirubin AST ALT Alkaline Phosphatase Ammonia CK-MB (Mass) Troponin I NT-Pro-B Natriuret Pep Total Protein Albumin Globulin Albumin/Globulin Ratio Arterial Blood Potassium Urine Color Urine Clarity Urine pH Ur Specific [place] Urine Protein Urine Glucose (UA) Urine Ketones Urine Blood Urine Nitrate Urine Bilirubin Urine Urobilinogen Ur Leukocyte Esterase Urine WBC (Auto) Urine RBC (Auto) Urine Opiates Screen Urine Methadone Screen Ur Barbiturates Screen Ur Phencyclidine Scrn Ur Amphetamines Screen U Benzodiazepines Scrn U Oth Cocaine Metabols U Cannabinoids Screen Blood Type Antibody Screen 09/20/18 09/20/18 09/20/18 13:47 14:00 14:00 WBC RBC Hgb Hct MCV MCH MCHC RDW Plt Count MPV Neut % (Auto) Lymph % (Auto) [place] % (Auto) Eos % (Auto) Baso % (Auto) Neut # (Auto) Lymph # (Auto) Greene # (Auto) Eos # (Auto) Baso # (Auto) Neutrophils % (Manual) Band Neutrophils % Lymphocytes % (Manual) Reactive Lymphs % Monocytes % (Manual) Metamyelocytes % Myelocytes % Platelet Estimate Poikilocytosis (manual Anisocytosis (manual) Ovalocytes PT INR APTT Fibrinogen Puncture Site pCO2 pO2 HCO3 ABG pH ABG Total CO2 ABG O2 Saturation ABG Base Excess Wilber Test ABG Potassium Sodium Chloride Glucose Lactate Liter Flow Crit Value Called To Crit Value Called By Crit Value Read Back Blood Gas Notified Time Potassium Carbon Dioxide Anion Gap BUN Creatinine Est GFR ( Amer) Est GFR (Non-Af Amer) POC Glucose (mg/dL) Random Glucose Lactic Acid Calcium Phosphorus Magnesium Total Bilirubin AST ALT Alkaline Phosphatase Ammonia CK-MB (Mass) 1.81 Troponin I 0.0210 NT-Pro-B Natriuret Pep 177 Total Protein Albumin Globulin Albumin/Globulin Ratio Arterial Blood Potassium Urine Color Red Urine Clarity Turbid Urine pH 6.0 Ur Specific [place] 1.006 Urine Protein 2+ H Urine Glucose (UA) Normal Urine Ketones Negative Urine Blood 3+ H Urine Nitrate Negative Urine Bilirubin Negative Urine Urobilinogen Normal Ur Leukocyte Esterase Neg Urine WBC (Auto) 5 Urine RBC (Auto) 14377 H Urine Opiates Screen Negative Urine Methadone Screen Negative Ur Barbiturates Screen Negative Ur Phencyclidine Scrn Negative Ur Amphetamines Screen Negative U Benzodiazepines Scrn Negative U Oth Cocaine Metabols Negative U Cannabinoids Screen Negative Blood Type Antibody Screen Assessment & Plan (1) Hematuria Status: Chronic (2) UTI (urinary tract infection) Status: Acute (3) Uncontrolled diabetes mellitus Status: Acute - Assessment and Plan (Free Text) Assessment: 73 y/o male recently diagnosed with hematuria and has been on CBI for more than 7 days, Developed AMS and co=de stroke called Now in ICU awake and alert Patient had high fevers and sepsis code was called. Septic work up done and empiric IV antibiotics started eval pending
--- NOTE | 2018-09-20 15:41 | RAD ---
Date of service: 09/20/2018 HISTORY: eval effusion/infiltrate COMPARISON: 09/04/2018 TECHNIQUE: 1 view obtained. FINDINGS: LUNGS: No infiltrate. Right lung apex obscured by patient's mandible. PLEURA: No significant pleural effusion identified, no pneumothorax apparent. CARDIOVASCULAR: No aortic atherosclerotic calcification present. Normal cardiac size. No pulmonary vascular congestion. OSSEOUS STRUCTURES: No significant abnormalities. VISUALIZED UPPER ABDOMEN: Normal. OTHER FINDINGS: None. IMPRESSION: No active disease.
--- NOTE | 2018-09-20 16:33 | CT ---
Date of service: 09/20/2018 PROCEDURE: CT HEAD WITHOUT CONTRAST. HISTORY: acute change in mental status and weakness COMPARISON: 07/27/2018 TECHNIQUE: Axial computed tomography images were obtained through the head/brain without intravenous contrast. Radiation dose: Total exam DLP = 1349.85 mGy-cm. This CT exam was performed using one or more of the following dose reduction techniques: Automated exposure control, adjustment of the mA and/or kV according to patient size, and/or use of iterative reconstruction technique. FINDINGS: HEMORRHAGE: No intracranial hemorrhage. BRAIN: No mass effect or edema. No significant atrophy. Mild periventricular white matter lucency consistent with chronic microvascular ischemic change. No evidence of acute infarct. VENTRICLES: Unremarkable. No hydrocephalus. CALVARIUM: Unremarkable. PARANASAL SINUSES: Unremarkable as visualized. No significant inflammatory changes. MASTOID AIR CELLS: Unremarkable as visualized. No inflammatory changes. OTHER FINDINGS: None. IMPRESSION: No intracranial mass, hemorrhage or evidence of acute infarct. Mild chronic white matter ischemic change. The preliminary findings for this examination were reported by [facility] Radiology at 3:03 a.m. on 09/20/2018. There is concurrence of this report with the preliminary findings.
[2018-09-20] MEDS: Meropenem 500 MG in Sodium Chloride 0.9% 100 ML IVPB SCH ×2 (17:26→23:32)
[2018-09-20] MEDS: (Lantus) Insulin Glargine, Recombinant SC SCH (21:16)
[2018-09-21] MEDS: (Novolin R) Insulin Human Regular 100 units/ml vial SC SCH ×4 (06:00→18:07)
[2018-09-21 06:02] LABS: BASO # 0.1 K/uL (0.0-0.2); BASO % 0.3 % (0.0-2.0); LYMPH # 0.2 K/uL (1.0-4.3); MEAN CORPUSCULAR HEMOGLOBIN 30.3 pg (27.0-31.0); MEAN CORPUSCULAR HGB CONC 33.7 g/dL (33.0-37.0); MEAN PLATELET VOLUME 7.7 fL (7.2-11.7); MONO # 1.3 K/uL (0.0-0.8); MONO % 6.1 % (0.0-10.0); NEUT # 19.8 K/uL (1.8-7.0); NEUT % 92.6 % (50.0-75.0); PLATELET COUNT 293 K/uL (130-400); RBC 1.97 Mil/uL (4.40-5.90); RED CELL DISTRIBUTION WIDTH 15.2 % (11.5-14.5); WHITE BLOOD COUNT 21.4 K/uL (4.8-10.8)
[2018-09-21 06:06] LABS: INR 1.1
[2018-09-21 06:27] LABS: ALBUMIN 2.3 g/dL (3.5-5.0); ALT/SGPT 48 U/L (21-72); AST/SGOT 41 U/L (17-59); BLOOD UREA NITROGEN 48 mg/dL (9-20); CALCIUM 7.8 mg/dl (8.6-10.4); GFR NON-AFRICAN AMERICAN 49
[2018-09-21] MEDS: Meropenem 500 MG in Sodium Chloride 0.9% 100 ML IVPB SCH ×3 (06:36→23:03)
[2018-09-21] MEDS: Dextrose 5%/0.9% NS 1,000 ML IV SCH (08:24)
--- NOTE | 2018-09-21 08:40 | PCM.VEEG ---
Video EEG - Procedure Start Date: 09/20/18 Start Time: 19:50 End Date: 09/21/18 End Time: 08:30 Technical Summary: DATA ACQUISITION: This was a multichannel inpatient video-EEG, a minimum of 22 channels were uti lized, performed in accordance with recommendations specified by the [place] [employer] (Wood Diaz et al. ACNS Guideline 1: Minimum Technical Requirements for Performing Clinical Electroencephalography. Journal of Clinical Neurophysiology 2016;33:303-7). The 10-20 electrode placement system was utilized in accordance with guidelines detailed by the International Federation of Clinical Neurophysiology (Jessica Sullivan et al. The Ten-Twenty Electrode System of the International Federation. Recommendations for the Practice of Clinical Neurophysiology: Guidelines of the International Federation of Clinical Physiology 1999; EEG Suppl. 52.). DATA REVIEW / SPIKE DETECTION / DIGITAL ANALYSIS: The entire EEG was scanned and reviewed. Synchronized audio and video recording were reviewed at the time of each alarm and whenever an abnormality or suspicious activity was noted. The entire recording was analyzed utilizing an automated digital spike and seizure analysis program and all automatic spike and seizure detections were manually reviewed. A compressed spectral array was displayed and reviewed alongside the raw EEG tracings. In addition, further analysis of the EEG was performed when abnormalities were identified, including montage changes, dipole source localization, and frequency band identification. Video portion of the study is necessary to correlate abnormal EEG activity with clinical behavior. This study was attended 24 hours per day. - Interpretation Description of the study: Indication; Status epilepticus EEG Finding during wakefulness: During active states, the EEG was characterized by 14-25 Hz, 15-30 uV activity bilaterally in fronto-central regions. Resting wakefulness was characterized by a symmetric posterior dominant rhythm of 7-8 Hz, 30-50 uV, which was poorly reactive to eye opening and closing. Drowsiness was associated with slow roving eye movements, slowing and fragmentation of the posterior dominant rhythm, and bilateral 4-7 Hz, 40-70 uV theta activity, sometimes with a shifting predominance. There was intermittent bitemporal slowing at 4 to 5 Hz , mainly seen during drowsiness and occasionally during wakefulness. Hyperventilation and photic stimulation were not performed. EEG Finding during sleep: Light sleep was recorded and was characterized by fronto-central slowing at 5-7 H, 50-125 uV, sharp central vertex waves, bilateral sleep spindles, and K- complexes; shifting asymmetries were evident. Vertex. Deeper stages of sleep were recorded and were characterized an increasing frequency of 1-4 Hz, 50-100 uV delta activity. REM sleep was also recorded and was characterized by mixed frequency (3-15 Hz) low voltage (< 20 uV) activity with clusters of rapid horizontal and vertical eye movements. There were no significant asymmetries noted during sleep. Interictal non-epileptiform abnormalities: There were occasional right more than left frontal sharp waves with triphasic morphology. NO organized seizure activity was seen. Interictal epileptiform abnormalities: None Ictal epileptiform abnormalities: None - Impression Impression: This is an abnormal video-EEG monitoring study due to the presence of 1) Mild diffuse slowing, 2) Occasional periodic sharp waves with triphasic morphology No seizures, not in status epilepticus INTERPRETATION: These findings are consistent with a mild to moderate diffuse disturbance of cortical activity. These findings are non specific, however they are usually seen in toxic metabolic encepahlopahties, LASTER HAND degenerative conditions, like dementias, among others.
[2018-09-21 08:41] LABS: ANISOCYTOSIS SLIGHT; BLASTS 1 % (0-0); HYPOCHROMIC MODERATE; LYMPHOCYTE 1 % (20-40); MONOCYTE 2 % (0-10); MYELOCYTE 2 % (0-0); NEUTROPHIL 94 % (50-75); PLATELET ESTIMATE NORMAL (NORMAL); POIKILOCYTOSIS SLIGHT; TOTAL CELLS COUNTED 100
[2018-09-21 08:42] LABS: BURR CELLS SLIGHT; LARGE PLATELETS PRESENT; OVALOCYTES SLIGHT
[2018-09-21] MEDS: cefTRIAXone 2 GM in Sodium Chloride 0.9% 100 ML IVPB SCH (10:21)
--- NOTE | 2018-09-21 11:02 | CP.CCUPN ---
CCU Subjective - Physician Review Subjective (Free Text): 09/21/18 11:13 PGY-1 CC Progress Note for. Dr. Dale Pt seen and examined. Transferred ICU overnight as code sepsis. Pt continues to have gross hematuria via sanchez. CCU Objective - Vital Signs / Intake & Output Intake and Output (Last 8hrs): Intake & Output 09/20/18 09/21/18 09/21/18 22:59 06:59 14:59 Intake Total 250 450 50 Output Total 400 1720 300 Balance -150 -1270 -250 Intake: Intake, IV Amount 150 450 50 left hand 150 450 50 Oral 100 Output: Urine 400 1720 300 3-way Urethral 400 1720 300 - Physical Exam Head: Positive for: Atraumatic, Normocephalic Pupils: Positive for: PERRL Mouth: Positive for: Moist Mucous Membranes Respiratory/Chest: Positive for: Clear to Auscultation. Negative for: Respiratory Distress, Accessory Muscle Use Cardiovascular: Positive for: Regular Rate and Rhythm, Normal S1, S2 Abdomen: Positive for: Distention Neurological: Positive for: GCS=15, CN II-XII Intact Skin: Positive for: Warm, Dry Psychiatric: Positive for: Alert, Oriented x 3 - Medications Active Medications: Active Medications Generic Name Dose Route Start Last Admin Trade Name Freq PRN Reason Stop Dose Admin Acetaminophen 650 mg 09/19/18 23:57 09/20/18 21:20 Tylenol 325mg Tab PO 650 mg Q6 PRN Administration Fever >100.4 F Bisacodyl 10 mg 09/20/18 13:18 Dulcolax AL DAILY PRN Constipation Dextrose 0 ml 09/01/18 21:02 Dextrose 50% Inj IV STAT PRN Hypoglycemia Protocol Protocol Dextrose 0 gm 09/01/18 21:02 Glutose 15 PO ONCE PRN Hypoglycemia Protocol Protocol Docusate Sodium 100 mg 09/02/18 10:00 09/21/18 10:15 Colace PO Not Given BID MAYRA Finasteride 5 mg 09/10/18 10:00 09/21/18 10:15 Proscar PO Not Given DAILY MAYRA Gabapentin 300 mg 09/02/18 10:00 09/21/18 10:15 Neurontin PO Not Given TID MAYRA Glucagon 0 mg 09/01/18 21:02 Glucagen Diagnostic Kit IM STAT PRN Hypoglycemia Protocol Protocol Dextrose/Sodium Chloride 1,000 mls @ 50 mls/hr 09/20/18 13:00 09/21/18 08:24 Dextrose 5%/0.9% Ns 1000 Ml IV Not Given .Q20H MAYRA Ceftriaxone Sodium 2 gm/ 100 mls @ 100 mls/hr 09/20/18 13:30 09/21/18 10:21 Sodium Chloride IVPB 100 mls/hr DAILY MAYRA Administration Protocol Meropenem 500 mg/ Sodium 100 mls @ 100 mls/hr 09/20/18 15:30 09/21/18 06:36 Chloride IVPB 100 mls/hr Q8H MAYRA Administration Protocol Insulin Glargine 10 unit 09/01/18 22:00 09/20/18 21:16 Lantus SC Not Given HS MAYRA Insulin Human Regular 0 unit 09/21/18 00:00 09/21/18 06:00 Novolin R SC Not Given Q6H [facility] Protocol Lidocaine HCl 0 ea 09/07/18 13:30 09/10/18 14:43 Xylocaine 2% TOP 1 applic Q12H PRN Administration Polyethylene Glycol 17 gm 09/20/18 08:14 Miralax PO DAILY PRN Constipation Rosuvastatin Calcium 5 mg 09/01/18 22:00 09/20/18 21:15 Crestor PO 5 mg HS MAYRA Administration Sitagliptin Phosphate 50 mg 09/04/18 10:00 09/21/18 10:15 Januvia PO Not Given DAILY MAYRA Tamsulosin HCl 0.4 mg 09/02/18 10:00 09/21/18 10:15 Flomax PO Not Given DAILY MAYRA - Patient Studies Lab Studies: Microbiology Studies 09/20/18 01:21 Blood Culture - Preliminary Blood Gram Negative Alireza Gram Stain - Final 09/20/18 01:20 Blood Culture - Preliminary Blood NO GROWTH AFTER 24 HOURS Lab Studies 09/21/18 09/21/18 09/21/18 Range/Units 05:47 05:47 05:47 WBC 21.4 H (4.8-10.8) K/uL RBC 1.97 L (4.40-5.90) Mil/uL Hgb 6.0 L* (12.0-18.0) g/dL Hct 17.7 L (35.0-51.0) % MCV 90.0 (80.0-94.0) fL MCH 30.3 (27.0-31.0) pg MCHC 33.7 (33.0-37.0) g/dL RDW 15.2 H (11.5-14.5) % Plt Count 293 (130-400) K/uL MPV 7.7 (7.2-11.7) fL Neut % (Auto) 92.6 H (50.0-75.0) % Lymph % (Auto) 1.0 L (20.0-40.0) % Archer % (Auto) 6.1 (0.0-10.0) % Eos % (Auto) 0.0 (0.0-4.0) % Baso % (Auto) 0.3 (0.0-2.0) % Neut # (Auto) 19.8 H (1.8-7.0) K/uL Lymph # (Auto) 0.2 L (1.0-4.3) K/uL Archer # (Auto) 1.3 H (0.0-0.8) K/uL Eos # (Auto) 0.0 (0.0-0.7) K/uL Baso # (Auto) 0.1 (0.0-0.2) K/uL Neutrophils % (Manual) 94 H (50-75) % Band Neutrophils % (0-2) % Lymphocytes % (Manual) 1 L (20-40) % Monocytes % (Manual) 2 (0-10) % Myelocytes % 2 H (0-0) % Blast Cells % 1 H (0-0) % Platelet Estimate Normal (NORMAL) Large Platelets Present Hypochromasia (manual) Moderate Poikilocytosis (manual Slight Anisocytosis (manual) Slight Ovalocytes Slight Neno Cells Slight PT 12.0 (9.7-12.2) SECONDS INR 1.1 APTT 26.0 (21-34) SECONDS Fibrinogen (200-400) mg/dL Sodium 137 (132-148) mmol/L Potassium 5.9 H (3.6-5.2) mmol/L Chloride 107 (98-107) mmol/L Carbon Dioxide 21 L (22-30) mmol/L Anion Gap 14 (10-20) BUN 48 H (9-20) mg/dL Creatinine 1.4 (0.8-1.5) mg/dL Est GFR ( Amer) 60 Est GFR (Non-Af Amer) 49 POC Glucose (mg/dL) (65-110) mg/dL Random Glucose 266 H D (75-110) mg/dL Lactic Acid (0.7-2.1) mmol/L Calcium 7.8 L (8.6-10.4) mg/dl Phosphorus 5.4 H (2.5-4.5) mg/dL Magnesium 2.4 H (1.6-2.3) mg/dL Total Bilirubin < 0.1 L (0.2-1.3) mg/dL AST 41 (17-59) U/L ALT 48 (21-72) U/L Alkaline Phosphatase 162 H (38-126) U/L Ammonia (9-33) umol/L CK-MB (Mass) (0.0-3.38) ng/mL Troponin I (0.00-0.120) ng/mL NT-Pro-B Natriuret Pep (0-900) pg/mL Total Protein 4.7 L (6.3-8.3) g/dL Albumin 2.3 L (3.5-5.0) g/dL Globulin 2.4 (2.2-3.9) gm/dL Albumin/Globulin Ratio 1.0 (1.0-2.1) Urine Color (YELLOW) Urine Clarity (Clear) Urine pH (5.0-8.0) Ur Specific Rye (1.003-1.030) Urine Protein (NEGATIVE) mg/dL Urine Glucose (UA) (Normal) mg/dL Urine Ketones (NEGATIVE) mg/dL Urine Blood (NEGATIVE) Urine Nitrate (NEGATIVE) Urine Bilirubin (NEGATIVE) Urine Urobilinogen (0.2-1.0) mg/dL Ur Leukocyte Esterase (Negative) Quinton/uL Urine WBC (Auto) (0-5) /hpf Urine RBC (Auto) (0-3) /hpf Urine Opiates Screen (NEGATIVE) Urine Methadone Screen (NEGATIVE) Ur Barbiturates Screen (NEGATIVE) Ur Phencyclidine Scrn (NEGATIVE) Ur Amphetamines Screen (NEGATIVE) U Benzodiazepines Scrn (NEGATIVE) U Oth Cocaine Metabols (NEGATIVE) U Cannabinoids Screen (NEGATIVE) Blood Type Antibody Screen 09/21/18 09/20/18 09/20/18 Range/Units 04:00 14:00 14:00 WBC (4.8-10.8) K/uL RBC (4.40-5.90) Mil/uL Hgb (12.0-18.0) g/dL Hct (35.0-51.0) % MCV (80.0-94.0) fL MCH (27.0-31.0) pg MCHC (33.0-37.0) g/dL RDW (11.5-14.5) % Plt Count (130-400) K/uL MPV (7.2-11.7) fL Neut % (Auto) (50.0-75.0) % Lymph % (Auto) (20.0-40.0) % Archer % (Auto) (0.0-10.0) % Eos % (Auto) (0.0-4.0) % Baso % (Auto) (0.0-2.0) % Neut # (Auto) (1.8-7.0) K/uL Lymph # (Auto) (1.0-4.3) K/uL Archer # (Auto) (0.0-0.8) K/uL Eos # (Auto) (0.0-0.7) K/uL Baso # (Auto) (0.0-0.2) K/uL Neutrophils % (Manual) (50-75) % Band Neutrophils % (0-2) % Lymphocytes % (Manual) (20-40) % Monocytes % (Manual) (0-10) % Myelocytes % (0-0) % Blast Cells % (0-0) % Platelet Estimate (NORMAL) Large Platelets Hypochromasia (manual) Poikilocytosis (manual Anisocytosis (manual) Ovalocytes Neno Cells PT (9.7-12.2) SECONDS INR APTT (21-34) SECONDS Fibrinogen (200-400) mg/dL Sodium (132-148) mmol/L Potassium (3.6-5.2) mmol/L Chloride (98-107) mmol/L Carbon Dioxide (22-30) mmol/L Anion Gap (10-20) BUN (9-20) mg/dL Creatinine (0.8-1.5) mg/dL Est GFR ( Amer) Est GFR (Non-Af Amer) POC Glucose (mg/dL) (65-110) mg/dL Random Glucose (75-110) mg/dL Lactic Acid (0.7-2.1) mmol/L Calcium (8.6-10.4) mg/dl Phosphorus (2.5-4.5) mg/dL Magnesium (1.6-2.3) mg/dL Total Bilirubin (0.2-1.3) mg/dL AST (17-59) U/L ALT (21-72) U/L Alkaline Phosphatase (38-126) U/L Ammonia (9-33) umol/L CK-MB (Mass) (0.0-3.38) ng/mL Troponin I (0.00-0.120) ng/mL NT-Pro-B Natriuret Pep (0-900) pg/mL Total Protein (6.3-8.3) g/dL Albumin (3.5-5.0) g/dL Globulin (2.2-3.9) gm/dL Albumin/Globulin Ratio (1.0-2.1) Urine Color Red (YELLOW) Urine Clarity Turbid (Clear) Urine pH 6.0 (5.0-8.0) Ur Specific Rye 1.006 (1.003-1.030) Urine Protein 2+ H (NEGATIVE) mg/dL Urine Glucose (UA) Normal (Normal) mg/dL Urine Ketones Negative (NEGATIVE) mg/dL Urine Blood 3+ H (NEGATIVE) Urine Nitrate Negative (NEGATIVE) Urine Bilirubin Negative (NEGATIVE) Urine Urobilinogen Normal (0.2-1.0) mg/dL Ur Leukocyte Esterase Neg (Negative) Quinton/uL Urine WBC (Auto) 5 (0-5) /hpf Urine RBC (Auto) 41621 H (0-3) /hpf Urine Opiates Screen Negative (NEGATIVE) Urine Methadone Screen Negative (NEGATIVE) Ur Barbiturates Screen Negative (NEGATIVE) Ur Phencyclidine Scrn Negative (NEGATIVE) Ur Amphetamines Screen Negative (NEGATIVE) U Benzodiazepines Scrn Negative (NEGATIVE) U Oth Cocaine Metabols Negative (NEGATIVE) U Cannabinoids Screen Negative (NEGATIVE) Blood Type A POSITIVE Antibody Screen Negative 09/20/18 09/20/18 09/20/18 Range/Units 13:47 13:47 13:47 WBC (4.8-10.8) K/uL RBC (4.40-5.90) Mil/uL Hgb (12.0-18.0) g/dL Hct (35.0-51.0) % MCV (80.0-94.0) fL MCH (27.0-31.0) pg MCHC (33.0-37.0) g/dL RDW (11.5-14.5) % Plt Count (130-400) K/uL MPV (7.2-11.7) fL Neut % (Auto) (50.0-75.0) % Lymph % (Auto) (20.0-40.0) % Archer % (Auto) (0.0-10.0) % Eos % (Auto) (0.0-4.0) % Baso % (Auto) (0.0-2.0) % Neut # (Auto) (1.8-7.0) K/uL Lymph # (Auto) (1.0-4.3) K/uL Archer # (Auto) (0.0-0.8) K/uL Eos # (Auto) (0.0-0.7) K/uL Baso # (Auto) (0.0-0.2) K/uL Neutrophils % (Manual) (50-75) % Band Neutrophils % (0-2) % Lymphocytes % (Manual) (20-40) % Monocytes % (Manual) (0-10) % Myelocytes % (0-0) % Blast Cells % (0-0) % Platelet Estimate (NORMAL) Large Platelets Hypochromasia (manual) Poikilocytosis (manual Anisocytosis (manual) Ovalocytes Neno Cells PT (9.7-12.2) SECONDS INR APTT (21-34) SECONDS Fibrinogen 525 H (200-400) mg/dL Sodium (132-148) mmol/L Potassium (3.6-5.2) mmol/L Chloride (98-107) mmol/L Carbon Dioxide (22-30) mmol/L Anion Gap (10-20) BUN (9-20) mg/dL Creatinine (0.8-1.5) mg/dL Est GFR ( Amer) Est GFR (Non-Af Amer) POC Glucose (mg/dL) (65-110) mg/dL Random Glucose (75-110) mg/dL Lactic Acid 1.2 (0.7-2.1) mmol/L Calcium (8.6-10.4) mg/dl Phosphorus (2.5-4.5) mg/dL Magnesium (1.6-2.3) mg/dL Total Bilirubin (0.2-1.3) mg/dL AST (17-59) U/L ALT (21-72) U/L Alkaline Phosphatase (38-126) U/L Ammonia (9-33) umol/L CK-MB (Mass) 1.81 (0.0-3.38) ng/mL Troponin I 0.0210 (0.00-0.120) ng/mL NT-Pro-B Natriuret Pep 177 (0-900) pg/mL Total Protein (6.3-8.3) g/dL Albumin (3.5-5.0) g/dL Globulin (2.2-3.9) gm/dL Albumin/Globulin Ratio (1.0-2.1) Urine Color (YELLOW) Urine Clarity (Clear) Urine pH (5.0-8.0) Ur Specific Rye (1.003-1.030) Urine Protein (NEGATIVE) mg/dL Urine Glucose (UA) (Normal) mg/dL Urine Ketones (NEGATIVE) mg/dL Urine Blood (NEGATIVE) Urine Nitrate (NEGATIVE) Urine Bilirubin (NEGATIVE) Urine Urobilinogen (0.2-1.0) mg/dL Ur Leukocyte Esterase (Negative) Quinton/uL Urine WBC (Auto) (0-5) /hpf Urine RBC (Auto) (0-3) /hpf Urine Opiates Screen (NEGATIVE) Urine Methadone Screen (NEGATIVE) Ur Barbiturates Screen (NEGATIVE) Ur Phencyclidine Scrn (NEGATIVE) Ur Amphetamines Screen (NEGATIVE) U Benzodiazepines Scrn (NEGATIVE) U Oth Cocaine Metabols (NEGATIVE) U Cannabinoids Screen (NEGATIVE) Blood Type Antibody Screen 09/20/18 09/20/18 09/20/18 Range/Units 11:51 11:16 09:26 WBC (4.8-10.8) K/uL RBC (4.40-5.90) Mil/uL Hgb (12.0-18.0) g/dL Hct (35.0-51.0) % MCV (80.0-94.0) fL MCH (27.0-31.0) pg MCHC (33.0-37.0) g/dL RDW (11.5-14.5) % Plt Count (130-400) K/uL MPV (7.2-11.7) fL Neut % (Auto) (50.0-75.0) % Lymph % (Auto) (20.0-40.0) % Archer % (Auto) (0.0-10.0) % Eos % (Auto) (0.0-4.0) % Baso % (Auto) (0.0-2.0) % Neut # (Auto) (1.8-7.0) K/uL Lymph # (Auto) (1.0-4.3) K/uL Archer # (Auto) (0.0-0.8) K/uL Eos # (Auto) (0.0-0.7) K/uL Baso # (Auto) (0.0-0.2) K/uL Neutrophils % (Manual) (50-75) % Band Neutrophils % (0-2) % Lymphocytes % (Manual) (20-40) % Monocytes % (Manual) (0-10) % Myelocytes % (0-0) % Blast Cells % (0-0) % Platelet Estimate (NORMAL) Large Platelets Hypochromasia (manual) Poikilocytosis (manual Anisocytosis (manual) Ovalocytes [place] Cells PT (9.7-12.2) SECONDS INR APTT (21-34) SECONDS Fibrinogen (200-400) mg/dL Sodium (132-148) mmol/L Potassium (3.6-5.2) mmol/L Chloride (98-107) mmol/L Carbon Dioxide (22-30) mmol/L Anion Gap (10-20) BUN (9-20) mg/dL Creatinine (0.8-1.5) mg/dL Est GFR ( Amer) Est GFR (Non-Af Amer) POC Glucose (mg/dL) 108 (65-110) mg/dL Random Glucose (75-110) mg/dL Lactic Acid 2.2 H (0.7-2.1) mmol/L Calcium (8.6-10.4) mg/dl Phosphorus (2.5-4.5) mg/dL Magnesium (1.6-2.3) mg/dL Total Bilirubin (0.2-1.3) mg/dL AST (17-59) U/L ALT (21-72) U/L Alkaline Phosphatase (38-126) U/L Ammonia < 9 L (9-33) umol/L CK-MB (Mass) (0.0-3.38) ng/mL Troponin I (0.00-0.120) ng/mL NT-Pro-B Natriuret Pep (0-900) pg/mL Total Protein (6.3-8.3) g/dL Albumin (3.5-5.0) g/dL Globulin (2.2-3.9) gm/dL Albumin/Globulin Ratio (1.0-2.1) Urine Color (YELLOW) Urine Clarity (Clear) Urine pH (5.0-8.0) Ur Specific Rye (1.003-1.030) Urine Protein (NEGATIVE) mg/dL Urine Glucose (UA) (Normal) mg/dL Urine Ketones (NEGATIVE) mg/dL Urine Blood (NEGATIVE) Urine Nitrate (NEGATIVE) Urine Bilirubin (NEGATIVE) Urine Urobilinogen (0.2-1.0) mg/dL Ur Leukocyte Esterase (Negative) Quinton/uL Urine WBC (Auto) (0-5) /hpf Urine RBC (Auto) (0-3) /hpf Urine Opiates Screen (NEGATIVE) Urine Methadone Screen (NEGATIVE) Ur Barbiturates Screen (NEGATIVE) Ur Phencyclidine Scrn (NEGATIVE) Ur Amphetamines Screen (NEGATIVE) U Benzodiazepines Scrn (NEGATIVE) U Oth Cocaine Metabols (NEGATIVE) U Cannabinoids Screen (NEGATIVE) Blood Type Antibody Screen 09/20/18 Range/Units 07:47 WBC (4.8-10.8) K/uL RBC (4.40-5.90) Mil/uL Hgb (12.0-18.0) g/dL Hct (35.0-51.0) % MCV (80.0-94.0) fL MCH (27.0-31.0) pg MCHC (33.0-37.0) g/dL RDW (11.5-14.5) % Plt Count (130-400) K/uL MPV (7.2-11.7) fL Neut % (Auto) (50.0-75.0) % Lymph % (Auto) (20.0-40.0) % Archer % (Auto) (0.0-10.0) % Eos % (Auto) (0.0-4.0) % Baso % (Auto) (0.0-2.0) % Neut # (Auto) (1.8-7.0) K/uL Lymph # (Auto) (1.0-4.3) K/uL Archer # (Auto) (0.0-0.8) K/uL Eos # (Auto) (0.0-0.7) K/uL Baso # (Auto) (0.0-0.2) K/uL Neutrophils % (Manual) 68 (50-75) % Band Neutrophils % 15 H* (0-2) % Lymphocytes % (Manual) 6 L (20-40) % Monocytes % (Manual) 11 H (0-10) % Myelocytes % (0-0) % Blast Cells % (0-0) % Platelet Estimate Normal (NORMAL) Large Platelets Hypochromasia (manual) Poikilocytosis (manual Slight Anisocytosis (manual) Slight Ovalocytes Slight Neno Cells PT (9.7-12.2) SECONDS INR APTT (21-34) SECONDS Fibrinogen (200-400) mg/dL Sodium (132-148) mmol/L Potassium (3.6-5.2) mmol/L Chloride (98-107) mmol/L Carbon Dioxide (22-30) mmol/L Anion Gap (10-20) BUN (9-20) mg/dL Creatinine (0.8-1.5) mg/dL Est GFR ( Amer) Est GFR (Non-Af Amer) POC Glucose (mg/dL) (65-110) mg/dL Random Glucose (75-110) mg/dL Lactic Acid (0.7-2.1) mmol/L Calcium (8.6-10.4) mg/dl Phosphorus (2.5-4.5) mg/dL Magnesium (1.6-2.3) mg/dL Total Bilirubin (0.2-1.3) mg/dL AST (17-59) U/L ALT (21-72) U/L Alkaline Phosphatase (38-126) U/L Ammonia (9-33) umol/L CK-MB (Mass) (0.0-3.38) ng/mL Troponin I (0.00-0.120) ng/mL NT-Pro-B Natriuret Pep (0-900) pg/mL Total Protein (6.3-8.3) g/dL Albumin (3.5-5.0) g/dL Globulin (2.2-3.9) gm/dL Albumin/Globulin Ratio (1.0-2.1) Urine Color (YELLOW) Urine Clarity (Clear) Urine pH (5.0-8.0) Ur Specific Rye (1.003-1.030) Urine Protein (NEGATIVE) mg/dL Urine Glucose (UA) (Normal) mg/dL Urine Ketones (NEGATIVE) mg/dL Urine Blood (NEGATIVE) Urine Nitrate (NEGATIVE) Urine Bilirubin (NEGATIVE) Urine Urobilinogen (0.2-1.0) mg/dL Ur Leukocyte Esterase (Negative) Quinton/uL Urine WBC (Auto) (0-5) /hpf Urine RBC (Auto) (0-3) /hpf Urine Opiates Screen (NEGATIVE) Urine Methadone Screen (NEGATIVE) Ur Barbiturates Screen (NEGATIVE) Ur Phencyclidine Scrn (NEGATIVE) Ur Amphetamines Screen (NEGATIVE) U Benzodiazepines Scrn (NEGATIVE) U Oth Cocaine Metabols (NEGATIVE) U Cannabinoids Screen (NEGATIVE) Blood Type Antibody Screen Laboratory Results - last 24 hr 09/20/18 09/20/18 09/20/18 07:47 09:26 11:16 WBC RBC Hgb Hct MCV MCH MCHC RDW Plt Count MPV Neut % (Auto) Lymph % (Auto) Archer % (Auto) Eos % (Auto) Baso % (Auto) Neut # (Auto) Lymph # (Auto) Archer # (Auto) Eos # (Auto) Baso # (Auto) Neutrophils % (Manual) 68 Band Neutrophils % 15 H* Lymphocytes % (Manual) 6 L Monocytes % (Manual) 11 H Myelocytes % Blast Cells % Platelet Estimate Normal Large Platelets Hypochromasia (manual) Poikilocytosis (manual Slight Anisocytosis (manual) Slight Ovalocytes Slight Neno Cells PT INR APTT Fibrinogen Sodium Potassium Chloride Carbon Dioxide Anion Gap BUN Creatinine Est GFR ( Amer) Est GFR (Non-Af Amer) POC Glucose (mg/dL) Random Glucose Lactic Acid 2.2 H Calcium Phosphorus Magnesium Total Bilirubin AST ALT Alkaline Phosphatase Ammonia < 9 L CK-MB (Mass) Troponin I NT-Pro-B Natriuret Pep Total Protein Albumin Globulin Albumin/Globulin Ratio Urine Color Urine Clarity Urine pH Ur Specific Rye Urine Protein Urine Glucose (UA) Urine Ketones Urine Blood Urine Nitrate Urine Bilirubin Urine Urobilinogen Ur Leukocyte Esterase Urine WBC (Auto) Urine RBC (Auto) Urine Opiates Screen Urine Methadone Screen Ur Barbiturates Screen Ur Phencyclidine Scrn Ur Amphetamines Screen U Benzodiazepines Scrn U Oth Cocaine Metabols U Cannabinoids Screen Blood Type Antibody Screen 09/20/18 09/20/18 09/20/18 11:51 13:47 13:47 WBC RBC Hgb Hct MCV MCH MCHC RDW Plt Count MPV Neut % (Auto) Lymph % (Auto) Archer % (Auto) Eos % (Auto) Baso % (Auto) Neut # (Auto) Lymph # (Auto) Archer # (Auto) Eos # (Auto) Baso # (Auto) Neutrophils % (Manual) Band Neutrophils % Lymphocytes % (Manual) Monocytes % (Manual) Myelocytes % Blast Cells % Platelet Estimate Large Platelets Hypochromasia (manual) Poikilocytosis (manual Anisocytosis (manual) Ovalocytes Neno Cells PT INR APTT Fibrinogen 525 H Sodium Potassium Chloride Carbon Dioxide Anion Gap BUN Creatinine Est GFR ( Amer) Est GFR (Non-Af Amer) POC Glucose (mg/dL) 108 Random Glucose Lactic Acid 1.2 Calcium Phosphorus Magnesium Total Bilirubin AST ALT Alkaline Phosphatase Ammonia CK-MB (Mass) Troponin I NT-Pro-B Natriuret Pep Total Protein Albumin Globulin Albumin/Globulin Ratio Urine Color Urine Clarity Urine pH Ur Specific Rye Urine Protein Urine Glucose (UA) Urine Ketones Urine Blood Urine Nitrate Urine Bilirubin Urine Urobilinogen Ur Leukocyte Esterase Urine WBC (Auto) Urine RBC (Auto) Urine Opiates Screen Urine Methadone Screen Ur Barbiturates Screen Ur Phencyclidine Scrn Ur Amphetamines Screen U Benzodiazepines Scrn U Oth Cocaine Metabols U Cannabinoids Screen Blood Type Antibody Screen 09/20/18 09/20/18 09/20/18 13:47 14:00 14:00 WBC RBC Hgb Hct MCV MCH MCHC RDW Plt Count MPV Neut % (Auto) Lymph % (Auto) Archer % (Auto) Eos % (Auto) Baso % (Auto) Neut # (Auto) Lymph # (Auto) Archer # (Auto) Eos # (Auto) Baso # (Auto) Neutrophils % (Manual) Band Neutrophils % Lymphocytes % (Manual) Monocytes % (Manual) Myelocytes % Blast Cells % Platelet Estimate Large Platelets Hypochromasia (manual) Poikilocytosis (manual Anisocytosis (manual) Ovalocytes [place] Cells PT INR APTT Fibrinogen Sodium Potassium Chloride Carbon Dioxide Anion Gap BUN Creatinine Est GFR ( Amer) Est GFR (Non-Af Amer) POC Glucose (mg/dL) Random Glucose Lactic Acid Calcium Phosphorus Magnesium Total Bilirubin AST ALT Alkaline Phosphatase Ammonia CK-MB (Mass) 1.81 Troponin I 0.0210 NT-Pro-B Natriuret Pep 177 Total Protein Albumin Globulin Albumin/Globulin Ratio Urine Color Red Urine Clarity Turbid Urine pH 6.0 Ur Specific Rye 1.006 Urine Protein 2+ H Urine Glucose (UA) Normal Urine Ketones Negative Urine Blood 3+ H Urine Nitrate Negative Urine Bilirubin Negative Urine Urobilinogen Normal Ur Leukocyte Esterase Neg Urine WBC (Auto) 5 Urine RBC (Auto) 95271 H Urine Opiates Screen Negative Urine Methadone Screen Negative Ur Barbiturates Screen Negative Ur Phencyclidine Scrn Negative Ur Amphetamines Screen Negative U Benzodiazepines Scrn Negative U Oth Cocaine Metabols Negative U Cannabinoids Screen Negative Blood Type Antibody Screen 09/21/18 09/21/18 09/21/18 04:00 05:47 05:47 WBC 21.4 H RBC 1.97 L Hgb 6.0 L* Hct 17.7 L MCV 90.0 MCH 30.3 MCHC 33.7 RDW 15.2 H Plt Count 293 MPV 7.7 Neut % (Auto) 92.6 H Lymph % (Auto) 1.0 L Archer % (Auto) 6.1 Eos % (Auto) 0.0 Baso % (Auto) 0.3 Neut # (Auto) 19.8 H Lymph # (Auto) 0.2 L Archer # (Auto) 1.3 H Eos # (Auto) 0.0 Baso # (Auto) 0.1 Neutrophils % (Manual) 94 H Band Neutrophils % Lymphocytes % (Manual) 1 L Monocytes % (Manual) 2 Myelocytes % 2 H Blast Cells % 1 H Platelet Estimate Normal Large Platelets Present Hypochromasia (manual) Moderate Poikilocytosis (manual Slight Anisocytosis (manual) Slight Ovalocytes Slight Neno Cells Slight PT 12.0 INR 1.1 APTT 26.0 Fibrinogen Sodium Potassium Chloride Carbon Dioxide Anion Gap BUN Creatinine Est GFR ( Amer) Est GFR (Non-Af Amer) POC Glucose (mg/dL) Random Glucose Lactic Acid Calcium Phosphorus Magnesium Total Bilirubin AST ALT Alkaline Phosphatase Ammonia CK-MB (Mass) Troponin I NT-Pro-B Natriuret Pep Total Protein Albumin Globulin Albumin/Globulin Ratio Urine Color Urine Clarity Urine pH Ur Specific Rye Urine Protein Urine Glucose (UA) Urine Ketones Urine Blood Urine Nitrate Urine Bilirubin Urine Urobilinogen Ur Leukocyte Esterase Urine WBC (Auto) Urine RBC (Auto) Urine Opiates Screen Urine Methadone Screen Ur Barbiturates Screen Ur Phencyclidine Scrn Ur Amphetamines Screen U Benzodiazepines Scrn U Oth Cocaine Metabols U Cannabinoids Screen Blood Type A POSITIVE Antibody Screen Negative 09/21/18 05:47 WBC RBC Hgb Hct MCV MCH MCHC RDW Plt Count MPV Neut % (Auto) Lymph % (Auto) Archer % (Auto) Eos % (Auto) Baso % (Auto) Neut # (Auto) Lymph # (Auto) Archer # (Auto) Eos # (Auto) Baso # (Auto) Neutrophils % (Manual) Band Neutrophils % Lymphocytes % (Manual) Monocytes % (Manual) Myelocytes % Blast Cells % Platelet Estimate Large Platelets Hypochromasia (manual) Poikilocytosis (manual Anisocytosis (manual) Ovalocytes [place] Cells PT INR APTT Fibrinogen Sodium 137 Potassium 5.9 H Chloride 107 Carbon Dioxide 21 L Anion Gap 14 BUN 48 H Creatinine 1.4 Est GFR ( Amer) 60 Est GFR (Non-Af Amer) 49 POC Glucose (mg/dL) Random Glucose 266 H D Lactic Acid Calcium 7.8 L Phosphorus 5.4 H Magnesium 2.4 H Total Bilirubin < 0.1 L AST 41 ALT 48 Alkaline Phosphatase 162 H Ammonia CK-MB (Mass) Troponin I NT-Pro-B Natriuret Pep Total Protein 4.7 L Albumin 2.3 L Globulin 2.4 Albumin/Globulin Ratio 1.0 Urine Color Urine Clarity Urine pH Ur Specific Rye Urine Protein Urine Glucose (UA) Urine Ketones Urine Blood Urine Nitrate Urine Bilirubin Urine Urobilinogen Ur Leukocyte Esterase Urine WBC (Auto) Urine RBC (Auto) Urine Opiates Screen Urine Methadone Screen Ur Barbiturates Screen Ur Phencyclidine Scrn Ur Amphetamines Screen U Benzodiazepines Scrn U Oth Cocaine Metabols U Cannabinoids Screen Blood Type Antibody Screen Radiology Impressions: Radiology Impressions Head CT 09/20/18 02:40 IMPRESSION: No intracranial mass, hemorrhage or evidence of acute infarct. Mild chronic white matter ischemic change. The preliminary findings for this examination were reported by [facility] Radiology at 3:03 a.m. on 09/20/2018. There is concurrence of this report with the preliminary findings. Abdomen/Pelvis CT 09/20/18 11:29 IMPRESSION: Extensive heterogeneous high attenuation material within the bladder lumen suspicious for blood. Sanchez catheter noted. Mild diffuse thickening of the bladder wall common nonspecific. Small left pleural effusion. Bilateral hydroureteronephrosis without evidence of obstructing calculus. Chest X-Ray 09/20/18 11:59 IMPRESSION: No active disease. Fingerstick Blood Sugar Results: 298 Review of Systems - Review of Systems All systems: reviewed and no additional remarkable complaints except Critical Care Progress Note - Nutrition Nutrition: Nutrition Category Date Time Status NPO Diet [DIET] Diets 09/20/18 Breakfast Active Assessment/Plan - Assessment and Plan (Free Text) Assessment: Hematuria -Urology, Dr. Karen Boo -s/p cystoscopy w tur of bladder neck and prostate -CBI -f/u repeat cystoscopy with Dr. Boo ID Sepsis -rocephin, meropenem -lactate normalized Neuro AMS -suspect 2/2 sepsis -neuro, Dr. Pritchard/Dr. Erwin Renal Hyper-k -5.9 -kayexalate 30 mg once -f/u repeat cmp ppx -scds. pharm ac c/i 2/2 hematuria -protonix A/P d/w Dr Suyapa Mark, PGY-1
--- NOTE | 2018-09-21 12:13 | CP.PCM.PN ---
Subjective - Date & Time of Evaluation Date of Evaluation: 09/21/18 Time of Evaluation: 09:00 - Subjective Subjective: awake and alert EEG in progress Blood and urine + for gram neg rods await ID and sensitivity eval pending Objective - Vital Signs/Intake and Output Vital Signs (last 24 hours): Temp Pulse Resp BP Pulse Ox 98.3 F 93 H 13 142/55 L 99 09/21/18 11:56 09/21/18 11:56 09/21/18 11:56 09/21/18 11:56 09/21/18 06:00 Intake and Output: 09/21/18 09/21/18 06:59 18:59 Intake Total 700 50 Output Total 2120 300 Balance -1420 -250 - Medications Medications: Current Medications Acetaminophen (Tylenol 325mg Tab) 650 mg PO Q6 PRN PRN Reason: Fever >100.4 F Last Admin: 09/20/18 21:20 Dose: 650 mg Bisacodyl (Dulcolax) 10 mg OK DAILY PRN PRN Reason: Constipation Dextrose (Dextrose 50% Inj) 0 ml IV STAT PRN; Protocol PRN Reason: Hypoglycemia Protocol Dextrose (Glutose 15) 0 gm PO ONCE PRN; Protocol PRN Reason: Hypoglycemia Protocol Docusate Sodium (Colace) 100 mg PO BID [facility] Last Admin: 09/21/18 10:15 Dose: Not Given Finasteride (Proscar) 5 mg PO DAILY [facility] Last Admin: 09/21/18 10:15 Dose: Not Given Gabapentin (Neurontin) 300 mg PO TID [facility] Last Admin: 09/21/18 10:15 Dose: Not Given Glucagon (Glucagen Diagnostic Kit) 0 mg IM STAT PRN; Protocol PRN Reason: Hypoglycemia Protocol Dextrose/Sodium Chloride (Dextrose 5%/0.9% Ns 1000 Ml) 1,000 mls @ 50 mls/hr IV .Q20H [facility] Last Admin: 09/21/18 08:24 Dose: Not Given Ceftriaxone Sodium 2 gm/ (Sodium Chloride) 100 mls @ 100 mls/hr IVPB DAILY [facility]; Protocol Last Admin: 09/21/18 10:21 Dose: 100 mls/hr Meropenem 500 mg/ Sodium (Chloride) 100 mls @ 100 mls/hr IVPB Q8H [facility]; Protocol Last Admin: 09/21/18 06:36 Dose: 100 mls/hr Insulin Glargine (Lantus) 10 unit SC [facility] Last Admin: 09/20/18 21:16 Dose: Not Given Insulin Human Regular (Novolin R) 0 unit SC Q6H [facility]; Protocol Last Admin: 09/21/18 11:49 Dose: 6 units Lidocaine HCl (Xylocaine 2%) 0 ea TOP Q12H PRN Last Admin: 09/10/18 14:43 Dose: 1 applic Polyethylene Glycol (Miralax) 17 gm PO DAILY PRN PRN Reason: Constipation Rosuvastatin Calcium (Crestor) 5 mg PO [facility] Last Admin: 09/20/18 21:15 Dose: 5 mg Sitagliptin Phosphate (Januvia) 50 mg PO DAILY [facility] Last Admin: 09/21/18 10:15 Dose: Not Given Tamsulosin HCl (Flomax) 0.4 mg PO DAILY [facility] Last Admin: 09/21/18 10:15 Dose: Not Given - Labs Labs: 09/21/18 05:47 09/21/18 05:47 PT 12.0 SECONDS (9.7-12.2) 09/21/18 05:47 INR 1.1 09/21/18 05:47 APTT 26.0 SECONDS (21-34) 09/21/18 05:47 - Constitutional Appears: No Acute Distress, Confused, Chronically Ill - Head Exam Head Exam: NORMOCEPHALIC - Eye Exam Eye Exam: EOMI, Normal appearance, PERRL Pupil Exam: NORMAL ACCOMODATION, PERRL - ENT Exam ENT Exam: Mucous Membranes Moist, Normal Exam - Neck Exam Neck Exam: Full ROM, Normal Inspection. absent: Lymphadenopathy - Respiratory Exam Respiratory Exam: Decreased Breath Sounds, Prolonged Expiratory Phase, Rhonchi - Cardiovascular Exam Cardiovascular Exam: REGULAR RHYTHM, +S1, +S2. absent: Murmur - GI/Abdominal Exam GI & Abdominal Exam: Soft, Normal Bowel Sounds. absent: Tenderness - Rectal Exam Rectal Exam: Deferred - Exam Exam: absent: NORMAL INSPECTION - Extremities Exam Extremities Exam: Full ROM, Normal Capillary Refill, Normal Inspection. absent: Joint Swelling, Pedal Edema - Back Exam Back Exam: NORMAL INSPECTION - Neurological Exam Neurological Exam: Alert, Awake, CN II-XII Intact, Oriented x3. absent: Normal Gait - Psychiatric Exam Psychiatric exam: Normal Affect, Normal Mood - Skin Skin Exam: Dry, Intact, Normal Color, Warm Assessment and Plan (1) Hematuria Status: Chronic (2) UTI (urinary tract infection) Status: Acute (3) Uncontrolled diabetes mellitus Status: Acute - Assessment and Plan (Free Text) Assessment: bacteremia sepsis UTI on merrem await sensitivities poor prognosis
--- NOTE | 2018-09-21 12:19 | CARD ---
APPROVED REPORT Date of service: 09/20/2018 EKG Measurement Heart [id number] <Conclusion> Sinus tachycardia Otherwise normal ECG
--- NOTE | 2018-09-21 12:19 | CARD ---
APPROVED REPORT Date of service: 09/20/2018 EKG Measurement Heart [id number] UT [id number] <Conclusion> Sinus tachycardia Otherwise normal ECG
--- NOTE | 2018-09-21 16:25 | CP.PCM.PN ---
Subjective - Date & Time of Evaluation Date of Evaluation: 09/21/18 Time of Evaluation: 16:24 - Subjective Subjective: Neuro Follow-Up Notes: Mr. Samuel was evaluated this afternoon in the ICU. Son sitting at bedside. Pt is currently connected to the [facility]. He is also scheduled for a cysto with Dr. Wellington this afternoon for gross hematuria. Pt is awake and alert, he follows most commands. Pt does not appear confused, though his affect is odd (p t laughs at inappropriate times during the neuro interview and exam and when I am discussing his medical concerns; minimal eye contact). He denies any complaints. Denies h/a, dizziness, visual changes, chest pain, palpitations, sob, cough, abd pain, n/v/d, paresthesias, weakness. Objective - Vital Signs/Intake and Output Vital Signs (last 24 hours): Temp Pulse Resp BP Pulse Ox 99.0 F 90 13 128/64 99 09/21/18 14:13 09/21/18 14:13 09/21/18 14:13 09/21/18 14:13 09/21/18 06:00 Intake and Output: 09/21/18 09/21/18 06:59 18:59 Intake Total 700 925 Output Total 2120 1860 Balance -1420 -935 - Medications Medications: Current Medications Acetaminophen (Tylenol 325mg Tab) 650 mg PO Q6 PRN PRN Reason: Fever >100.4 F Last Admin: 09/20/18 21:20 Dose: 650 mg Bisacodyl (Dulcolax) 10 mg IN DAILY PRN PRN Reason: Constipation Dextrose (Dextrose 50% Inj) 0 ml IV STAT PRN; Protocol PRN Reason: Hypoglycemia Protocol Dextrose (Glutose 15) 0 gm PO ONCE PRN; Protocol PRN Reason: Hypoglycemia Protocol Docusate Sodium (Colace) 100 mg PO BID [facility] Last Admin: 09/21/18 10:15 Dose: Not Given Finasteride (Proscar) 5 mg PO DAILY [facility] Last Admin: 09/21/18 10:15 Dose: Not Given Gabapentin (Neurontin) 300 mg PO TID [facility] Last Admin: 09/21/18 13:04 Dose: Not Given Glucagon (Glucagen Diagnostic Kit) 0 mg IM STAT PRN; Protocol PRN Reason: Hypoglycemia Protocol Dextrose/Sodium Chloride (Dextrose 5%/0.9% Ns 1000 Ml) 1,000 mls @ 50 mls/hr IV .Q20H [facility] Last Admin: 09/21/18 08:24 Dose: Not Given Ceftriaxone Sodium 2 gm/ (Sodium Chloride) 100 mls @ 100 mls/hr IVPB DAILY [facility]; Protocol Last Admin: 09/21/18 10:21 Dose: 100 mls/hr Meropenem 500 mg/ Sodium (Chloride) 100 mls @ 100 mls/hr IVPB Q8H [facility]; Protocol Last Admin: 09/21/18 06:36 Dose: 100 mls/hr Insulin Glargine (Lantus) 10 unit SC HS [facility] Last Admin: 09/20/18 21:16 Dose: Not Given Insulin Human Regular (Novolin R) 0 unit SC Q6H [facility]; Protocol Last Admin: 09/21/18 11:49 Dose: 6 units Lidocaine HCl (Xylocaine 2%) 0 ea TOP Q12H PRN Last Admin: 09/10/18 14:43 Dose: 1 applic Polyethylene Glycol (Miralax) 17 gm PO DAILY PRN PRN Reason: Constipation Rosuvastatin Calcium (Crestor) 5 mg PO HS [facility] Last Admin: 09/20/18 21:15 Dose: 5 mg Sitagliptin Phosphate (Januvia) 50 mg PO DAILY [facility] Last Admin: 09/21/18 10:15 Dose: Not Given Tamsulosin HCl (Flomax) 0.4 mg PO DAILY [facility] Last Admin: 09/21/18 10:15 Dose: Not Given - Labs Labs: 09/21/18 05:47 09/21/18 05:47 PT 12.0 SECONDS (9.7-12.2) 09/21/18 05:47 INR 1.1 09/21/18 05:47 APTT 26.0 SECONDS (21-34) 09/21/18 05:47 - Constitutional Appears: No Acute Distress, Other (appears comfortable; odd affect) - Head Exam Additional comments: unable to assess 2/2 [facility]G currently connected - Eye Exam Eye Exam: EOMI, Normal appearance, PERRL. absent: Nystagmus Pupil Exam: NORMAL ACCOMODATION, PERRL - ENT Exam ENT Exam: Mucous Membranes Moist - Neck Exam Neck Exam: Full ROM, Normal Inspection - Respiratory Exam Respiratory Exam: NORMAL BREATHING PATTERN - Extremities Exam Extremities Exam: absent: Calf Tenderness, Pedal Edema Additional comments: Able to move all extremities with generalized weakness noted - Neurological Exam Neurological Exam: Alert, Awake, CN II-XII Intact, Reflexes Normal Neuro motor strength exam: Left Upper Extremity: 4 (distal 4/5), Right Upper Extremity: 4 (distal 4/5), Left Lower Extremity: 3 (distal 3/5), Right Lower Extremity: 3 (distal 3/5) Additional comments: Awake, alert, doesn't appear confused but has an odd affect. Able to follow commands an answer my questions. Speech clear No facial asymmetry Able to move all extremities; no focal motor deficits; generalized weakness noted. No tremors or abnormal movements. - Psychiatric Exam Psychiatric exam: Normal Mood. absent: Normal Affect - Skin Skin Exam: Dry, Intact Assessment and Plan (1) Toxic metabolic encephalopathy Assessment & Plan: Imaging reviewed: -EEG (Start Date: 09/20/18 Start Time: 19:50 End Date: 09/21/18 End Time: 08:30): This is an abnormal video-EEG monitoring study due to the presence of 1) Mild diffuse slowing, 2) Occasional periodic sharp waves with triphasic morphology. No seizures, not in status epilepticus. INTERPRETATION: These findings are consistent with a mild to moderate diffuse disturbance of cortical activity. These findings are non specific, however they are usually seen in toxic metabolic encepahlopahties, [employer] degenerative conditions, like dementias, among others. -CT Head (09/20/18): No intracranial mass, hemorrhage or evidence of acute infarct. Mild chronic white matter ischemic change -MRI brain without contrast ordered to r/o acute stroke and other intracranial abnormalities--will f/u once completed. May be done in the morning as pt is for cysto this afternoon. -VEEG may be d/c now. -Continue current treatment and management of issues and sepsis. -Continue supportive care. -Notify neuro team of any acute changes in condition. Maira Mckeon, KEN, [employer] d/w Dr. Erwin Status: Acute
[2018-09-21 16:56] LABS: BLOOD UREA NITROGEN 46 mg/dL (9-20); CALCIUM 8.1 mg/dl (8.6-10.4); GFR NON-AFRICAN AMERICAN > 60
--- NOTE | 2018-09-21 19:14 | PCM.URO ---
Urology Progress Note - General General: Tolerating Diet - Subjective Abdominal Pain: Yes Flank Pain: No Nausea: No Vomiting: No Voiding Well: No (catheter in place) Hematuria: Yes Stone Passed: No Dsypnea: No Chest Pain: No Fever & Chills: Yes (prev fever, now resolved) - Objective Lab Studies: Reviewed (anemia, azotemia) Lab Results Last 24 Hours: Laboratory Results - last 24 hr 09/21/18 09/21/18 09/21/18 04:00 05:47 05:47 WBC 21.4 H RBC 1.97 L Hgb 6.0 L* Hct 17.7 L MCV 90.0 MCH 30.3 MCHC 33.7 RDW 15.2 H Plt Count 293 MPV 7.7 Neut % (Auto) 92.6 H Lymph % (Auto) 1.0 L King % (Auto) 6.1 Eos % (Auto) 0.0 Baso % (Auto) 0.3 Neut # (Auto) 19.8 H Lymph # (Auto) 0.2 L King # (Auto) 1.3 H Eos # (Auto) 0.0 Baso # (Auto) 0.1 Neutrophils % (Manual) 94 H Lymphocytes % (Manual) 1 L Monocytes % (Manual) 2 Myelocytes % 2 H Blast Cells % 1 H Platelet Estimate Normal Large Platelets Present Hypochromasia (manual) Moderate Poikilocytosis (manual Slight Anisocytosis (manual) Slight Ovalocytes Slight Neno Cells Slight PT 12.0 INR 1.1 APTT 26.0 Sodium Potassium Chloride Carbon Dioxide Anion Gap BUN Creatinine Est GFR ( Amer) Est GFR (Non-Af Amer) Random Glucose Calcium Phosphorus Magnesium Total Bilirubin AST ALT Alkaline Phosphatase Total Protein Albumin Globulin Albumin/Globulin Ratio Blood Type A POSITIVE Antibody Screen Negative 09/21/18 09/21/18 05:47 16:43 WBC RBC Hgb Hct MCV MCH MCHC RDW Plt Count MPV Neut % (Auto) Lymph % (Auto) King % (Auto) Eos % (Auto) Baso % (Auto) Neut # (Auto) Lymph # (Auto) King # (Auto) Eos # (Auto) Baso # (Auto) Neutrophils % (Manual) Lymphocytes % (Manual) Monocytes % (Manual) Myelocytes % Blast Cells % Platelet Estimate Large Platelets Hypochromasia (manual) Poikilocytosis (manual Anisocytosis (manual) Ovalocytes Neno Cells PT INR APTT Sodium 137 139 Potassium 5.9 H 5.2 Chloride 107 111 H Carbon Dioxide 21 L 22 Anion Gap 14 11 BUN 48 H 46 H Creatinine 1.4 1.1 Est GFR ( Amer) 60 > 60 Est GFR (Non-Af Amer) 49 > 60 Random Glucose 266 H D 156 H D Calcium 7.8 L 8.1 L Phosphorus 5.4 H Magnesium 2.4 H Total Bilirubin < 0.1 L AST 41 ALT 48 Alkaline Phosphatase 162 H Total Protein 4.7 L Albumin 2.3 L Globulin 2.4 Albumin/Globulin Ratio 1.0 Blood Type Antibody Screen Intake & Output: Intake & Output 09/21/18 09/21/18 09/22/18 06:59 18:59 06:59 Intake Total 700 925 425 Output Total 2119 1860 Balance -9654 -349 425 Intake: Intake, IV Amount 600 500 left hand 600 500 Oral 100 Blood Product 325 325 Red Blood Cells Cpd As1 325 Lr Unit [id number] Red Blood Cells Cpd As1 0 325 Lr Unit [id number] Other 100 100 Red Blood Cells Cpd As1 100 Lr Unit [id number] Red Blood Cells Cpd As1 100 Lr Unit [id number] Output: Urine 2119 1859 3-way Urethral 2119 1859 Vital Signs: Vital Signs - 24 hr 09/20/18 09/20/18 09/20/18 20:00 21:00 22:00 Temperature 99.4 F Pulse Rate 100 H 104 H 103 H Respiratory 18 16 16 Rate Blood Pressure 132/56 L 140/64 145/59 L O2 Sat by Pulse 95 98 98 Oximetry 09/20/18 09/21/18 09/21/18 23:00 00:00 01:00 Temperature 99 F Pulse Rate 95 H 90 89 Respiratory 16 18 16 Rate Blood Pressure 117/53 L 114/50 L 124/51 L O2 Sat by Pulse 97 97 98 Oximetry 09/21/18 09/21/18 09/21/18 02:00 03:00 04:00 Temperature 98.2 F Pulse Rate 96 H 112 H 114 H Respiratory 16 18 18 Rate Blood Pressure 175/72 H 139/55 L O2 Sat by Pulse 99 100 100 Oximetry 09/21/18 09/21/18 09/21/18 05:00 06:00 08:00 Temperature 99.0 F Pulse Rate 104 H 97 H Respiratory 16 15 Rate Blood Pressure 127/51 L 147/59 L O2 Sat by Pulse 99 99 Oximetry 09/21/18 09/21/18 09/21/18 11:26 11:41 11:56 Temperature 98.4 F 98.6 F 98.3 F Pulse Rate 102 H 92 H 93 H Respiratory 15 12 13 Rate Blood Pressure 130/62 139/58 L 142/55 L O2 Sat by Pulse Oximetry 09/21/18 09/21/18 09/21/18 12:00 12:26 14:13 Temperature 98.3 F 97.8 F 99.0 F Pulse Rate 86 90 Respiratory 13 13 Rate Blood Pressure 119/55 L 128/64 O2 Sat by Pulse Oximetry 09/21/18 09/21/18 09/21/18 16:26 16:41 16:56 Temperature 98.3 F 98.1 F 98.2 F Pulse Rate 83 88 93 H Respiratory 11 L 11 L 15 Rate Blood Pressure 132/57 L 145/58 L 147/60 O2 Sat by Pulse Oximetry 09/21/18 09/21/18 09/21/18 17:26 19:02 19:03 Temperature 98.5 F 98.2 F 98.2 F Pulse Rate 94 H 92 H 92 H Respiratory 15 14 14 Rate Blood Pressure 142/66 165/66 H 165/66 H O2 Sat by Pulse Oximetry - Physical Exam Abdominal Exam: Soft, Non-Tender, Non-Distended Back: No CVA Tenderness Genitalia: Without Inflammation Urinary Catheter Draining Well: No Urine Color: Dark Red - Male Phallus: Normal, Circumcised Scrotum: Normal - Plan Catheter Care: Yes Intake & Output: Yes See Orders: Yes Additional Information: IMP: Hematuria. Hx of prostate ca, p RT. Rec/P: Catheter irrigated. Clots removed. For cysto. Discussed w attending MD. Discussed w pt, family, and nursing staff - Date & Time of Note Date: 09/21/18 Time: 18:55
[2018-09-21] MEDS ORDERED: (Lantus) Insulin Glargine, Recombinant SC STA (21:15)
[2018-09-21] MEDS: (Lantus) Insulin Glargine, Recombinant SC SCH (22:00)
[2018-09-21] MEDS ORDERED: HYDROmorphone 0.5 mg/0.5 ml ISec IVP STA (22:10)
[2018-09-22] MEDS: (Novolin R) Insulin Human Regular 100 units/ml vial SC SCH ×4 (00:23→22:20)
[2018-09-22] MEDS: Dextrose 5%/0.9% NS 1,000 ML IV SCH (04:10)
[2018-09-22 05:23] LABS: BASO # 0.1 K/uL (0.0-0.2); BASO % 0.4 % (0.0-2.0); EOS % 0.3 % (0.0-4.0); HEMOGLOBIN 8.4 g/dL (12.0-18.0); LYMPH # 0.7 K/uL (1.0-4.3); LYMPH % 3.7 % (20.0-40.0); MEAN CELL VOLUME 88.5 fL (80.0-94.0); MEAN CORPUSCULAR HEMOGLOBIN 28.8 pg (27.0-31.0); MEAN CORPUSCULAR HGB CONC 32.5 g/dL (33.0-37.0); MEAN PLATELET VOLUME 7.5 fL (7.2-11.7); MONO # 1.6 K/uL (0.0-0.8); NEUT # 16.9 K/uL (1.8-7.0); NEUT % 87.6 % (50.0-75.0); NRBC % 0.1 % (0.0-2.0); PLATELET COUNT 295 K/uL (130-400); RBC 2.93 Mil/uL (4.40-5.90); RED CELL DISTRIBUTION WIDTH 15.1 % (11.5-14.5); WHITE BLOOD COUNT 19.3 K/uL (4.8-10.8)
[2018-09-22 05:53] LABS: ALBUMIN 2.5 g/dL (3.5-5.0); ALT/SGPT 85 U/L (21-72); AST/SGOT 113 U/L (17-59); BLOOD UREA NITROGEN 44 mg/dL (9-20); GFR NON-AFRICAN AMERICAN > 60
[2018-09-22] MEDS: Meropenem 500 MG in Sodium Chloride 0.9% 100 ML IVPB SCH (07:00)
[2018-09-22] MEDS ORDERED: Lidocaine 2% Jelly (Uro-Jet) ONE (07:56)
[2018-09-22] MEDS ORDERED: Iohexol 240 (50 ml) ONE (07:56)
[2018-09-22 08:18] LABS: BANDS 13 % (0-2); LYMPHOCYTE 5 % (20-40); METAMYELOCYTE 2 % (0-0); MONOCYTE 5 % (0-10); NEUTROPHIL 75 % (50-75); PLATELET ESTIMATE NORMAL (NORMAL); TOTAL CELLS COUNTED 100
[2018-09-22 08:19] LABS: ANISOCYTOSIS SLIGHT; OVALOCYTES SLIGHT
[2018-09-22] MEDS ORDERED: Propofol 10 mg/ml Inj (20 ML) ONE (08:30)
[2018-09-22] MEDS ORDERED: Lidocaine Hydrochloride 5 ML INJ ONE (08:57)
--- NOTE | 2018-09-22 09:35 | PCM.SURG1 ---
Surgeon's Initial Post Op Note - Surgeon's Notes Surgeon: Justus Wellington [employer] Teacher: none Type of Anesthesia: General LMA Pre-Operative Diagnosis: Hematuria Operative Findings: same. Clot retention. Bleeding from prostate and BN. Hydronephrosis. Cystitis Post-Operative Diagnosis: same Operation Performed: cysto. Evacuation of clots. bilat rtg pyelogram. Fulguration of bleeding of prostate and Bladder neck. EUA Specimen/Specimens Removed: urine. clots Estimated Blood Loss: EBL {In ML}: 500 Blood Products Given: N/A Date of Surgery/Procedure: 09/22/18 Time of Surgery/Procedure: 09:30
[2018-09-22] MEDS ORDERED: HYDROmorphone 1 mg/ml ISec IVP STA (09:59)
[2018-09-22] MEDS: cefTRIAXone 2 GM in Sodium Chloride 0.9% 100 ML IVPB SCH (10:13)
--- NOTE | 2018-09-22 10:56 | CP.CCUPN ---
<Alex Mark - Last Filed: 09/22/18 11:23> CCU Subjective - Physician Review Subjective (Free Text): 09/21/18 11:13 PGY-1 CC Progress Note for. Dr. Bonilla Pt seen and examined. No acute events overnight. S/p second cystoscopy this am with Dr. Boo, pt tolerated procedure well. CCU Objective - Vital Signs / Intake & Output Vital Signs (Last 4 hours): Vital Signs Pulse Resp BP Pulse Ox 09/22/18 08:20 81 15 163/58 H 99 Intake and Output (Last 8hrs): Intake & Output 09/21/18 09/22/18 09/22/18 22:59 06:59 14:59 Intake Total 2275 450 850 Output Total 2110 1600 Balance 165 -1150 850 Weight 114 lb 10.246 oz Intake: IV 850 Intake, IV Amount 450 450 left forearm 450 450 Oral 900 Blood Product 725 Red Blood Cells Cpd As1 325 Lr Unit [id number] Other 200 Red Blood Cells Cpd As1 100 Lr Unit [id number] Output: Urine 0 1600 3-way Urethral 2110 1600 Other: # Bowel Movements 1 - Physical Exam Head: Positive for: Atraumatic, Normocephalic Pupils: Positive for: PERRL Mouth: Positive for: Moist Mucous Membranes Respiratory/Chest: Positive for: Clear to Auscultation. Negative for: Respiratory Distress, Accessory Muscle Use Cardiovascular: Positive for: Regular Rate and Rhythm, Normal S1, S2 Abdomen: Positive for: Distention Neurological: Positive for: GCS=15, CN II-XII Intact Skin: Positive for: Warm, Dry Psychiatric: Positive for: Alert, Oriented x 3 - Medications Active Medications: Active Medications Generic Name Dose Route Start Last Admin Trade Name Freq PRN Reason Stop Dose Admin Acetaminophen 650 mg 09/19/18 23:57 09/22/18 00:20 Tylenol 325mg Tab PO 650 mg Q6 PRN Administration Fever >100.4 F Bisacodyl 10 mg 09/20/18 13:18 Dulcolax [place] DAILY PRN Constipation Dextrose 0 ml 09/01/18 21:02 Dextrose 50% Inj IV STAT PRN Hypoglycemia Protocol Protocol Dextrose 0 gm 09/01/18 21:02 Glutose 15 PO ONCE PRN Hypoglycemia Protocol Protocol Docusate Sodium 100 mg 09/02/18 10:00 09/22/18 10:13 Colace PO 100 mg BID MAYRA Administration Finasteride 5 mg 09/10/18 10:00 09/22/18 10:13 Proscar PO 5 mg DAILY MAYRA Administration Gabapentin 300 mg 09/02/18 10:00 09/22/18 10:14 Neurontin PO 300 mg TID MAYRA Administration Glucagon 0 mg 09/01/18 21:02 Glucagen Diagnostic Kit IM STAT PRN Hypoglycemia Protocol Protocol Dextrose/Sodium Chloride 1,000 mls @ 50 mls/hr 09/20/18 13:00 09/22/18 04:10 Dextrose 5%/0.9% Ns 1000 Ml IV 50 mls/hr .Q20H MAYRA Administration Ceftriaxone Sodium 2 gm/ 100 mls @ 100 mls/hr 09/20/18 13:30 09/22/18 10:13 Sodium Chloride IVPB 100 mls/hr DAILY MAYRA Administration Protocol Meropenem 500 mg/ Sodium 100 mls @ 100 mls/hr 09/20/18 15:30 09/22/18 07:00 Chloride IVPB 100 mls/hr Q8H MAYRA Administration Protocol Insulin Glargine 10 unit 09/01/18 22:00 09/21/18 22:00 Lantus SC Not Given HS [facility] Insulin Human Regular 0 unit 09/21/18 00:00 09/22/18 00:23 Novolin R SC 10 units Q6H MAYRA Administration Protocol Lidocaine HCl 0 ea 09/07/18 13:30 09/10/18 14:43 Xylocaine 2% TOP 1 applic Q12H PRN Administration Polyethylene Glycol 17 gm 09/20/18 08:14 Miralax PO DAILY PRN Constipation Rosuvastatin Calcium 5 mg 09/01/18 22:00 09/21/18 21:50 Crestor PO 5 mg HS MAYRA Administration Sitagliptin Phosphate 50 mg 09/04/18 10:00 09/22/18 10:14 Januvia PO Not Given DAILY MAYRA Tamsulosin HCl 0.4 mg 09/02/18 10:00 09/22/18 10:13 Flomax PO 0.4 mg DAILY MAYRA Administration - Patient Studies Lab Studies: Microbiology Studies 09/20/18 01:21 Blood Culture - Preliminary Blood Gram Negative Alireza Gram Stain - Final 09/20/18 13:47 Urine Culture - Final Urine,Catheterized Pseudomonas Aeruginosa 09/20/18 01:20 Blood Culture - Preliminary Blood NO GROWTH AFTER 48 HOURS 09/20/18 13:47 MRSA Culture - Final Naris MRSA NOT DETECTED 09/20/18 13:47 MRSA Culture (Admit) - Final Nose MRSA NOT DETECTED Lab Studies 09/22/18 09/22/18 09/22/18 Range/Units 05:18 05:18 05:18 WBC 19.3 H (4.8-10.8) K/uL RBC 2.93 L (4.40-5.90) Mil/uL Hgb 8.4 L D (12.0-18.0) g/dL Hct 25.9 L (35.0-51.0) % MCV 88.5 (80.0-94.0) fL MCH 28.8 (27.0-31.0) pg MCHC 32.5 L (33.0-37.0) g/dL RDW 15.1 H (11.5-14.5) % Plt Count 295 (130-400) K/uL MPV 7.5 (7.2-11.7) fL Neut % (Auto) 87.6 H (50.0-75.0) % Lymph % (Auto) 3.7 L (20.0-40.0) % [place] % (Auto) 8.0 (0.0-10.0) % Eos % (Auto) 0.3 (0.0-4.0) % Baso % (Auto) 0.4 (0.0-2.0) % Neut # (Auto) 16.9 H (1.8-7.0) K/uL Lymph # (Auto) 0.7 L (1.0-4.3) K/uL [place] # (Auto) 1.6 H (0.0-0.8) K/uL Eos # (Auto) 0.0 (0.0-0.7) K/uL Baso # (Auto) 0.1 (0.0-0.2) K/uL Neutrophils % (Manual) 75 (50-75) % Band Neutrophils % 13 H* (0-2) % Lymphocytes % (Manual) 5 L (20-40) % Monocytes % (Manual) 5 (0-10) % Metamyelocytes % 2 H (0-0) % Platelet Estimate Normal (NORMAL) Anisocytosis (manual) Slight Ovalocytes Slight PT 11.0 (9.7-12.2) SECONDS INR 1.0 APTT 26.0 (21-34) SECONDS Sodium 139 (132-148) mmol/L Potassium 4.4 (3.6-5.2) mmol/L Chloride 109 H (98-107) mmol/L Carbon Dioxide 23 (22-30) mmol/L Anion Gap 12 (10-20) BUN 44 H (9-20) mg/dL Creatinine 1.0 (0.8-1.5) mg/dL Est GFR ( Amer) > 60 Est GFR (Non-Af Amer) > 60 Random Glucose 77 D (75-110) mg/dL Calcium 8.0 L (8.6-10.4) mg/dl Total Bilirubin 0.4 (0.2-1.3) mg/dL AST 113 H D (17-59) U/L ALT 85 H D (21-72) U/L Alkaline Phosphatase 269 H D (38-126) U/L Total Protein 5.1 L (6.3-8.3) g/dL Albumin 2.5 L (3.5-5.0) g/dL Globulin 2.6 (2.2-3.9) gm/dL Albumin/Globulin Ratio 1.0 (1.0-2.1) Ur Opiates (GC/MS) (Negative) 300 Ur Methadone, Qual (Negative) 300 Urine Propoxyphene (Negative) 300 Methaqualone (Negative) 300 Ur Barbiturates, Qual (Negative) 300 Ur Phencyclidine (PCP) (Negative) 25 Ur Amphetamines Screen (Negative) 1000 U Benzodiazepines Qual (Negative) 300 Urine Cocaine (Negative) 300 U Marijuana (THC) Screen (Negative) 50 Drugs of Abuse Note Blood Type Antibody Screen 09/21/18 09/21/18 09/21/18 Range/Units 16:43 08:49 04:00 WBC (4.8-10.8) K/uL RBC (4.40-5.90) Mil/uL Hgb (12.0-18.0) g/dL Hct (35.0-51.0) % MCV (80.0-94.0) fL MCH (27.0-31.0) pg MCHC (33.0-37.0) g/dL RDW (11.5-14.5) % Plt Count (130-400) K/uL MPV (7.2-11.7) fL Neut % (Auto) (50.0-75.0) % Lymph % (Auto) (20.0-40.0) % [place] % (Auto) (0.0-10.0) % Eos % (Auto) (0.0-4.0) % Baso % (Auto) (0.0-2.0) % Neut # (Auto) (1.8-7.0) K/uL Lymph # (Auto) (1.0-4.3) K/uL [place] # (Auto) (0.0-0.8) K/uL Eos # (Auto) (0.0-0.7) K/uL Baso # (Auto) (0.0-0.2) K/uL Neutrophils % (Manual) (50-75) % Band Neutrophils % (0-2) % Lymphocytes % (Manual) (20-40) % Monocytes % (Manual) (0-10) % Metamyelocytes % (0-0) % Platelet Estimate (NORMAL) Anisocytosis (manual) Ovalocytes PT (9.7-12.2) SECONDS INR APTT (21-34) SECONDS Sodium 139 (132-148) mmol/L Potassium 5.2 (3.6-5.2) mmol/L Chloride 111 H (98-107) mmol/L Carbon Dioxide 22 (22-30) mmol/L Anion Gap 11 (10-20) BUN 46 H (9-20) mg/dL Creatinine 1.1 (0.8-1.5) mg/dL Est GFR ( Amer) > 60 Est GFR (Non-Af Amer) > 60 Random Glucose 156 H D (75-110) mg/dL Calcium 8.1 L (8.6-10.4) mg/dl Total Bilirubin (0.2-1.3) mg/dL AST (17-59) U/L ALT (21-72) U/L Alkaline Phosphatase (38-126) U/L Total Protein (6.3-8.3) g/dL Albumin (3.5-5.0) g/dL Globulin (2.2-3.9) gm/dL Albumin/Globulin Ratio (1.0-2.1) Ur Opiates (GC/MS) Negative (Negative) 300 Ur Methadone, Qual Negative (Negative) 300 Urine Propoxyphene Negative (Negative) 300 Methaqualone Negative (Negative) 300 Ur Barbiturates, Qual Negative (Negative) 300 Ur Phencyclidine (PCP) Negative (Negative) 25 Ur Amphetamines Screen Negative (Negative) 1000 U Benzodiazepines Qual Negative (Negative) 300 Urine Cocaine Negative (Negative) 300 U Marijuana (THC) Screen Negative (Negative) 50 Drugs of Abuse Note See note Blood Type A POSITIVE Antibody Screen Negative Laboratory Results - last 24 hr 09/21/18 09/21/18 09/21/18 04:00 08:49 16:43 WBC RBC Hgb Hct MCV MCH MCHC RDW Plt Count MPV Neut % (Auto) Lymph % (Auto) [place] % (Auto) Eos % (Auto) Baso % (Auto) Neut # (Auto) Lymph # (Auto) [place] # (Auto) Eos # (Auto) Baso # (Auto) Neutrophils % (Manual) Band Neutrophils % Lymphocytes % (Manual) Monocytes % (Manual) Metamyelocytes % Platelet Estimate Anisocytosis (manual) Ovalocytes PT INR APTT Sodium 139 Potassium 5.2 Chloride 111 H Carbon Dioxide 22 Anion Gap 11 BUN 46 H Creatinine 1.1 Est GFR ( Amer) > 60 Est GFR (Non-Af Amer) > 60 Random Glucose 156 H D Calcium 8.1 L Total Bilirubin AST ALT Alkaline Phosphatase Total Protein Albumin Globulin Albumin/Globulin Ratio Ur Opiates (GC/MS) Negative Ur Methadone, Qual Negative Urine Propoxyphene Negative Methaqualone Negative Ur Barbiturates, Qual Negative Ur Phencyclidine (PCP) Negative Ur Amphetamines Screen Negative U Benzodiazepines Qual Negative Urine Cocaine Negative U Marijuana (THC) Screen Negative Drugs of Abuse Note See note Blood Type A POSITIVE Antibody Screen Negative 09/22/18 09/22/18 09/22/18 05:18 05:18 05:18 WBC 19.3 H RBC 2.93 L Hgb 8.4 L D Hct 25.9 L MCV 88.5 MCH 28.8 MCHC 32.5 L RDW 15.1 H Plt Count 295 MPV 7.5 Neut % (Auto) 87.6 H Lymph % (Auto) 3.7 L [place] % (Auto) 8.0 Eos % (Auto) 0.3 Baso % (Auto) 0.4 Neut # (Auto) 16.9 H Lymph # (Auto) 0.7 L [place] # (Auto) 1.6 H Eos # (Auto) 0.0 Baso # (Auto) 0.1 Neutrophils % (Manual) 75 Band Neutrophils % 13 H* Lymphocytes % (Manual) 5 L Monocytes % (Manual) 5 Metamyelocytes % 2 H Platelet Estimate Normal Anisocytosis (manual) Slight Ovalocytes Slight PT 11.0 INR 1.0 APTT 26.0 Sodium 139 Potassium 4.4 Chloride 109 H Carbon Dioxide 23 Anion Gap 12 BUN 44 H Creatinine 1.0 Est GFR ( Amer) > 60 Est GFR (Non-Af Amer) > 60 Random Glucose 77 D Calcium 8.0 L Total Bilirubin 0.4 AST 113 H D ALT 85 H D Alkaline Phosphatase 269 H D Total Protein 5.1 L Albumin 2.5 L Globulin 2.6 Albumin/Globulin Ratio 1.0 Ur Opiates (GC/MS) Ur Methadone, Qual Urine Propoxyphene Methaqualone Ur Barbiturates, Qual Ur Phencyclidine (PCP) Ur Amphetamines Screen U Benzodiazepines Qual Urine Cocaine U Marijuana (THC) Screen Drugs of Abuse Note Blood Type Antibody Screen Fingerstick Blood Sugar Results: 88 Critical Care Progress Note - Nutrition Nutrition: Nutrition Category Date Time Status NPO Diet [DIET] Diets 09/20/18 Breakfast Active Assessment/Plan - Assessment and Plan (Free Text) Assessment: Hematuria -Urology, Dr. Karen Boo -s/p cystoscopy 09/07 w tur of bladder neck and prostate with evacuation of clots -s/p cystoscopy 09/22 with evacuation of clots -Continue CBI ID Sepsis -ID consulted, Dr. Morel -Initially had code sepsis called --found to have urine and blood + Gram - rods --Pt still with WBC count, improving -rocephin, meropenem -lactate normalized Neuro AMS -suspect 2/2 sepsis -neuro, Dr. Pritchard/Dr. rEwin --Video EEG suggests possible metabolic encephalopathy but no evidence of seizure activity --F/u MRI brain Renal Hyper-k -Resolved -follow daily CMP GI Constipation -Miralax prn -GI ppx - protonix ppx -scds. pharm ac c/i 2/2 hematuria -protonix Assessment and plan d/w Dr. Chad Mark, PGY-1 <Isaías Bonilla S - Last Filed: 09/22/18 15:19> CCU Subjective - Physician Review Critical Care Time Spent (in minutes): 35 CCU Objective - Vital Signs / Intake & Output Vital Signs (Last 4 hours): Vital Signs Temp Pulse Resp BP Pulse Ox 09/22/18 12:41 88 11 L 09/22/18 12:30 97.8 F 09/22/18 12:00 97.8 F 99 09/22/18 11:30 97.8 F 100 H 16 170/71 H 100 Intake and Output (Last 8hrs): Intake & Output 09/22/18 09/22/18 09/22/18 06:59 14:59 22:59 Intake Total 450 2000 Output Total 1600 900 Balance -1150 1100 Weight 114 lb 10.246 oz Intake: IV 850 Intake, IV Amount 450 350 left forearm 450 350 Other 800 Output: Urine 1600 900 3-way Urethral 1600 900 Stool 0 Emesis 0 - Medications Active Medications: Active Medications Generic Name Dose Route Start Last Admin Trade Name Freq PRN Reason Stop Dose Admin Acetaminophen 650 mg 09/19/18 23:57 09/22/18 13:07 Tylenol 325mg Tab PO 650 mg Q6 PRN Administration Fever >100.4 F Bisacodyl 10 mg 09/20/18 13:18 Dulcolax [place] DAILY PRN Constipation Dextrose 0 ml 09/01/18 21:02 Dextrose 50% Inj IV STAT PRN Hypoglycemia Protocol Protocol Dextrose 0 gm 09/01/18 21:02 Glutose 15 PO ONCE PRN Hypoglycemia Protocol Protocol Docusate Sodium 100 mg 09/02/18 10:00 09/22/18 10:13 Colace PO 100 mg BID MAYRA Administration Finasteride 5 mg 09/10/18 10:00 09/22/18 10:13 Proscar PO 5 mg DAILY MAYRA Administration Gabapentin 300 mg 09/02/18 10:00 09/22/18 14:15 Neurontin PO 300 mg TID MAYRA Administration Glucagon 0 mg 09/01/18 21:02 Glucagen Diagnostic Kit IM STAT PRN Hypoglycemia Protocol Protocol Dextrose/Sodium Chloride 1,000 mls @ 50 mls/hr 09/20/18 13:00 09/22/18 04:10 Dextrose 5%/0.9% Ns 1000 Ml IV 50 mls/hr .Q20H MAYRA Administration Cefepime HCl 1 gm in 50 mls @ 100 mls/hr 09/22/18 14:00 09/22/18 14:17 Maxipime Iv 1 Gm Premix IVPB 100 mls/hr Q12H MAYRA Administration Protocol Insulin Glargine 10 unit 09/01/18 22:00 09/21/18 22:00 Lantus SC Not Given HS MAYRA Insulin Human Regular 0 unit 09/21/18 00:00 09/22/18 12:00 Novolin R SC Not Given Q6H [facility] Protocol Polyethylene Glycol 17 gm 09/20/18 08:14 Miralax PO DAILY PRN Constipation Rosuvastatin Calcium 5 mg 09/01/18 22:00 09/21/18 21:50 Crestor PO 5 mg HS MAYRA Administration Sitagliptin Phosphate 50 mg 09/04/18 10:00 09/22/18 10:14 Januvia PO Not Given DAILY MAYRA Tamsulosin HCl 0.4 mg 09/02/18 10:00 09/22/18 10:13 Flomax PO 0.4 mg DAILY MAYRA Administration - Patient Studies Lab Studies: Microbiology Studies 09/20/18 01:21 Blood Culture - Preliminary Blood Gram Negative Alireza Gram Stain - Final 09/20/18 13:47 Urine Culture - Final Urine,Catheterized Pseudomonas Aeruginosa 09/20/18 01:20 Blood Culture - Preliminary Blood NO GROWTH AFTER 48 HOURS 09/20/18 13:47 MRSA Culture - Final Naris MRSA NOT DETECTED 09/20/18 13:47 MRSA Culture (Admit) - Final Nose MRSA NOT DETECTED Lab Studies 09/22/18 09/22/18 09/22/18 Range/Units 05:18 05:18 05:18 WBC 19.3 H (4.8-10.8) K/uL RBC 2.93 L (4.40-5.90) Mil/uL Hgb 8.4 L D (12.0-18.0) g/dL Hct 25.9 L (35.0-51.0) % MCV 88.5 (80.0-94.0) fL MCH 28.8 (27.0-31.0) pg MCHC 32.5 L (33.0-37.0) g/dL RDW 15.1 H (11.5-14.5) % Plt Count 295 (130-400) K/uL MPV 7.5 (7.2-11.7) fL Neut % (Auto) 87.6 H (50.0-75.0) % Lymph % (Auto) 3.7 L (20.0-40.0) % [place] % (Auto) 8.0 (0.0-10.0) % Eos % (Auto) 0.3 (0.0-4.0) % Baso % (Auto) 0.4 (0.0-2.0) % Neut # (Auto) 16.9 H (1.8-7.0) K/uL Lymph # (Auto) 0.7 L (1.0-4.3) K/uL [place] # (Auto) 1.6 H (0.0-0.8) K/uL Eos # (Auto) 0.0 (0.0-0.7) K/uL Baso # (Auto) 0.1 (0.0-0.2) K/uL Neutrophils % (Manual) 75 (50-75) % Band Neutrophils % 13 H* (0-2) % Lymphocytes % (Manual) 5 L (20-40) % Monocytes % (Manual) 5 (0-10) % Metamyelocytes % 2 H (0-0) % Platelet Estimate Normal (NORMAL) Anisocytosis (manual) Slight Ovalocytes Slight PT 11.0 (9.7-12.2) SECONDS INR 1.0 APTT 26.0 (21-34) SECONDS Sodium 139 (132-148) mmol/L Potassium 4.4 (3.6-5.2) mmol/L Chloride 109 H (98-107) mmol/L Carbon Dioxide 23 (22-30) mmol/L Anion Gap 12 (10-20) BUN 44 H (9-20) mg/dL Creatinine 1.0 (0.8-1.5) mg/dL Est GFR ( Amer) > 60 Est GFR (Non-Af Amer) > 60 Random Glucose 77 D (75-110) mg/dL Calcium 8.0 L (8.6-10.4) mg/dl Total Bilirubin 0.4 (0.2-1.3) mg/dL AST 113 H D (17-59) U/L ALT 85 H D (21-72) U/L Alkaline Phosphatase 269 H D (38-126) U/L Total Protein 5.1 L (6.3-8.3) g/dL Albumin 2.5 L (3.5-5.0) g/dL Globulin 2.6 (2.2-3.9) gm/dL Albumin/Globulin Ratio 1.0 (1.0-2.1) Ur Opiates (GC/MS) (Negative) 300 Ur Methadone, Qual (Negative) 300 Urine Propoxyphene (Negative) 300 Methaqualone (Negative) 300 Ur Barbiturates, Qual (Negative) 300 Ur Phencyclidine (PCP) (Negative) 25 Ur Amphetamines Screen (Negative) 1000 U Benzodiazepines Qual (Negative) 300 Urine Cocaine (Negative) 300 U Marijuana (THC) Screen (Negative) 50 Drugs of Abuse Note Blood Type Antibody Screen 09/21/18 09/21/18 09/21/18 Range/Units 16:43 08:49 04:00 WBC (4.8-10.8) K/uL RBC (4.40-5.90) Mil/uL Hgb (12.0-18.0) g/dL Hct (35.0-51.0) % MCV (80.0-94.0) fL MCH (27.0-31.0) pg MCHC (33.0-37.0) g/dL RDW (11.5-14.5) % Plt Count (130-400) K/uL MPV (7.2-11.7) fL Neut % (Auto) (50.0-75.0) % Lymph % (Auto) (20.0-40.0) % [place] % (Auto) (0.0-10.0) % Eos % (Auto) (0.0-4.0) % Baso % (Auto) (0.0-2.0) % Neut # (Auto) (1.8-7.0) K/uL Lymph # (Auto) (1.0-4.3) K/uL [place] # (Auto) (0.0-0.8) K/uL Eos # (Auto) (0.0-0.7) K/uL Baso # (Auto) (0.0-0.2) K/uL Neutrophils % (Manual) (50-75) % Band Neutrophils % (0-2) % Lymphocytes % (Manual) (20-40) % Monocytes % (Manual) (0-10) % Metamyelocytes % (0-0) % Platelet Estimate (NORMAL) Anisocytosis (manual) Ovalocytes PT (9.7-12.2) SECONDS INR APTT (21-34) SECONDS Sodium 139 (132-148) mmol/L Potassium 5.2 (3.6-5.2) mmol/L Chloride 111 H (98-107) mmol/L Carbon Dioxide 22 (22-30) mmol/L Anion Gap 11 (10-20) BUN 46 H (9-20) mg/dL Creatinine 1.1 (0.8-1.5) mg/dL Est GFR ( Amer) > 60 Est GFR (Non-Af Amer) > 60 Random Glucose 156 H D (75-110) mg/dL Calcium 8.1 L (8.6-10.4) mg/dl Total Bilirubin (0.2-1.3) mg/dL AST (17-59) U/L ALT (21-72) U/L Alkaline Phosphatase (38-126) U/L Total Protein (6.3-8.3) g/dL Albumin (3.5-5.0) g/dL Globulin (2.2-3.9) gm/dL Albumin/Globulin Ratio (1.0-2.1) Ur Opiates (GC/MS) Negative (Negative) 300 Ur Methadone, Qual Negative (Negative) 300 Urine Propoxyphene Negative (Negative) 300 Methaqualone Negative (Negative) 300 Ur Barbiturates, Qual Negative (Negative) 300 Ur Phencyclidine (PCP) Negative (Negative) 25 Ur Amphetamines Screen Negative (Negative) 1000 U Benzodiazepines Qual Negative (Negative) 300 Urine Cocaine Negative (Negative) 300 U Marijuana (THC) Screen Negative (Negative) 50 Drugs of Abuse Note See note Blood Type A POSITIVE Antibody Screen Negative Laboratory Results - last 24 hr 09/21/18 09/21/18 09/21/18 04:00 08:49 16:43 WBC RBC Hgb Hct MCV MCH MCHC RDW Plt Count MPV Neut % (Auto) Lymph % (Auto) [place] % (Auto) Eos % (Auto) Baso % (Auto) Neut # (Auto) Lymph # (Auto) [place] # (Auto) Eos # (Auto) Baso # (Auto) Neutrophils % (Manual) Band Neutrophils % Lymphocytes % (Manual) Monocytes % (Manual) Metamyelocytes % Platelet Estimate Anisocytosis (manual) Ovalocytes PT INR APTT Sodium 139 Potassium 5.2 Chloride 111 H Carbon Dioxide 22 Anion Gap 11 BUN 46 H Creatinine 1.1 Est GFR ( Amer) > 60 Est GFR (Non-Af Amer) > 60 Random Glucose 156 H D Calcium 8.1 L Total Bilirubin AST ALT Alkaline Phosphatase Total Protein Albumin Globulin Albumin/Globulin Ratio Ur Opiates (GC/MS) Negative Ur Methadone, Qual Negative Urine Propoxyphene Negative Methaqualone Negative Ur Barbiturates, Qual Negative Ur Phencyclidine (PCP) Negative Ur Amphetamines Screen Negative U Benzodiazepines Qual Negative Urine Cocaine Negative U Marijuana (THC) Screen Negative Drugs of Abuse Note See note Blood Type A POSITIVE Antibody Screen Negative 09/22/18 09/22/18 09/22/18 05:18 05:18 05:18 WBC 19.3 H RBC 2.93 L Hgb 8.4 L D Hct 25.9 L MCV 88.5 MCH 28.8 MCHC 32.5 L RDW 15.1 H Plt Count 295 MPV 7.5 Neut % (Auto) 87.6 H Lymph % (Auto) 3.7 L [place] % (Auto) 8.0 Eos % (Auto) 0.3 Baso % (Auto) 0.4 Neut # (Auto) 16.9 H Lymph # (Auto) 0.7 L [place] # (Auto) 1.6 H Eos # (Auto) 0.0 Baso # (Auto) 0.1 Neutrophils % (Manual) 75 Band Neutrophils % 13 H* Lymphocytes % (Manual) 5 L Monocytes % (Manual) 5 Metamyelocytes % 2 H Platelet Estimate Normal Anisocytosis (manual) Slight Ovalocytes Slight PT 11.0 INR 1.0 APTT 26.0 Sodium 139 Potassium 4.4 Chloride 109 H Carbon Dioxide 23 Anion Gap 12 BUN 44 H Creatinine 1.0 Est GFR ( Amer) > 60 Est GFR (Non-Af Amer) > 60 Random Glucose 77 D Calcium 8.0 L Total Bilirubin 0.4 AST 113 H D ALT 85 H D Alkaline Phosphatase 269 H D Total Protein 5.1 L Albumin 2.5 L Globulin 2.6 Albumin/Globulin Ratio 1.0 Ur Opiates (GC/MS) Ur Methadone, Qual Urine Propoxyphene Methaqualone Ur Barbiturates, Qual Ur Phencyclidine (PCP) Ur Amphetamines Screen U Benzodiazepines Qual Urine Cocaine U Marijuana (THC) Screen Drugs of Abuse Note Blood Type Antibody Screen Radiology Impressions: Radiology Impressions Abdomen X-Ray 09/22/18 09:00 IMPRESSION: The multiple radiolucencies in the mid to proximal junctional segment of the opacified left ureter probably air bubbles-correlate clinically at the time a retrograde assessment recommended. No this obstructing suspect filling defects seen. At this same level in the right ureter there is an incidental kinking. The right upper collecting system is blunted and patulous. Otherwise is the collecting systems are probably within normal limits. The left vertebral 9 mm calcification is extrinsic to the left ureter probably related to ostial thigh ptosis here. Fluoroscopy 09/22/18 09:00 IMPRESSION: Less than 1 hour fluoroscopic time utilized during performance of the procedure Critical Care Progress Note - Nutrition Nutrition: Nutrition Category Date Time Status NPO Diet [DIET] Diets 09/20/18 Breakfast Active Attending/Attestation - Attestation I have personally seen and examined this patient.: Yes I have fully participated in the care of the patient.: Yes I have reviewed all pertinent clinical information: Yes Notes (Text): 09/22/18 15:18 Patient seen and examined in the intensive care unit. Case discussed with housestaff in the morning rounds. Status post cystoscopy with evacuation of clots Continue IV antibiotics Continuous bladder irrigation Follow-up CBC and transfuse if necessary
--- NOTE | 2018-09-22 11:09 | RAD ---
PROCEDURE: HISTORY: As above COMPARISON: None TECHNIQUE: Total fluoroscopic time utilized during the procedure: 10.3 seconds ; 0.65163 mGy cm 2 FINDINGS: Submitted images from the current procedure: 7 Please refer to the physician's notes performing the procedure. IMPRESSION: Less than 1 hour fluoroscopic time utilized during performance of the procedure
--- NOTE | 2018-09-22 11:14 | RAD ---
Date of service: 09/22/2018 HISTORY: HEMATURIA COMPARISON: 09/04/2018 TECHNIQUE: 1 view obtained. FINDINGS: BOWEL: Moderate stool retention . BONES: Mild lumbar marginal osteophytosis. Bilateral L4-5 and L5-S1 facet hypertrophic arthrosis. Bilateral hip osteoarthrosis. OTHER FINDINGS: Multiple radiolucencies at least 6 or 7 are seen within the mid to proximal left 1/3 ureteral junction on this contrast the laden post a retrograde study. The right superior major calyx is blunted and patulous. Minimal asymmetrical prominence of the proximal right ureter noted. There is kinking of the mid right ureter 82 x 9 mm calcifications/ossification projects left lateral to the L4-5 vertebral body level is also right lateral to the left mid opacified ureter is not within the left ureter. There is minimal fullness to the left distal 1/5 ureter. No proximal dilatation to suggest high-grade obstruction suggested. Bilateral hemipelvic vascular calcifications noted. IMPRESSION: The multiple radiolucencies in the mid to proximal junctional segment of the opacified left ureter probably air bubbles-correlate clinically at the time a retrograde assessment recommended. No this obstructing suspect filling defects seen. At this same level in the right ureter there is an incidental kinking. The right upper collecting system is blunted and patulous. Otherwise is the collecting systems are probably within normal limits. The left vertebral 9 mm calcification is extrinsic to the left ureter probably related to ostial thigh ptosis here.
--- NOTE | 2018-09-22 13:13 | CP.PCM.PN ---
Subjective - Date & Time of Evaluation Date of Evaluation: 09/22/18 Time of Evaluation: 07:00 - Subjective Subjective: urine + pseudomonas rocep[hin d/c'd start Cefepime d/c merrem Objective - Vital Signs/Intake and Output Vital Signs (last 24 hours): Temp Pulse Resp BP Pulse Ox 97.8 F 88 11 L 170/71 H 99 09/22/18 12:30 09/22/18 12:41 09/22/18 12:41 09/22/18 11:30 09/22/18 12:00 Intake and Output: 09/22/18 09/22/18 06:59 18:59 Intake Total 2375 2000 Output Total 3710 900 Balance -1335 1100 - Medications Medications: Current Medications Acetaminophen (Tylenol 325mg Tab) 650 mg PO Q6 PRN PRN Reason: Fever >100.4 F Last Admin: 09/22/18 13:07 Dose: 650 mg Bisacodyl (Dulcolax) 10 mg [place] DAILY PRN PRN Reason: Constipation Dextrose (Dextrose 50% Inj) 0 ml IV STAT PRN; Protocol PRN Reason: Hypoglycemia Protocol Dextrose (Glutose 15) 0 gm PO ONCE PRN; Protocol PRN Reason: Hypoglycemia Protocol Docusate Sodium (Colace) 100 mg PO BID [facility] Last Admin: 09/22/18 10:13 Dose: 100 mg Finasteride (Proscar) 5 mg PO DAILY [facility] Last Admin: 09/22/18 10:13 Dose: 5 mg Gabapentin (Neurontin) 300 mg PO TID [facility] Last Admin: 09/22/18 10:14 Dose: 300 mg Glucagon (Glucagen Diagnostic Kit) 0 mg IM STAT PRN; Protocol PRN Reason: Hypoglycemia Protocol Dextrose/Sodium Chloride (Dextrose 5%/0.9% Ns 1000 Ml) 1,000 mls @ 50 mls/hr IV .Q20H [facility] Last Admin: 09/22/18 04:10 Dose: 50 mls/hr Cefepime HCl (Maxipime Iv 1 Gm Premix) 1 gm in 50 mls @ 100 mls/hr IVPB Q12H [facility]; Protocol Insulin Glargine (Lantus) 10 unit SC HS [facility] Last Admin: 09/21/18 22:00 Dose: Not Given Insulin Human Regular (Novolin R) 0 unit SC Q6H [facility]; Protocol Last Admin: 09/22/18 00:23 Dose: 10 units Lidocaine HCl (Xylocaine 2%) 0 ea TOP Q12H PRN Last Admin: 09/10/18 14:43 Dose: 1 applic Polyethylene Glycol (Miralax) 17 gm PO DAILY PRN PRN Reason: Constipation Rosuvastatin Calcium (Crestor) 5 mg PO HS [facility] Last Admin: 09/21/18 21:50 Dose: 5 mg Sitagliptin Phosphate (Januvia) 50 mg PO DAILY [facility] Last Admin: 09/22/18 10:14 Dose: Not Given Tamsulosin HCl (Flomax) 0.4 mg PO DAILY [facility] Last Admin: 09/22/18 10:13 Dose: 0.4 mg - Labs Labs: 09/22/18 05:18 09/22/18 05:18 PT 11.0 SECONDS (9.7-12.2) 09/22/18 05:18 INR 1.0 09/22/18 05:18 APTT 26.0 SECONDS (21-34) 09/22/18 05:18 - Constitutional Appears: No Acute Distress - Head Exam Head Exam: NORMOCEPHALIC - Eye Exam Eye Exam: EOMI, Normal appearance, PERRL Pupil Exam: NORMAL ACCOMODATION, PERRL - ENT Exam ENT Exam: Mucous Membranes Moist, Normal Exam - Neck Exam Neck Exam: Full ROM, Normal Inspection. absent: Lymphadenopathy - Respiratory Exam Respiratory Exam: Decreased Breath Sounds, Prolonged Expiratory Phase - Cardiovascular Exam Cardiovascular Exam: REGULAR RHYTHM, +S1, +S2. absent: Murmur - GI/Abdominal Exam GI & Abdominal Exam: Soft, Normal Bowel Sounds. absent: Tenderness - Rectal Exam Rectal Exam: Deferred - Extremities Exam Extremities Exam: Full ROM, Normal Capillary Refill, Normal Inspection. absent: Joint Swelling, Pedal Edema - Back Exam Back Exam: NORMAL INSPECTION - Neurological Exam Neurological Exam: Alert, Awake, CN II-XII Intact, Normal Gait, Oriented x3 - Psychiatric Exam Psychiatric exam: Normal Affect, Normal Mood - Skin Skin Exam: Dry, Intact, Normal Color, Warm Assessment and Plan (1) Hematuria Status: Chronic (2) UTI (urinary tract infection) Status: Acute (3) Uncontrolled diabetes mellitus Status: Acute - Assessment and Plan (Free Text) Assessment: cont rx urosepsis s/p Cysto prognosis guarded
[2018-09-22] MEDS: Cefepime IV 1 gm in Dextrose 1 GM/50 ML BAG IVPB SCH (14:17)
--- NOTE | 2018-09-22 15:10 | CP.PCM.PN ---
Subjective - Date & Time of Evaluation Date of Evaluation: 09/22/18 Time of Evaluation: 15:05 - Subjective Subjective: Neuro Follow-Up Notes: Mr. Samuel was evaluated this afternoon in the ICU. No family present at this time. Pt is status post cysto this morning with Dr. Wellington and currently has CBI connected. He is awake and alert; he is more talkative today compared to yesterday and his affect seems appropriate. He complains of penile pain and otherwise denies h/a, dizziness, visual changes, chest pain, palpitations, sob, cough, abd pain, n/v/d, paresthesias, weakness. Objective - Vital Signs/Intake and Output Vital Signs (last 24 hours): Temp Pulse Resp BP Pulse Ox 97.8 F 88 11 L 170/71 H 99 09/22/18 12:30 09/22/18 12:41 09/22/18 12:41 09/22/18 11:30 09/22/18 12:00 Intake and Output: 09/22/18 09/22/18 06:59 18:59 Intake Total 2375 2000 Output Total 3710 900 Balance -1335 1100 - Medications Medications: Current Medications Acetaminophen (Tylenol 325mg Tab) 650 mg PO Q6 PRN PRN Reason: Fever >100.4 F Last Admin: 09/22/18 13:07 Dose: 650 mg Bisacodyl (Dulcolax) 10 mg [place] DAILY PRN PRN Reason: Constipation Dextrose (Dextrose 50% Inj) 0 ml IV STAT PRN; Protocol PRN Reason: Hypoglycemia Protocol Dextrose (Glutose 15) 0 gm PO ONCE PRN; Protocol PRN Reason: Hypoglycemia Protocol Docusate Sodium (Colace) 100 mg PO BID [facility] Last Admin: 09/22/18 10:13 Dose: 100 mg Finasteride (Proscar) 5 mg PO DAILY [facility] Last Admin: 09/22/18 10:13 Dose: 5 mg Gabapentin (Neurontin) 300 mg PO TID [facility] Last Admin: 09/22/18 14:15 Dose: 300 mg Glucagon (Glucagen Diagnostic Kit) 0 mg IM STAT PRN; Protocol PRN Reason: Hypoglycemia Protocol Dextrose/Sodium Chloride (Dextrose 5%/0.9% Ns 1000 Ml) 1,000 mls @ 50 mls/hr IV .Q20H [facility] Last Admin: 09/22/18 04:10 Dose: 50 mls/hr Cefepime HCl (Maxipime Iv 1 Gm Premix) 1 gm in 50 mls @ 100 mls/hr IVPB Q12H [facility]; Protocol Last Admin: 09/22/18 14:17 Dose: 100 mls/hr Insulin Glargine (Lantus) 10 unit SC HS [facility] Last Admin: 09/21/18 22:00 Dose: Not Given Insulin Human Regular (Novolin R) 0 unit SC Q6H [facility]; Protocol Last Admin: 09/22/18 12:00 Dose: Not Given Polyethylene Glycol (Miralax) 17 gm PO DAILY PRN PRN Reason: Constipation Rosuvastatin Calcium (Crestor) 5 mg PO HS [facility] Last Admin: 09/21/18 21:50 Dose: 5 mg Sitagliptin Phosphate (Januvia) 50 mg PO DAILY [facility] Last Admin: 09/22/18 10:14 Dose: Not Given Tamsulosin HCl (Flomax) 0.4 mg PO DAILY [facility] Last Admin: 09/22/18 10:13 Dose: 0.4 mg - Labs Labs: 09/22/18 05:18 09/22/18 05:18 PT 11.0 SECONDS (9.7-12.2) 09/22/18 05:18 INR 1.0 09/22/18 05:18 APTT 26.0 SECONDS (21-34) 09/22/18 05:18 - Constitutional Appears: Non-toxic - Head Exam Head Exam: ATRAUMATIC, NORMAL INSPECTION, NORMOCEPHALIC - Eye Exam Eye Exam: EOMI, Normal appearance, PERRL Pupil Exam: NORMAL ACCOMODATION, PERRL - ENT Exam ENT Exam: Mucous Membranes Moist - Neck Exam Neck Exam: Full ROM, Normal Inspection - Respiratory Exam Respiratory Exam: NORMAL BREATHING PATTERN - Exam Additional comments: CBI ongoing, urine appears clear - Extremities Exam Extremities Exam: Full ROM. absent: Calf Tenderness, Pedal Edema Additional comments: Still has some generalized weakness to BLE - Neurological Exam Neurological Exam: Alert, Awake, CN II-XII Intact, Oriented x3, Reflexes Normal Neuro motor strength exam: Left Upper Extremity: 5, Right Upper Extremity: 5, Left Lower Extremity: 4, Right Lower Extremity: 4 Additional comments: Awake, alert, doesn't appear confused today, affect appropriate. Able to follow commands. Speech clear, fluid. No facial asymmetry Able to move all extremities; no focal motor deficits; generalized weakness noted to BLE. No sensory deficits. No tremors or abnormal movements. - Psychiatric Exam Psychiatric exam: Normal Affect, Normal Mood - Skin Skin Exam: Pallor Assessment and Plan (1) Toxic metabolic encephalopathy Assessment & Plan: Imaging reviewed: -EEG (Start Date: 09/20/18 Start Time: 19:50 End Date: 09/21/18 End Time: 08:30): This is an abnormal video-EEG monitoring study due to the presence of 1) Mild diffuse slowing, 2) Occasional periodic sharp waves with triphasic morphology. No seizures, not in status epilepticus. INTERPRETATION: These findings are consistent with a mild to moderate diffuse disturbance of cortical activity. These findings are non specific, however they are usually seen in toxic metabolic encepahlopahties, [employer] degenerative conditions, like dementias, among others. -CT Head (09/20/18): No intracranial mass, hemorrhage or evidence of acute infarct. Mild chronic white matter ischemic change -MRI brain without contrast ordered to r/o acute stroke and other intracranial abnormalities, still needs to be done--will f/u once completed. -Continue current treatment and management of underlying medical concerns ( issues, anemia, sepsis). -Continue supportive care. -Notify neuro team of any acute changes in condition. Maira Mckeon DNP, DOCUMENT EXAMINER d/w Dr. Erwin Status: Acute
[2018-09-22] MEDS ORDERED: (Novolin R) Insulin Human Regular 100 units/ml vial SC ONE (21:19)
[2018-09-22] MEDS: (Lantus) Insulin Glargine, Recombinant SC SCH (21:34)
[2018-09-23] MEDS: Cefepime IV 1 gm in Dextrose 1 GM/50 ML BAG IVPB SCH ×2 (01:27→14:28)
[2018-09-23 05:47] LABS: BASO # 0.1 K/uL (0.0-0.2); BASO % 0.9 % (0.0-2.0); EOS # 0.1 K/uL (0.0-0.7); HEMOGLOBIN 7.5 g/dL (12.0-18.0); LYMPH # 0.4 K/uL (1.0-4.3); LYMPH % 3.5 % (20.0-40.0); MEAN CORPUSCULAR HEMOGLOBIN 30.6 pg (27.0-31.0); MEAN CORPUSCULAR HGB CONC 34.3 g/dL (33.0-37.0); MEAN PLATELET VOLUME 7.5 fL (7.2-11.7); MONO # 1.1 K/uL (0.0-0.8); MONO % 9.1 % (0.0-10.0); NEUT # 10.4 K/uL (1.8-7.0); NEUT % 85.5 % (50.0-75.0); NRBC % 0.1 % (0.0-2.0); PLATELET COUNT 319 K/uL (130-400); RBC 2.47 Mil/uL (4.40-5.90); RED CELL DISTRIBUTION WIDTH 14.7 % (11.5-14.5); WHITE BLOOD COUNT 12.2 K/uL (4.8-10.8)
[2018-09-23] MEDS: Dextrose 5%/0.9% NS 1,000 ML IV SCH (06:12)
[2018-09-23 06:49] LABS: BLOOD UREA NITROGEN 30 mg/dL (9-20); CALCIUM 7.6 mg/dl (8.6-10.4); GFR NON-AFRICAN AMERICAN > 60
[2018-09-23] MEDS: (Novolin R) Insulin Human Regular 100 units/ml vial SC SCH ×4 (08:04→21:10)
[2018-09-23 08:29] LABS: BANDS 4 % (0-2); LYMPHOCYTE 4 % (20-40); MYELOCYTE 4 % (0-0); NEUTROPHIL 79 % (50-75); REACTIVE LYMPHOCYTES 1 % (0-0); TOTAL CELLS COUNTED 100
[2018-09-23 08:30] LABS: ANISOCYTOSIS SLIGHT; HYPOCHROMIC SLIGHT; MONOCYTE 8 % (0-10); PLATELET ESTIMATE NORMAL (NORMAL); POIKILOCYTOSIS SLIGHT; TARGET CELLS SLIGHT
--- NOTE | 2018-09-23 12:02 | CP.PCM.PN ---
Subjective - Date & Time of Evaluation Date of Evaluation: 09/23/18 Time of Evaluation: 11:56 - Subjective Subjective: Medicine Progress Note for Dr. Durán's service S/E at bedside Downgraded from ICU s/p cystoscopy on 09/22; no hematuria in collecting bag w/ CBI Reports pain in genital area s/p cytoscopy Denies fevers, chills, chest pain, sob, n/v, constipation or diarrhea, and dysuria Objective - Vital Signs/Intake and Output Vital Signs (last 24 hours): Temp Pulse Resp BP Pulse Ox 98.5 F 91 H 14 154/71 H 99 09/23/18 11:08 09/23/18 11:09 09/23/18 11:09 09/23/18 11:09 09/23/18 11:09 Intake and Output: 09/23/18 09/23/18 06:59 18:59 Intake Total 745 810 Output Total 1400 0 Balance -655 810 - Medications Medications: Current Medications Acetaminophen (Tylenol 325mg Tab) 650 mg PO Q6 PRN PRN Reason: Fever >100.4 F Last Admin: 09/22/18 13:07 Dose: 650 mg Bisacodyl (Dulcolax) 10 mg [place] DAILY PRN PRN Reason: Constipation Dextrose (Dextrose 50% Inj) 0 ml IV STAT PRN; Protocol PRN Reason: Hypoglycemia Protocol Dextrose (Glutose 15) 0 gm PO ONCE PRN; Protocol PRN Reason: Hypoglycemia Protocol Docusate Sodium (Colace) 100 mg PO BID [facility] Last Admin: 09/23/18 09:43 Dose: 100 mg Finasteride (Proscar) 5 mg PO DAILY [facility] Last Admin: 09/23/18 09:43 Dose: 5 mg Gabapentin (Neurontin) 300 mg PO TID [facility] Last Admin: 09/23/18 09:43 Dose: 300 mg Glucagon (Glucagen Diagnostic Kit) 0 mg IM STAT PRN; Protocol PRN Reason: Hypoglycemia Protocol Dextrose/Sodium Chloride (Dextrose 5%/0.9% Ns 1000 Ml) 1,000 mls @ 50 mls/hr IV .Q20H [facility] Last Admin: 09/23/18 06:12 Dose: 50 mls/hr Cefepime HCl (Maxipime Iv 1 Gm Premix) 1 gm in 50 mls @ 100 mls/hr IVPB Q12H [facility]; Protocol Last Admin: 09/23/18 01:27 Dose: 100 mls/hr Insulin Glargine (Lantus) 10 unit SC [facility] Last Admin: 09/22/18 21:34 Dose: 10 units Insulin Human Regular (Novolin R) 0 unit SC ACHS [facility]; Protocol Last Admin: 09/23/18 08:04 Dose: 6 u Polyethylene Glycol (Miralax) 17 gm PO DAILY PRN PRN Reason: Constipation Last Admin: 09/23/18 09:42 Dose: 17 gm Rosuvastatin Calcium (Crestor) 5 mg PO HS [facility] Last Admin: 09/22/18 21:35 Dose: 5 mg Sitagliptin Phosphate (Januvia) 50 mg PO DAILY [facility] Last Admin: 09/23/18 09:43 Dose: 50 mg Tamsulosin HCl (Flomax) 0.4 mg PO DAILY [facility] Last Admin: 09/23/18 09:43 Dose: 0.4 mg - Labs Labs: 09/23/18 05:41 09/23/18 05:41 PT 11.0 SECONDS (9.7-12.2) 09/22/18 05:18 INR 1.0 09/22/18 05:18 APTT 26.0 SECONDS (21-34) 09/22/18 05:18 - Constitutional Appears: Non-toxic, No Acute Distress - Head Exam Head Exam: NORMAL INSPECTION, NORMOCEPHALIC - Eye Exam Eye Exam: EOMI, Normal appearance. absent: Nystagmus, Scleral icterus - ENT Exam ENT Exam: Mucous Membranes Moist - Respiratory Exam Respiratory Exam: Clear to Ausculation Bilateral, NORMAL BREATHING PATTERN - Cardiovascular Exam Cardiovascular Exam: REGULAR RHYTHM, +S1, +S2. absent: Tachycardia - GI/Abdominal Exam GI & Abdominal Exam: Soft, Normal Bowel Sounds. absent: Distended, Firm, Guarding, Rigid, Tenderness - Extremities Exam Extremities Exam: Normal Inspection - Neurological Exam Neurological Exam: Alert, Awake, Oriented x3 - Psychiatric Exam Psychiatric exam: Normal Affect, Normal Mood - Skin Skin Exam: Dry, Intact, Normal Color Assessment and Plan - Assessment and Plan (Free Text) Assessment: 73yo M PMH DM, HTN, arthritis, CAD, prostate cancer, admitted for anemia and heather hematuria; now s/p cystoscopy on 09/04, was still having heather hematuria. 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 Wellington- cytoscopy x 2 please refer to reports Hematuria resolving; patient receiving blood transfusion as per ICU and then will be downgraded will repeat cbc in AM Transfuse as needed but seems like hematuria has resolved s/p most recent cytoscopy Consider hydromorphone PRN for pain control in acute setting of cytoscopy Delirium (resolved) likely 2/2 to UTI ucx positive for P.A IV cefepime 1gm ivpb q12h ID consulted: Dr. Rodriguez- IV abx as per ID Neurology consulted: Dr. Pritchard- recommends MRI Weakness in upper and lower extremities likely 2/2 hyperkalemia upper extremity weakness resolved continued weakness appreciated in lower extremites will consider PT in AM Diabetes Mellitus 2, uncontrolled with neuropathy Glargine 10 units sc HS Januvia 50mg po daily Gabapnetin 300mg po tid Insulin sliding scale regular Hx of Prostate Cancer Finasteride 5mg po daily Tamsulosin 0.4mg po daily Constipation Colace 100mg po bid Dulcolax 10mg [place] daily prn PGY-1 Phyllis Herrera Case d/w Dr. Durán GI ppx: Florastor 250mg po bid DVT ppx: chemical AC contrindciated, SCDs
--- NOTE | 2018-09-23 17:44 | MRI ---
Date of service: 09/23/2018 PROCEDURE: MRI BRAIN WITHOUT CONTRAST HISTORY: Code Stroke COMPARISON: CT head without contrast from 09/20/2018 TECHNIQUE: Multiplanar, multisequence MR images of the brain were obtained without intravenous contrast enhancement. FINDINGS: HEMORRHAGE: None DWI: No evidence of an acute or early subacute infarction. BRAIN PARENCHYMA: There are moderate chronic microangiopathic changes. There is no mass, mass effect or abnormal extra-axial fluid collection. There is no territorial infarction. The midline sagittal structures are normal. VENTRICLES: There is mild age-related global parenchymal volume loss and proportionate enlargement of the ventricles and cortical sulci. CRANIUM: There is normal bone marrow signal pattern. ORBITS: Grossly unremarkable. PARANASAL SINUSES/MASTOIDS: Predominantly clear. VASCULAR SYSTEM: There are normal signal voids in the larger intracranial arteries. OTHER FINDINGS: None . IMPRESSION: No acute intracranial abnormality. Specifically, no evidence for acute infarction. Moderate chronic microangiopathic changes and mild age-related global parenchymal volume loss.
[2018-09-23] MEDS: Saccharomyces Boulardi 250 mg Cap PO SCH (18:07)
[2018-09-23 19:06] VITALS: RESP 20
[2018-09-23] MEDS: (Lantus) Insulin Glargine, Recombinant SC SCH (21:36)
--- NOTE | 2018-09-23 22:46 | CP.PCM.PN ---
Subjective - Date & Time of Evaluation Date of Evaluation: 09/23/18 Time of Evaluation: 07:00 - Subjective Subjective: feels better afebrile NAD Objective - Vital Signs/Intake and Output Vital Signs (last 24 hours): Temp Pulse Resp BP Pulse Ox 98.7 F 76 20 144/75 99 09/23/18 19:04 09/23/18 21:09 09/23/18 19:04 09/23/18 21:09 09/23/18 19:04 Intake and Output: 09/23/18 09/24/18 18:59 06:59 Intake Total 2225 Output Total 1200 Balance 1025 - Medications Medications: Current Medications Acetaminophen (Tylenol 325mg Tab) 650 mg PO Q6 PRN PRN Reason: Fever >100.4 F Last Admin: 09/23/18 21:07 Dose: 650 mg Bisacodyl (Dulcolax) 10 mg [place] DAILY PRN PRN Reason: Constipation Dextrose (Dextrose 50% Inj) 0 ml IV STAT PRN; Protocol PRN Reason: Hypoglycemia Protocol Dextrose (Glutose 15) 0 gm PO ONCE PRN; Protocol PRN Reason: Hypoglycemia Protocol Docusate Sodium (Colace) 100 mg PO BID [facility] Last Admin: 09/23/18 18:27 Dose: 100 mg Finasteride (Proscar) 5 mg PO DAILY [facility] Last Admin: 09/23/18 09:43 Dose: 5 mg Gabapentin (Neurontin) 300 mg PO TID [facility] Last Admin: 09/23/18 17:22 Dose: 300 mg Glucagon (Glucagen Diagnostic Kit) 0 mg IM STAT PRN; Protocol PRN Reason: Hypoglycemia Protocol Cefepime HCl (Maxipime Iv 1 Gm Premix) 1 gm in 50 mls @ 100 mls/hr IVPB Q12H [facility]; Protocol Last Admin: 09/23/18 14:28 Dose: 100 mls/hr Insulin Glargine (Lantus) 10 unit SC HS [facility] Last Admin: 09/23/18 21:36 Dose: 10 units Insulin Human Regular (Novolin R) 0 unit SC [facility]; Protocol Last Admin: 09/23/18 21:10 Dose: Not Given Polyethylene Glycol (Miralax) 17 gm PO DAILY PRN PRN Reason: Constipation Last Admin: 09/23/18 09:42 Dose: 17 gm Rosuvastatin Calcium (Crestor) 5 mg PO [facility] Last Admin: 09/23/18 21:07 Dose: 5 mg Saccharomyces Boulardii (Florastor) 250 mg PO BID [facility] Last Admin: 09/23/18 18:07 Dose: 250 mg Sitagliptin Phosphate (Januvia) 50 mg PO DAILY [facility] Last Admin: 09/23/18 09:43 Dose: 50 mg Tamsulosin HCl (Flomax) 0.4 mg PO DAILY [facility] Last Admin: 09/23/18 09:43 Dose: 0.4 mg - Labs Labs: 09/23/18 05:41 09/23/18 05:41 PT 11.0 SECONDS (9.7-12.2) 09/22/18 05:18 INR 1.0 09/22/18 05:18 APTT 26.0 SECONDS (21-34) 09/22/18 05:18 - Constitutional Appears: Non-toxic, Chronically Ill - Head Exam Head Exam: ATRAUMATIC, NORMAL INSPECTION, NORMOCEPHALIC - Eye Exam Eye Exam: EOMI, Normal appearance, PERRL Pupil Exam: NORMAL ACCOMODATION, PERRL - ENT Exam ENT Exam: Mucous Membranes Moist, Normal Exam - Neck Exam Neck Exam: Full ROM, Normal Inspection. absent: Lymphadenopathy - Respiratory Exam Respiratory Exam: Clear to Ausculation Bilateral, NORMAL BREATHING PATTERN - Cardiovascular Exam Cardiovascular Exam: REGULAR RHYTHM, +S1, +S2. absent: Murmur - GI/Abdominal Exam GI & Abdominal Exam: Soft, Normal Bowel Sounds. absent: Tenderness - Rectal Exam Rectal Exam: Deferred - Exam Exam: NORMAL INSPECTION - Extremities Exam Extremities Exam: Full ROM, Normal Capillary Refill, Normal Inspection. absent: Joint Swelling, Pedal Edema - Back Exam Back Exam: NORMAL INSPECTION - Neurological Exam Neurological Exam: Alert, Awake, CN II-XII Intact, Normal Gait, Oriented x3 - Psychiatric Exam Psychiatric exam: Normal Affect, Normal Mood - Skin Skin Exam: Dry, Intact, Normal Color, Warm Assessment and Plan (1) Hematuria Status: Chronic (2) UTI (urinary tract infection) Status: Acute (3) Uncontrolled diabetes mellitus Status: Acute - Assessment and Plan (Free Text) Assessment: urosepsis s/p code sepsis cont IV rx for 14 days for pseudomonas ( complicated UTI ) resistant to Cipro No PO alternative
--- NOTE | 2018-09-23 23:06 | PCM.URO ---
Urology Progress Note - General General: Tolerating Diet - Subjective Abdominal Pain: No Flank Pain: No Nausea: No Vomiting: No Hematuria: No Dsypnea: No Chest Pain: No Fever & Chills: No - Objective Lab Studies: Reviewed Lab Results Last 24 Hours: Laboratory Results - last 24 hr 09/20/18 09/21/18 09/21/18 18:04 00:21 04:00 WBC RBC Hgb Hct MCV MCH MCHC RDW Plt Count MPV Neut % (Auto) Lymph % (Auto) [place] % (Auto) Eos % (Auto) Baso % (Auto) Neut # (Auto) Lymph # (Auto) [place] # (Auto) Eos # (Auto) Baso # (Auto) Neutrophils % (Manual) Band Neutrophils % Lymphocytes % (Manual) Reactive Lymphs % Monocytes % (Manual) Myelocytes % Platelet Estimate Hypochromasia (manual) Poikilocytosis (manual Anisocytosis (manual) Target Cells Sodium Potassium Chloride Carbon Dioxide Anion Gap BUN Creatinine Est GFR ( Amer) Est GFR (Non-Af Amer) POC Glucose (mg/dL) 258 H 255 H Random Glucose Calcium Blood Type A POSITIVE Antibody Screen Negative 09/21/18 09/21/18 09/21/18 05:36 11:33 18:07 WBC RBC Hgb Hct MCV MCH MCHC RDW Plt Count MPV Neut % (Auto) Lymph % (Auto) [place] % (Auto) Eos % (Auto) Baso % (Auto) Neut # (Auto) Lymph # (Auto) [place] # (Auto) Eos # (Auto) Baso # (Auto) Neutrophils % (Manual) Band Neutrophils % Lymphocytes % (Manual) Reactive Lymphs % Monocytes % (Manual) Myelocytes % Platelet Estimate Hypochromasia (manual) Poikilocytosis (manual Anisocytosis (manual) Target Cells Sodium Potassium Chloride Carbon Dioxide Anion Gap BUN Creatinine Est GFR ( Amer) Est GFR (Non-Af Amer) POC Glucose (mg/dL) 298 H 293 H 184 H Random Glucose Calcium Blood Type Antibody Screen 09/21/18 09/22/18 09/22/18 23:35 05:14 11:34 WBC RBC Hgb Hct MCV MCH MCHC RDW Plt Count MPV Neut % (Auto) Lymph % (Auto) [place] % (Auto) Eos % (Auto) Baso % (Auto) Neut # (Auto) Lymph # (Auto) [place] # (Auto) Eos # (Auto) Baso # (Auto) Neutrophils % (Manual) Band Neutrophils % Lymphocytes % (Manual) Reactive Lymphs % Monocytes % (Manual) Myelocytes % Platelet Estimate Hypochromasia (manual) Poikilocytosis (manual Anisocytosis (manual) Target Cells Sodium Potassium Chloride Carbon Dioxide Anion Gap BUN Creatinine Est GFR ( Amer) Est GFR (Non-Af Amer) POC Glucose (mg/dL) 365 H 88 143 H Random Glucose Calcium Blood Type Antibody Screen 09/22/18 09/22/18 09/23/18 17:58 21:12 05:33 WBC RBC Hgb Hct MCV MCH MCHC RDW Plt Count MPV Neut % (Auto) Lymph % (Auto) [place] % (Auto) Eos % (Auto) Baso % (Auto) Neut # (Auto) Lymph # (Auto) [place] # (Auto) Eos # (Auto) Baso # (Auto) Neutrophils % (Manual) Band Neutrophils % Lymphocytes % (Manual) Reactive Lymphs % Monocytes % (Manual) Myelocytes % Platelet Estimate Hypochromasia (manual) Poikilocytosis (manual Anisocytosis (manual) Target Cells Sodium Potassium Chloride Carbon Dioxide Anion Gap BUN Creatinine Est GFR ( Amer) Est GFR (Non-Af Amer) POC Glucose (mg/dL) 285 H 457 H* 158 H Random Glucose Calcium Blood Type Antibody Screen 09/23/18 09/23/18 09/23/18 05:41 05:41 20:57 WBC 12.2 H RBC 2.47 L Hgb 7.5 L Hct 22.0 L MCV 89.0 MCH 30.6 MCHC 34.3 RDW 14.7 H Plt Count 319 MPV 7.5 Neut % (Auto) 85.5 H Lymph % (Auto) 3.5 L [place] % (Auto) 9.1 Eos % (Auto) 1.0 Baso % (Auto) 0.9 Neut # (Auto) 10.4 H Lymph # (Auto) 0.4 L [place] # (Auto) 1.1 H Eos # (Auto) 0.1 Baso # (Auto) 0.1 Neutrophils % (Manual) 79 H Band Neutrophils % 4 H Lymphocytes % (Manual) 4 L Reactive Lymphs % 1 H Monocytes % (Manual) 8 Myelocytes % 4 H Platelet Estimate Normal Hypochromasia (manual) Slight Poikilocytosis (manual Slight Anisocytosis (manual) Slight Target Cells Slight Sodium 137 Potassium 4.6 Chloride 109 H Carbon Dioxide 22 Anion Gap 10 BUN 30 H Creatinine 0.9 Est GFR ( Amer) > 60 Est GFR (Non-Af Amer) > 60 POC Glucose (mg/dL) 238 H Random Glucose 124 H D Calcium 7.6 L Blood Type Antibody Screen Intake & Output: Intake & Output 09/23/18 09/23/18 09/24/18 06:59 18:59 06:59 Intake Total 745 2225 Output Total 1400 1200 Balance -655 1025 Weight 115 lb 1.301 oz Intake: Intake, IV Amount 625 250 left forearm 100 left hand 525 250 Oral 120 1280 Blood Product 645 Red Blood Cells Cpd As1 325 Lr Unit [id number] Other 50 Red Blood Cells Cpd As1 50 Lr Unit [id number] Output: Urine 1400 1200 3-way Urethral 1400 1200 Stool 0 Emesis 0 0 Other: # Bowel Movements 0 Vital Signs: Vital Signs - 24 hr 09/22/18 09/22/18 09/23/18 23:16 23:46 00:00 Temperature 98.7 F Pulse Rate 96 H 88 89 Respiratory 15 13 13 Rate Blood Pressure 146/62 144/63 O2 Sat by Pulse 100 100 100 Oximetry 09/23/18 09/23/18 09/23/18 00:17 00:46 01:00 Temperature Pulse Rate 91 H 97 H 88 Respiratory 11 L 12 13 Rate Blood Pressure 152/64 H 144/65 O2 Sat by Pulse 99 99 99 Oximetry 09/23/18 09/23/18 09/23/18 01:16 01:47 02:00 Temperature Pulse Rate 94 H 90 85 Respiratory 14 14 14 Rate Blood Pressure 148/61 150/69 O2 Sat by Pulse 98 100 100 Oximetry 09/23/18 09/23/18 09/23/18 02:16 02:47 03:00 Temperature Pulse Rate 79 89 Respiratory 12 13 Rate Blood Pressure 131/57 L 141/62 O2 Sat by Pulse 100 98 Oximetry 09/23/18 09/23/18 09/23/18 03:17 03:47 04:00 Temperature Pulse Rate 89 80 81 Respiratory 13 11 L 12 Rate Blood Pressure 149/62 158/61 H O2 Sat by Pulse 98 98 98 Oximetry 0509/23/18 09/23/18 04:17 04:47 05:00 Temperature Pulse Rate 99 H 81 87 Respiratory 12 12 13 Rate Blood Pressure 159/84 H 143/62 O2 Sat by Pulse 100 97 96 Oximetry 09/23/18 09/23/18 09/23/18 05:16 05:46 06:00 Temperature Pulse Rate 99 H 87 97 H Respiratory 15 17 16 Rate Blood Pressure 146/66 131/76 O2 Sat by Pulse 100 100 100 Oximetry 09/23/18 09/23/18 09/23/18 06:46 07:00 07:16 Temperature Pulse Rate 99 H 89 96 H Respiratory 13 11 L 13 Rate Blood Pressure 151/66 H 152/71 H O2 Sat by Pulse 99 100 100 Oximetry 09/23/18 09/23/18 09/23/18 08:00 08:17 09:00 Temperature 98.5 F Pulse Rate 80 104 H 85 Respiratory 13 17 13 Rate Blood Pressure 168/83 H O2 Sat by Pulse 99 Oximetry 09/23/18 09/23/18 09/23/18 09:15 09:16 09:30 Temperature Pulse Rate 86 82 97 H Respiratory 15 13 14 Rate Blood Pressure 139/62 O2 Sat by Pulse 100 97 100 Oximetry 09/23/18 09/23/18 09/23/18 09:45 09:46 09:52 Temperature 98.5 F Pulse Rate 81 80 89 Respiratory 12 13 14 Rate Blood Pressure 139/61 153/63 H O2 Sat by Pulse 100 100 Oximetry 09/23/18 09/23/18 09/23/18 09:53 10:00 10:06 Temperature 98.5 F Pulse Rate 85 78 92 H Respiratory 15 13 17 Rate Blood Pressure 153/63 H 160/70 H O2 Sat by Pulse 100 99 Oximetry 09/23/18 09/23/18 09/23/18 10:07 10:08 10:21 Temperature 98.5 F 99 F Pulse Rate 92 H 97 H 91 H Respiratory 17 18 14 Rate Blood Pressure 160/70 H 160/70 H 150/69 O2 Sat by Pulse 100 Oximetry 09/23/18 09/23/18 09/23/18 10:24 10:38 11:00 Temperature 98.6 F Pulse Rate 87 89 77 Respiratory 16 14 12 Rate Blood Pressure 150/69 140/71 O2 Sat by Pulse 100 100 98 Oximetry 09/23/18 09/23/18 09/23/18 11:08 11:09 11:38 Temperature 98.5 F 98.9 F Pulse Rate 90 91 H 79 Respiratory 14 14 13 Rate Blood Pressure 154/71 H 154/71 H 153/63 H O2 Sat by Pulse 99 Oximetry 09/23/18 09/23/18 09/23/18 11:39 12:00 12:38 Temperature 98.6 F 98.5 F Pulse Rate 88 82 81 Respiratory 17 15 14 Rate Blood Pressure 153/63 H 155/78 H O2 Sat by Pulse 99 99 Oximetry 09/23/18 09/23/18 09/23/18 12:58 13:00 13:50 Temperature 98.4 F Pulse Rate 87 90 76 Respiratory 16 16 14 Rate Blood Pressure 155/74 H 158/66 H O2 Sat by Pulse Oximetry 09/23/18 09/23/18 09/23/18 13:51 13:59 14:00 Temperature 98.4 F Pulse Rate 76 78 74 Respiratory 14 18 15 Rate Blood Pressure 158/66 H 158/66 H O2 Sat by Pulse Oximetry 09/23/18 09/23/18 09/23/18 14:58 15:00 15:57 Temperature Pulse Rate 71 74 73 Respiratory 12 12 13 Rate Blood Pressure 156/65 H 156/65 H 161/68 H O2 Sat by Pulse 100 Oximetry 09/23/18 09/23/18 09/23/18 16:00 19:04 21:09 Temperature 98.6 F 98.7 F Pulse Rate 78 79 76 Respiratory 17 20 Rate Blood Pressure 169/74 H 144/75 O2 Sat by Pulse 100 99 Oximetry - Physical Exam Abdominal Exam: Soft, Non-Tender, Non-Distended Back: No CVA Tenderness Genitalia: Without Inflammation Urinary Catheter Draining Well: Yes Urine Color: Clear - Male Phallus: Normal Scrotum: Normal - Plan Catheter Care: Yes Intake & Output: Yes See Orders: Yes Additional Information: IMP: Much improved re hematuria. stable post cysto. P/Rec: d/c CBI. sanchez cath in place to straight drainage. If urine is clear, remove catheter. If hematuria recurs, rec hyperbaric oxygen. Discussed w pt, nursing staff, and supervisor [employer] - Date & Time of Note Date: 09/23/18 Time: 10:45
[2018-09-24] MEDS: Cefepime IV 1 gm in Dextrose 1 GM/50 ML BAG IVPB SCH ×2 (01:56→13:47)
[2018-09-24] MEDS ORDERED: Tramadol 25 mg PO ONE (02:32)
[2018-09-24 07:32] LABS: BASO % 0.4 % (0.0-2.0); EOS # 0.1 K/uL (0.0-0.7); EOS % 1.4 % (0.0-4.0); LYMPH # 0.6 K/uL (1.0-4.3); MEAN CELL VOLUME 88.9 fL (80.0-94.0); MEAN CORPUSCULAR HEMOGLOBIN 31.2 pg (27.0-31.0); MEAN CORPUSCULAR HGB CONC 35.1 g/dL (33.0-37.0); MEAN PLATELET VOLUME 7.5 fL (7.2-11.7); MONO % 10.2 % (0.0-10.0); NEUT # 8.2 K/uL (1.8-7.0); NRBC % 0.1 % (0.0-2.0); PLATELET COUNT 328 K/uL (130-400); RBC 2.89 Mil/uL (4.40-5.90); RED CELL DISTRIBUTION WIDTH 14.7 % (11.5-14.5)
[2018-09-24] MEDS: (Novolin R) Insulin Human Regular 100 units/ml vial SC SCH ×4 (08:24→21:57)
[2018-09-24 09:08] LABS: ANISOCYTOSIS SLIGHT; BANDS 1 % (0-2); EOSINOPHIL 2 % (0-4); HYPOCHROMIC SLIGHT; LYMPHOCYTE 3 % (20-40); MONOCYTE 9 % (0-10); MYELOCYTE 4 % (0-0); NEUTROPHIL 81 % (50-75); PLATELET ESTIMATE NORMAL (NORMAL); POIKILOCYTOSIS SLIGHT; TOTAL CELLS COUNTED 100
[2018-09-24 09:09] LABS: TARGET CELLS SLIGHT
--- NOTE | 2018-09-24 09:14 | CP.PCM.PN ---
Subjective - Date & Time of Evaluation Date of Evaluation: 09/24/18 Time of Evaluation: 09:38 - Subjective Subjective: Medicine Progress Note for Dr. Durán's service S/E at bedside Reports penile pain Nursing reports patient had penile pain overnight and loose stools overnight Overnight team held constipation meds Denies fevers, chills, chest pain, sob, n/v, constipation or diarrhea, and dysuria. Objective - Vital Signs/Intake and Output Vital Signs (last 24 hours): Temp Pulse Resp BP Pulse Ox 98.8 F 67 20 162/71 H 98 09/24/18 08:00 09/24/18 08:00 09/24/18 08:00 09/24/18 08:00 09/24/18 08:00 Intake and Output: 09/24/18 09/24/18 06:59 18:59 Intake Total 710 Output Total 950 Balance -240 - Medications Medications: Current Medications Acetaminophen (Tylenol 325mg Tab) 650 mg PO Q6 PRN PRN Reason: Fever >100.4 F Last Admin: 09/23/18 21:07 Dose: 650 mg Bisacodyl (Dulcolax) 10 mg TN DAILY PRN PRN Reason: Constipation Dextrose (Dextrose 50% Inj) 0 ml IV STAT PRN; Protocol PRN Reason: Hypoglycemia Protocol Dextrose (Glutose 15) 0 gm PO ONCE PRN; Protocol PRN Reason: Hypoglycemia Protocol Docusate Sodium (Colace) 100 mg PO BID [facility] Last Admin: 09/23/18 18:27 Dose: 100 mg Finasteride (Proscar) 5 mg PO DAILY [facility] Last Admin: 09/23/18 09:43 Dose: 5 mg Gabapentin (Neurontin) 300 mg PO TID [facility] Last Admin: 09/23/18 17:22 Dose: 300 mg Glucagon (Glucagen Diagnostic Kit) 0 mg IM STAT PRN; Protocol PRN Reason: Hypoglycemia Protocol Cefepime HCl (Maxipime Iv 1 Gm Premix) 1 gm in 50 mls @ 100 mls/hr IVPB Q12H [facility]; Protocol Last Admin: 09/24/18 01:56 Dose: 100 mls/hr Insulin Glargine (Lantus) 10 unit SC HS [facility] Last Admin: 09/23/18 21:36 Dose: 10 units Insulin Human Regular (Novolin R) 0 unit SC ACHS [facility]; Protocol Last Admin: 09/24/18 08:24 Dose: 6 u Polyethylene Glycol (Miralax) 17 gm PO DAILY PRN PRN Reason: Constipation Last Admin: 09/23/18 09:42 Dose: 17 gm Rosuvastatin Calcium (Crestor) 5 mg PO HS [facility] Last Admin: 09/23/18 21:07 Dose: 5 mg Saccharomyces Boulardii (Florastor) 250 mg PO BID [facility] Last Admin: 09/23/18 18:07 Dose: 250 mg Sitagliptin Phosphate (Januvia) 50 mg PO DAILY [facility] Last Admin: 09/23/18 09:43 Dose: 50 mg Tamsulosin HCl (Flomax) 0.4 mg PO DAILY [facility] Last Admin: 09/23/18 09:43 Dose: 0.4 mg - Labs Labs: 09/24/18 07:15 09/23/18 05:41 PT 11.0 SECONDS (9.7-12.2) 09/22/18 05:18 INR 1.0 09/22/18 05:18 APTT 26.0 SECONDS (21-34) 09/22/18 05:18 - Constitutional Appears: Non-toxic, No Acute Distress - Head Exam Head Exam: NORMAL INSPECTION, NORMOCEPHALIC - Eye Exam Eye Exam: EOMI, Normal appearance. absent: Nystagmus, Scleral icterus - ENT Exam ENT Exam: Mucous Membranes Moist - Respiratory Exam Respiratory Exam: Clear to Ausculation Bilateral, NORMAL BREATHING PATTERN. absent: Rales, Rhonchi, Wheezes - Cardiovascular Exam Cardiovascular Exam: REGULAR RHYTHM, +S1, +S2 - GI/Abdominal Exam GI & Abdominal Exam: Soft, Normal Bowel Sounds. absent: Distended, Firm, Guarding, Rigid, Tenderness - Exam Additional comments: sanchez with CBI in place - Extremities Exam Extremities Exam: Normal Inspection - Back Exam Back Exam: NORMAL INSPECTION - Neurological Exam Neurological Exam: Alert, Awake, Oriented x3 Neuro motor strength exam: Left Upper Extremity: 5, Right Upper Extremity: 5, Left Lower Extremity: 2/1, Right Lower Extremity: 2/1 - Psychiatric Exam Psychiatric exam: Normal Affect, Normal Mood - Skin Skin Exam: Dry, Intact, Normal Color Assessment and Plan - Assessment and Plan (Free Text) Assessment: 73yo M PMH DM, HTN, arthritis, CAD, prostate cancer, admitted for anemia and heather hematuria; now s/p cystoscopy on 09/04, was still having heather hematuria. 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 Wellington- cytoscopy x 2 please refer to reports Hematuria resolving; patient receiving blood transfusion as per ICU and then will be downgraded Transfuse as needed but seems like hematuria has resolved s/p most recent cytoscopy Percocet 5/325 x 2 tabs q4h prn Delirium (resolved) likely 2/2 to UTI ucx positive for P.A IV cefepime 1gm ivpb q12h ID consulted: Dr. Rodriguez- IV abx as per ID Neurology consulted: Dr. Pritchard- recommends MRI Weakness in upper and lower extremities likely 2/2 hyperkalemia upper extremity weakness resolved continued weakness appreciated in lower extremites PT eval pending Diabetes Mellitus 2, uncontrolled with neuropathy Glargine 10 units sc HS Januvia 50mg po daily Gabapnetin 300mg po tid Insulin sliding scale regular Hx of Prostate Cancer Finasteride 5mg po daily Tamsulosin 0.4mg po daily Constipation Colace 100mg po bid - held (loose stools) Dulcolax 10mg TN daily prn -held Polyethylene glycol - held GI ppx: Florastor 250mg po bid DVT ppx: chemical AC contrindciated, SCDs PGY-1 Phyllis Herrera Case d/w Dr. Durán
[2018-09-24] MEDS: Saccharomyces Boulardi 250 mg Cap PO SCH ×2 (09:25→17:35)
[2018-09-24] MEDS ORDERED: Tramadol 25 mg PO PRN (09:37)
[2018-09-24 11:00] LABS: OXYCODONE SCREEN negative
[2018-09-24] MEDS: Oxycodone/Acetaminophen 5/325 mg Tab PO PRN ×2 (11:35→20:30)
--- NOTE | 2018-09-24 13:33 | VASCLAB ---
Date of service: 09/23/2018 PROCEDURE: Lower Extremity Venous Duplex Exam. HISTORY: New onset L leg pain/cramping PRIORS: None. TECHNIQUE: Bilateral common femoral, femoral, popliteal and posterior tibial, peroneal and great saphenous veins were evaluated. Flow was assessed with color Doppler, compressibility, assessment of phasic flow and augmentation response. Report prepared by LANEY Corey FINDINGS: RIGHT: 1. Common Femoral Vein: 1.1. Compressibility - Fully compressible: Thrombus - None : Flow - Phasic: Augmentation -Normal: Reflux - None. 2. Femoral Vein: 2.1. Compressibility - Fully compressible: Thrombus - None : Flow - Phasic: Augmentation -Normal: Reflux - None. 3. Popliteal Vein: 3.1. Compressibility - Fully compressible: Thrombus - None : Flow - Phasic: Augmentation -Normal: Reflux - None. 4. Posterior Tibial Vein: 4.1. Compressibility - Fully compressible: Thrombus - None: Flow - Phasic: Augmentation -Normal: Reflux - None. 5. Peroneal Vein: 5.1. Compressibility - Fully compressible: Thrombus - None: Flow - Phasic: Augmentation -Normal: Reflux - None. 6. Great Saphenous Vein: 6.1. Compressibility - Fully compressible: Thrombus - None: Flow - Phasic: Augmentation - Normal: Reflux - None. LEFT: 1. Common Femoral Vein: 1.1. Compressibility - Fully compressible: Thrombus - None: Flow - Phasic: Augmentation -Normal: Reflux - None. 2. Femoral Vein: 2.1. Compressibility - Fully compressible: Thrombus - None: Flow - Phasic: Augmentation -Normal: Reflux - None. 3. Popliteal Vein: 3.1. Compressibility - Fully compressible: Thrombus - None : Flow - Phasic: Augmentation -Normal: Reflux - None. 4. Posterior Tibial Vein: 4.1. Compressibility - Fully compressible: Thrombus - None: Flow - Phasic: Augmentation -Normal: Reflux - None. 5. Peroneal Vein: 5.1. Compressibility - Fully compressible: Thrombus - None: Flow - Phasic: Augmentation -Normal: Reflux - None. 6. Great Saphenous Vein: 6.1. Compressibility - Fully compressible: Thrombus - None: Flow - Phasic: Augmentation - Normal: Reflux - None. OTHER FINDINGS: None significant. IMPRESSION: Right: No evidence of deep or superficial vein thrombosis of the right lower extremity. Normal valve function noted of the right side. Left: No evidence of deep or superficial vein thrombosis of the left lower extremity. Normal valve function noted of the left side.
--- NOTE | 2018-09-24 13:38 | CP.PCM.PN ---
Subjective - Date & Time of Evaluation Date of Evaluation: 09/24/18 Time of Evaluation: 13:37 - Subjective Subjective: Neuro Follow-Up Notes: Mr. Samuel was evaluated this afternoon/ He is awake and alert, talkative. He denies any new complaints. Denies h/a, dizziness, visual changes, chest pain, palpitations, sob, cough, abd pain, n/v/d, paresthesias, weakness. Objective - Vital Signs/Intake and Output Vital Signs (last 24 hours): Temp Pulse Resp BP Pulse Ox 98.8 F 67 20 162/71 H 98 09/24/18 08:00 09/24/18 08:00 09/24/18 08:00 09/24/18 08:00 09/24/18 08:00 Intake and Output: 09/24/18 09/24/18 06:59 18:59 Intake Total 710 Output Total 950 Balance -240 - Medications Medications: Current Medications Acetaminophen (Tylenol 325mg Tab) 650 mg PO Q6 PRN PRN Reason: Fever >100.4 F Last Admin: 09/23/18 21:07 Dose: 650 mg Bisacodyl (Dulcolax) 10 mg [place] DAILY PRN PRN Reason: Constipation Dextrose (Dextrose 50% Inj) 0 ml IV STAT PRN; Protocol PRN Reason: Hypoglycemia Protocol Dextrose (Glutose 15) 0 gm PO ONCE PRN; Protocol PRN Reason: Hypoglycemia Protocol Docusate Sodium (Colace) 100 mg PO BID [facility] Last Admin: 09/23/18 18:27 Dose: 100 mg Finasteride (Proscar) 5 mg PO DAILY [facility] Last Admin: 09/24/18 09:25 Dose: 5 mg Gabapentin (Neurontin) 300 mg PO TID [facility] Last Admin: 09/24/18 09:25 Dose: 300 mg Glucagon (Glucagen Diagnostic Kit) 0 mg IM STAT PRN; Protocol PRN Reason: Hypoglycemia Protocol Cefepime HCl (Maxipime Iv 1 Gm Premix) 1 gm in 50 mls @ 100 mls/hr IVPB Q12H [facility]; Protocol Last Admin: 09/24/18 01:56 Dose: 100 mls/hr Insulin Glargine (Lantus) 10 unit SC HS [facility] Last Admin: 09/23/18 21:36 Dose: 10 units Insulin Human Regular (Novolin R) 0 unit SC ACHS [facility]; Protocol Last Admin: 09/24/18 12:12 Dose: 6 u Oxycodone/Acetaminophen (Percocet 5/325 Mg Tab) 2 tab PO Q4H PRN PRN Reason: pain, mo Stop: 09/27/18 11:05 Last Admin: 09/24/18 11:35 Dose: 2 tab Polyethylene Glycol (Miralax) 17 gm PO DAILY PRN PRN Reason: Constipation Last Admin: 09/23/18 09:42 Dose: 17 gm Rosuvastatin Calcium (Crestor) 5 mg PO HS [facility] Last Admin: 09/23/18 21:07 Dose: 5 mg Saccharomyces Boulardii (Florastor) 250 mg PO BID [facility] Last Admin: 09/24/18 09:25 Dose: 250 mg Sitagliptin Phosphate (Januvia) 50 mg PO DAILY [facility] Last Admin: 09/24/18 09:25 Dose: 50 mg Tamsulosin HCl (Flomax) 0.4 mg PO DAILY [facility] Last Admin: 09/24/18 09:25 Dose: 0.4 mg - Labs Labs: 09/24/18 07:15 09/23/18 05:41 PT 11.0 SECONDS (9.7-12.2) 09/22/18 05:18 INR 1.0 09/22/18 05:18 APTT 26.0 SECONDS (21-34) 09/22/18 05:18 - Constitutional Appears: Well, Non-toxic, No Acute Distress - Head Exam Head Exam: ATRAUMATIC, NORMAL INSPECTION, NORMOCEPHALIC - Eye Exam Eye Exam: EOMI, Normal appearance, PERRL Pupil Exam: NORMAL ACCOMODATION, PERRL - ENT Exam ENT Exam: Mucous Membranes Moist - Neck Exam Neck Exam: Full ROM, Normal Inspection - Respiratory Exam Respiratory Exam: NORMAL BREATHING PATTERN - Extremities Exam Extremities Exam: Full ROM. absent: Calf Tenderness, Pedal Edema Additional comments: some weakness to ble but from - Back Exam Back Exam: Full ROM - Neurological Exam Neurological Exam: Alert, Awake, CN II-XII Intact, Oriented x3, Reflexes Normal Neuro motor strength exam: Left Upper Extremity: 5, Right Upper Extremity: 5, Left Lower Extremity: 4, Right Lower Extremity: 4 Additional comments: Awake, alert; not confused. Follows commands. Speech clear, fluid. No facial asymmetry Some weakness to BLE but from. No focal motor deficits. No sensory deficits. No tremors or abnormal movements. - Psychiatric Exam Psychiatric exam: Normal Affect, Normal Mood - Skin Skin Exam: Normal Color Assessment and Plan (1) Toxic metabolic encephalopathy Assessment & Plan: Imaging reviewed: -MRI Brain (09/23/18): No acute intracranial abnormality. Specifically, no evidence for acute infarction. Moderate chronic microangiopathic changes and mild age-related global parenchymal volume loss. -EEG (Start Date: 09/20/18 Start Time: 19:50 End Date: 09/21/18 End Time: 08:30): This is an abnormal video-EEG monitoring study due to the presence of 1) Mild diffuse slowing, 2) Occasional periodic sharp waves with triphasic morphology. No seizures, not in status epilepticus. INTERPRETATION: These findings are consistent with a mild to moderate diffuse disturbance of cortical activity. These findings are non specific, however they are usually seen in toxic metabolic encepahlopahties, SH[employer]ER [employer]ATOR degenerative conditions, like dementias, among others. -CT Head (09/20/18): No intracranial mass, hemorrhage or evidence of acute infarct. Mild chronic white matter ischemic change -Continue current treatment and management of underlying issues. -Continue supportive care. -Notify neuro team of any acute changes in condition. No further recommendations from neuro standpoint. Reconsult prn. Thank you for this consultation. Maira Mckeon DNP, ROBOT TECHNICIAN d/w Dr. Erwin Status: Acute
--- NOTE | 2018-09-24 18:40 | CP.PCM.PN ---
Subjective - Date & Time of Evaluation Date of Evaluation: 09/24/18 Time of Evaluation: 08:00 - Subjective Subjective: urine + pseudomonas rocep[hin d/c'd start Cefepime d/c merrem Objective - Vital Signs/Intake and Output Vital Signs (last 24 hours): Temp Pulse Resp BP Pulse Ox 98.2 F 73 20 161/69 H 99 09/24/18 15:00 09/24/18 15:00 09/24/18 15:00 09/24/18 15:00 09/24/18 15:00 Intake and Output: 09/24/18 09/24/18 06:59 18:59 Intake Total 710 3050 Output Total 950 650 Balance -240 2400 - Medications Medications: Current Medications Acetaminophen (Tylenol 325mg Tab) 650 mg PO Q6 PRN PRN Reason: Fever >100.4 F Last Admin: 09/23/18 21:07 Dose: 650 mg Bisacodyl (Dulcolax) 10 mg [place] DAILY PRN PRN Reason: Constipation Dextrose (Dextrose 50% Inj) 0 ml IV STAT PRN; Protocol PRN Reason: Hypoglycemia Protocol Dextrose (Glutose 15) 0 gm PO ONCE PRN; Protocol PRN Reason: Hypoglycemia Protocol Docusate Sodium (Colace) 100 mg PO BID [facility] Last Admin: 09/23/18 18:27 Dose: 100 mg Finasteride (Proscar) 5 mg PO DAILY [facility] Last Admin: 09/24/18 09:25 Dose: 5 mg Gabapentin (Neurontin) 300 mg PO TID [facility] Last Admin: 09/24/18 17:35 Dose: 300 mg Glucagon (Glucagen Diagnostic Kit) 0 mg IM STAT PRN; Protocol PRN Reason: Hypoglycemia Protocol Cefepime HCl (Maxipime Iv 1 Gm Premix) 1 gm in 50 mls @ 100 mls/hr IVPB Q12H [facility]; Protocol Last Admin: 09/24/18 13:47 Dose: 100 mls/hr Insulin Glargine (Lantus) 10 unit SC HS [facility] Last Admin: 09/23/18 21:36 Dose: 10 units Insulin Human Regular (Novolin R) 0 unit SC ACHS [facility]; Protocol Last Admin: 09/24/18 17:34 Dose: 2 u Oxycodone/Acetaminophen (Percocet 5/325 Mg Tab) 2 tab PO Q4H PRN PRN Reason: pain, mo Stop: 09/27/18 11:05 Last Admin: 09/24/18 11:35 Dose: 2 tab Polyethylene Glycol (Miralax) 17 gm PO DAILY PRN PRN Reason: Constipation Last Admin: 09/23/18 09:42 Dose: 17 gm Rosuvastatin Calcium (Crestor) 5 mg PO HS [facility] Last Admin: 09/23/18 21:07 Dose: 5 mg Saccharomyces Boulardii (Florastor) 250 mg PO BID [facility] Last Admin: 09/24/18 17:35 Dose: 250 mg Sitagliptin Phosphate (Januvia) 50 mg PO DAILY [facility] Last Admin: 09/24/18 09:25 Dose: 50 mg Tamsulosin HCl (Flomax) 0.4 mg PO DAILY [facility] Last Admin: 09/24/18 09:25 Dose: 0.4 mg - Labs Labs: 09/24/18 07:15 09/23/18 05:41 PT 11.0 SECONDS (9.7-12.2) 09/22/18 05:18 INR 1.0 09/22/18 05:18 APTT 26.0 SECONDS (21-34) 09/22/18 05:18 - Constitutional Appears: Well, Non-toxic, Cachectic, Chronically Ill - Head Exam Head Exam: ATRAUMATIC, NORMAL INSPECTION, NORMOCEPHALIC - Eye Exam Eye Exam: EOMI, Normal appearance, PERRL Pupil Exam: NORMAL ACCOMODATION, PERRL - ENT Exam ENT Exam: Mucous Membranes Moist, Normal Exam - Neck Exam Neck Exam: Full ROM, Normal Inspection. absent: Lymphadenopathy - Respiratory Exam Respiratory Exam: Clear to Ausculation Bilateral, NORMAL BREATHING PATTERN - Cardiovascular Exam Cardiovascular Exam: REGULAR RHYTHM, +S1, +S2. absent: Murmur - GI/Abdominal Exam GI & Abdominal Exam: Soft, Normal Bowel Sounds. absent: Tenderness - Rectal Exam Rectal Exam: Deferred - Exam Exam: NORMAL INSPECTION - Extremities Exam Extremities Exam: Full ROM, Normal Capillary Refill, Normal Inspection. absent: Joint Swelling, Pedal Edema - Back Exam Back Exam: NORMAL INSPECTION - Neurological Exam Neurological Exam: Alert, Awake, CN II-XII Intact, Normal Gait, Oriented x3 - Psychiatric Exam Psychiatric exam: Normal Affect, Normal Mood - Skin Skin Exam: Dry, Intact, Normal Color, Warm Assessment and Plan (1) Hematuria Status: Chronic (2) UTI (urinary tract infection) Status: Acute (3) Uncontrolled diabetes mellitus Status: Acute - Assessment and Plan (Free Text) Assessment: seen on rounds ROS completed events noted labs and xrays reviewed orders signed
[2018-09-24] MEDS: (Lantus) Insulin Glargine, Recombinant SC SCH (22:03)
[2018-09-25] MEDS: Cefepime IV 1 gm in Dextrose 1 GM/50 ML BAG IVPB SCH ×2 (02:50→13:43)
[2018-09-25] MEDS: Oxycodone/Acetaminophen 5/325 mg Tab PO PRN ×4 (03:17→21:34)
[2018-09-25] MEDS: (Novolin R) Insulin Human Regular 100 units/ml vial SC SCH ×4 (08:24→21:38)
--- NOTE | 2018-09-25 09:18 | CP.PCM.PN ---
Subjective - Date & Time of Evaluation Date of Evaluation: 09/25/18 Time of Evaluation: 09:16 - Subjective Subjective: Medicine Progress Note for Dr. Durán's service S/E at bedside Pain better controlled today Denies fevers, chhills, chest yudi, sob, n/v, constipation or diarrhea, and dysuria. Objective - Vital Signs/Intake and Output Vital Signs (last 24 hours): Temp Pulse Resp BP Pulse Ox 97.3 F L 77 20 175/79 H 99 09/25/18 07:00 09/25/18 07:00 09/25/18 07:00 09/25/18 07:00 09/25/18 07:00 Intake and Output: 09/25/18 09/25/18 06:59 18:59 Intake Total 840 Output Total 1600 Balance -760 - Medications Medications: Current Medications Acetaminophen (Tylenol 325mg Tab) 650 mg PO Q6 PRN PRN Reason: Fever >100.4 F Last Admin: 09/23/18 21:07 Dose: 650 mg Bisacodyl (Dulcolax) 10 mg [place] DAILY PRN PRN Reason: Constipation Dextrose (Dextrose 50% Inj) 0 ml IV STAT PRN; Protocol PRN Reason: Hypoglycemia Protocol Dextrose (Glutose 15) 0 gm PO ONCE PRN; Protocol PRN Reason: Hypoglycemia Protocol Docusate Sodium (Colace) 100 mg PO BID [facility] Last Admin: 09/23/18 18:27 Dose: 100 mg Finasteride (Proscar) 5 mg PO DAILY [facility] Last Admin: 09/24/18 09:25 Dose: 5 mg Gabapentin (Neurontin) 300 mg PO TID [facility] Last Admin: 09/24/18 17:35 Dose: 300 mg Glucagon (Glucagen Diagnostic Kit) 0 mg IM STAT PRN; Protocol PRN Reason: Hypoglycemia Protocol Cefepime HCl (Maxipime Iv 1 Gm Premix) 1 gm in 50 mls @ 100 mls/hr IVPB Q12H [facility]; Protocol Last Admin: 09/25/18 02:50 Dose: 100 mls/hr Insulin Glargine (Lantus) 10 unit SC HS [facility] Last Admin: 09/24/18 22:03 Dose: 10 units Insulin Human Regular (Novolin R) 0 unit SC ACHS [facility]; Protocol Last Admin: 09/25/18 08:24 Dose: Not Given Oxycodone/Acetaminophen (Percocet 5/325 Mg Tab) 2 tab PO Q4H PRN PRN Reason: pain, mo Stop: 09/27/18 11:05 Last Admin: 09/25/18 03:17 Dose: 2 tab Polyethylene Glycol (Miralax) 17 gm PO DAILY PRN PRN Reason: Constipation Last Admin: 09/23/18 09:42 Dose: 17 gm Rosuvastatin Calcium (Crestor) 5 mg PO HS [facility] Last Admin: 09/24/18 21:56 Dose: 5 mg Saccharomyces Boulardii (Florastor) 250 mg PO BID [facility] Last Admin: 09/24/18 17:35 Dose: 250 mg Sitagliptin Phosphate (Januvia) 50 mg PO DAILY [facility] Last Admin: 09/24/18 09:25 Dose: 50 mg Tamsulosin HCl (Flomax) 0.4 mg PO DAILY [facility] Last Admin: 09/24/18 09:25 Dose: 0.4 mg - Labs Labs: 09/24/18 07:15 09/23/18 05:41 PT 11.0 SECONDS (9.7-12.2) 09/22/18 05:18 INR 1.0 09/22/18 05:18 APTT 26.0 SECONDS (21-34) 09/22/18 05:18 - Constitutional Appears: Non-toxic, No Acute Distress - Head Exam Head Exam: NORMAL INSPECTION - Eye Exam Eye Exam: EOMI, Normal appearance - ENT Exam ENT Exam: Mucous Membranes Moist - Respiratory Exam Respiratory Exam: Clear to Ausculation Bilateral, NORMAL BREATHING PATTERN. absent: Rhonchi, Wheezes - Cardiovascular Exam Cardiovascular Exam: REGULAR RHYTHM, +S1, +S2 - GI/Abdominal Exam GI & Abdominal Exam: Soft, Normal Bowel Sounds. absent: Distended, Firm, Guarding, Rigid, Tenderness - Exam Additional comments: sanchez in place no CBI, no hematuria appreciated in collecting bag - Extremities Exam Extremities Exam: Normal Inspection - Neurological Exam Neurological Exam: Alert, Awake, Oriented x3 - Psychiatric Exam Psychiatric exam: Normal Affect, Normal Mood - Skin Skin Exam: Dry, Intact, Normal Color Assessment and Plan - Assessment and Plan (Free Text) Assessment: 73yo M PMH DM, HTN, arthritis, CAD, prostate cancer, admitted for anemia and heather hematuria; now s/p cystoscopy on 09/04, was still having heather hematuria. 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 Wellington- cytoscopy x 2 please refer to reports Hematuria resolvin Transfuse as needed but seems like hematuria has resolved s/p most recent cytoscopy Percocet 5/325 x 2 tabs q4h prn Delirium (resolved) likely 2/2 to UTI ucx positive for P.A IV cefepime 1gm ivpb q12h ID consulted: Dr. Rodriguez- IV abx as per ID Neurology consulted: Dr. Pritchard- MRI 09/22- no acute abnormality Weakness in upper and lower extremities likely 2/2 hyperkalemia upper extremity weakness resolved continued weakness appreciated in lower extremites PT eval pending Diabetes Mellitus 2, uncontrolled with neuropathy Glargine 10 units sc HS Januvia 50mg po daily Gabapentin 300mg po tid Crestor 5mg po daily Insulin sliding scale regular Hx of Prostate Cancer Finasteride 5mg po daily Tamsulosin 0.4mg po daily Constipation Colace 100mg po bid - held (loose stools) Dulcolax 10mg SD daily prn -held Polyethylene glycol - held GI ppx: Florastor 250mg po bid DVT ppx: chemical AC contrindciated, SCDs PGY-1 Phyllis Herrera Case d/w Dr. Durán
[2018-09-25] MEDS: Saccharomyces Boulardi 250 mg Cap PO SCH ×2 (09:41→18:24)
[2018-09-25 11:31] LABS: BASO # 0.1 K/uL (0.0-0.2); BASO % 0.6 % (0.0-2.0); EOS # 0.2 K/uL (0.0-0.7); EOS % 2.4 % (0.0-4.0); HEMOGLOBIN 9.3 g/dL (12.0-18.0); LYMPH # 0.7 K/uL (1.0-4.3); LYMPH % 6.9 % (20.0-40.0); MEAN CELL VOLUME 89.6 fL (80.0-94.0); MEAN CORPUSCULAR HEMOGLOBIN 30.5 pg (27.0-31.0); MEAN CORPUSCULAR HGB CONC 34.1 g/dL (33.0-37.0); MEAN PLATELET VOLUME 7.3 fL (7.2-11.7); MONO # 0.8 K/uL (0.0-0.8); MONO % 8.3 % (0.0-10.0); NEUT # 7.8 K/uL (1.8-7.0); NEUT % 81.8 % (50.0-75.0); NRBC % 0.1 % (0.0-2.0); PLATELET COUNT 393 K/uL (130-400); RBC 3.03 Mil/uL (4.40-5.90); RED CELL DISTRIBUTION WIDTH 14.4 % (11.5-14.5); WHITE BLOOD COUNT 9.6 K/uL (4.8-10.8)
[2018-09-25 12:02] LABS: ALB/GLOB RATIO 0.9 (1.0-2.1); ALBUMIN 2.3 g/dL (3.5-5.0); ALT/SGPT 85 U/L (21-72); AST/SGOT 79 U/L (17-59); BLOOD UREA NITROGEN 22 mg/dL (9-20); CALCIUM 7.7 mg/dl (8.6-10.4); GFR NON-AFRICAN AMERICAN > 60
[2018-09-25 12:23] LABS: BANDS 3 % (0-2); EOSINOPHIL 1 % (0-4); LYMPHOCYTE 6 % (20-40); MONOCYTE 10 % (0-10); NEUTROPHIL 80 % (50-75); PLATELET ESTIMATE NORMAL (NORMAL); TOTAL CELLS COUNTED 100
[2018-09-25 12:24] LABS: OVALOCYTES SLIGHT
--- NOTE | 2018-09-25 17:17 | CP.PCM.PN ---
Subjective - Date & Time of Evaluation Date of Evaluation: 09/25/18 Time of Evaluation: 08:00 - Subjective Subjective: weak bedridden NAD denies fever + Pseudomonas blood / Urine cont IV rx Objective - Vital Signs/Intake and Output Vital Signs (last 24 hours): Temp Pulse Resp BP Pulse Ox 97.9 F 92 H 20 153/72 H 95 09/25/18 16:00 09/25/18 16:00 09/25/18 16:00 09/25/18 16:00 09/25/18 16:00 Intake and Output: 09/25/18 09/25/18 06:59 18:59 Intake Total 840 750 Output Total 1600 1450 Balance -760 -700 - Medications Medications: Current Medications Acetaminophen (Tylenol 325mg Tab) 650 mg PO Q6 PRN PRN Reason: Fever >100.4 F Last Admin: 09/23/18 21:07 Dose: 650 mg Bisacodyl (Dulcolax) 10 mg [place] DAILY PRN PRN Reason: Constipation Dextrose (Dextrose 50% Inj) 0 ml IV STAT PRN; Protocol PRN Reason: Hypoglycemia Protocol Dextrose (Glutose 15) 0 gm PO ONCE PRN; Protocol PRN Reason: Hypoglycemia Protocol Docusate Sodium (Colace) 100 mg PO BID [facility] Last Admin: 09/23/18 18:27 Dose: 100 mg Finasteride (Proscar) 5 mg PO DAILY [facility] Last Admin: 09/25/18 09:41 Dose: 5 mg Gabapentin (Neurontin) 300 mg PO TID [facility] Last Admin: 09/25/18 13:43 Dose: 300 mg Glucagon (Glucagen Diagnostic Kit) 0 mg IM STAT PRN; Protocol PRN Reason: Hypoglycemia Protocol Cefepime HCl (Maxipime Iv 1 Gm Premix) 1 gm in 50 mls @ 100 mls/hr IVPB Q12H [facility]; Protocol Last Admin: 09/25/18 13:43 Dose: 100 mls/hr Insulin Glargine (Lantus) 10 unit SC HS [facility] Last Admin: 09/24/18 22:03 Dose: 10 units Insulin Human Regular (Novolin R) 0 unit SC ACHS [facility]; Protocol Last Admin: 09/25/18 11:47 Dose: 6 units Lisinopril (Zestril) 40 mg PO DAILY [facility] Last Admin: 09/25/18 10:39 Dose: 40 mg Oxycodone/Acetaminophen (Percocet 5/325 Mg Tab) 2 tab PO Q4H PRN PRN Reason: pain, mo Stop: 09/27/18 11:05 Last Admin: 09/25/18 13:44 Dose: 2 tab Polyethylene Glycol (Miralax) 17 gm PO DAILY PRN PRN Reason: Constipation Last Admin: 09/23/18 09:42 Dose: 17 gm Rosuvastatin Calcium (Crestor) 5 mg PO HS [facility] Last Admin: 09/24/18 21:56 Dose: 5 mg Saccharomyces Boulardii (Florastor) 250 mg PO BID [facility] Last Admin: 09/25/18 09:41 Dose: 250 mg Sitagliptin Phosphate (Januvia) 50 mg PO DAILY [facility] Last Admin: 09/25/18 09:41 Dose: 50 mg Tamsulosin HCl (Flomax) 0.4 mg PO DAILY [facility] Last Admin: 09/25/18 09:41 Dose: 0.4 mg - Labs Labs: 09/25/18 11:21 09/25/18 11:21 PT 11.0 SECONDS (9.7-12.2) 09/22/18 05:18 INR 1.0 09/22/18 05:18 APTT 26.0 SECONDS (21-34) 09/22/18 05:18 - Constitutional Appears: Non-toxic, Cachectic, Chronically Ill - Head Exam Head Exam: ATRAUMATIC, NORMAL INSPECTION, NORMOCEPHALIC - Eye Exam Eye Exam: EOMI, Normal appearance, PERRL Pupil Exam: NORMAL ACCOMODATION, PERRL - ENT Exam ENT Exam: Mucous Membranes Moist, Normal Exam - Neck Exam Neck Exam: Full ROM, Normal Inspection. absent: Lymphadenopathy - Respiratory Exam Respiratory Exam: Clear to Ausculation Bilateral, NORMAL BREATHING PATTERN - Cardiovascular Exam Cardiovascular Exam: REGULAR RHYTHM, +S1, +S2. absent: Murmur - GI/Abdominal Exam GI & Abdominal Exam: Soft, Normal Bowel Sounds. absent: Tenderness - Rectal Exam Rectal Exam: Deferred - Exam Exam: NORMAL INSPECTION - Extremities Exam Extremities Exam: Full ROM, Normal Capillary Refill, Normal Inspection. absent: Joint Swelling, Pedal Edema - Back Exam Back Exam: NORMAL INSPECTION - Neurological Exam Neurological Exam: Alert, Awake, CN II-XII Intact, Oriented x3. absent: Normal Gait - Psychiatric Exam Psychiatric exam: Normal Affect, Normal Mood - Skin Skin Exam: Dry, Intact, Normal Color, Warm Assessment and Plan (1) Hematuria Status: Chronic (2) UTI (urinary tract infection) Status: Acute (3) Uncontrolled diabetes mellitus Status: Acute - Assessment and Plan (Free Text) Assessment: pseudomonas blood/urine IV rx to continue
[2018-09-25] MEDS: (Lantus) Insulin Glargine, Recombinant SC SCH (21:41)
--- NOTE | 2018-09-26 00:07 | CP.PCM.PN ---
Subjective - Date & Time of Evaluation Date of Evaluation: 09/26/18 Time of Evaluation: 00:06 - Subjective Subjective: DR KWONG SERVICE- IM Pt s/e at bedside, reports not acute complaints overnight, denies CP SOB FC NV at this time, hematuria improving Objective - Vital Signs/Intake and Output Vital Signs (last 24 hours): Temp Pulse Resp BP Pulse Ox 97.9 F 92 H 20 153/72 H 95 09/25/18 16:00 09/25/18 16:00 09/25/18 16:00 09/25/18 16:00 09/25/18 16:00 Intake and Output: 09/25/18 09/26/18 18:59 06:59 Intake Total 750 Output Total 1450 Balance -700 - Medications Medications: Current Medications Acetaminophen (Tylenol 325mg Tab) 650 mg PO Q6 PRN PRN Reason: Fever >100.4 F Last Admin: 09/23/18 21:07 Dose: 650 mg Bisacodyl (Dulcolax) 10 mg [place] DAILY PRN PRN Reason: Constipation Dextrose (Dextrose 50% Inj) 0 ml IV STAT PRN; Protocol PRN Reason: Hypoglycemia Protocol Dextrose (Glutose 15) 0 gm PO ONCE PRN; Protocol PRN Reason: Hypoglycemia Protocol Docusate Sodium (Colace) 100 mg PO BID [facility] Last Admin: 09/23/18 18:27 Dose: 100 mg Finasteride (Proscar) 5 mg PO DAILY [facility] Last Admin: 09/25/18 09:41 Dose: 5 mg Gabapentin (Neurontin) 300 mg PO TID [facility] Last Admin: 09/25/18 18:24 Dose: 300 mg Glucagon (Glucagen Diagnostic Kit) 0 mg IM STAT PRN; Protocol PRN Reason: Hypoglycemia Protocol Cefepime HCl (Maxipime Iv 1 Gm Premix) 1 gm in 50 mls @ 100 mls/hr IVPB Q12H [facility]; Protocol Last Admin: 09/25/18 13:43 Dose: 100 mls/hr Insulin Glargine (Lantus) 10 unit SC HS [facility] Last Admin: 09/25/18 21:41 Dose: 10 units Insulin Human Regular (Novolin R) 0 unit SC ACHS [facility]; Protocol Last Admin: 09/25/18 21:38 Dose: Not Given Lisinopril (Zestril) 40 mg PO DAILY [facility] Last Admin: 09/25/18 10:39 Dose: 40 mg Oxycodone/Acetaminophen (Percocet 5/325 Mg Tab) 2 tab PO Q4H PRN PRN Reason: pain, mo Stop: 09/27/18 11:05 Last Admin: 09/25/18 21:34 Dose: 2 tab Polyethylene Glycol (Miralax) 17 gm PO DAILY PRN PRN Reason: Constipation Last Admin: 09/23/18 09:42 Dose: 17 gm Rosuvastatin Calcium (Crestor) 5 mg PO HS [facility] Last Admin: 09/25/18 21:37 Dose: 5 mg Saccharomyces Boulardii (Florastor) 250 mg PO BID [facility] Last Admin: 09/25/18 18:24 Dose: 250 mg Sitagliptin Phosphate (Januvia) 50 mg PO DAILY [facility] Last Admin: 09/25/18 09:41 Dose: 50 mg Tamsulosin HCl (Flomax) 0.4 mg PO DAILY [facility] Last Admin: 09/25/18 09:41 Dose: 0.4 mg - Labs Labs: 09/25/18 11:21 09/25/18 11:21 PT 11.0 SECONDS (9.7-12.2) 09/22/18 05:18 INR 1.0 09/22/18 05:18 APTT 26.0 SECONDS (21-34) 09/22/18 05:18 - Additional Findings Additional findings: - Constitutional Appears: Non-toxic, No Acute Distress - Head Exam Head Exam: NORMAL INSPECTION - Eye Exam Eye Exam: EOMI, Normal appearance - ENT Exam ENT Exam: Mucous Membranes Moist - Respiratory Exam Respiratory Exam: Clear to Ausculation Bilateral, NORMAL BREATHING PATTERN. absent: Rhonchi, Wheezes - Cardiovascular Exam Cardiovascular Exam: REGULAR RHYTHM, +S1, +S2 - GI/Abdominal Exam GI & Abdominal Exam: Soft, Normal Bowel Sounds. absent: Distended, Firm, Guarding, Rigid, Tenderness - Exam Additional comments: sanchez in place no CBI, no hematuria appreciated in collecting bag - Extremities Exam Extremities Exam: Normal Inspection - Neurological Exam Neurological Exam: Alert, Awake, Oriented x3 - Psychiatric Exam Psychiatric exam: Normal Affect, Normal Mood - Skin Skin Exam: Dry, Intact, Normal Color Assessment and Plan (1) Hematuria Status: Chronic (2) Symptomatic anemia Status: Resolved (3) Prostate cancer Status: Chronic - Assessment and Plan (Free Text) Assessment: Assessment and Plan 73yo M PMH DM, HTN, arthritis, CAD, prostate cancer, admitted for anemia and heather hematuria; now s/p cystoscopy on 09/04, was still having heather hematuria. 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 Wellington- cytoscopy x 2 please refer to reports Hematuria resolvin Transfuse as needed but seems like hematuria has resolved s/p most recent cytoscopy Percocet 5/325 x 2 tabs q4h prn Delirium (resolved) likely 2/2 to UTI ucx positive for P.A IV cefepime 1gm ivpb q12h ID consulted: Dr. Rodriguez- IV abx as per ID Neurology consulted: Dr. Pritchard- MRI 09/22- no acute abnormality Weakness in upper and lower extremities likely 2/2 hyperkalemia upper extremity weakness resolved continued weakness appreciated in lower extremites PT eval pending Diabetes Mellitus 2, uncontrolled with neuropathy Glargine 10 units sc HS Januvia 50mg po daily Gabapentin 300mg po tid Crestor 5mg po daily Insulin sliding scale regular Hx of Prostate Cancer Finasteride 5mg po daily Tamsulosin 0.4mg po daily Constipation Colace 100mg po bid - held (loose stools) Dulcolax 10mg [place] daily prn -held Polyethylene glycol - held GI ppx: Florastor 250mg po bid DVT ppx: chemical AC contrindciated, SCDs CK PGY1 dw Dr Kwong
[2018-09-26] MEDS: Cefepime IV 1 gm in Dextrose 1 GM/50 ML BAG IVPB SCH ×2 (01:59→14:32)
[2018-09-26] MEDS: Oxycodone/Acetaminophen 5/325 mg Tab PO PRN ×4 (02:00→16:30)
[2018-09-26 07:25] LABS: BASO # 0.1 K/uL (0.0-0.2); BASO % 0.8 % (0.0-2.0); EOS # 0.3 K/uL (0.0-0.7); EOS % 2.9 % (0.0-4.0); LYMPH # 0.7 K/uL (1.0-4.3); LYMPH % 8.1 % (20.0-40.0); MEAN CORPUSCULAR HEMOGLOBIN 30.9 pg (27.0-31.0); MEAN CORPUSCULAR HGB CONC 34.4 g/dL (33.0-37.0); MEAN PLATELET VOLUME 7.4 fL (7.2-11.7); MONO # 0.8 K/uL (0.0-0.8); MONO % 8.8 % (0.0-10.0); NEUT # 7.3 K/uL (1.8-7.0); NEUT % 79.4 % (50.0-75.0); NRBC % 0.1 % (0.0-2.0); PLATELET COUNT 411 K/uL (130-400); RBC 2.91 Mil/uL (4.40-5.90); RED CELL DISTRIBUTION WIDTH 14.5 % (11.5-14.5); WHITE BLOOD COUNT 9.2 K/uL (4.8-10.8)
[2018-09-26 07:49] LABS: ALB/GLOB RATIO 0.8 (1.0-2.1); ALBUMIN 2.1 g/dL (3.5-5.0); ALT/SGPT 79 U/L (21-72); AST/SGOT 61 U/L (17-59); BLOOD UREA NITROGEN 25 mg/dL (9-20); CALCIUM 7.5 mg/dl (8.6-10.4); GFR NON-AFRICAN AMERICAN > 60
[2018-09-26] MEDS: (Novolin R) Insulin Human Regular 100 units/ml vial SC SCH ×4 (08:30→21:16)
[2018-09-26 09:29] LABS: BANDS 2 % (0-2); EOSINOPHIL 5 % (0-4); LYMPHOCYTE 11 % (20-40); METAMYELOCYTE 1 % (0-0); MONOCYTE 10 % (0-10); NEUTROPHIL 70 % (50-75); REACTIVE LYMPHOCYTES 1 % (0-0); TOTAL CELLS COUNTED 100
[2018-09-26 09:30] LABS: ANISOCYTOSIS SLIGHT; LARGE PLATELETS PRESENT; PLATELET ESTIMATE NORMAL (NORMAL)
[2018-09-26 09:31] LABS: BURR CELLS SLIGHT; HYPOCHROMIC SLIGHT; POIKILOCYTOSIS SLIGHT
[2018-09-26 09:32] LABS: OVALOCYTES SLIGHT; POLYCHROMIC SLIGHT; SCHISTOCYTES SLIGHT
[2018-09-26] MEDS: Saccharomyces Boulardi 250 mg Cap PO SCH ×2 (10:14→17:29)
[2018-09-26] MEDS: (Lantus) Insulin Glargine, Recombinant SC SCH (22:06)
[2018-09-27] MEDS: Oxycodone/Acetaminophen 5/325 mg Tab PO PRN ×5 (00:08→20:11)
--- NOTE | 2018-09-27 00:17 | CP.PCM.PN ---
Subjective - Date & Time of Evaluation Date of Evaluation: 09/27/18 Time of Evaluation: 00:16 - Subjective Subjective: DR KWOGN SERVICE Pt s/e at bedside, denies CP SOB FC NV, understands current status and agrees with plan going forward, no acute complaints overnight Objective - Vital Signs/Intake and Output Vital Signs (last 24 hours): Temp Pulse Resp BP Pulse Ox 97.4 F L 73 20 163/81 H 98 09/26/18 16:00 09/26/18 16:00 09/26/18 16:00 09/26/18 16:00 09/26/18 16:00 Intake and Output: 09/26/18 09/27/18 18:59 06:59 Intake Total 500 350 Output Total 1000 1250 Balance -500 -900 - Medications Medications: Current Medications Acetaminophen (Tylenol 325mg Tab) 650 mg PO Q6 PRN PRN Reason: Fever >100.4 F Last Admin: 09/23/18 21:07 Dose: 650 mg Bisacodyl (Dulcolax) 10 mg DC DAILY PRN PRN Reason: Constipation Carvedilol (Coreg) 6.25 mg PO BID [facility] Last Admin: 09/26/18 17:21 Dose: 6.25 mg Dextrose (Dextrose 50% Inj) 0 ml IV STAT PRN; Protocol PRN Reason: Hypoglycemia Protocol Dextrose (Glutose 15) 0 gm PO ONCE PRN; Protocol PRN Reason: Hypoglycemia Protocol Docusate Sodium (Colace) 100 mg PO BID [facility] Last Admin: 09/23/18 18:27 Dose: 100 mg Finasteride (Proscar) 5 mg PO DAILY [facility] Last Admin: 09/26/18 10:14 Dose: 5 mg Gabapentin (Neurontin) 300 mg PO TID [facility] Last Admin: 09/26/18 17:21 Dose: 300 mg Glucagon (Glucagen Diagnostic Kit) 0 mg IM STAT PRN; Protocol PRN Reason: Hypoglycemia Protocol Hydromorphone HCl (Dilaudid) 0.5 mg IVP Q8H PRN PRN Reason: Pain, severe (8-10) Cefepime HCl (Maxipime Iv 1 Gm Premix) 1 gm in 50 mls @ 100 mls/hr IVPB Q12H [facility]; Protocol Last Admin: 09/26/18 14:32 Dose: 100 mls/hr Insulin Glargine (Lantus) 10 unit SC HS [facility] Last Admin: 09/26/18 22:06 Dose: 10 units Insulin Human Regular (Novolin R) 0 unit SC [facility]; Protocol Last Admin: 09/26/18 21:16 Dose: Not Given Lisinopril (Zestril) 40 mg PO DAILY [facility] Last Admin: 09/26/18 10:14 Dose: 40 mg Oxycodone/Acetaminophen (Percocet 5/325 Mg Tab) 2 tab PO Q4H PRN PRN Reason: Pain, moderate (4-7) Stop: 09/27/18 11:05 Last Admin: 09/27/18 00:08 Dose: 2 tab Polyethylene Glycol (Miralax) 17 gm PO DAILY PRN PRN Reason: Constipation Last Admin: 09/23/18 09:42 Dose: 17 gm Rosuvastatin Calcium (Crestor) [address] [facility] Last Admin: 09/26/18 22:06 Dose: 5 mg Saccharomyces Boulardii (Florastor) 250 mg PO BID [facility] Last Admin: 09/26/18 17:29 Dose: 250 mg Sitagliptin Phosphate (Januvia) 50 mg PO DAILY [facility] Last Admin: 09/26/18 10:14 Dose: 50 mg Tamsulosin HCl (Flomax) 0.4 mg PO DAILY [facility] Last Admin: 09/26/18 10:14 Dose: 0.4 mg - Labs Labs: 09/26/18 07:09 09/26/18 07:09 PT 11.0 SECONDS (9.7-12.2) 09/22/18 05:18 INR 1.0 09/22/18 05:18 APTT 26.0 SECONDS (21-34) 09/22/18 05:18 - Additional Findings Additional findings: - Constitutional Appears: Non-toxic, No Acute Distress - Head Exam Head Exam: NORMAL INSPECTION - Eye Exam Eye Exam: EOMI, Normal appearance - ENT Exam ENT Exam: Mucous Membranes Moist - Respiratory Exam Respiratory Exam: Clear to Ausculation Bilateral, NORMAL BREATHING PATTERN. absent: Rhonchi, Wheezes - Cardiovascular Exam Cardiovascular Exam: REGULAR RHYTHM, +S1, +S2 - GI/Abdominal Exam GI & Abdominal Exam: Soft, Normal Bowel Sounds. absent: Distended, Firm, Guarding, Rigid, Tenderness - Exam Additional comments: sanchez in place no CBI, no hematuria appreciated in collecting bag - Extremities Exam Extremities Exam: Normal Inspection - Neurological Exam Neurological Exam: Alert, Awake, Oriented x3 - Psychiatric Exam Psychiatric exam: Normal Affect, Normal Mood - Skin Skin Exam: Dry, Intact, Normal Color Assessment and Plan (1) Hematuria Status: Chronic (2) Symptomatic anemia Status: Resolved (3) Prostate cancer Status: Chronic - Assessment and Plan (Free Text) Assessment: Assessment and Plan 73yo M PMH DM, HTN, arthritis, CAD, prostate cancer, admitted for anemia and heather hematuria; now s/p cystoscopy on 09/04, was still having heather hematuria. 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 Wellington- cytoscopy x 2 please refer to reports Hematuria resolvin Transfuse as needed but seems like hematuria has resolved s/p most recent cyto scopy Percocet 5/325 x 2 tabs q4h prn Delirium (resolved) likely 2/2 to UTI ucx positive for P.A IV cefepime 1gm ivpb q12h ID consulted: Dr. Rodriguez- IV abx as per ID Neurology consulted: Dr. Pritchard- MRI 09/22- no acute abnormality Weakness in upper and lower extremities likely 2/2 hyperkalemia upper extremity weakness resolved continued weakness appreciated in lower extremites PT eval pending Diabetes Mellitus 2, uncontrolled with neuropathy Glargine 10 units sc HS Januvia 50mg po daily Gabapentin 300mg po tid Crestor 5mg po daily Insulin sliding scale regular Hx of Prostate Cancer Finasteride 5mg po daily Tamsulosin 0.4mg po daily Constipation Colace 100mg po bid - held (loose stools) Dulcolax 10mg DC daily prn -held Polyethylene glycol - held GI ppx: Florastor 250mg po bid DVT ppx: chemical AC contrindciated, SCDs CK PGY1 dw Dr Kwong Assessment and Plan (1) Hematuria Status: Chronic (2) Symptomatic anemia Status: Resolved (3) Prostate cancer Status: Chronic
[2018-09-27] MEDS: Cefepime IV 1 gm in Dextrose 1 GM/50 ML BAG IVPB SCH ×2 (01:41→15:00)
[2018-09-27] MEDS: HYDROmorphone 0.5 mg/0.5 ml ISec IVP PRN ×2 (01:42→23:56)
[2018-09-27] MEDS: (Novolin R) Insulin Human Regular 100 units/ml vial SC SCH ×4 (08:14→22:17)
[2018-09-27] MEDS: Saccharomyces Boulardi 250 mg Cap PO SCH ×2 (09:34→17:34)
[2018-09-27 11:10] LABS: BASO # 0.1 K/uL (0.0-0.2); BASO % 0.6 % (0.0-2.0); EOS # 0.4 K/uL (0.0-0.7); EOS % 3.7 % (0.0-4.0); HEMOGLOBIN 8.9 g/dL (12.0-18.0); LYMPH # 0.8 K/uL (1.0-4.3); LYMPH % 8.1 % (20.0-40.0); MEAN CELL VOLUME 90.1 fL (80.0-94.0); MEAN CORPUSCULAR HEMOGLOBIN 30.7 pg (27.0-31.0); MEAN PLATELET VOLUME 7.1 fL (7.2-11.7); MONO # 0.7 K/uL (0.0-0.8); MONO % 7.4 % (0.0-10.0); NEUT # 7.7 K/uL (1.8-7.0); NEUT % 80.2 % (50.0-75.0); PLATELET COUNT 476 K/uL (130-400); RED CELL DISTRIBUTION WIDTH 14.3 % (11.5-14.5); WHITE BLOOD COUNT 9.6 K/uL (4.8-10.8)
[2018-09-27 11:26] LABS: BLOOD UREA NITROGEN 24 mg/dL (9-20); CALCIUM 7.8 mg/dl (8.6-10.4); GFR NON-AFRICAN AMERICAN > 60
[2018-09-27 12:04] LABS: BANDS 3 % (0-2); BASOPHIL 1 % (0-2); EOSINOPHIL 2 % (0-4); LYMPHOCYTE 8 % (20-40); MONOCYTE 8 % (0-10); NEUTROPHIL 78 % (50-75); PLATELET ESTIMATE INCREASED (NORMAL); TOTAL CELLS COUNTED 100
[2018-09-27 12:05] LABS: ANISOCYTOSIS SLIGHT
[2018-09-27 12:06] LABS: HYPOCHROMIC SLIGHT; POLYCHROMIC SLIGHT; TOXIC GRANULATION PRESENT
--- NOTE | 2018-09-27 21:04 | OP ---
PROCEDURE DATE: 09/22/2018 PREOPERATIVE DIAGNOSES Hematuria, clot retention, and history of prostate carcinoma. POSTOPERATIVE DIAGNOSES: Hematuria, clot retention, and history of prostate carcinoma. Bleeding of prostatic and bladder neck origin. PROCEDURE: Cystoscopy, evacuation of clots, fulguration of bladder neck and prostatic bleeding, bilateral retrograde pyelogram. Exam under anesthesia/anorectal examination. DESCRIPTION OF PROCEDURE: Procedure as follows. The patient was placed in lithotomy position. Genitalia prepped and draped sterilely. Anesthesia was applied by the anesthesiologist. The 22-Ukrainian cystoscope sheath was introduced under direct vision. Urethra, prostate, and bladder were inspected. FINDINGS: There was no stricture in the anterior urethra. There was extensive clots within the prostatic urethra and the bladder. The clots were attempted to remove with the Ellik evacuator as well as with the Wale syringe. However, they could not be effectively removed through the cystoscope sheath. The cystoscope was removed. A 28-Ukrainian continuous flow resectoscope sheath was introduced under direct vision using the visual obturator. Inspection of the bladder confirmed of the extensor clots. Clot evacuation was performed. There were large amount of clots, which needed irrigation and evacuation both with the Microvasive evacuator as well as with the Wale syringe. Following complete evacuation, the bladder was able to be inspected. There was diffuse nick cystitis. There was marked bladder trabeculation. There was no bladder tumor or a stone identified. The bleeding was noted within the prostatic urethra as well as within the bladder neck. There were multiple sites that demonstrated arterial and venous bleeding. There was no active bleeding within the bladder. Fulguration was performed using the rollerball electrode. Hemostasis was complete. The bladder and the prostatic were further reinspected and again there was no additional bleeding noted. The ureteral orifices were identified. There was difficulty finding the orifices due to the extent of inflammation and trabeculation within the bladder. The retrograde pyelogram was performed. There was noted to be [id number] bilateral hydronephrosis. There was no definite ureteral obstruction. The level of obstruction was at the level of the bladder and ureteral vesicle junctions. There was fair drainage on post drainage films The bladder was again reinspected and the prostatic urethra was again reinspected. There was no evidence of further bleeding. The cystoscope and sheath were removed. A Harris catheter was inserted. Bladder drainage was clear. Exam under anesthesia/bimanual examination/anorectal examination was performed. There was no abnormal pelvic mass fixation or induration. There was no bladder mass. The prostate was mobile and firm approximately 15 g in size without fixation, induration, or nodularity. The patient was returned to supine position. The patient tolerated the procedure without complication. Karen Wellington MD
[2018-09-27] MEDS: (Lantus) Insulin Glargine, Recombinant SC SCH (22:17)
[2018-09-28] MEDS: Oxycodone/Acetaminophen 5/325 mg Tab PO PRN ×2 (02:55→09:33)
[2018-09-28] MEDS: Cefepime IV 1 gm in Dextrose 1 GM/50 ML BAG IVPB SCH ×2 (02:58→13:27)
[2018-09-28 07:29] LABS: BASO # 0.1 K/uL (0.0-0.2); BASO % 0.8 % (0.0-2.0); EOS # 0.3 K/uL (0.0-0.7); EOS % 3.9 % (0.0-4.0); LYMPH # 0.8 K/uL (1.0-4.3); LYMPH % 9.7 % (20.0-40.0); MEAN CELL VOLUME 90.2 fL (80.0-94.0); MEAN CORPUSCULAR HEMOGLOBIN 31.1 pg (27.0-31.0); MEAN CORPUSCULAR HGB CONC 34.5 g/dL (33.0-37.0); MEAN PLATELET VOLUME 7.4 fL (7.2-11.7); MONO # 0.7 K/uL (0.0-0.8); MONO % 7.8 % (0.0-10.0); NEUT # 6.6 K/uL (1.8-7.0); NEUT % 77.8 % (50.0-75.0); NRBC % 0.2 % (0.0-2.0); PLATELET COUNT 501 K/uL (130-400); RBC 2.88 Mil/uL (4.40-5.90); RED CELL DISTRIBUTION WIDTH 14.7 % (11.5-14.5); WHITE BLOOD COUNT 8.5 K/uL (4.8-10.8)
[2018-09-28 07:39] LABS: BLOOD UREA NITROGEN 26 mg/dL (9-20); CALCIUM 8.2 mg/dl (8.6-10.4); GFR NON-AFRICAN AMERICAN > 60
[2018-09-28] MEDS: (Novolin R) Insulin Human Regular 100 units/ml vial SC SCH ×4 (08:39→22:08)
--- NOTE | 2018-09-28 08:52 | CP.PCM.PN ---
Subjective - Date & Time of Evaluation Date of Evaluation: 09/28/18 Time of Evaluation: 08:30 - Subjective Subjective: Progress note for Dr. Durán. Patient seen and examined at bedside. Reports 9/10 penile pain. Patient informed that he may ask for PRN pain medicine. Harris was d/c'ed and patient voided pink urine this morning. Denies chest pain, shortness of breath, nausea, vomiting, abdominal pain. headache, fever, chills. Objective - Vital Signs/Intake and Output Vital Signs (last 24 hours): Temp Pulse Resp BP Pulse Ox 98.3 F 81 20 176/70 H 98 09/28/18 00:17 09/28/18 00:17 09/28/18 00:17 09/28/18 00:17 09/28/18 00:17 Intake and Output: 09/28/18 09/28/18 06:59 18:59 Intake Total 650 Output Total 2400 Balance -1750 - Medications Medications: Current Medications Acetaminophen (Tylenol 325mg Tab) 650 mg PO Q6 PRN PRN Reason: Fever >100.4 F Last Admin: 09/23/18 21:07 Dose: 650 mg Bisacodyl (Dulcolax) 10 mg AL DAILY PRN PRN Reason: Constipation Last Admin: 09/27/18 17:35 Dose: 10 mg Carvedilol (Coreg) 6.25 mg PO BID [facility] Last Admin: 09/27/18 17:35 Dose: 6.25 mg Dextrose (Dextrose 50% Inj) 0 ml IV STAT PRN; Protocol PRN Reason: Hypoglycemia Protocol Dextrose (Glutose 15) 0 gm PO ONCE PRN; Protocol PRN Reason: Hypoglycemia Protocol Docusate Sodium (Colace) 100 mg PO BID [facility] Last Admin: 09/23/18 18:27 Dose: 100 mg Finasteride (Proscar) 5 mg PO DAILY [facility] Last Admin: 09/27/18 09:34 Dose: 5 mg Gabapentin (Neurontin) 300 mg PO TID [facility] Last Admin: 09/27/18 17:35 Dose: 300 mg Glucagon (Glucagen Diagnostic Kit) 0 mg IM STAT PRN; Protocol PRN Reason: Hypoglycemia Protocol Hydromorphone HCl (Dilaudid) 0.5 mg IVP Q8H PRN PRN Reason: Pain, severe (8-10) Last Admin: 09/27/18 23:56 Dose: 0.5 mg Cefepime HCl (Maxipime Iv 1 Gm Premix) 1 gm in 50 mls @ 100 mls/hr IVPB Q12H [facility]; Protocol Last Admin: 09/28/18 02:58 Dose: 100 mls/hr Insulin Glargine (Lantus) [address] [facility] Last Admin: 09/27/18 22:17 Dose: 10 units Insulin Human Regular (Novolin R) 0 unit SC [facility]; Protocol Last Admin: 09/27/18 22:17 Dose: Not Given Lisinopril (Zestril) 40 mg PO DAILY [facility] Last Admin: 09/27/18 09:35 Dose: 40 mg Oxycodone/Acetaminophen (Percocet 5/325 Mg Tab) 2 tab PO Q6H PRN PRN Reason: Pain, moderate (4-7) Stop: 09/30/18 13:43 Last Admin: 09/28/18 02:55 Dose: 2 tab Polyethylene Glycol (Miralax) 17 gm PO DAILY PRN PRN Reason: Constipation Last Admin: 09/23/18 09:42 Dose: 17 gm Rosuvastatin Calcium (Crestor) [address] [facility] Last Admin: 09/27/18 22:18 Dose: 5 mg Saccharomyces Boulardii (Florastor) 250 mg PO BID [facility] Last Admin: 09/27/18 17:34 Dose: 250 mg Sitagliptin Phosphate (Januvia) 50 mg PO DAILY [facility] Last Admin: 09/27/18 09:34 Dose: 50 mg Tamsulosin HCl (Flomax) 0.4 mg PO DAILY [facility] Last Admin: 09/27/18 09:34 Dose: 0.4 mg - Labs Labs: 09/28/18 07:07 09/28/18 07:07 PT 11.0 SECONDS (9.7-12.2) 09/22/18 05:18 INR 1.0 09/22/18 05:18 APTT 26.0 SECONDS (21-34) 09/22/18 05:18 - Constitutional Appears: Non-toxic, No Acute Distress - Head Exam Head Exam: ATRAUMATIC, NORMOCEPHALIC - Eye Exam Eye Exam: EOMI, Normal appearance - ENT Exam ENT Exam: Mucous Membranes Moist, Normal Exam - Neck Exam Neck Exam: Full ROM, Normal Inspection - Respiratory Exam Respiratory Exam: Clear to Ausculation Bilateral, NORMAL BREATHING PATTERN. absent: Rales, Rhonchi, Wheezes - Cardiovascular Exam Cardiovascular Exam: REGULAR RHYTHM, +S1, +S2, Murmur (systolic) - GI/Abdominal Exam GI & Abdominal Exam: Distended (slight), Soft. absent: Guarding, Rigid, Tenderness, Rebound - Extremities Exam Extremities Exam: Full ROM, Normal Capillary Refill. absent: Pedal Edema, Tenderness Additional comments: Bilateral calve muscle atrophy - Neurological Exam Neurological Exam: Alert, Awake, CN II-XII Intact, Oriented x3 Additional comments: Moves all extremities equally. - Psychiatric Exam Psychiatric exam: Normal Affect, Normal Mood - Skin Skin Exam: Dry, Normal Color, Warm Assessment and Plan - Assessment and Plan (Free Text) Plan: 73yo M PMH DM, HTN, arthritis, CAD, prostate cancer, admitted for anemia and heather hematuria; now s/p cystoscopy on 09/04, was still having heather hematuria. 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 Wellington- cytoscopy x 2 please refer to reports Transfuse as needed Harris dc'ed, voiding clear pink urine-improved from previous Percocet x 2 tabs q4h prn UTI Urine cx 09/20/18: Pseudomonas + ID, Dr. Morel consulted IV cefepime 1gm ivpb q12h Delirium (resolved) likely 2/2 to UTI ucx positive for P.A IV cefepime 1gm ivpb q12h ID consulted: Dr. Rodriguez- IV abx as per ID Neurology consulted: Dr. Pritchard- MRI 09/22- no acute abnormality Weakness in upper and lower extremities likely 2/2 hyperkalemia upper extremity weakness resolved continued weakness appreciated in lower extremities PT eval Diabetes Mellitus 2, uncontrolled with neuropathy Glargine 10 units sc HS Januvia 50mg po daily Gabapentin 300mg po tid Crestor 5mg po daily Insulin sliding scale regular Hx of Prostate Cancer Finasteride 5mg po daily Tamsulosin 0.4mg po daily Constipation Colace 100mg po bid - held (loose stools) Dulcolax 10mg AL daily prn -held Polyethylene glycol - held Hx HTN Coreg 6.25 Lisinopril 40mg PO daily add amlodipine 5mg PO daily GI ppx: Florastor 250mg po bid DVT ppx: chemical AC contrindciated, SCDs Dispo: Likely d/c to [facility] tomorrow. Follow up ID recs for antibiotics.
[2018-09-28 08:54] LABS: BANDS 3 % (0-2); EOSINOPHIL 5 % (0-4); LYMPHOCYTE 7 % (20-40); MONOCYTE 7 % (0-10); NEUTROPHIL 78 % (50-75); OVALOCYTES SLIGHT; PLATELET ESTIMATE INCREASED (NORMAL); TOTAL CELLS COUNTED 100
[2018-09-28] MEDS: Saccharomyces Boulardi 250 mg Cap PO SCH ×2 (09:33→17:21)
--- NOTE | 2018-09-28 10:45 | PCM.URO ---
Urology Progress Note - Objective Lab Results Last 24 Hours: Laboratory Results - last 24 hr 09/27/18 09/27/18 09/27/18 11:05 11:05 11:26 WBC 9.6 RBC 2.90 L Hgb 8.9 L Hct 26.2 L MCV 90.1 MCH 30.7 MCHC 34.0 RDW 14.3 Plt Count 476 H MPV 7.1 L Neut % (Auto) 80.2 H Lymph % (Auto) 8.1 L Churchill % (Auto) 7.4 Eos % (Auto) 3.7 Baso % (Auto) 0.6 Neut # (Auto) 7.7 H Lymph # (Auto) 0.8 L Churchill # (Auto) 0.7 Eos # (Auto) 0.4 Baso # (Auto) 0.1 Neutrophils % (Manual) 78 H Band Neutrophils % 3 H Lymphocytes % (Manual) 8 L Monocytes % (Manual) 8 Eosinophils % (Manual) 2 Basophils % (Manual) 1 Toxic Granulation Present Platelet Estimate Increased H Polychromasia Slight Hypochromasia (manual) Slight Anisocytosis (manual) Slight Ovalocytes Sodium 135 Potassium 4.7 Chloride 103 Carbon Dioxide 28 Anion Gap 8 L BUN 24 H Creatinine 0.8 Est GFR ( Amer) > 60 Est GFR (Non-Af Amer) > 60 POC Glucose (mg/dL) 166 H Random Glucose 141 H D Calcium 7.8 L 09/27/18 09/27/18 09/28/18 16:50 21:16 02:17 WBC RBC Hgb Hct MCV MCH MCHC RDW Plt Count MPV Neut % (Auto) Lymph % (Auto) Churchill % (Auto) Eos % (Auto) Baso % (Auto) Neut # (Auto) Lymph # (Auto) Churchill # (Auto) Eos # (Auto) Baso # (Auto) Neutrophils % (Manual) Band Neutrophils % Lymphocytes % (Manual) Monocytes % (Manual) Eosinophils % (Manual) Basophils % (Manual) Toxic Granulation Platelet Estimate Polychromasia Hypochromasia (manual) Anisocytosis (manual) Ovalocytes Sodium Potassium Chloride Carbon Dioxide Anion Gap BUN Creatinine Est GFR ( Amer) Est GFR (Non-Af Amer) POC Glucose (mg/dL) 200 H 294 H 276 H Random Glucose Calcium 09/28/18 09/28/18 09/28/18 07:07 07:07 07:46 WBC 8.5 RBC 2.88 L Hgb 9.0 L Hct 26.0 L MCV 90.2 MCH 31.1 H MCHC 34.5 RDW 14.7 H Plt Count 501 H MPV 7.4 Neut % (Auto) 77.8 H Lymph % (Auto) 9.7 L Churchill % (Auto) 7.8 Eos % (Auto) 3.9 Baso % (Auto) 0.8 Neut # (Auto) 6.6 Lymph # (Auto) 0.8 L Churchill # (Auto) 0.7 Eos # (Auto) 0.3 Baso # (Auto) 0.1 Neutrophils % (Manual) 78 H Band Neutrophils % 3 H Lymphocytes % (Manual) 7 L Monocytes % (Manual) 7 Eosinophils % (Manual) 5 H Basophils % (Manual) Toxic Granulation Platelet Estimate Increased H Polychromasia Hypochromasia (manual) Anisocytosis (manual) Ovalocytes Slight Sodium 136 Potassium 4.7 Chloride 105 Carbon Dioxide 29 Anion Gap 7 L BUN 26 H Creatinine 0.9 Est GFR ( Amer) > 60 Est GFR (Non-Af Amer) > 60 POC Glucose (mg/dL) 157 H Random Glucose 152 H Calcium 8.2 L Intake & Output: Intake & Output 09/27/18 09/28/18 09/28/18 18:59 06:59 18:59 Intake Total 450 650 Output Total 900 2400 Balance -450 -1750 Intake: Intake, IV Amount 50 50 Left Forearm 50 50 Oral 400 600 Output: Urine 900 2400 3-way Urethral 900 2400 Other: # Bowel Movements 0 0 Vital Signs: Vital Signs - 24 hr 09/27/18 09/27/18 09/28/18 17:42 19:20 00:17 Temperature 98.3 F 98.3 F Pulse Rate 74 81 Respiratory 20 20 Rate Blood Pressure 178/82 H 151/78 H 176/70 H O2 Sat by Pulse 96 98 Oximetry 09/28/18 08:00 Temperature 97.8 F Pulse Rate 75 Respiratory 20 Rate Blood Pressure 151/87 H O2 Sat by Pulse 97 Oximetry
[2018-09-28] MEDS: HYDROmorphone 0.5 mg/0.5 ml ISec IVP PRN (17:27)
[2018-09-28] MEDS: (Lantus) Insulin Glargine, Recombinant SC SCH (22:07)
[2018-09-29] MEDS: HYDROmorphone 0.5 mg/0.5 ml ISec IVP PRN (00:37)
[2018-09-29] MEDS: Cefepime IV 1 gm in Dextrose 1 GM/50 ML BAG IVPB SCH ×2 (01:41→13:26)
[2018-09-29] MEDS: Oxycodone/Acetaminophen 5/325 mg Tab PO PRN ×3 (05:53→22:34)
[2018-09-29 07:31] LABS: BASO # 0.1 K/uL (0.0-0.2); BASO % 0.7 % (0.0-2.0); EOS # 0.2 K/uL (0.0-0.7); EOS % 2.6 % (0.0-4.0); HEMOGLOBIN 8.4 g/dL (12.0-18.0); LYMPH # 0.8 K/uL (1.0-4.3); LYMPH % 9.9 % (20.0-40.0); MEAN CORPUSCULAR HEMOGLOBIN 31.4 pg (27.0-31.0); MEAN CORPUSCULAR HGB CONC 34.9 g/dL (33.0-37.0); MEAN PLATELET VOLUME 7.3 fL (7.2-11.7); MONO # 0.8 K/uL (0.0-0.8); MONO % 9.7 % (0.0-10.0); NEUT % 77.1 % (50.0-75.0); PLATELET COUNT 483 K/uL (130-400); RBC 2.69 Mil/uL (4.40-5.90); RED CELL DISTRIBUTION WIDTH 14.7 % (11.5-14.5); WHITE BLOOD COUNT 7.8 K/uL (4.8-10.8)
[2018-09-29] MEDS: (Novolin R) Insulin Human Regular 100 units/ml vial SC SCH ×4 (07:39→22:33)
[2018-09-29 07:43] LABS: BLOOD UREA NITROGEN 25 mg/dL (9-20); CALCIUM 8.1 mg/dl (8.6-10.4); GFR NON-AFRICAN AMERICAN > 60
[2018-09-29 08:41] LABS: EOSINOPHIL 2 % (0-4); LYMPHOCYTE 9 % (20-40); MONOCYTE 10 % (0-10); NEUTROPHIL 79 % (50-75); OVALOCYTES SLIGHT; PLATELET ESTIMATE SLIGHTLY INCREASED (NORMAL); TOTAL CELLS COUNTED 100
[2018-09-29] MEDS: Saccharomyces Boulardi 250 mg Cap PO SCH ×2 (09:43→17:42)
--- NOTE | 2018-09-29 11:11 | CP.PCM.DIS ---
Provider - Provider Date of Admission: 09/04/18 08:25 Attending physician: Rhett Durán Jr, MD Consults: 09/01/18 21:05 Case Management Referral Routine Comment: Physician Instructions: Reason For Exam: Reason for Referral: Discharge Planning 09/02/18 16:08 Urology Consult Routine Comment: Consulting Provider: Karen Wellington Consulting Physician: Karen Wellington Reason for Consult: heather hematuria 09/20/18 03:12 Neurology Consult Routine Comment: Consulting Provider: Shameka Pritchard Consulting Physician: Shameka Pritchard Reason for Consult: acute change in mental status, with extremity weakness 09/20/18 08:08 Infectious Disease Consult Routine Comment: Consulting Provider: Bijan Morel Consulting Physician: Bijan Morel Reason for Consult: Sepsis Time Spent in preparation of Discharge (in minutes): 35 Diagnosis - Discharge Diagnosis (1) Hemorrhagic cystitis Status: Acute Hospital Course - Lab Results Lab Results: Micro Results 09/24/18 05:36 Naris MRSA Culture - Final MRSA NOT DETECTED 09/20/18 01:20 Blood Blood Culture - Final NO GROWTH AFTER 5 DAYS 09/20/18 01:20 Blood Gram Stain - Final TEST NOT PERFORMED 09/20/18 01:21 Blood Blood Culture - Final Pseudomonas Aeruginosa 09/20/18 01:21 Blood Gram Stain - Final 09/20/18 13:47 Urine,Catheterized Urine Culture - Final Pseudomonas Aeruginosa 09/20/18 13:47 Naris MRSA Culture - Final MRSA NOT DETECTED 09/20/18 13:47 Nose MRSA Culture (Admit) - Final MRSA NOT DETECTED Most Recent Lab Values WBC 7.8 K/uL (4.8-10.8) 09/29/18 07:19 RBC 2.69 Mil/uL (4.40-5.90) L 09/29/18 07:19 Hgb 8.4 g/dL (12.0-18.0) L 09/29/18 07: Hct 24.2 % (35.0-51.0) L 09/29/18 07:19 MCV 90.0 fL (80.0-94.0) 09/29/18 07:19 MCH 31.4 pg (27.0-31.0) H 09/29/18 07:19 MCHC 34.9 g/dL (33.0-37.0) 09/29/18 07:19 RDW 14.7 % (11.5-14.5) H 09/29/18 07:19 Plt Count 483 K/uL (130-400) H 09/29/18 07:19 MPV 7.3 fL (7.2-11.7) 09/29/18 07:19 Neut % (Auto) 77.1 % (50.0-75.0) H 09/29/18 07:19 Lymph % (Auto) 9.9 % (20.0-40.0) L 09/29/18 07:19 [place] % (Auto) 9.7 % (0.0-10.0) 09/29/18 07:19 Eos % (Auto) 2.6 % (0.0-4.0) 09/29/18 07:19 Baso % (Auto) 0.7 % (0.0-2.0) 09/29/18 07:19 Neut # (Auto) 6.0 K/uL (1.8-7.0) 09/29/18 07:19 Lymph # (Auto) 0.8 K/uL (1.0-4.3) L 09/29/18 07:19 [place] # (Auto) 0.8 K/uL (0.0-0.8) 09/29/18 07:19 Eos # (Auto) 0.2 K/uL (0.0-0.7) 09/29/18 07:19 Baso # (Auto) 0.1 K/uL (0.0-0.2) 09/29/18 07:19 Neutrophils % (Manual) 79 % (50-75) H 09/29/18 07:19 Band Neutrophils % 3 % (0-2) H 09/28/18 07:07 Lymphocytes % (Manual) 9 % (20-40) L 09/29/18 07:19 Reactive Lymphs % 1 % (0-0) H 09/26/18 07:09 Monocytes % (Manual) 10 % (0-10) 09/29/18 07:19 Eosinophils % (Manual) 2 % (0-4) 09/29/18 07:19 Basophils % (Manual) 1 % (0-2) 09/27/18 11:05 Metamyelocytes % 1 % (0-0) H 09/26/18 07:09 Myelocytes % 4 % (0-0) H 09/24/18 07:15 Blast Cells % 1 % (0-0) H 09/21/18 05:47 Toxic Granulation Present 09/27/18 11:05 Platelet Estimate Slightly increased (NORMAL) H 09/29/18 07:19 Plt Clumps, EDTA Present 09/05/18 19:29 Large Platelets Present 09/26/18 07:09 Giant Platelets Present 09/16/18 07:10 Polychromasia Slight 09/27/18 11:05 Hypochromasia (manual) Slight 09/27/18 11:05 Poikilocytosis (manual Slight 09/26/18 07:09 Anisocytosis (manual) Slight 09/27/18 11:05 Microcytosis (manual) Slight 09/05/18 19:29 Macrocytosis (manual) Slight 09/05/18 19:29 Target Cells Slight 09/24/18 07:15 Ovalocytes Slight 09/29/18 07:19 Neno Cells Slight 09/26/18 07:09 Schistocytes Slight 09/26/18 07:09 Retic Count 1.7 % (0.5-1.5) H 09/03/18 07:15 PT 11.0 SECONDS (9.7-12.2) 09/22/18 05:18 INR 1.0 09/22/18 05:18 APTT 26.0 SECONDS (21-34) 09/22/18 05:18 Fibrinogen 525 mg/dL (200-400) H 09/20/18 13:47 Puncture Site Lr 09/20/18 03:10 pCO2 30 mm/Hg (35-45) L 09/20/18 03:10 pO2 124 mm/Hg (80-100) H 09/20/18 03:10 HCO3 22.4 mmol/L (21-28) 09/20/18 03:10 ABG pH 7.43 (7.35-7.45) 09/20/18 03:10 ABG Total CO2 20.8 mmol/L (22-28) L 09/20/18 03:10 ABG O2 Saturation 99.4 % (95-98) H 09/20/18 03:10 ABG Base Excess -3.3 mmol/L (-2.0-3.0) L 09/20/18 03:10 Wilber Test Pos 09/20/18 03:10 ABG Potassium 6.2 mmol/L (3.6-5.2) H* 09/20/18 03:10 Sodium 130.0 mmol/l (132-148) L 09/20/18 03:10 Chloride 106.0 mmol/L (98-107) 09/20/18 03:10 Glucose 171 mg/dl (75-110) H 09/20/18 03:10 Lactate 1.6 mmol/L (0.7-2.1) 09/20/18 03:10 Liter Flow 2.0 09/20/18 03:10 Crit Value Called To Krishna rn 09/20/18 03:10 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 09/20/18 03:10 Crit Value Read Back Y 09/20/18 03:10 Blood Gas Notified Time 317 09/20/18 03:10 Sodium 135 mmol/L (132-148) 09/29/18 07:19 Potassium 4.4 mmol/L (3.6-5.2) 09/29/18 07:19 Chloride 104 mmol/L (98-107) 09/29/18 07:19 Carbon Dioxide 29 mmol/L (22-30) 09/29/18 07:19 Anion Gap 7 (10-20) L 09/29/18 07:19 BUN 25 mg/dL (9-20) H 09/29/18 07:19 Creatinine 0.9 mg/dL (0.8-1.5) 09/29/18 07:19 Est GFR ( Amer) > 60 09/29/18 07:19 Est GFR (Non-Af Amer) > 60 09/29/18 07:19 POC Glucose (mg/dL) 267 mg/dL (65-110) H 09/29/18 06:59 Random Glucose 251 mg/dL (75-110) H D 09/29/18 07:19 Lactic Acid 1.2 mmol/L (0.7-2.1) 09/20/18 13:47 Calcium 8.1 mg/dl (8.6-10.4) L 09/29/18 07:19 Phosphorus 2.8 mg/dL (2.5-4.5) 09/25/18 11:21 Magnesium 2.2 mg/dL (1.6-2.3) 09/25/18 11:21 Total Bilirubin 0.1 mg/dL (0.2-1.3) L 09/26/18 07:09 AST 61 U/L (17-59) H D 09/26/18 07:09 ALT 79 U/L (21-72) H 09/26/18 07:09 Alkaline Phosphatase 285 U/L (38-126) H 09/26/18 07:09 Ammonia < 9 umol/L (9-33) L 09/20/18 11:16 CK-MB (Mass) 1.81 ng/mL (0.0-3.38) 09/20/18 13:47 Troponin I 0.0210 ng/mL (0.00-0.120) 09/20/18 13:47 NT-Pro-B Natriuret Pep 177 pg/mL (0-900) 09/20/18 13:47 Total Protein 4.7 g/dL (6.3-8.3) L 09/26/18 07:09 Albumin 2.1 g/dL (3.5-5.0) L 09/26/18 07:09 Globulin 2.6 gm/dL (2.2-3.9) 09/26/18 07:09 Albumin/Globulin Ratio 0.8 (1.0-2.1) L 09/26/18 07:09 Free PSA <0.1 ng/mL 09/03/18 07:15 % Free PSA Unable to calculate % (calc) (>25) 09/03/18 07:15 Total PSA 0.1 ng/mL (< or = 4.0) 09/03/18 07:15 Ethanolamine None detected 09/20/18 13:47 Testosterone Level 341 ng/mL 09/03/18 07:15 Arterial Blood Potassium 6.2 mmol/L (3.6-5.2) H* 09/20/18 03:10 Urine Color Red (YELLOW) 09/20/18 14:00 Urine Clarity Turbid (Clear) 09/20/18 14:00 Urine pH 6.0 (5.0-8.0) 09/20/18 14:00 Ur Specific [place] 1.006 (1.003-1.030) 09/20/18 14:00 Urine Protein 2+ mg/dL (NEGATIVE) H 09/20/18 14:00 Urine Glucose (UA) Normal mg/dL (Normal) 09/20/18 14:00 Urine Ketones Negative mg/dL (NEGATIVE) 09/20/18 14:00 Urine Blood 3+ (NEGATIVE) H 09/20/18 14:00 Urine Nitrate Negative (NEGATIVE) 09/20/18 14:00 Urine Bilirubin Negative (NEGATIVE) 09/20/18 14:00 Urine Urobilinogen Normal mg/dL (0.2-1.0) 09/20/18 14:00 Ur Leukocyte Esterase Neg [place]/uL (Negative) 09/20/18 14:00 Urine WBC (Auto) 5 /hpf (0-5) 09/20/18 14:00 Urine RBC (Auto) 28293 /hpf (0-3) H 09/20/18 14:00 Urine Bacteria Rare (<OCC) 09/01/18 16:50 Opiates (GC/MS) negative 09/20/18 13:47 Urine Opiates Screen Negative (NEGATIVE) 09/20/18 14:00 Ur Opiates (GC/MS) Negative 300 (Negative) 09/21/18 08:49 Oxycodone Screen negative 09/20/18 14:00 Ur Oxycodone Comment See note 09/20/18 14:00 Methadone (GC/MS) negative 09/20/18 13:47 Urine Methadone Screen Negative (NEGATIVE) 09/20/18 14:00 Ur Methadone, Qual Negative 300 (Negative) 09/21/18 08:49 Propoxyphenes negative 09/20/18 13:47 Urine Propoxyphene Negative 300 (Negative) 09/21/18 08:49 Methaqualone Negative 300 (Negative) 09/21/18 08:49 Barbiturates negative 09/20/18 13:47 Ur Barbiturates Screen Negative (NEGATIVE) 09/20/18 14:00 Ur Barbiturates, Qual Negative 300 (Negative) 09/21/18 08:49 Phencyclidine (PCP) negative 09/20/18 13:47 Ur Phencyclidine Scrn Negative (NEGATIVE) 09/20/18 14:00 Ur Phencyclidine (PCP) Negative 25 (Negative) 09/21/18 08:49 Amphetamines negative 09/20/18 13:47 Ur Amphetamines Screen Negative 1000 (Negative) 09/21/18 08:49 Benzodiazepines negative 09/20/18 13:47 U Benzodiazepines Scrn Negative (NEGATIVE) 09/20/18 14:00 U Benzodiazepines Qual Negative 300 (Negative) 09/21/18 08:49 Cocaine & Metabolite negative 09/20/18 13:47 Urine Cocaine Negative 300 (Negative) 09/21/18 08:49 U Oth Cocaine Metabols Negative (NEGATIVE) 09/20/18 14:00 U Cannabinoids Screen Negative (NEGATIVE) 09/20/18 14:00 Marijuana negative 09/20/18 13:47 U Marijuana (THC) Screen Negative 50 (Negative) 09/21/18 08:49 Drugs of Abuse Note See note 09/21/18 08:49 Drugs of Abuse Comment See note 09/20/18 13:47 Toxicology Panel see note 09/20/18 13:47 Methyl Alcohol Level None detected 09/20/18 13:47 Isopropanol None detected 09/20/18 13:47 Acetone Level None detected 09/20/18 13:47 Blood Type A POSITIVE 09/21/18 04:00 Antibody Screen Negative 09/21/18 04:00 - Hospital Course Hospital Course: On admission: Patient is a 73 year old male with a PMH DM, HTN, arthritis, CAD sent in by Dr. Garcia for pete red urine in Harris. Patient is a poor historian and does not remember when the Harris was placed or replaced. He is uncooperative with interview and physical, demanding that he be given pain medication and have his Harris changed prior to answering any questions. Admits to suprapubic pain. Denies other symptoms, including chest pain, shortness of breath, abdominal pain, numbness, tingling, bleeding from other areas. Patient does not recall when his last meal, nor his last BM was. He was recently hospitalized at [facility] 07/27-04/13 for poor DM control and frequent falls. Hospital Course: 73yo M PMH DM, HTN, arthritis, CAD, prostate cancer, admitted on 09/02 for anemia and heather hematuria. Patient had a cystoscopy on 09/04 with urology, Dr. Thanh ruby, and continued to have heather hematuria. Repeat cytoscopy was done on 09/22 for continuing hematuria. Patient required blood transfusion on multiple occasions for low Hgb at 6. Hgb now stable at 8.4. Hematuria has improved. Patient found to have UTI. Urine cx grew pseudomonas. ID, Dr. Morel was consulted who place patient placed on cefepime 1gm IV Q12H from 09/22 and is to continue until 10/06. Patient's chronic conditions were also managed throughout stay. Please note this is a summary, for full records, please see EMR. Discharge instructions: Patient is stable for discharge as per Dr. Durán Patient is to be discharged to [facility] on the following medications: Cefepime 1gm IVP Q12H until 10/06 for UTI Acetaminophen 650mg Q6H PRN pain amlodipine 5mg PO daily Carvedilol 6.25mg BID Lisinopril 40mg PO dialy Florastor 250mg PO BID until 11/06/18 Gabapentin 300mg PO TID Finasteride 5mg PO daily Sitagliptin 50mg PO daily Lantus 10 units SC HS Miralax 17gm PO daily PRN constipation Dulcolax 10mg [place] PRN Crestor 5mg PO HS Tamsulosin 0.4mg PO Q12H Percocet 2 tabs Q6H PRN moderate pain Morphine 2mg IVP Q6H PRN severe pain Please follow up with Dr Durán within 7 days of discharge for continuation of your care. You also have an appointment at [facility] on Friday. Return to the emergency room for new or worsening symptoms. Discharge Exam - Additional Findings Additional findings: - Constitutional Appears: Non-toxic, No Acute Distress - Head Exam Head Exam: ATRAUMATIC, NORMOCEPHALIC - Eye Exam Eye Exam: EOMI, Normal appearance - ENT Exam ENT Exam: Mucous Membranes Moist, Normal Exam - Neck Exam Neck Exam: Full ROM, Normal Inspection - Respiratory Exam Respiratory Exam: Clear to Ausculation Bilateral, NORMAL BREATHING PATTERN. absent: Rales, Rhonchi, Wheezes - Cardiovascular Exam Cardiovascular Exam: REGULAR RHYTHM, +S1, +S2, Murmur (systolic) - GI/Abdominal Exam GI & Abdominal Exam: Distended (slight), Soft. absent: Guarding, Rigid, Tenderness, Rebound - Extremities Exam Extremities Exam: Full ROM, Normal Capillary Refill. absent: Pedal Edema, Tenderness Additional comments: Bilateral calve muscle atrophy - Neurological Exam Neurological Exam: Alert, Awake, CN II-XII Intact, Oriented x3 Additional comments: Moves all extremities equally. - Psychiatric Exam Psychiatric exam: Normal Affect, Normal Mood - Skin Skin Exam: Dry, Normal Color, Warm Discharge Plan - Discharge Medications Prescriptions: Gabapentin [Neurontin] 300 mg PO TID #90 cap Insulin Glargine, Recombina [Lantus] 10 unit SC HS #3 l Lisinopril [Zestril] 40 mg PO DAILY #30 tab Morphine 2 mg IV Q6H PRN #1 ml PRN Reason: Pain, Severe (8-10) - Follow Up Plan Condition: STABLE Disposition: REHAB FACILITY/REHAB UNIT Instructions: Blood in the Urine (Hematuria), Adult (DC), Normocytic Normochromic Anemia (DC) Additional Instructions: Patient is stable for discharge as per Dr. Durán Patient is to be discharged to [facility] on the following medications: Cefepime 1gm IVP Q12H until 10/06 for UTI Acetaminophen 650mg Q6H PRN pain amlodipine 5mg PO daily Carvedilol 6.25mg BID Lisinopril 40mg PO dialy Florastor 250mg PO BID until 11/06/18 Gabapentin 300mg PO TID Finasteride 5mg PO daily Sitagliptin 50mg PO daily Lantus 10 units SC HS Miralax 17gm PO daily PRN constipation Dulcolax 10mg [place] PRN Crestor 5mg PO HS Tamsulosin 0.4mg PO Q12H Percocet 2 tabs Q6H PRN moderate pain Morphine 2mg IVP Q6H PRN severe pain Patient has appointment at [facility] on Friday. Please follow up with Dr Ya within 7 days of discharge Please follow up with Dr Durán within 7 days of discharge to continuation of your care. Return to the emergency room for new or worsening symptoms. Referrals: Rhett Durán Jr., MD [Medical Doctor] - Tino Olivares MD [Staff Provider] -
[2018-09-29] MEDS ORDERED: POLYETHYLENE GLYCOL 3350 17 GM/Dose PACKET PO ONE ×2 (11:12→12:45)
[2018-09-29 16:02] LABS: VON WILLERBRAND FACTOR AG 362 % (50-217)
[2018-09-29] MEDS: (Lantus) Insulin Glargine, Recombinant SC SCH (22:33)
[2018-09-30] MEDS: Cefepime IV 1 gm in Dextrose 1 GM/50 ML BAG IVPB SCH (02:00)
[2018-09-30] MEDS: Oxycodone/Acetaminophen 5/325 mg Tab PO PRN ×2 (04:15→11:43)
[2018-09-30 07:59] VITALS: BP 170/75; PULSE 82; TEMP 97.9; O2SAT 96
[2018-09-30 08:25] LABS: BASO # 0.1 K/uL (0.0-0.2); BASO % 1.1 % (0.0-2.0); EOS # 0.2 K/uL (0.0-0.7); EOS % 2.8 % (0.0-4.0); HEMOGLOBIN 9.5 g/dL (12.0-18.0); LYMPH # 0.9 K/uL (1.0-4.3); LYMPH % 11.3 % (20.0-40.0); MEAN CELL VOLUME 90.4 fL (80.0-94.0); MEAN CORPUSCULAR HEMOGLOBIN 30.7 pg (27.0-31.0); MEAN CORPUSCULAR HGB CONC 33.9 g/dL (33.0-37.0); MEAN PLATELET VOLUME 7.1 fL (7.2-11.7); MONO # 0.7 K/uL (0.0-0.8); MONO % 8.5 % (0.0-10.0); NEUT # 5.9 K/uL (1.8-7.0); NEUT % 76.3 % (50.0-75.0); RBC 3.08 Mil/uL (4.40-5.90); RED CELL DISTRIBUTION WIDTH 14.6 % (11.5-14.5); WHITE BLOOD COUNT 7.7 K/uL (4.8-10.8)
[2018-09-30] MEDS: (Novolin R) Insulin Human Regular 100 units/ml vial SC SCH ×2 (08:26→12:25)
[2018-09-30 08:36] LABS: BLOOD UREA NITROGEN 27 mg/dL (9-20); CALCIUM 8.6 mg/dl (8.6-10.4); GFR NON-AFRICAN AMERICAN > 60
[2018-09-30] MEDS: Saccharomyces Boulardi 250 mg Cap PO SCH (10:31)
--- NOTE | 2018-09-30 23:53 | PCM.URO ---
Urology Progress Note - General General: No Complaints, Tolerating Diet - Subjective Abdominal Pain: No Flank Pain: No Nausea: No Vomiting: No Voiding Well: Yes Hematuria: No Good Stream: Yes Dsypnea: No Chest Pain: No Fever & Chills: No - Objective Lab Results Last 24 Hours: Laboratory Results - last 24 hr 09/23/18 09/30/18 09/30/18 16:09 02:30 07:20 WBC RBC Hgb Hct MCV MCH MCHC RDW Plt Count MPV Neut % (Auto) Lymph % (Auto) [place] % (Auto) Eos % (Auto) Baso % (Auto) Neut # (Auto) Lymph # (Auto) [place] # (Auto) Eos # (Auto) Baso # (Auto) Factor VIII Antigen 2.80 H Sodium Potassium Chloride Carbon Dioxide Anion Gap BUN Creatinine Est GFR ( Amer) Est GFR (Non-Af Amer) POC Glucose (mg/dL) 231 H 138 H Random Glucose Calcium 09/30/18 09/30/18 09/30/18 08:14 08:14 11:13 WBC 7.7 RBC 3.08 L Hgb 9.5 L Hct 27.9 L MCV 90.4 MCH 30.7 MCHC 33.9 RDW 14.6 H Plt Count 544 H MPV 7.1 L Neut % (Auto) 76.3 H Lymph % (Auto) 11.3 L [place] % (Auto) 8.5 Eos % (Auto) 2.8 Baso % (Auto) 1.1 Neut # (Auto) 5.9 Lymph # (Auto) 0.9 L [place] # (Auto) 0.7 Eos # (Auto) 0.2 Baso # (Auto) 0.1 Factor VIII Antigen Sodium 139 Potassium 4.4 Chloride 102 Carbon Dioxide 31 H Anion Gap 10 BUN 27 H Creatinine 0.8 Est GFR ( Amer) > 60 Est GFR (Non-Af Amer) > 60 POC Glucose (mg/dL) 336 H Random Glucose 173 H D Calcium 8.6 Intake & Output: Intake & Output 09/30/18 09/30/18 10/01/18 06:59 18:59 06:59 Intake Total 300 690 Output Total 500 1150 Balance -200 -460 Intake: Intake, IV Amount 50 Left Forearm 50 Oral 300 640 Output: Urine 500 1150 3-way Urethral 500 Urine, Voided 1150 Other: # Voids Urine, Voided 5 # Bowel Movements 1 0 Vital Signs: Vital Signs - 24 hr 09/30/18 09/30/18 07:00 10:30 Temperature 97.9 F Pulse Rate 82 Respiratory 20 Rate Blood Pressure 170/75 H 170/75 H O2 Sat by Pulse 96 Oximetry - Physical Exam Abdominal Exam: Soft, Non-Tender, Non-Distended Back: No CVA Tenderness Genitalia: Without Inflammation - Plan Ambulation - Out of Bed: Yes Intake & Output: Yes Additional Information: IMP: doing well since catheter removal. Improved re hematuria. Pt will need urologic f/u. Discussed w pt and w nursing staff. YS - Date & Time of Note Date: 09/30/18 Time: 09:50
== END 2018-09-30 12:30 | DRG 653 ==
LOC: C.ER 15:33 → C.9E 17:14 → C.5S 17:40 → OBSVTOIN 09-04 08:25 → C.3T 09-10 08:21 → C.6T 09-20 03:02 → C.9I 09-20 11:43 → C.3T 09-23 18:55
PROVIDERS: ADMIT Internal Medicine; ATTEND Internal Medicine
PROC: 0T7B8DZ Dilation of Bladder with Intraluminal Device, Via Natural or Artificial Opening Endoscopic (ICD-10-PCS; 2018-09-04)
PROC: 0TBC8ZZ Excision of Bladder Neck, Via Natural or Artificial Opening Endoscopic (ICD-10-PCS; 2018-09-04)
PROC: 0TCB8ZZ Extirpation of Matter from Bladder, Via Natural or Artificial Opening Endoscopic (ICD-10-PCS; 2018-09-04)
PROC: 0V508ZZ Destruction of Prostate, Via Natural or Artificial Opening Endoscopic (ICD-10-PCS; principal; 2018-09-04 10:15)
PROC: 0T5C8ZZ Destruction of Bladder Neck, Via Natural or Artificial Opening Endoscopic (ICD-10-PCS; 2018-09-22)
PROC: 0TCB8ZZ Extirpation of Matter from Bladder, Via Natural or Artificial Opening Endoscopic (ICD-10-PCS; 2018-09-22)
PROC: BT141ZZ Fluoroscopy of Kidneys, Ureters and Bladder using Low Osmolar Contrast (ICD-10-PCS; 2018-09-22)
DX: N30.41 Irradiation cystitis with hematuria (principal); A41.52 Sepsis due to Pseudomonas; G92 Toxic encephalopathy; N02.9 Recurrent and persistent hematuria with unspecified morphologic changes; K62.7 Radiation proctitis; N42.1 Congestion and hemorrhage of prostate; N40.1 Benign prostatic hyperplasia with lower urinary tract symptoms; R33.8 Other retention of urine; I10 Essential (primary) hypertension; E11.65 Type 2 diabetes mellitus with hyperglycemia; E11.51 Type 2 diabetes mellitus with diabetic peripheral angiopathy without gangrene; E11.42 Type 2 diabetes mellitus with diabetic polyneuropathy; N32.89 Other specified disorders of bladder; I25.10 Atherosclerotic heart disease of native coronary artery without angina pectoris; I05.9 Rheumatic mitral valve disease, unspecified; M19.90 Unspecified osteoarthritis, unspecified site; K59.00 Constipation, unspecified; Z16.23 Resistance to quinolones and fluoroquinolones; E78.00 Pure hypercholesterolemia, unspecified; Y84.2 Radiological procedure and radiotherapy as the cause of abnormal reaction of the patient, or of later complication, without mention of misadventure at the time of the procedure; Z85.46 Personal history of malignant neoplasm of prostate; Z92.3 Personal history of irradiation; Z79.84 Long term (current) use of oral hypoglycemic drugs; Z87.891 Personal history of nicotine dependence; Z91.14 Patient's other noncompliance with medication regimen; Z79.899 Other long term (current) drug therapy

== ENCOUNTER 2018-10-17 10:12 | Inpatient (IN) | payer OTHER ==
[2018-10-17 10:24] VITALS: BMI 21.8
--- NOTE | 2018-10-17 10:40 | C.PDOC ---
History Of Present Illness 73 y/o male pt with hx of anemia [facility] due to hematuria since yesterday. Pt states pain is intermittent and located in the lower suprapubic area. Pt currently has no pain at this time. Pt is a poor historian. Pt does not have any other complaints or associated sx at this time. Time Seen by Provider: 10/17/18 10:27 Chief Complaint (Nursing): Male Genitourinary History Per: Patient History/Exam Limitations: no limitations Onset/Duration Of Symptoms: Days (x1) Current Symptoms Are (Timing): Still Present Past Medical History Reviewed: Historical Data, Nursing Documentation, Vital Signs Vital Signs: Last Vital Signs Temp 97.5 F L 10/17/18 10:21 Pulse 74 10/17/18 10:21 Resp 18 10/17/18 10:21 BP 157/58 H 10/17/18 10:21 Pulse Ox 100 10/17/18 10:21 Primary Care Provider: Renetta Best - Medical History PMH: Diabetes, HTN, Hypercholesterolemia - [facility] Procedures COLONOSCOPY (11/24/13) DESTRUCTION OF BLADDER NECK, ENDO (09/04/18) DESTRUCTION OF PROSTATE, ENDO (09/04/18) DILATION OF BLADDER WITH INTRALUMINAL DEVICE, ENDO (09/04/18) DX ULTRASOUND NEC (08/03/14) EXCISION OF BLADDER NECK, ENDO (09/04/18) EXCISION OF STOMACH, ENDO, DIAGN (12/07/15) EXTIRPATION OF MATTER FROM BLADDER, ENDO (09/04/18) FLEXIBLE SIGMOIDOSCOPY (11/03/13) FLUOROSCOPY OF KIDNEY, URETER & BLADDER USING L OSM CONTRAST (09/04/18) FLUOROSCOPY OF LEFT HEART USING LOW OSMOLAR CONTRAST (12/07/15) FLUOROSCOPY OF MULT COR ART USING L OSM CONTRAST (12/07/15) INSPECTION OF LOWER INTESTINAL TRACT, ENDO (12/07/15) INSPECTION OF UPPER INTESTINAL TRACT, ENDO (06/04/16) MEASURE OF CARDIAC SAMPL & PRESSURE, L HEART, PERC APPROACH (12/07/15) PERCUTAN NEEDLE BIOPSY OF PROSTATE (08/03/14) RADICAL EXCIS SKIN LES (11/23/12) TRANSFUSE NONAUT RED BLOOD CELLS IN PERIPH VEIN, PERC (12/07/15) TRANSFUSE NONAUT WHOLE BLOOD IN PERIPH VEIN, PERC (06/04/16) Family History: States: Unknown Family Hx - Social History Hx Alcohol Use: No Hx Substance Use: No - Immunization History Hx Tetanus Toxoid Vaccination: No Hx Influenza Vaccination: No Hx Pneumococcal Vaccination: No Review Of Systems Except As Marked, All Systems Reviewed And Found Negative. Constitutional: Negative for: Fever, Chills Gastrointestinal: Positive for: Abdominal Pain (lower suprapubic ) Genitourinary: Positive for: Hematuria. Negative for: Frequency, Incontinence Physical Exam - Physical Exam Appears: Non-toxic, No Acute Distress Skin: Warm, Dry Head: Normacephalic Eye(s): bilateral: PERRL, EOMI Cardiovascular: Rhythm Regular Respiratory: Normal Breath Sounds Gastrointestinal/Abdominal: Soft, No Tenderness, Distention Back: No CVA Tenderness Neurological/Psych: Oriented x3, Normal Speech, Normal Cognition ED Course And Treatment - Laboratory Results Result Diagrams: 10/17/18 11:00 10/17/18 11:00 O2 Sat by Pulse Oximetry: 100 (RA) Pulse Ox Interpretation: Normal Progress Note: Plans: -- chem labs. -- blood work. -- CXR. -- IVF. -- Morphine. Pt was unable to urinate; bladder scan was done and showed half litter of urine, gross hematuria. Case was discuss with Dr. Durán, states pt has hx of prostate cacner and had radiation therapy for his recurring cystitis. On records, pt was seen here x1 month and a half ago for his cystoscopy by Dr. Wellington to remove blood clots from his bladder. Pt is admitted to Dr. Durán's service Disposition - Disposition Disposition: HOSPITALIZED Disposition Time: 13:51 Condition: FAIR - Clinical Impression Clinical Impression: History of prostate cancer, Cystitis, Urinary retention - PA / [employer]REATH MACHINE [employer]END[employer] / Resident Statement / has reviewed & agrees with the documentation as recorded. - Scribe Statement The provider has reviewed the documentation as recorded by the Archana Hines Do All medical record entries made by the Scribtiago were at my direction and personally dictated by me. I have reviewed the chart and agree that the record a ccurately reflects my personal performance of the history, physical exam, medical decision making, and the department course for this patient. I have also personally directed, reviewed, and agree with the discharge instructions and disposition. Decision To Admit - Pt Status Changed To: Hospital Disposition Of: Inpatient - Admit Certification Admit to Inpatient:: After my assessment, the patient will require hospitalization for at least two midnights. This is because of the severity of symptoms shown, intensity of services needed, and/or the medical risk in this patient being treated as an outpatient. - InPatient: Physician Admission Certification: I certify that this patient requires 2 or more midnights of care for the following reason:: Patient will need to be seen by urologist, may need surgical procedure, expected to stay in the hospital for longer than 2 days. - . Bed Request Type: Regular Admitting Physician: Rhett Durán Jr. Patient Diagnosis: History of prostate cancer, Cystitis, Urinary retention
[2018-10-17] MEDS ORDERED: Sodium Chloride 0.9% 500 ML IV STA (10:41)
[2018-10-17 11:08] LABS: BASO % 0.6 % (0.0-2.0); EOS # 0.2 K/uL (0.0-0.7); EOS % 3.4 % (0.0-4.0); HEMOGLOBIN 7.9 g/dL (12.0-18.0); LYMPH # 0.7 K/uL (1.0-4.3); LYMPH % 9.8 % (20.0-40.0); MEAN CORPUSCULAR HEMOGLOBIN 30.9 pg (27.0-31.0); MEAN CORPUSCULAR HGB CONC 34.3 g/dL (33.0-37.0); MEAN PLATELET VOLUME 8.8 fL (7.2-11.7); MONO # 0.7 K/uL (0.0-0.8); MONO % 9.7 % (0.0-10.0); NEUT # 5.6 K/uL (1.8-7.0); NEUT % 76.5 % (50.0-75.0); RBC 2.55 Mil/uL (4.40-5.90); RED CELL DISTRIBUTION WIDTH 14.9 % (11.5-14.5); WHITE BLOOD COUNT 7.3 K/uL (4.8-10.8)
[2018-10-17 11:15] LABS: PLATELET COUNT 244 K/uL (130-400)
[2018-10-17 11:24] LABS: ALB/GLOB RATIO 0.9 (1.0-2.1); ALBUMIN 2.7 g/dL (3.5-5.0); ALT/SGPT 68 U/L (21-72); AST/SGOT 56 U/L (17-59); BLOOD UREA NITROGEN 43 mg/dL (9-20); CALCIUM 8.3 mg/dl (8.6-10.4); GFR NON-AFRICAN AMERICAN > 60
[2018-10-17] MEDS ORDERED: Sodium Chloride 0.9% 500 ML IV ONE (11:24)
[2018-10-17 12:19] LABS: BANDS 2 % (0-2); BASOPHIL 1 % (0-2); EOSINOPHIL 2 % (0-4); LYMPHOCYTE 8 % (20-40); MONOCYTE 11 % (0-10); NEUTROPHIL 76 % (50-75); TOTAL CELLS COUNTED 100
[2018-10-17 12:20] LABS: ANISOCYTOSIS SLIGHT; PLATELET ESTIMATE INCREASED (NORMAL)
[2018-10-17 12:52] LABS: URINE BILIRUBIN NEGATIVE (NEGATIVE); URINE BLOOD 3+ (NEGATIVE); URINE CLARITY Hazy (Clear); URINE COLOR Red (YELLOW); URINE GLUCOSE (UA) 1+ mg/dL (Normal); URINE LEUKOCYTE ESTERASE TRACE Leu/uL (Negative); URINE PROTEIN 2+ mg/dL (NEGATIVE); URINE UROBILINOGEN NORMAL mg/dL (0.2-1.0)
--- NOTE | 2018-10-17 15:15 | CP.PCM.HP ---
History of Present Illness - History of Present Illness History of Present Illness: PGY-1 History and Physical [address]. Durán Patient is a 73 year old male with PMHx of prostate cancer, DM, HTN, arthritis, and CAD who presents to the ED with dominguez red urine. Patient states he does not know why he is here but that his daughter, a nurse, brought him in. Patient is a poor historian and states that Dr. Durán will provide his information. Patient admits to being noncompliant with his medications and stating that he has not seen Dr. Durán in a long time. Patient was recently hospitalized at [facility], [place] 09/02-09/29 for anemia due to hematuria. At that time Dr. Boo performed multiple cystoscopies but the hematuria persisted. Patient also required multiple blood transfusions to stabilize hemoglobin. During this visit, p atients right molar fell out while eating a dinner roll. Patient admits to hematuria and urinary hesitancy. Patient denies fever, chills, nausea, vomiting, shortness of breath, chest pain, abdominal pain, dysuria, weakness, dizziness, headache, or generalized body aches. Note as an aside, per nurse, she went to clean his mouth and a tooth fell out with no blood loss and no pain. Patient requested tooth be thrown in garbage. 12 point ROS reviewed and negative except as per HPI PMH: Prostate CA, DM, Arthritis, HTN, CAD PSH: back surgery (20 years ago), prostate radiation therapy, cystoscopy with clot evacuation Meds: -Glipizide 10mg by mouth PO daily -Lisinopril 40mg by mouth PO daily -Metformin 1000mg PO BID -Simvastatin 20mg PO HS -Amlodipine 5 mg PO daily -Coreg 6.25 mg PO BID -Lisinopril 40 mg PO daily -Gabapentin 300 mg PO TID Present on Admission - Present on Admission Any Indicators Present on Admission: No Review of Systems - Review of Systems All systems: reviewed and no additional remarkable complaints except Past Patient History - Infectious Disease Hx of Infectious Diseases: None - Past Medical History & Family History Past Medical History?: Yes - Past Social History Smoking Status: Former Smoker - CARDIAC Hx Hypercholesterolemia: Yes Hx Hypertension: Yes - PULMONARY Hx Respiratory Disorders: Yes (SOB) - NEUROLOGICAL Hx Neurological Disorder: No - HEENT Hx HEENT Problems: Yes (PARTIAL LOSS OF SIGHT RIGHT EYE FROM ACCIDENT) - RENAL Hx Chronic Kidney Disease: No - ENDOCRINE/METABOLIC Hx Diabetes Mellitus Type 2: Yes - HEMATOLOGICAL/ONCOLOGICAL Hx Blood Disorders: Yes Hx Cancer: Yes (PROSTATE- treated) - INTEGUMENTARY Hx Dermatological Problems: No - MUSCULOSKELETAL/RHEUMATOLOGICAL Hx Falls: No - GASTROINTESTINAL Hx Gastrointestinal Disorders: Yes - GENITOURINARY/GYNECOLOGICAL Hx Genitourinary Disorders: Yes Hx Prostate Cancer: Yes Hx Prostate Problems: Yes - PSYCHIATRIC Hx Substance Use: No - SURGICAL HISTORY Hx Surgeries: Yes Hx Eye Surgery: Yes (RIGHT) Hx Musculoskeletal Surgery: Yes (LUMBAR) Other/Comment: PROSTATE BX RADIATION - ANESTHESIA Hx Anesthesia: Yes Hx Anesthesia Reactions: Yes (DIFFICULTY VOIDING) Hx Malignant Hyperthermia: No Meds Allergies/Adverse Reactions: Allergies Allergy/AdvReac Type Severity Reaction Status Date / Time No Known Allergies Allergy Verified 09/01/18 15:52 Physical Exam - Constitutional Appears: Non-toxic, No Acute Distress - Head Exam Head Exam: ATRAUMATIC, NORMOCEPHALIC - Eye Exam Eye Exam: EOMI, Normal appearance - ENT Exam ENT Exam: Mucous Membranes Moist Additional comments: missing several teeth - Respiratory Exam Respiratory Exam: Clear to Auscultation Bilateral, NORMAL BREATHING PATTERN. absent: Rhonchi, Wheezes - Cardiovascular Exam Cardiovascular Exam: REGULAR RHYTHM, +S1, +S2 - GI/Abdominal Exam GI & Abdominal Exam: Normal Bowel Sounds, Soft. absent: Tenderness - Exam Exam: Bladder Distension. absent: Uretheral Discharge Additional comments: sanchez in place draining dominguez red urine - Extremities Exam Extremities exam: Positive for: normal inspection. Negative for: pedal edema, tenderness - Neurological Exam Neurological exam: Alert, CN II-XII Intact, Oriented x3 - Psychiatric Exam Psychiatric exam: Normal Affect, Normal Mood - Skin Skin Exam: Dry, Intact, Pallor Results - Vital Signs Recent Vital Signs: Last Vital Signs Temp 97.5 F L 10/17/18 10:21 Pulse 73 10/17/18 13:05 Resp 19 10/17/18 13:05 BP 180/74 H 10/17/18 13:05 Pulse Ox 100 10/17/18 14:04 - Labs Result Diagrams: 10/17/18 11:00 10/17/18 11:00 Labs: Laboratory Results - last 24 hr 10/17/18 10/17/18 10/17/18 11:00 11:00 11:00 WBC 7.3 RBC 2.55 L Hgb 7.9 L Hct 23.0 L MCV 90.0 MCH 30.9 MCHC 34.3 RDW 14.9 H Plt Count 244 D MPV 8.8 Neut % (Auto) 76.5 H Lymph % (Auto) 9.8 L Robeson % (Auto) 9.7 Eos % (Auto) 3.4 Baso % (Auto) 0.6 Neut # (Auto) 5.6 Lymph # (Auto) 0.7 L Robeson # (Auto) 0.7 Eos # (Auto) 0.2 Baso # (Auto) 0.0 Neutrophils % (Manual) 76 H Band Neutrophils % 2 Lymphocytes % (Manual) 8 L Monocytes % (Manual) 11 H Eosinophils % (Manual) 2 Basophils % (Manual) 1 Platelet Estimate Increased H Anisocytosis (manual) Slight Sodium 136 Potassium 4.8 Chloride 105 Carbon Dioxide 28 Anion Gap 7 L BUN 43 H Creatinine 1.0 Est GFR ( Amer) > 60 Est GFR (Non-Af Amer) > 60 Random Glucose 173 H Calcium 8.3 L Total Bilirubin 0.1 L AST 56 ALT 68 Alkaline Phosphatase 151 H D Total Protein 5.5 L Albumin 2.7 L D Globulin 2.8 Albumin/Globulin Ratio 0.9 L Urine Color Urine Clarity Urine pH Ur Specific [place] Urine Protein Urine Glucose (UA) Urine Ketones Urine Blood Urine Nitrate Urine Bilirubin Urine Urobilinogen Ur Leukocyte Esterase Urine WBC (Auto) Urine RBC (Auto) Blood Type A POSITIVE Antibody Screen Negative 10/17/18 12:37 WBC RBC Hgb Hct MCV MCH MCHC RDW Plt Count MPV Neut % (Auto) Lymph % (Auto) Robeson % (Auto) Eos % (Auto) Baso % (Auto) Neut # (Auto) Lymph # (Auto) Rob[place] # (Auto) Eos # (Auto) Baso # (Auto) Neutrophils % (Manual) Band Neutrophils % Lymphocytes % (Manual) Monocytes % (Manual) Eosinophils % (Manual) Basophils % (Manual) Platelet Estimate Anisocytosis (manual) Sodium Potassium Chloride Carbon Dioxide Anion Gap BUN Creatinine Est GFR ( Amer) Est GFR (Non-Af Amer) Random Glucose Calcium Total Bilirubin AST ALT Alkaline Phosphatase Total Protein Albumin Globulin Albumin/Globulin Ratio Urine Color Red Urine Clarity Hazy Urine pH 6.0 Ur Specific [place] 1.011 Urine Protein 2+ H Urine Glucose (UA) 1+ H Urine Ketones Negative Urine Blood 3+ H Urine Nitrate Negative Urine Bilirubin Negative Urine Urobilinogen Normal Ur Leukocyte Esterase Trace Urine WBC (Auto) 9 H Urine RBC (Auto) 5017 H Blood Type Antibody Screen Assessment & Plan - Assessment and Plan (Free Text) Assessment: 73 year old male with PMHx DM, HTN, arthritis, CAD, prostate cancer, anemia presents with painless hematuria and asymptomatic anemia Hematuria, Hx Prostate CA s/p TUR-BP -Urology consulted, Dr. Karen Wellington - f/u --S/p multiple cystoscopy in past for clot evacuation -Dominguez-red urine draining in sanchez -Monitor sanchez output Meds -Finasteride 5 mg PO daily -Flomax 0.4 mg PO daily Anemia, chronic -HgB 7.9, asymptomatic -typed and crossed -transfuse HgB < 7.0 -Monitor H and H DM -ISS high -Accuchecks ACHS -Hypoglycemia protocol -A1C -Lipid panel HTN -Home meds --Amlodipine 5 mg PO daily --Coreg 6.25 mg PO BID --Lisinopril 40 mg PO daily DM Neuropathy -Gabapentin 300 mg PO TID CAD -Crestor 5 mg PO HS PPx -DVT ppx c/i 2/2 hematuria, anemia Will discuss case with attending, Dr. Leeanna Mark, PGY-1
[2018-10-17] MEDS ORDERED: Glucagon Recombinant 1 mg Inj IM PRN (15:47)
[2018-10-17] MEDS ORDERED: Dextrose 50% SYRINGE Inj (50 ml) IV PRN (15:47)
[2018-10-17] MEDS: (Novolin R) Insulin Human Regular 100 units/ml vial SC SCH ×2 (17:47→22:24)
--- NOTE | 2018-10-17 20:16 | RAD ---
Date of service: 10/17/2018 PROCEDURE: CHEST RADIOGRAPH, 1 VIEW HISTORY: hematuria COMPARISON: 09/20/2018 FINDINGS: LUNGS: No evidence of new infiltrate or consolidation in lungs. PLEURA: No pneumothorax or pleural fluid seen. CARDIOVASCULAR: No aortic atherosclerotic calcification present. Normal. OSSEOUS STRUCTURES: No significant abnormalities. VISUALIZED UPPER ABDOMEN: Normal. OTHER FINDINGS: None. IMPRESSION: No significant interval changes
[2018-10-18] MEDS: (Novolin R) Insulin Human Regular 100 units/ml vial SC SCH ×4 (08:18→21:19)
[2018-10-18 08:51] LABS: BASO # 0.1 K/uL (0.0-0.2); BASO % 0.9 % (0.0-2.0); EOS # 0.3 K/uL (0.0-0.7); EOS % 4.2 % (0.0-4.0); HEMOGLOBIN 7.7 g/dL (12.0-18.0); LYMPH # 0.9 K/uL (1.0-4.3); LYMPH % 12.2 % (20.0-40.0); MEAN CELL VOLUME 91.7 fL (80.0-94.0); MEAN CORPUSCULAR HEMOGLOBIN 29.7 pg (27.0-31.0); MEAN CORPUSCULAR HGB CONC 32.4 g/dL (33.0-37.0); MEAN PLATELET VOLUME 9.1 fL (7.2-11.7); MONO # 0.7 K/uL (0.0-0.8); MONO % 9.4 % (0.0-10.0); NEUT # 5.4 K/uL (1.8-7.0); NEUT % 73.3 % (50.0-75.0); NRBC % 0.1 % (0.0-2.0); RBC 2.6 Mil/uL (4.40-5.90); RED CELL DISTRIBUTION WIDTH 14.9 % (11.5-14.5); WHITE BLOOD COUNT 7.4 K/uL (4.8-10.8)
[2018-10-18 08:54] LABS: ALB/GLOB RATIO 1.1 (1.0-2.1); ALBUMIN 3.2 g/dL (3.5-5.0); ALT/SGPT 92 U/L (21-72); AST/SGOT 88 U/L (17-59); BLOOD UREA NITROGEN 31 mg/dL (9-20); CALCIUM 8.6 mg/dl (8.6-10.4); GFR NON-AFRICAN AMERICAN > 60; HDL CHOLESTEROL 81 mg/dL (30-70)
[2018-10-18 09:01] LABS: LDL CHOLESTEROL 80 mg/dL (0-129)
--- NOTE | 2018-10-18 13:07 | CP.PCM.PN ---
"<Daiv Chaves - Last Filed: 10/18/18 14:59> Subjective - Date & Time of Evaluation Date of Evaluation: 10/18/18 Time of Evaluation: 13:06 - Subjective Subjective: Progress Note for Dr. Durán's Service Patient seen and examined at bedside. Per nursing no acute events occurred overnight. Patient still reporting some penile pain. Patient denies any fevers, chills, headaches, nausea, vomiting, dizziness, syncopal episodes, or any other complaints. Objective - Vital Signs/Intake and Output Vital Signs (last 24 hours): Temp Pulse Resp BP Pulse Ox 98.8 F 82 20 153/62 H 100 10/18/18 09:05 10/18/18 09:05 10/18/18 09:05 10/18/18 09:05 10/18/18 09:05 Intake and Output: 10/18/18 10/18/18 06:59 18:59 Intake Total 420 100 Output Total 200 1550 Balance 220 -1450 - Medications Medications: Current Medications Amlodipine Besylate (Norvasc) 5 mg PO DAILY [facility] Last Admin: 10/18/18 09:43 Dose: 5 mg Carvedilol (Coreg) 6.25 mg PO BID [facility] Last Admin: 10/18/18 09:43 Dose: 6.25 mg Dextrose (Dextrose 50% Inj) 0 ml IV STAT PRN; Protocol PRN Reason: Hypoglycemia Protocol Dextrose (Glutose 15) 0 gm PO ONCE PRN; Protocol PRN Reason: Hypoglycemia Protocol Finasteride (Proscar) 5 mg PO DAILY [facility] Last Admin: 10/18/18 09:43 Dose: 5 mg Glucagon (Glucagen Diagnostic Kit) 0 mg IM STAT PRN; Protocol PRN Reason: Hypoglycemia Protocol Dextrose (Dextrose 5% In Water 1000 Ml) 1,000 mls @ 0 mls/hr IV .Q0M PRN; Protocol PRN Reason: Hypoglycemia Protocol Insulin Human Regular (Novolin R) 0 unit SC ACHS [facility]; Protocol Last Admin: 10/18/18 12:42 Dose: 6 unit Lisinopril (Zestril) 40 mg PO DAILY [facility] Last Admin: 10/18/18 09:43 Dose: 40 mg Rosuvastatin Calcium (Crestor) 5 mg PO HS [facility] Last Admin: 10/17/18 22:24 Dose: 5 mg Tamsulosin HCl (Flomax) 0.4 mg PO DAILY [facility] Last Admin: 10/18/18 09:42 Dose: 0.4 mg - Labs Labs: 10/18/18 08:21 10/18/18 08:21 - Head Exam Head Exam: ATRAUMATIC, NORMAL INSPECTION - Eye Exam Eye Exam: EOMI, Normal appearance Pupil Exam: NORMAL ACCOMODATION, PERRL - ENT Exam ENT Exam: Mucous Membranes Moist, Normal Exam. absent: Normal External Ear Exam - Neck Exam Neck Exam: Normal Inspection - Respiratory Exam Respiratory Exam: Clear to Ausculation Bilateral, NORMAL BREATHING PATTERN. absent: Stridor - Cardiovascular Exam Cardiovascular Exam: REGULAR RHYTHM, +S1, +S2. absent: Clicks - GI/Abdominal Exam GI & Abdominal Exam: Soft, Normal Bowel Sounds. absent: Diminished Bowel Sounds, Organomegaly - Extremities Exam Extremities Exam: Normal Inspection - Back Exam Back Exam: NORMAL INSPECTION. absent: CVA tenderness (L), CVA tenderness (R), tenderness - Neurological Exam Neurological Exam: Awake, CN II-XII Intact, Normal Gait, Oriented x3 - Psychiatric Exam Psychiatric exam: Normal Affect, Normal Mood - Skin Skin Exam: Dry, Intact, Normal Color. absent: Erythema Assessment and Plan - Assessment and Plan (Free Text) Plan: 73 year old male with PMHx DM, HTN, arthritis, CAD, prostate cancer, anemia presents with painless hematuria and asymptomatic anemia Hematuria, Hx Prostate CA s/p TUR-BP -Urology consulted, Dr. Karen Wellington - f/u --S/p multiple cystoscopy in past for clot evacuation -Dominguez-red urine draining in sanchez -Monitor sanchez output -CBI Started Meds -Finasteride 5 mg PO daily -Flomax 0.4 mg PO daily Anemia, chronic -HgB 7.9, asymptomatic -typed and crossed -transfuse HgB < 7.0 -2 units of PRBC ordered. DM -ISS high -Accuchecks ACHS -Hypoglycemia protocol -A1C:6.9% -Lipid panel: Triglycerides 96| Cholesterol 172|LDL 80 | HDL 81 HTN -Home meds --Amlodipine 5 mg PO daily --Coreg 6.25 mg PO BID --Lisinopril 40 mg PO daily DM Neuropathy -Gabapentin 300 mg PO TID CAD -Crestor 5 mg PO HS PPx -DVT ppx c/i 2/2 hematuria, anemia Dispo: Patient to receive 2 units of PRBC and start CBI. Awaiting Urology rec's. Discussed case with attending, Dr. Durán. Davi Chaves, PGY-2 <Rhett Durán Jr. - Last Filed: 10/24/18 11:28> Objective - Vital Signs/Intake and Output Vital Signs (last 24 hours): Temp Pulse Resp BP Pulse Ox 98.2 F 77 20 172/61 H 95 10/24/18 07:00 10/24/18 07:00 10/24/18 07:00 10/24/18 07:00 10/24/18 07:00 Intake and Output: 10/24/18 10/24/18 06:59 18:59 Intake Total 500 Output Total 1700 Balance -1200 - Medications Medications: Current Medications Acetaminophen (Tylenol 325mg Tab) 650 mg PO Q6 PRN PRN Reason: Pain, Mild (1-3) Amlodipine Besylate (Norvasc) 10 mg PO DAILY [facility] Last Admin: 10/24/18 09:23 Dose: 10 mg Carvedilol (Coreg) 6.25 mg PO BID [facility] Last Admin: 10/24/18 09:23 Dose: 6.25 mg Dextrose (Dextrose 50% Inj) 0 ml IV STAT PRN; Protocol PRN Reason: Hypoglycemia Protocol Dextrose (Glutose 15) 0 gm PO ONCE PRN; Protocol PRN Reason: Hypoglycemia Protocol Finasteride (Proscar) 5 mg PO DAILY [facility] Last Admin: 10/24/18 09:23 Dose: 5 mg Gabapentin (Neurontin) 300 mg PO TID [facility] Last Admin: 10/24/18 09:24 Dose: 300 mg Glucagon (Glucagen Diagnostic Kit) 0 mg IM STAT PRN; Protocol PRN Reason: Hypoglycemia Protocol Insulin Glargine (Lantus) 15 unit SC HS [facility] Last Admin: 10/23/18 21:35 Dose: 15 unit Insulin Human Regular (Novolin R) 0 unit SC ACHS [facility]; Protocol Last Admin: 10/24/18 08:25 Dose: 2 unit Lisinopril (Zestril) 40 mg PO DAILY [facility] Last Admin: 10/24/18 09:23 Dose: 40 mg Morphine Sulfate (Morphine) 2 mg IVP Q6H PRN PRN Reason: Pain, severe (8-10) Oxycodone/Acetaminophen (Percocet 5/325 Mg Tab) 2 tab PO Q6H PRN PRN Reason: Pain, moderate (4-7) Stop: 10/26/18 16:03 Last Admin: 10/24/18 05:42 Dose: 2 tab Rosuvastatin Calcium (Crestor) 5 mg PO HS [facility] Last Admin: 10/23/18 21:34 Dose: 5 mg Tamsulosin HCl (Flomax) 0.4 mg PO DAILY [facility] Last Admin: 10/24/18 09:23 Dose: 0.4 mg - Labs Labs: 10/24/18 06:47 10/24/18 06:47 PT 10.0 SECONDS (9.7-12.2) 10/20/18 17:05 INR 0.9 10/20/18 17:05 APTT 29.6 SECONDS (21-34) 10/20/18 17:05 Attending/Attestation - Attestation I have personally seen and examined this patient.: Yes I have fully participated in the care of the patient.: Yes I have reviewed all pertinent clinical information, including history, physical exam and plan: Yes Notes (Text): 10/24/18 11:28 Examined patient and reviewed residents note and plan of care. Agree with findings and plan."
[2018-10-19 07:09] LABS: BASO % 0.7 % (0.0-2.0); EOS # 0.2 K/uL (0.0-0.7); EOS % 3.3 % (0.0-4.0); LYMPH # 0.9 K/uL (1.0-4.3); LYMPH % 13.9 % (20.0-40.0); MEAN CORPUSCULAR HEMOGLOBIN 30.8 pg (27.0-31.0); MEAN CORPUSCULAR HGB CONC 34.7 g/dL (33.0-37.0); MEAN PLATELET VOLUME 8.6 fL (7.2-11.7); MONO # 0.8 K/uL (0.0-0.8); MONO % 12.3 % (0.0-10.0); NEUT # 4.5 K/uL (1.8-7.0); NEUT % 69.8 % (50.0-75.0); NRBC % 0.1 % (0.0-2.0); RBC 3.19 Mil/uL (4.40-5.90); RED CELL DISTRIBUTION WIDTH 14.4 % (11.5-14.5); WHITE BLOOD COUNT 6.5 K/uL (4.8-10.8)
[2018-10-19 07:16] LABS: ALB/GLOB RATIO 1.1 (1.0-2.1); ALBUMIN 3.1 g/dL (3.5-5.0); ALT/SGPT 97 U/L (21-72); AST/SGOT 79 U/L (17-59); BLOOD UREA NITROGEN 36 mg/dL (9-20); CALCIUM 8.4 mg/dl (8.6-10.4); GFR NON-AFRICAN AMERICAN > 60
[2018-10-19 07:21] LABS: HEMOGLOBIN 9.8 g/dL (12.0-18.0); MEAN CELL VOLUME 88.9 fL (80.0-94.0)
[2018-10-19] MEDS: (Novolin R) Insulin Human Regular 100 units/ml vial SC SCH ×4 (08:26→21:32)
--- NOTE | 2018-10-19 11:40 | CP.PCM.PN ---
"<Elidia Peralta L - Last Filed: 10/19/18 19:50> Subjective - Date & Time of Evaluation Date of Evaluation: 10/19/18 Time of Evaluation: 11:31 - Subjective Subjective: Resident Progress Note for Hospitalist Service Patient examined at bedside. Patient refusing sanchez irrigation. Complications explained to patient expresses understanding. Pain is well controlled at this time. Denies fevers, chills, nausea, vomiting, chest pain, shortness of breath. Objective - Vital Signs/Intake and Output Vital Signs (last 24 hours): Temp Pulse Resp BP Pulse Ox 98.5 F 76 20 162/72 H 98 10/19/18 00:45 10/19/18 00:45 10/19/18 00:45 10/19/18 00:45 10/18/18 16:12 Intake and Output: 10/19/18 10/19/18 06:59 18:59 Intake Total 1780 Output Total 2050 Balance -270 - Medications Medications: Current Medications Amlodipine Besylate (Norvasc) 5 mg PO DAILY [facility] Last Admin: 10/19/18 09:30 Dose: 5 mg Carvedilol (Coreg) 6.25 mg PO BID [facility] Last Admin: 10/19/18 09:29 Dose: 6.25 mg Dextrose (Dextrose 50% Inj) 0 ml IV STAT PRN; Protocol PRN Reason: Hypoglycemia Protocol Dextrose (Glutose 15) 0 gm PO ONCE PRN; Protocol PRN Reason: Hypoglycemia Protocol Finasteride (Proscar) 5 mg PO DAILY [facility] Last Admin: 10/19/18 09:30 Dose: 5 mg Glucagon (Glucagen Diagnostic Kit) 0 mg IM STAT PRN; Protocol PRN Reason: Hypoglycemia Protocol Dextrose (Dextrose 5% In Water 1000 Ml) 1,000 mls @ 0 mls/hr IV .Q0M PRN; Protocol PRN Reason: Hypoglycemia Protocol Insulin Human Regular (Novolin R) 0 unit SC ACHS [facility]; Protocol Last Admin: 10/19/18 08:26 Dose: 8 unit Lisinopril (Zestril) 40 mg PO DAILY [facility] Last Admin: 10/19/18 09:29 Dose: 40 mg Morphine Sulfate (Morphine) 2 mg IVP Q6 PRN PRN Reason: Pain, severe (8-10) Last Admin: 10/19/18 11:17 Dose: 2 mg Rosuvastatin Calcium (Crestor) 5 mg PO HS [facility] Last Admin: 10/18/18 21:26 Dose: 5 mg Tamsulosin HCl (Flomax) 0.4 mg PO DAILY [facility] Last Admin: 10/19/18 09:30 Dose: 0.4 mg - Labs Labs: 10/19/18 06:53 10/19/18 06:53 - Head Exam Head Exam: ATRAUMATIC, NORMAL INSPECTION - Eye Exam Eye Exam: EOMI, Normal appearance - ENT Exam ENT Exam: Mucous Membranes Moist, Normal Exam. absent: Normal External Ear Exam - Neck Exam Neck Exam: Normal Inspection - Respiratory Exam Respiratory Exam: Clear to Auscultation Bilateral, NORMAL BREATHING PATTERN. absent: Stridor - Cardiovascular Exam Cardiovascular Exam: REGULAR RHYTHM, +S1, +S2. - GI/Abdominal Exam GI & Abdominal Exam: Soft, Normal Bowel Sounds. absent: Tenderness, Rebound - Exam Exam: Additional comments: sanchez in place draining dark red urine - Extremities Exam Extremities Exam: Normal Inspection - Back Exam Back Exam: NORMAL INSPECTION. absent: CVA tenderness (L), CVA tenderness (R), tenderness - Neurological Exam Neurological Exam: Awake, CN II-XII Intact, Oriented x3 - Psychiatric Exam Psychiatric exam: Normal Affect, Normal Mood - Skin Skin Exam: Dry, Intact, Normal Color Assessment and Plan - Assessment and Plan (Free Text) Assessment: Patient is a 73 year old male with PMHx DM, HTN, arthritis, CAD, prostate cancer , anemia presents with painless hematuria and asymptomatic anemia Plan: Hematuria, Hx Prostate CA s/p TUR-BP -F/c irrigation Q4H as per urology recs -S/p multiple cystoscopy in past for clot evacuation -Monitor sanchez output -Finasteride 5 mg PO daily -Flomax 0.4 mg PO daily Anemia, chronic -s/p 2 units pRBCS -monitor and transfuse if Hgb < 7.0 DM with neuropathy, chronic -ISS high, Accuchecks ACHS -Hypoglycemia protocol -A1C 6.9% -Lipid panel: Triglycerides 96| Cholesterol 172|LDL 80 | HDL 81 -Gabapentin 300 mg PO TID HTN, chronic -continue home meds -Amlodipine 5 mg PO daily -Coreg 6.25 mg PO BID -Lisinopril 40 mg PO daily CAD, chronic -Crestor 5 mg PO HS PPx, acute -DVT ppx c/i 2/2 hematuria, anemia Dispo: Awaiting urology recommendations Case reviewed with with Dr. Leeanna Peralta PGY-1 <Rhett Durán Jr. - Last Filed: 10/24/18 11:25> Objective - Vital Signs/Intake and Output Vital Signs (last 24 hours): Temp Pulse Resp BP Pulse Ox 98.2 F 77 20 172/61 H 95 10/24/18 07:00 10/24/18 07:00 10/24/18 07:00 10/24/18 07:00 10/24/18 07:00 Intake and Output: 10/24/18 10/24/18 06:59 18:59 Intake Total 500 Output Total 1700 Balance -1200 - Medications Medications: Current Medications Acetaminophen (Tylenol 325mg Tab) 650 mg PO Q6 PRN PRN Reason: Pain, Mild (1-3) Amlodipine Besylate (Norvasc) 10 mg PO DAILY [facility] Last Admin: 10/24/18 09:23 Dose: 10 mg Carvedilol (Coreg) 6.25 mg PO BID [facility] Last Admin: 10/24/18 09:23 Dose: 6.25 mg Dextrose (Dextrose 50% Inj) 0 ml IV STAT PRN; Protocol PRN Reason: Hypoglycemia Protocol Dextrose (Glutose 15) 0 gm PO ONCE PRN; Protocol PRN Reason: Hypoglycemia Protocol Finasteride (Proscar) 5 mg PO DAILY [facility] Last Admin: 10/24/18 09:23 Dose: 5 mg Gabapentin (Neurontin) 300 mg PO TID [facility] Last Admin: 10/24/18 09:24 Dose: 300 mg Glucagon (Glucagen Diagnostic Kit) 0 mg IM STAT PRN; Protocol PRN Reason: Hypoglycemia Protocol Insulin Glargine (Lantus) 15 unit SC HS [facility] Last Admin: 10/23/18 21:35 Dose: 15 unit Insulin Human Regular (Novolin R) 0 unit SC ACHS [facility]; Protocol Last Admin: 10/24/18 08:25 Dose: 2 unit Lisinopril (Zestril) 40 mg PO DAILY [facility] Last Admin: 10/24/18 09:23 Dose: 40 mg Morphine Sulfate (Morphine) 2 mg IVP Q6H PRN PRN Reason: Pain, severe (8-10) Oxycodone/Acetaminophen (Percocet 5/325 Mg Tab) 2 tab PO Q6H PRN PRN Reason: Pain, moderate (4-7) Stop: 10/26/18 16:03 Last Admin: 10/24/18 05:42 Dose: 2 tab Rosuvastatin Calcium (Crestor) 5 mg PO HS [facility] Last Admin: 10/23/18 21:34 Dose: 5 mg Tamsulosin HCl (Flomax) 0.4 mg PO DAILY [facility] Last Admin: 10/24/18 09:23 Dose: 0.4 mg - Labs Labs: 10/24/18 06:47 10/24/18 06:47 PT 10.0 SECONDS (9.7-12.2) 10/20/18 17:05 INR 0.9 10/20/18 17:05 APTT 29.6 SECONDS (21-34) 10/20/18 17:05 Attending/Attestation - Attestation I have personally seen and examined this patient.: Yes I have fully participated in the care of the patient.: Yes I have reviewed all pertinent clinical information, including history, physical exam and plan: Yes Notes (Text): 10/24/18 11:25 Examined patient and reviewed residents note and plan of care. Agree with findings and plan."
[2018-10-20 06:52] LABS: BASO % 0.7 % (0.0-2.0); EOS # 0.2 K/uL (0.0-0.7); HEMOGLOBIN 9.2 g/dL (12.0-18.0); LYMPH # 0.8 K/uL (1.0-4.3); MEAN CELL VOLUME 89.5 fL (80.0-94.0); MEAN CORPUSCULAR HEMOGLOBIN 30.5 pg (27.0-31.0); MEAN CORPUSCULAR HGB CONC 34.1 g/dL (33.0-37.0); MEAN PLATELET VOLUME 8.6 fL (7.2-11.7); MONO # 0.7 K/uL (0.0-0.8); MONO % 13.2 % (0.0-10.0); NEUT # 3.6 K/uL (1.8-7.0); NEUT % 67.1 % (50.0-75.0); NRBC % 0.1 % (0.0-2.0); RBC 3.02 Mil/uL (4.40-5.90); RED CELL DISTRIBUTION WIDTH 14.2 % (11.5-14.5); WHITE BLOOD COUNT 5.3 K/uL (4.8-10.8)
[2018-10-20] MEDS: (Novolin R) Insulin Human Regular 100 units/ml vial SC SCH ×4 (07:44→22:16)
[2018-10-20 07:47] LABS: ALB/GLOB RATIO 1.1 (1.0-2.1); ALBUMIN 2.8 g/dL (3.5-5.0); ALT/SGPT 68 U/L (21-72); AST/SGOT 43 U/L (17-59); BLOOD UREA NITROGEN 32 mg/dL (9-20); CALCIUM 8.1 mg/dl (8.6-10.4); GFR NON-AFRICAN AMERICAN > 60
--- NOTE | 2018-10-20 13:45 | CP.PCM.PN ---
"<Laura Gutierrez P - Last Filed: 10/20/18 19:46> Subjective - Date & Time of Evaluation Date of Evaluation: 10/20/18 Time of Evaluation: 07:00 - Subjective Subjective: Progress note for Dr. Durán. Patient examined at bedside. Continued hematuria, otherwise no complaints. Denies fevers, chills, nausea, vomiting, chest pain, shortness of breath. Objective - Vital Signs/Intake and Output Vital Signs (last 24 hours): Temp Pulse Resp BP Pulse Ox 97.8 F 69 20 196/98 H 98 10/20/18 07:43 10/20/18 07:43 10/20/18 07:43 10/20/18 07:43 10/20/18 07:43 Intake and Output: 10/20/18 10/20/18 06:59 18:59 Intake Total 660 Output Total 950 Balance -290 - Medications Medications: Current Medications Amlodipine Besylate (Norvasc) 5 mg PO DAILY [facility] Last Admin: 10/20/18 09:51 Dose: 5 mg Carvedilol (Coreg) 6.25 mg PO BID [facility] Last Admin: 10/20/18 09:51 Dose: 6.25 mg Dextrose (Dextrose 50% Inj) 0 ml IV STAT PRN; Protocol PRN Reason: Hypoglycemia Protocol Dextrose (Glutose 15) 0 gm PO ONCE PRN; Protocol PRN Reason: Hypoglycemia Protocol Finasteride (Proscar) 5 mg PO DAILY [facility] Last Admin: 10/20/18 11:33 Dose: 5 mg Glucagon (Glucagen Diagnostic Kit) 0 mg IM STAT PRN; Protocol PRN Reason: Hypoglycemia Protocol Dextrose (Dextrose 5% In Water 1000 Ml) 1,000 mls @ 0 mls/hr IV .Q0M PRN; Protocol PRN Reason: Hypoglycemia Protocol Insulin Human Regular (Novolin R) 0 unit SC ACHS [facility]; Protocol Last Admin: 10/20/18 11:34 Dose: 12 unit Lisinopril (Zestril) 40 mg PO DAILY [facility] Last Admin: 10/20/18 09:51 Dose: 40 mg Morphine Sulfate (Morphine) 2 mg IVP Q6 PRN PRN Reason: Pain, severe (8-10) Last Admin: 10/20/18 11:38 Dose: 2 mg Rosuvastatin Calcium (Crestor) 5 mg PO HS [facility] Last Admin: 10/19/18 21:32 Dose: 5 mg Tamsulosin HCl (Flomax) 0.4 mg PO DAILY [facility] Last Admin: 10/20/18 09:51 Dose: 0.4 mg - Labs Labs: 10/20/18 06:44 10/20/18 06:44 - Constitutional Appears: Non-toxic, No Acute Distress - Head Exam Head Exam: ATRAUMATIC, NORMOCEPHALIC - Eye Exam Eye Exam: EOMI, Normal appearance, PERRL - ENT Exam ENT Exam: Mucous Membranes Moist - Neck Exam Neck Exam: Full ROM, Normal Inspection - Respiratory Exam Respiratory Exam: Clear to Ausculation Bilateral. absent: Rales, Rhonchi, Wheez es - Cardiovascular Exam Cardiovascular Exam: REGULAR RHYTHM, +S1, +S2 - GI/Abdominal Exam GI & Abdominal Exam: Soft, Normal Bowel Sounds. absent: Firm, Guarding, Rigid, Tenderness, Rebound - Exam Additional comments: sanchez in place, gross blood in bag - Neurological Exam Neurological Exam: Alert, Awake, CN II-XII Intact, Oriented x3 Neuro motor strength exam: Left Upper Extremity: 5, Right Upper Extremity: 5, Left Lower Extremity: 5, Right Lower Extremity: 5 - Psychiatric Exam Psychiatric exam: Normal Affect, Normal Mood - Skin Skin Exam: Dry, Normal Color, Warm Assessment and Plan - Assessment and Plan (Free Text) Plan: Patient is a 73 year old male with PMHx DM, HTN, arthritis, CAD, prostate cancer, anemia presents with painless hematuria and asymptomatic anemia Hematuria, Hx Prostate CA s/p TUR-BP -Dr. Justus Wellington consulted. Help appreciated. -F/c irrigation Q4H as per urology recs -S/p multiple cystoscopy in past for clot evacuation -Monitor sanchez output -Finasteride 5 mg PO daily -Flomax 0.4 mg PO daily Anemia, chronic -s/p 2 units pRBCS on 10/18/18-> hgb improved from 7.7 to 9.8 -monitor and transfuse if Hgb < 7.0 DM with neuropathy, chronic -ISS high, Accuchecks ACHS -Hypoglycemia protocol -A1C 6.9% -Lipid panel: Triglycerides 96| Cholesterol 172|LDL 80 | HDL 81 -Gabapentin 300 mg PO TID -Lantus 15u HS HTN, chronic -continue home meds -Amlodipine 5 mg PO daily -Coreg 6.25 mg PO BID -Lisinopril 40 mg PO daily CAD, chronic -Crestor 5 mg PO HS PPx, acute -DVT ppx c/i 2/2 hematuria, anemia Dispo: Cystoscopy in AM with Dr. Boo. NPO after midnight. Case reviewed with with Dr. Leeanna Gutierrez, PGY-1 <Rhett Durán Jr. - Last Filed: 10/24/18 11:24> Objective - Vital Signs/Intake and Output Vital Signs (last 24 hours): Temp Pulse Resp BP Pulse Ox 98.2 F 77 20 172/61 H 95 10/24/18 07:00 10/24/18 07:00 10/24/18 07:00 10/24/18 07:00 10/24/18 07:00 Intake and Output: 10/24/18 10/24/18 06:59 18:59 Intake Total 500 Output Total 1700 Balance -1200 - Medications Medications: Current Medications Acetaminophen (Tylenol 325mg Tab) 650 mg PO Q6 PRN PRN Reason: Pain, Mild (1-3) Amlodipine Besylate (Norvasc) 10 mg PO DAILY [facility] Last Admin: 10/24/18 09:23 Dose: 10 mg Carvedilol (Coreg) 6.25 mg PO BID [facility] Last Admin: 10/24/18 09:23 Dose: 6.25 mg Dextrose (Dextrose 50% Inj) 0 ml IV STAT PRN; Protocol PRN Reason: Hypoglycemia Protocol Dextrose (Glutose 15) 0 gm PO ONCE PRN; Protocol PRN Reason: Hypoglycemia Protocol Finasteride (Proscar) 5 mg PO DAILY [facility] Last Admin: 10/24/18 09:23 Dose: 5 mg Gabapentin (Neurontin) 300 mg PO TID [facility] Last Admin: 10/24/18 09:24 Dose: 300 mg Glucagon (Glucagen Diagnostic Kit) 0 mg IM STAT PRN; Protocol PRN Reason: Hypoglycemia Protocol Insulin Glargine (Lantus) 15 unit SC HS [facility] Last Admin: 10/23/18 21:35 Dose: 15 unit Insulin Human Regular (Novolin R) 0 unit SC ACHS [facility]; Protocol Last Admin: 10/24/18 08:25 Dose: 2 unit Lisinopril (Zestril) 40 mg PO DAILY [facility] Last Admin: 10/24/18 09:23 Dose: 40 mg Morphine Sulfate (Morphine) 2 mg IVP Q6H PRN PRN Reason: Pain, severe (8-10) Oxycodone/Acetaminophen (Percocet 5/325 Mg Tab) 2 tab PO Q6H PRN PRN Reason: Pain, moderate (4-7) Stop: 10/26/18 16:03 Last Admin: 10/24/18 05:42 Dose: 2 tab Rosuvastatin Calcium (Crestor) 5 mg PO HS [facility] Last Admin: 10/23/18 21:34 Dose: 5 mg Tamsulosin HCl (Flomax) 0.4 mg PO DAILY [facility] Last Admin: 10/24/18 09:23 Dose: 0.4 mg - Labs Labs: 10/24/18 06:47 10/24/18 06:47 PT 10.0 SECONDS (9.7-12.2) 10/20/18 17:05 INR 0.9 10/20/18 17:05 APTT 29.6 SECONDS (21-34) 10/20/18 17:05 Attending/Attestation - Attestation I have personally seen and examined this patient.: Yes I have fully participated in the care of the patient.: Yes I have reviewed all pertinent clinical information, including history, physical exam and plan: Yes Notes (Text): 10/24/18 11:24 Examined patient and reviewed residents note and plan of care. Agree with findings and plan."
[2018-10-20 17:17] LABS: INR 0.9; PARTIAL THROMBOPLASTIN TIME 29.6 SECONDS (21-34)
[2018-10-20] MEDS ORDERED: (Lantus) Insulin Glargine, Recombinant SC SCH (22:00)
[2018-10-20] MEDS: (Lantus) Insulin Glargine, Recombinant SC SCH (22:20)
[2018-10-21] MEDS ORDERED: Lidocaine 2% Jelly (Uro-Jet) ONE (07:35)
[2018-10-21] MEDS ORDERED: cefTRIAXone 1 gm 1 GM/100 ML BAG IVPB ONE (07:35)
--- NOTE | 2018-10-21 07:37 | CP.PCM.PN ---
"<Elidia Peralta L - Last Filed: 10/21/18 15:58> Subjective - Date & Time of Evaluation Date of Evaluation: 10/21/18 Time of Evaluation: 07:35 - Subjective Subjective: Resident Progress Note for Dr. Durán No acute events overnight. S/p cystoscopy with Dr. Wellington with clot evacuation, bladder biopsy and fulguration of prostatic bleeding. CBI in place. Patient tolerated lunch with no nausea or vomiting. States pain is controlled. Objective - Vital Signs/Intake and Output Vital Signs (last 24 hours): Temp Pulse Resp BP Pulse Ox 98.1 F 73 20 155/60 H 98 10/21/18 00:00 10/21/18 00:00 10/21/18 00:00 10/21/18 00:00 10/21/18 00:00 Intake and Output: 10/21/18 10/21/18 06:59 18:59 Intake Total 1000 Output Total 750 Balance 250 - Medications Medications: Current Medications Acetaminophen (Tylenol 325mg Tab) 650 mg PO Q6 PRN PRN Reason: Pain, moderate (4-7) Last Admin: 10/21/18 06:09 Dose: 650 mg Amlodipine Besylate (Norvasc) 5 mg PO DAILY [facility] Last Admin: 10/20/18 09:51 Dose: 5 mg Carvedilol (Coreg) 6.25 mg PO BID [facility] Last Admin: 10/20/18 17:28 Dose: 6.25 mg Dextrose (Dextrose 50% Inj) 0 ml IV STAT PRN; Protocol PRN Reason: Hypoglycemia Protocol Dextrose (Glutose 15) 0 gm PO ONCE PRN; Protocol PRN Reason: Hypoglycemia Protocol Finasteride (Proscar) 5 mg PO DAILY [facility] Last Admin: 10/20/18 11:33 Dose: 5 mg Glucagon (Glucagen Diagnostic Kit) 0 mg IM STAT PRN; Protocol PRN Reason: Hypoglycemia Protocol Dextrose (Dextrose 5% In Water 1000 Ml) 1,000 mls @ 0 mls/hr IV .Q0M PRN; Protocol PRN Reason: Hypoglycemia Protocol Insulin Glargine (Lantus) 15 unit SC HS [facility] Last Admin: 10/20/18 22:20 Dose: 15 unit Insulin Human Regular (Novolin R) 0 unit SC [facility]; Protocol Last Admin: 10/20/18 22:16 Dose: Not Given Lisinopril (Zestril) 40 mg PO DAILY [facility] Last Admin: 10/20/18 09:51 Dose: 40 mg Morphine Sulfate (Morphine) 2 mg IVP Q6 PRN PRN Reason: Pain, severe (8-10) Last Admin: 10/21/18 07:26 Dose: 2 mg Rosuvastatin Calcium (Crestor) 5 mg PO HS [facility] Last Admin: 10/20/18 21:08 Dose: 5 mg Tamsulosin HCl (Flomax) 0.4 mg PO DAILY [facility] Last Admin: 10/20/18 09:51 Dose: 0.4 mg - Labs Labs: 10/20/18 06:44 10/20/18 06:44 PT 10.0 SECONDS (9.7-12.2) 10/20/18 17:05 INR 0.9 10/20/18 17:05 APTT 29.6 SECONDS (21-34) 10/20/18 17:05 - Head Exam Head Exam: ATRAUMATIC, NORMAL INSPECTION - Eye Exam Eye Exam: EOMI, Normal appearance - ENT Exam ENT Exam: Mucous Membranes Moist, Normal Exam. absent: Normal External Ear Exam - Neck Exam Neck Exam: Normal Inspection - Respiratory Exam Respiratory Exam: Clear to Auscultation Bilateral, NORMAL BREATHING PATTERN. absent: Stridor - Cardiovascular Exam Cardiovascular Exam: REGULAR RHYTHM, +S1, +S2. - GI/Abdominal Exam GI & Abdominal Exam: Soft, Normal Bowel Sounds. absent: Tenderness, Rebound - Exam Exam: Additional comments: CBI in place draining yellow harsha urine - Extremities Exam Extremities Exam: Normal Inspection - Neurological Exam Neurological Exam: Awake, CN II-XII Intact, Oriented x3 - Psychiatric Exam Psychiatric exam: Normal Affect, Normal Mood - Skin Skin Exam: Dry, Intact, Normal Color Assessment and Plan - Assessment and Plan (Free Text) Assessment: Patient is a 73 year old male with PMHx DM, HTN, arthritis, CAD, prostate cancer , anemia presents with painless hematuria and asymptomatic anemia Plan: Hematuria, Hx Prostate CA s/p TUR-BP -Dr. Justus Wellington consulted. Help appreciated. -S/p multiple cystoscopy in past for clot evacuation -CBI -Finasteride 5 mg PO daily -Flomax 0.4 mg PO daily Anemia, chronic -s/p 2 units pRBCS on 10/18/18-> hgb improved from 7.7 to 9.8 -monitor and transfuse if Hgb < 7.0 DM with neuropathy, chronic -ISS high, Accuchecks ACHS -Hypoglycemia protocol -A1C 6.9% -Lipid panel: Triglycerides 96| Cholesterol 172|LDL 80|HDL 81 -Gabapentin 300 mg PO TID -Lantus 15u HS HTN, chronic -continue home meds -Amlodipine 5 mg PO daily -Coreg 6.25 mg PO BID -Lisinopril 40 mg PO daily CAD, chronic -Crestor 5 mg PO HS PPx, acute -DVT ppx c/i 2/2 hematuria, anemia Dispo: monitor for bleeding, pending discontinuation of CBI Case reviewed with Dr. Leeanna Peralta PGY-1 <Rhett Durán Jr. - Last Filed: 10/24/18 11:21> Objective - Vital Signs/Intake and Output Vital Signs (last 24 hours): Temp Pulse Resp BP Pulse Ox 98.2 F 77 20 172/61 H 95 10/24/18 07:00 10/24/18 07:00 10/24/18 07:00 10/24/18 07:00 10/24/18 07:00 Intake and Output: 10/24/18 10/24/18 06:59 18:59 Intake Total 500 Output Total 1700 Balance -1200 - Medications Medications: Current Medications Acetaminophen (Tylenol 325mg Tab) 650 mg PO Q6 PRN PRN Reason: Pain, Mild (1-3) Amlodipine Besylate (Norvasc) 10 mg PO DAILY [facility] Last Admin: 10/24/18 09:23 Dose: 10 mg Carvedilol (Coreg) 6.25 mg PO BID [facility] Last Admin: 10/24/18 09:23 Dose: 6.25 mg Dextrose (Dextrose 50% Inj) 0 ml IV STAT PRN; Protocol PRN Reason: Hypoglycemia Protocol Dextrose (Glutose 15) 0 gm PO ONCE PRN; Protocol PRN Reason: Hypoglycemia Protocol Finasteride (Proscar) 5 mg PO DAILY [facility] Last Admin: 10/24/18 09:23 Dose: 5 mg Gabapentin (Neurontin) 300 mg PO TID [facility] Last Admin: 10/24/18 09:24 Dose: 300 mg Glucagon (Glucagen Diagnostic Kit) 0 mg IM STAT PRN; Protocol PRN Reason: Hypoglycemia Protocol Insulin Glargine (Lantus) 15 unit SC [facility] Last Admin: 10/23/18 21:35 Dose: 15 unit Insulin Human Regular (Novolin R) 0 unit SC [facility]; Protocol Last Admin: 10/24/18 08:25 Dose: 2 unit Lisinopril (Zestril) 40 mg PO DAILY [facility] Last Admin: 10/24/18 09:23 Dose: 40 mg Morphine Sulfate (Morphine) 2 mg IVP Q6H PRN PRN Reason: Pain, severe (8-10) Oxycodone/Acetaminophen (Percocet 5/325 Mg Tab) 2 tab PO Q6H PRN PRN Reason: Pain, moderate (4-7) Stop: 10/26/18 16:03 Last Admin: 10/24/18 05:42 Dose: 2 tab Rosuvastatin Calcium (Crestor) 5 mg PO [facility] Last Admin: 10/23/18 21:34 Dose: 5 mg Tamsulosin HCl (Flomax) 0.4 mg PO DAILY [facility] Last Admin: 10/24/18 09:23 Dose: 0.4 mg - Labs Labs: 10/24/18 06:47 10/24/18 06:47 PT 10.0 SECONDS (9.7-12.2) 10/20/18 17:05 INR 0.9 10/20/18 17:05 APTT 29.6 SECONDS (21-34) 10/20/18 17:05 Attending/Attestation - Attestation I have personally seen and examined this patient.: Yes I have fully participated in the care of the patient.: Yes I have reviewed all pertinent clinical information, including history, physical exam and plan: Yes Notes (Text): 10/24/18 11:21 Examined patient and reviewed residents note and plan of care. Agree with findings and plan."
[2018-10-21] MEDS: (Novolin R) Insulin Human Regular 100 units/ml vial SC SCH ×4 (07:55→21:33)
[2018-10-21] MEDS ORDERED: Sodium Chloride 0.9% 500 ML IV ONE (08:58)
[2018-10-21 09:12] LABS: BASO # 0.1 K/uL (0.0-0.2); BASO % 0.7 % (0.0-2.0); EOS # 0.2 K/uL (0.0-0.7); EOS % 2.5 % (0.0-4.0); LYMPH # 0.7 K/uL (1.0-4.3); MEAN CORPUSCULAR HEMOGLOBIN 29.8 pg (27.0-31.0); MEAN CORPUSCULAR HGB CONC 32.4 g/dL (33.0-37.0); MEAN PLATELET VOLUME 8.6 fL (7.2-11.7); MONO # 0.7 K/uL (0.0-0.8); NEUT # 5.6 K/uL (1.8-7.0); NEUT % 77.8 % (50.0-75.0); NRBC % 0.1 % (0.0-2.0); RBC 4.17 Mil/uL (4.40-5.90); RED CELL DISTRIBUTION WIDTH 13.9 % (11.5-14.5); WHITE BLOOD COUNT 7.2 K/uL (4.8-10.8)
[2018-10-21 09:22] LABS: HEMOGLOBIN 12.4 g/dL (12.0-18.0)
[2018-10-21 09:23] LABS: ALT/SGPT 64 U/L (21-72); AST/SGOT 56 U/L (17-59); BLOOD UREA NITROGEN 47 mg/dL (9-20); CALCIUM 8.5 mg/dl (8.6-10.4); GFR NON-AFRICAN AMERICAN 54; MEAN CELL VOLUME 91.8 fL (80.0-94.0)
[2018-10-21] MEDS ORDERED: Propofol 10 mg/ml Inj (20 ML) ONE (09:48)
[2018-10-21] MEDS ORDERED: Midazolam 2 MG/2 ML VIAL ONE (09:48)
[2018-10-21] MEDS ORDERED: HYDROmorphone 0.5 mg/0.5 ml ISec IVP PRN (10:28)
--- NOTE | 2018-10-21 10:41 | CP.PCM.CON ---
History of Present Illness - History of Present Illness History of Present Illness: Urology Consultation Past Patient History - Infectious Disease Hx of Infectious Diseases: None - Past Medical History & Family History Past Medical History?: Yes - Past Social History Smoking Status: Former Smoker - CARDIAC Hx Hypercholesterolemia: Yes Hx Hypertension: Yes - PULMONARY Hx Respiratory Disorders: Yes (SOB) - NEUROLOGICAL Hx Neurological Disorder: No - HEENT Hx HEENT Problems: Yes (PARTIAL LOSS OF SIGHT RIGHT EYE FROM ACCIDENT) - RENAL Hx Chronic Kidney Disease: No - ENDOCRINE/METABOLIC Hx Diabetes Mellitus Type 2: Yes - HEMATOLOGICAL/ONCOLOGICAL Hx Blood Disorders: Yes Hx Cancer: Yes (PROSTATE- treated) - INTEGUMENTARY Hx Dermatological Problems: No - MUSCULOSKELETAL/RHEUMATOLOGICAL Hx Falls: No - GASTROINTESTINAL Hx Gastrointestinal Disorders: Yes - GENITOURINARY/GYNECOLOGICAL Hx Genitourinary Disorders: Yes Hx Prostate Cancer: Yes Hx Prostate Problems: Yes - PSYCHIATRIC Hx Substance Use: No - SURGICAL HISTORY Hx Surgeries: Yes Hx Eye Surgery: Yes (RIGHT) Hx Musculoskeletal Surgery: Yes (LUMBAR) Other/Comment: PROSTATE BX RADIATION - ANESTHESIA Hx Anesthesia: Yes Hx Anesthesia Reactions: Yes (DIFFICULTY VOIDING) Hx Malignant Hyperthermia: No Meds Allergies/Adverse Reactions: Allergies Allergy/AdvReac Type Severity Reaction Status Date / Time No Known Allergies Allergy Verified 09/01/18 15:52 - Medications Medications: Current Medications Acetaminophen (Tylenol 325mg Tab) 650 mg PO Q6 PRN PRN Reason: Pain, moderate (4-7) Last Admin: 10/21/18 06:09 Dose: 650 mg Amlodipine Besylate (Norvasc) 5 mg PO DAILY [facility] Last Admin: 10/21/18 09:06 Dose: Not Given Carvedilol (Coreg) 6.25 mg PO BID [facility] Last Admin: 10/21/18 09:06 Dose: Not Given Dextrose (Dextrose 50% Inj) 0 ml IV STAT PRN; Protocol PRN Reason: Hypoglycemia Protocol Dextrose (Glutose 15) 0 gm PO ONCE PRN; Protocol PRN Reason: Hypoglycemia Protocol Finasteride (Proscar) 5 mg PO DAILY [facility] Last Admin: 10/21/18 09:06 Dose: Not Given Glucagon (Glucagen Diagnostic Kit) 0 mg IM STAT PRN; Protocol PRN Reason: Hypoglycemia Protocol Hydromorphone HCl (Dilaudid) 0.25 mg IVP Q5M PRN PRN Reason: Pain, moderate (4-7) Stop: 10/21/18 12:28 Hydromorphone HCl (Dilaudid) 1 mg IVP Q6H PRN PRN Reason: Pain, severe (8-10) Dextrose (Dextrose 5% In Water 1000 Ml) 1,000 mls @ 0 mls/hr IV .Q0M PRN; Protocol PRN Reason: Hypoglycemia Protocol Insulin Glargine (Lantus) 15 unit SC [facility] Last Admin: 10/20/18 22:20 Dose: 15 unit Insulin Human Regular (Novolin R) 0 unit SC [facility]; Protocol Last Admin: 10/21/18 07:55 Dose: 8 unit Lisinopril (Zestril) 40 mg PO DAILY [facility] Last Admin: 10/21/18 09:06 Dose: Not Given Ondansetron HCl (Zofran Inj) 4 mg IVP ONCE PRN PRN Reason: Nausea/Vomiting Stop: 10/21/18 12:29 Rosuvastatin Calcium (Crestor) 5 mg PO [facility] Last Admin: 10/20/18 21:08 Dose: 5 mg Tamsulosin HCl (Flomax) 0.4 mg PO DAILY [facility] Last Admin: 10/21/18 09:06 Dose: Not Given Results - Vital Signs Recent Vital Signs: Last Vital Signs Temp 97.7 F 10/21/18 07:59 Pulse 67 10/21/18 07:59 Resp 20 10/21/18 07:59 BP 177/73 H 10/21/18 07:59 Pulse Ox 99 10/21/18 07:59 - Labs Result Diagrams: 10/21/18 08:37 10/21/18 08:37 Labs: Laboratory Results - last 24 hr 10/17/18 10/20/18 10/20/18 16:41 11:16 16:21 WBC RBC Hgb Hct MCV MCH MCHC RDW Plt Count MPV Neut % (Auto) Lymph % (Auto) [place] % (Auto) Eos % (Auto) Baso % (Auto) Neut # (Auto) Lymph # (Auto) [place] # (Auto) Eos # (Auto) Baso # (Auto) PT INR APTT Sodium Potassium Chloride Carbon Dioxide Anion Gap BUN Creatinine Est GFR ( Amer) Est GFR (Non-Af Amer) POC Glucose (mg/dL) 423 H* 293 H Random Glucose Calcium Phosphorus Magnesium Total Bilirubin AST ALT Alkaline Phosphatase Total Protein Albumin Globulin Albumin/Globulin Ratio Free PSA <0.1 % Free PSA Unable to calculate Total PSA <0.1 10/20/18 10/20/18 10/21/18 17:05 21:33 02:10 WBC RBC Hgb Hct MCV MCH MCHC RDW Plt Count MPV Neut % (Auto) Lymph % (Auto) [place] % (Auto) Eos % (Auto) Baso % (Auto) Neut # (Auto) Lymph # (Auto) [place] # (Auto) Eos # (Auto) Baso # (Auto) PT 10.0 INR 0.9 APTT 29.6 Sodium Potassium Chloride Carbon Dioxide Anion Gap BUN Creatinine Est GFR ( Amer) Est GFR (Non-Af Amer) POC Glucose (mg/dL) 254 H 342 H Random Glucose Calcium Phosphorus Magnesium Total Bilirubin AST ALT Alkaline Phosphatase Total Protein Albumin Globulin Albumin/Globulin Ratio Free PSA % Free PSA Total PSA 10/21/18 10/21/18 10/21/18 07:43 08:16 08:18 WBC RBC Hgb Hct MCV MCH MCHC RDW Plt Count MPV Neut % (Auto) Lymph % (Auto) [place] % (Auto) Eos % (Auto) Baso % (Auto) Neut # (Auto) Lymph # (Auto) [place] # (Auto) Eos # (Auto) Baso # (Auto) PT INR APTT Sodium Potassium Chloride Carbon Dioxide Anion Gap BUN Creatinine Est GFR ( Amer) Est GFR (Non-Af Amer) POC Glucose (mg/dL) 316 H 331 H 333 H Random Glucose Calcium Phosphorus Magnesium Total Bilirubin AST ALT Alkaline Phosphatase Total Protein Albumin Globulin Albumin/Globulin Ratio Free PSA % Free PSA Total PSA 10/21/18 10/21/18 10/21/18 08:37 08:37 09:20 WBC 7.2 RBC 4.17 L Hgb 12.4 D Hct 38.3 MCV 91.8 D MCH 29.8 MCHC 32.4 L RDW 13.9 Plt Count 242 MPV 8.6 Neut % (Auto) 77.8 H Lymph % (Auto) 10.0 L [place] % (Auto) 9.0 Eos % (Auto) 2.5 Baso % (Auto) 0.7 Neut # (Auto) 5.6 Lymph # (Auto) 0.7 L [place] # (Auto) 0.7 Eos # (Auto) 0.2 Baso # (Auto) 0.1 PT INR APTT Sodium 130 L Potassium 5.4 H Chloride 102 Carbon Dioxide 23 Anion Gap 11 BUN 47 H Creatinine 1.3 Est GFR ( Amer) > 60 Est GFR (Non-Af Amer) 54 POC Glucose (mg/dL) 290 H Random Glucose 308 H Calcium 8.5 L Phosphorus 3.9 Magnesium 2.1 Total Bilirubin 0.3 AST 56 ALT 64 Alkaline Phosphatase 215 H Total Protein 6.1 L Albumin 3.0 L Globulin 3.1 Albumin/Globulin Ratio 1.0 Free PSA % Free PSA Total PSA Assessment & Plan - Assessment and Plan (Free Text) Assessment: IMP: Hematuria Retention Hx of RT for Ca of prostate - Date & Time Date: 10/20/18 Time: 10:35
--- NOTE | 2018-10-21 10:43 | PCM.SURG1 ---
Surgeon's Initial Post Op Note - Surgeon's Notes Surgeon: Justus Wellington Supervisor Carding: none Type of Anesthesia: General LMA Pre-Operative Diagnosis: Hematuria Operative Findings: cystitis. Prostatic and bladder bleeding Post-Operative Diagnosis: same Operation Performed: cysto,. clot evacuation. bladder bx and fulg. fulg of prostatic bleeding Specimen/Specimens Removed: none Estimated Blood Loss: EBL {In ML}: 10 Blood Products Given: N/A Post-Op Condition: Good Date of Surgery/Procedure: 10/21/18 Time of Surgery/Procedure: 10:30
[2018-10-21] MEDS: HYDROmorphone 0.5 mg/0.5 ml ISec IVP PRN ×2 (10:54→11:16)
[2018-10-21] MEDS ORDERED: Labetalol 5mg/ml (4ml) IVP ONE (11:30)
[2018-10-21] MEDS: HYDROmorphone 1 mg/ml ISec IVP PRN ×2 (17:44→23:45)
[2018-10-21] MEDS: (Lantus) Insulin Glargine, Recombinant SC SCH (21:33)
[2018-10-22] MEDS: HYDROmorphone 1 mg/ml ISec IVP PRN ×3 (05:50→18:30)
[2018-10-22] MEDS: (Novolin R) Insulin Human Regular 100 units/ml vial SC SCH ×4 (07:26→22:13)
[2018-10-22 07:57] LABS: BASO # 0.1 K/uL (0.0-0.2); EOS # 0.3 K/uL (0.0-0.7); LYMPH # 0.9 K/uL (1.0-4.3); LYMPH % 9.8 % (20.0-40.0); MEAN PLATELET VOLUME 8.4 fL (7.2-11.7)
[2018-10-22 08:08] LABS: BASO % 0.8 % (0.0-2.0); EOS % 2.7 % (0.0-4.0); MEAN CELL VOLUME 90.8 fL (80.0-94.0); MEAN CORPUSCULAR HGB CONC 34.2 g/dL (33.0-37.0); MONO % 10.8 % (0.0-10.0); NEUT # 7.1 K/uL (1.8-7.0); NEUT % 75.9 % (50.0-75.0); PLATELET COUNT 301 K/uL (130-400); RBC 2.98 Mil/uL (4.40-5.90); RED CELL DISTRIBUTION WIDTH 13.9 % (11.5-14.5); WHITE BLOOD COUNT 9.4 K/uL (4.8-10.8)
[2018-10-22 08:16] LABS: ALB/GLOB RATIO 1.1 (1.0-2.1); ALT/SGPT 55 U/L (21-72); AST/SGOT 39 U/L (17-59); BLOOD UREA NITROGEN 34 mg/dL (9-20); CALCIUM 8.3 mg/dl (8.6-10.4); GFR NON-AFRICAN AMERICAN > 60; HEMOGLOBIN 9.2 g/dL (12.0-18.0)
[2018-10-22 08:48] LABS: EOSINOPHIL 3 % (0-4); LYMPHOCYTE 7 % (20-40); MONOCYTE 6 % (0-10); NEUTROPHIL 84 % (50-75); PLATELET ESTIMATE NORMAL (NORMAL); TOTAL CELLS COUNTED 100
[2018-10-22 08:49] LABS: HYPOCHROMIC SLIGHT; POLYCHROMIC SLIGHT
--- NOTE | 2018-10-22 08:57 | CP.PCM.PN ---
"<Laura Gutierrez P - Last Filed: 10/22/18 14:43> Subjective - Date & Time of Evaluation Date of Evaluation: 10/22/18 Time of Evaluation: 08:55 - Subjective Subjective: Progress note for Dr. Durán. Patient S&E. POD #1 s/p cysto with clot evacuation, bladder bx and fulguration of bladder and prostate. States pain is well controlled. On CBI with clear urine in sanchez. Will d/c CBI today as per Dr. Wellington. Denies abdominal pain, back pain, fever, chill, nausea, vomiting. Objective - Vital Signs/Intake and Output Vital Signs (last 24 hours): Temp Pulse Resp BP Pulse Ox 98.1 F 75 20 180/71 H 99 10/22/18 07:28 10/22/18 07:28 10/22/18 07:28 10/22/18 07:28 10/22/18 07:28 Intake and Output: 10/22/18 10/22/18 06:59 18:59 Intake Total 630 Output Total 700 Balance -70 - Medications Medications: Current Medications Acetaminophen (Tylenol 325mg Tab) 650 mg PO Q6 PRN PRN Reason: Pain, moderate (4-7) Last Admin: 10/21/18 06:09 Dose: 650 mg Amlodipine Besylate (Norvasc) 5 mg PO DAILY [facility] Last Admin: 10/21/18 12:55 Dose: 5 mg Carvedilol (Coreg) 6.25 mg PO BID [facility] Last Admin: 10/21/18 17:11 Dose: 6.25 mg Dextrose (Dextrose 50% Inj) 0 ml IV STAT PRN; Protocol PRN Reason: Hypoglycemia Protocol Dextrose (Glutose 15) 0 gm PO ONCE PRN; Protocol PRN Reason: Hypoglycemia Protocol Finasteride (Proscar) 5 mg PO DAILY [facility] Last Admin: 10/21/18 12:55 Dose: 5 mg Glucagon (Glucagen Diagnostic Kit) 0 mg IM STAT PRN; Protocol PRN Reason: Hypoglycemia Protocol Hydromorphone HCl (Dilaudid) 1 mg IVP Q6H PRN PRN Reason: Pain, severe (8-10) Last Admin: 10/22/18 05:50 Dose: 1 mg Hydromorphone HCl (Dilaudid) 0.5 mg IVP Q15M PRN PRN Reason: Pain, severe (8-10) Last Admin: 10/21/18 11:16 Dose: 0.5 mg Dextrose (Dextrose 5% In Water 1000 Ml) 1,000 mls @ 0 mls/hr IV .Q0M PRN; Protocol PRN Reason: Hypoglycemia Protocol Insulin Glargine (Lantus) 15 unit SC HS [facility] Last Admin: 10/21/18 21:33 Dose: 15 unit Insulin Human Regular (Novolin R) 0 unit SC [facility]; Protocol Last Admin: 10/22/18 07:26 Dose: Not Given Lisinopril (Zestril) 40 mg PO DAILY [facility] Last Admin: 10/21/18 12:55 Dose: 40 mg Rosuvastatin Calcium (Crestor) 5 mg PO [facility] Last Admin: 10/21/18 21:34 Dose: 5 mg Tamsulosin HCl (Flomax) 0.4 mg PO DAILY [facility] Last Admin: 10/21/18 12:55 Dose: 0.4 mg - Labs Labs: 10/22/18 07:46 10/22/18 07:46 PT 10.0 SECONDS (9.7-12.2) 10/20/18 17:05 INR 0.9 10/20/18 17:05 APTT 29.6 SECONDS (21-34) 10/20/18 17:05 - Constitutional Appears: No Acute Distress - Head Exam Head Exam: ATRAUMATIC, NORMOCEPHALIC - Eye Exam Eye Exam: EOMI, Normal appearance, PERRL - ENT Exam ENT Exam: Mucous Membranes Moist - Neck Exam Neck Exam: Full ROM, Normal Inspection - Respiratory Exam Respiratory Exam: Clear to Ausculation Bilateral, NORMAL BREATHING PATTERN. absent: Rales, Rhonchi, Wheezes - Cardiovascular Exam Cardiovascular Exam: REGULAR RHYTHM, +S1, +S2 - GI/Abdominal Exam GI & Abdominal Exam: Soft, Normal Bowel Sounds. absent: Distended, Firm, Guarding, Tenderness - Exam Additional comments: clear urine in sanchez - Extremities Exam Extremities Exam: Full ROM, Normal Inspection. absent: Calf Tenderness, Pedal Edema, Tenderness - Neurological Exam Neurological Exam: Alert, Awake, Oriented x3 - Psychiatric Exam Psychiatric exam: Normal Affect, Normal Mood - Skin Skin Exam: Dry, Normal Color Assessment and Plan - Assessment and Plan (Free Text) Plan: Patient is a 73 year old male with PMHx DM, HTN, arthritis, CAD, prostate cancer, anemia presents with painless hematuria and asymptomatic anemia Hematuria, Hx Prostate CA s/p TUR-BP -Dr. Justus Wellington consulted. Help appreciated. -POD 1 cysto with clot evacuation. bladder bx and fulg. fulg of prostatic bleeding -CBI d/c'ed -Finasteride 5 mg PO daily -Flomax 0.4 mg PO daily Anemia, chronic -s/p 2 units pRBCS on 10/18/18-> hgb improved from 7.7 to 9.8 -monitor and transfuse if Hgb < 7.0 DM with neuropathy, chronic -ISS high, Accuchecks ACHS -Hypoglycemia protocol -A1C 6.9% -Lipid panel: Triglycerides 96| Cholesterol 172|LDL 80|HDL 81 -Gabapentin 300 mg PO TID -Lantus 15u HS HTN, chronic -continue home meds -Amlodipine 5 mg PO daily -Coreg 6.25 mg PO BID -Lisinopril 40 mg PO daily CAD, chronic -Crestor 5 mg PO HS PPx, acute -DVT ppx c/i 2/2 hematuria, anemia Dispo: D/c CBI, irrigate sanchez Q4H, monitor for bleeding. If urine remains clear, can be d/c'ed tomorrow. Case discussed with Dr. Durán. Laura Gutierrez, PGY-1 <Rhett Durán Jr. - Last Filed: 10/24/18 11:19> Objective - Vital Signs/Intake and Output Vital Signs (last 24 hours): Temp Pulse Resp BP Pulse Ox 98.2 F 77 20 172/61 H 95 10/24/18 07:00 10/24/18 07:00 10/24/18 07:00 10/24/18 07:00 10/24/18 07:00 Intake and Output: 10/24/18 10/24/18 06:59 18:59 Intake Total 500 Output Total 1700 Balance -1200 - Medications Medications: Current Medications Acetaminophen (Tylenol 325mg Tab) 650 mg PO Q6 PRN PRN Reason: Pain, Mild (1-3) Amlodipine Besylate (Norvasc) 10 mg PO DAILY [facility] Last Admin: 10/24/18 09:23 Dose: 10 mg Carvedilol (Coreg) 6.25 mg PO BID [facility] Last Admin: 10/24/18 09:23 Dose: 6.25 mg Dextrose (Dextrose 50% Inj) 0 ml IV STAT PRN; Protocol PRN Reason: Hypoglycemia Protocol Dextrose (Glutose 15) 0 gm PO ONCE PRN; Protocol PRN Reason: Hypoglycemia Protocol Finasteride (Proscar) 5 mg PO DAILY [facility] Last Admin: 10/24/18 09:23 Dose: 5 mg Gabapentin (Neurontin) 300 mg PO TID [facility] Last Admin: 10/24/18 09:24 Dose: 300 mg Glucagon (Glucagen Diagnostic Kit) 0 mg IM STAT PRN; Protocol PRN Reason: Hypoglycemia Protocol Insulin Glargine (Lantus) 15 unit SC [facility] Last Admin: 10/23/18 21:35 Dose: 15 unit Insulin Human Regular (Novolin R) 0 unit SC [facility]; Protocol Last Admin: 10/24/18 08:25 Dose: 2 unit Lisinopril (Zestril) 40 mg PO DAILY [facility] Last Admin: 10/24/18 09:23 Dose: 40 mg Morphine Sulfate (Morphine) 2 mg IVP Q6H PRN PRN Reason: Pain, severe (8-10) Oxycodone/Acetaminophen (Percocet 5/325 Mg Tab) 2 tab PO Q6H PRN PRN Reason: Pain, moderate (4-7) Stop: 10/26/18 16:03 Last Admin: 10/24/18 05:42 Dose: 2 tab Rosuvastatin Calcium (Crestor) 5 mg PO [facility] Last Admin: 10/23/18 21:34 Dose: 5 mg Tamsulosin HCl (Flomax) 0.4 mg PO DAILY [facility] Last Admin: 10/24/18 09:23 Dose: 0.4 mg - Labs Labs: 10/24/18 06:47 10/24/18 06:47 PT 10.0 SECONDS (9.7-12.2) 10/20/18 17:05 INR 0.9 10/20/18 17:05 APTT 29.6 SECONDS (21-34) 10/20/18 17:05 Attending/Attestation - Attestation I have personally seen and examined this patient.: Yes I have fully participated in the care of the patient.: Yes I have reviewed all pertinent clinical information, including history, physical exam and plan: Yes Notes (Text): 10/24/18 11:19 Examined patient and reviewed residents note and plan of care. Agree with findings and plan."
[2018-10-22] MEDS: (Lantus) Insulin Glargine, Recombinant SC SCH (22:13)
--- NOTE | 2018-10-22 23:30 | PCM.URO ---
Urology Progress Note - Objective Lab Studies: Reviewed (no gu changes) Lab Results Last 24 Hours: Laboratory Results - last 24 hr 10/21/18 10/22/18 10/22/18 23:36 02:24 07:10 WBC RBC Hgb Hct MCV MCH MCHC RDW Plt Count MPV Neut % (Auto) Lymph % (Auto) [place] % (Auto) Eos % (Auto) Baso % (Auto) Neut # (Auto) Lymph # (Auto) [place] # (Auto) Eos # (Auto) Baso # (Auto) Neutrophils % (Manual) Lymphocytes % (Manual) Monocytes % (Manual) Eosinophils % (Manual) Platelet Estimate Polychromasia Hypochromasia (manual) Sodium Potassium Chloride Carbon Dioxide Anion Gap BUN Creatinine Est GFR ( Amer) Est GFR (Non-Af Amer) POC Glucose (mg/dL) 224 H 111 H 132 H Random Glucose Calcium Phosphorus Magnesium Total Bilirubin AST ALT Alkaline Phosphatase Total Protein Albumin Globulin Albumin/Globulin Ratio 10/22/18 10/22/18 10/22/18 07:46 07:46 11:03 WBC 9.4 RBC 2.98 L Hgb 9.2 L D Hct 27.0 L MCV 90.8 MCH 31.0 MCHC 34.2 RDW 13.9 Plt Count 301 MPV 8.4 Neut % (Auto) 75.9 H Lymph % (Auto) 9.8 L [place] % (Auto) 10.8 H Eos % (Auto) 2.7 Baso % (Auto) 0.8 Neut # (Auto) 7.1 H Lymph # (Auto) 0.9 L [place] # (Auto) 1.0 H Eos # (Auto) 0.3 Baso # (Auto) 0.1 Neutrophils % (Manual) 84 H Lymphocytes % (Manual) 7 L Monocytes % (Manual) 6 Eosinophils % (Manual) 3 Platelet Estimate Normal Polychromasia Slight Hypochromasia (manual) Slight Sodium 136 Potassium 4.5 Chloride 105 Carbon Dioxide 25 Anion Gap 11 BUN 34 H Creatinine 1.0 Est GFR ( Amer) > 60 Est GFR (Non-Af Amer) > 60 POC Glucose (mg/dL) 285 H Random Glucose 108 D Calcium 8.3 L Phosphorus 4.0 Magnesium 2.1 Total Bilirubin 0.2 AST 39 ALT 55 Alkaline Phosphatase 200 H Total Protein 5.7 L Albumin 3.0 L Globulin 2.8 Albumin/Globulin Ratio 1.1 05/30/19 05/30/19 15:57 21:21 WBC RBC Hgb Hct MCV MCH MCHC RDW Plt Count MPV Neut % (Auto) Lymph % (Auto) [place] % (Auto) Eos % (Auto) Baso % (Auto) Neut # (Auto) Lymph # (Auto) [place] # (Auto) Eos # (Auto) Baso # (Auto) Neutrophils % (Manual) Lymphocytes % (Manual) Monocytes % (Manual) Eosinophils % (Manual) Platelet Estimate Polychromasia Hypochromasia (manual) Sodium Potassium Chloride Carbon Dioxide Anion Gap BUN Creatinine Est GFR ( Amer) Est GFR (Non-Af Amer) POC Glucose (mg/dL) 304 H 172 H Random Glucose Calcium Phosphorus Magnesium Total Bilirubin AST ALT Alkaline Phosphatase Total Protein Albumin Globulin Albumin/Globulin Ratio Intake & Output: Intake & Output 10/22/18 10/22/18 10/23/18 06:59 18:59 06:59 Intake Total 630 2150 Output Total 700 1500 Balance -70 650 Intake: Intake, IV Amount 30 Left Hand 30 Oral 600 Other 2150 Output: Urine 700 1500 2-way Urethral 700 Other: # Bowel Movements 0 Vital Signs: Vital Signs - 24 hr 10/21/18 10/22/18 10/22/18 23:32 06:23 07:28 Temperature 97.9 F 98.1 F Pulse Rate 87 82 75 Respiratory 20 20 20 Rate Blood Pressure 189/69 H 154/64 H 180/71 H O2 Sat by Pulse 99 98 99 Oximetry 10/22/18 10/22/18 10/22/18 12:29 16:10 16:48 Temperature 98.1 F 97.8 F Pulse Rate 68 73 Respiratory 20 Rate Blood Pressure 165/71 H O2 Sat by Pulse 95 98 Oximetry
[2018-10-23] MEDS: HYDROmorphone 1 mg/ml ISec IVP PRN ×3 (00:58→13:43)
--- NOTE | 2018-10-23 05:01 | CON ---
DATE: 10/20/2018 UROLOGY CONSULTATION REQUESTED BY: Rhett Durán MD FILLED BY: Karen Wellington MD REASON FOR CONSULTATION: Hematuria. History of prostate carcinoma. HISTORY OF PRESENT ILLNESS: The patient is a 73-year-old male admitted with hematuria. The patient is in otherwise fair health. The patient has a history of hematuria. He previously underwent cystoscopy. The patient was previously found to have clot retention. The patient developed hematuria again last week. He is admitted for evaluation and therapy. 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 He is uncertain if he had these treatments. The patient is admitted with hematuria. He reports previously good urinary stream. No incontinence. No recent fever or rigors. The patient has a history of previous radiotherapy for prostate carcinoma. Mr. Samuel underwent cystoscopy within the past month at [facility]. The patient also had previous clot retention, requiring clot evacuation. PHYSICAL EXAMINATION: GENERAL: The patient is a well-developed and well-nourished male, appearing his stated age. ABDOMEN: Soft, nontender, and nondistended. No mass or organomegaly. GENITALIA: Without inflammation. Urine demonstrates marked hematuria via the Harris catheter. The catheter is draining well at present and irrigates well. LABORATORY DATA: Reviewed as well. IMPRESSION: Hematuria. History of prostate carcinoma. History of previous radiation therapy. RECOMMENDATIONS AND PLAN: Harris catheter, indwelling. Urine culture. Urine cytology. Serum PSA. Possible cystoscopy to follow. Further therapy to follow according to the patient's clinical course as well as results of above. Thank you for recommending the patient for urology consultation. Karen Wellington MD cc: Rhett Durán MD
--- NOTE | 2018-10-23 05:16 | OP ---
PROCEDURE DATE: 10/21/2018 UROLOGY OPERATIVE REPORT PREOPERATIVE DIAGNOSES: Hematuria and urinary retention. POSTOPERATIVE DIAGNOSES: Hematuria, urinary retention, cystitis and prostate carcinoma. PROCEDURES: Cystoscopy. Evacuation of bladder clots. Fulguration of bladder and prostatic bleeding. OPERATING SURGEON: Karen Wellington MD DESCRIPTION OF PROCEDURE: Procedure is as follows. The patient was placed in lithotomy position. The patient received perioperative antibiotics. Anesthesia was provided by the anesthesiologist. A 26-[place] continuous flow resectoscope sheath was introduced under direct vision. The urethra, prostate and bladder were inspected. FINDINGS: There were noted to be moderate amounts of clots within the bladder, which were irrigated free. The bladder and prostate were inspected. There was mild active bleeding from the prostatic urethra as well as from the floor of the bladder. The fulguration was performed with the rollerball electrode. Hemostasis was complete. The bladder was re-inspected and confirmed the above findings. There was no active bleeding noted. The prostate and bladder were continuously further inspected. There was no bleeding noted. The resectoscope sheath was removed. A Harris catheter was inserted. Bladder irrigation remained clear. The bladder was further inspected. Rectal examination/anorectal examination was performed. Bimanual examination was performed. There was no abnormal pelvic mass fixation or induration. The patient was returned to supine position. The patient tolerated the procedure without complication. Karen Wellington MD cc: Rhett Durán MD
[2018-10-23 08:21] LABS: BASO # 0.1 K/uL (0.0-0.2); BASO % 0.9 % (0.0-2.0); EOS # 0.3 K/uL (0.0-0.7); EOS % 3.8 % (0.0-4.0); HEMOGLOBIN 9.2 g/dL (12.0-18.0); LYMPH # 0.8 K/uL (1.0-4.3); LYMPH % 9.1 % (20.0-40.0); MEAN CELL VOLUME 89.8 fL (80.0-94.0); MEAN CORPUSCULAR HEMOGLOBIN 30.8 pg (27.0-31.0); MEAN CORPUSCULAR HGB CONC 34.3 g/dL (33.0-37.0); MONO # 0.9 K/uL (0.0-0.8); NEUT # 6.8 K/uL (1.8-7.0); NEUT % 76.2 % (50.0-75.0); PLATELET COUNT 284 K/uL (130-400); RBC 2.98 Mil/uL (4.40-5.90); WHITE BLOOD COUNT 8.9 K/uL (4.8-10.8)
[2018-10-23] MEDS: (Novolin R) Insulin Human Regular 100 units/ml vial SC SCH ×4 (08:29→21:34)
[2018-10-23 08:36] LABS: ALB/GLOB RATIO 0.9 (1.0-2.1); ALBUMIN 2.8 g/dL (3.5-5.0); ALT/SGPT 54 U/L (21-72); AST/SGOT 43 U/L (17-59); BLOOD UREA NITROGEN 33 mg/dL (9-20); CALCIUM 8.4 mg/dl (8.6-10.4); GFR NON-AFRICAN AMERICAN > 60
[2018-10-23 12:02] LABS: EOSINOPHIL 2 % (0-4); LYMPHOCYTE 8 % (20-40); MONOCYTE 9 % (0-10); NEUTROPHIL 81 % (50-75); PLATELET ESTIMATE NORMAL (NORMAL); TOTAL CELLS COUNTED 100
--- NOTE | 2018-10-23 14:08 | CP.PCM.PN ---
"<Laura Gutierrez P - Last Filed: 10/23/18 15:16> Subjective - Date & Time of Evaluation Date of Evaluation: 10/23/18 Time of Evaluation: 07:00 - Subjective Subjective: Progress note for Dr. Durán. Patient seen and examined at bedside. POD #2 s/p cysto with clot evacuation, bladder biopsy and fulguration of bladder and prostate. Continuous bladder irrigation was discontinued yesterday. Today, urine in patient's sanchez is a dark wine color. Otherwise, patient complains of pain. Patient denies fever, chills, nausea, vomiting, abdominal pain, chest pain, shortness of breath and headache. Objective - Vital Signs/Intake and Output Vital Signs (last 24 hours): Temp Pulse Resp BP Pulse Ox 98.7 F 75 20 162/68 H 99 10/23/18 08:00 10/23/18 08:00 10/23/18 08:00 10/23/18 08:00 10/23/18 08:00 Intake and Output: 10/23/18 10/23/18 06:59 18:59 Intake Total 300 300 Output Total 600 650 Balance -300 -350 - Medications Medications: Current Medications Acetaminophen (Tylenol 325mg Tab) 650 mg PO Q6 PRN PRN Reason: Pain, moderate (4-7) Last Admin: 10/23/18 07:01 Dose: 650 mg Amlodipine Besylate (Norvasc) 10 mg PO DAILY [facility] Last Admin: 10/23/18 09:48 Dose: 10 mg Carvedilol (Coreg) 6.25 mg PO BID [facility] Last Admin: 10/23/18 09:48 Dose: 6.25 mg Dextrose (Dextrose 50% Inj) 0 ml IV STAT PRN; Protocol PRN Reason: Hypoglycemia Protocol Dextrose (Glutose 15) 0 gm PO ONCE PRN; Protocol PRN Reason: Hypoglycemia Protocol Finasteride (Proscar) 5 mg PO DAILY [facility] Last Admin: 10/23/18 09:48 Dose: 5 mg Glucagon (Glucagen Diagnostic Kit) 0 mg IM STAT PRN; Protocol PRN Reason: Hypoglycemia Protocol Hydromorphone HCl (Dilaudid) 1 mg IVP Q6H PRN PRN Reason: Pain, severe (8-10) Last Admin: 10/23/18 13:43 Dose: 1 mg Hydromorphone HCl (Dilaudid) 0.5 mg IVP Q15M PRN PRN Reason: Pain, severe (8-10) Last Admin: 10/21/18 11:16 Dose: 0.5 mg Insulin Glargine (Lantus) 15 unit SC [facility] Last Admin: 10/22/18 22:13 Dose: 15 unit Insulin Human Regular (Novolin R) 0 unit SC [facility]; Protocol Last Admin: 10/23/18 11:31 Dose: 4 unit Lisinopril (Zestril) 40 mg PO DAILY [facility] Last Admin: 10/23/18 09:48 Dose: 40 mg Rosuvastatin Calcium (Crestor) 5 mg PO HS [facility] Last Admin: 10/22/18 22:11 Dose: 5 mg Tamsulosin HCl (Flomax) 0.4 mg PO DAILY [facility] Last Admin: 10/23/18 09:48 Dose: 0.4 mg - Labs Labs: 10/23/18 08:14 10/23/18 08:14 PT 10.0 SECONDS (9.7-12.2) 10/20/18 17:05 INR 0.9 10/20/18 17:05 APTT 29.6 SECONDS (21-34) 10/20/18 17:05 - Additional Findings Additional findings: - Constitutional Appears: No Acute Distress - Head Exam Head Exam: ATRAUMATIC, NORMOCEPHALIC - Eye Exam Eye Exam: EOMI, Normal appearance, PERRL - ENT Exam ENT Exam: Mucous Membranes Moist - Neck Exam Neck Exam: Full ROM, Normal Inspection - Respiratory Exam Respiratory Exam: Clear to Ausculation Bilateral, NORMAL BREATHING PATTERN. absent: Rales, Rhonchi, Wheezes - Cardiovascular Exam Cardiovascular Exam: REGULAR RHYTHM, +S1, +S2 - GI/Abdominal Exam GI & Abdominal Exam: Soft, Normal Bowel Sounds. absent: Distended, Firm, Guarding, Tenderness - Exam Additional comments: Dark red urine in sanchez - Extremities Exam Extremities Exam: Full ROM, Normal Inspection. 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 Justus Wellington consulted. Help appreciated. Recommends hyperbaric oxygen therapy -POD#2 cysto with clot evacuation. bladder bx and fulg. fulg of prostatic bleeding -CBI d/c'ed 10/23/18 -Finasteride 5 mg PO daily -Flomax 0.4 mg PO daily Anemia, chronic -s/p 2 units pRBCS on 10/18/18-> hgb improved from 7.7 to 9.8 -monitor and transfuse if Hgb < 7.0 DM with neuropathy, chronic -ISS high, Accuchecks ACHS -Hypoglycemia protocol -A1C 6.9% -Lipid panel: Triglycerides 96| Cholesterol 172|LDL 80|HDL 81 -Gabapentin 300 mg PO TID -Lantus 15u HS HTN, chronic -continue home meds -Amlodipine 5 mg PO daily -Coreg 6.25 mg PO BID -Lisinopril 40 mg PO daily CAD, chronic -Crestor 5 mg PO HS PPx, acute -DVT ppx c/i 2/2 hematuria, anemia Dispo: Continue sanchez irrigation Q4H. Dr. Wellington, Urology, recommends hy perbaric oxygen therapy. Case discussed with Dr. Durán. Laura Gutierrez, PGY-1 <Rhett Durán Jr. - Last Filed: 10/24/18 11:17> Objective - Vital Signs/Intake and Output Vital Signs (last 24 hours): Temp Pulse Resp BP Pulse Ox 98.2 F 77 20 172/61 H 95 10/24/18 07:00 10/24/18 07:00 10/24/18 07:00 10/24/18 07:00 10/24/18 07:00 Intake and Output: 10/24/18 10/24/18 06:59 18:59 Intake Total 500 Output Total 1700 Balance -1200 - Medications Medications: Current Medications Acetaminophen (Tylenol 325mg Tab) 650 mg PO Q6 PRN PRN Reason: Pain, Mild (1-3) Amlodipine Besylate (Norvasc) 10 mg PO DAILY [facility] Last Admin: 10/24/18 09:23 Dose: 10 mg Carvedilol (Coreg) 6.25 mg PO BID [facility] Last Admin: 10/24/18 09:23 Dose: 6.25 mg Dextrose (Dextrose 50% Inj) 0 ml IV STAT PRN; Protocol PRN Reason: Hypoglycemia Protocol Dextrose (Glutose 15) 0 gm PO ONCE PRN; Protocol PRN Reason: Hypoglycemia Protocol Finasteride (Proscar) 5 mg PO DAILY [facility] Last Admin: 10/24/18 09:23 Dose: 5 mg Gabapentin (Neurontin) 300 mg PO TID [facility] Last Admin: 10/24/18 09:24 Dose: 300 mg Glucagon (Glucagen Diagnostic Kit) 0 mg IM STAT PRN; Protocol PRN Reason: Hypoglycemia Protocol Insulin Glargine (Lantus) 15 unit SC [facility] Last Admin: 10/23/18 21:35 Dose: 15 unit Insulin Human Regular (Novolin R) 0 unit SC [facility]; Protocol Last Admin: 10/24/18 08:25 Dose: 2 unit Lisinopril (Zestril) 40 mg PO DAILY [facility] Last Admin: 10/24/18 09:23 Dose: 40 mg Morphine Sulfate (Morphine) 2 mg IVP Q6H PRN PRN Reason: Pain, severe (8-10) Oxycodone/Acetaminophen (Percocet 5/325 Mg Tab) 2 tab PO Q6H PRN PRN Reason: Pain, moderate (4-7) Stop: 10/26/18 16:03 Last Admin: 10/24/18 05:42 Dose: 2 tab Rosuvastatin Calcium (Crestor) 5 mg PO [facility] Last Admin: 10/23/18 21:34 Dose: 5 mg Tamsulosin HCl (Flomax) 0.4 mg PO DAILY [facility] Last Admin: 10/24/18 09:23 Dose: 0.4 mg - Labs Labs: 10/24/18 06:47 10/24/18 06:47 PT 10.0 SECONDS (9.7-12.2) 10/20/18 17:05 INR 0.9 10/20/18 17:05 APTT 29.6 SECONDS (21-34) 10/20/18 17:05 Attending/Attestation - Attestation I have personally seen and examined this patient.: Yes I have fully participated in the care of the patient.: Yes I have reviewed all pertinent clinical information, including history, physical exam and plan: Yes Notes (Text): 10/24/18 11:17 Examined patient and reviewed residents note and plan of care. Agree with findings and plan."
[2018-10-23] MEDS ORDERED: Oxycodone/Acetaminophen 5/325 mg Tab PO PRN ×2 (16:02)
--- NOTE | 2018-10-23 16:10 | CP.PCM.DIS ---
Provider - Provider Date of Admission: 10/17/18 13:50 Attending physician: Rhett Durán Jr, MD Consults: 10/17/18 15:49 Urology Consult Routine Comment: Consulting Provider: Karen Wellington Consulting Physician: Karen Wellington Reason for Consult: Hematuria, prior cystoscopy with Dr. [place] Time Spent in preparation of Discharge (in minutes): 35 Diagnosis - Discharge Diagnosis (1) Hemorrhagic cystitis Status: Acute (2) History of prostate cancer Status: Chronic Hospital Course - Lab Results Lab Results: Micro Results 10/17/18 12:26 Blood Blood Culture - Final NO GROWTH AFTER 5 DAYS 10/17/18 12:26 Blood Gram Stain - Final TEST NOT PERFORMED 10/17/18 11:00 Blood Blood Culture - Final NO GROWTH AFTER 5 DAYS 10/17/18 11:00 Blood Gram Stain - Final TEST NOT PERFORMED 10/18/18 13:33 Urine,Sanchez Urine Culture - Final No Growth (<1,000 CFU/ML) 10/17/18 12:16 Urine Random Urine Culture - Final No Growth (<1,000 CFU/ML) Most Recent Lab Values WBC 8.9 K/uL (4.8-10.8) 10/23/18 08:14 RBC 2.98 Mil/uL (4.40-5.90) L 10/23/18 08:14 Hgb 9.2 g/dL (12.0-18.0) L 10/23/18 08:14 Hct 26.7 % (35.0-51.0) L 10/23/18 08:14 MCV 89.8 fL (80.0-94.0) 10/23/18 08:14 MCH 30.8 pg (27.0-31.0) 10/23/18 08:14 MCHC 34.3 g/dL (33.0-37.0) 10/23/18 08:14 RDW 14.0 % (11.5-14.5) 10/23/18 08:14 Plt Count 284 K/uL (130-400) 10/23/18 08:14 MPV 8.0 fL (7.2-11.7) 10/23/18 08:14 Neut % (Auto) 76.2 % (50.0-75.0) H 10/23/18 08:14 Lymph % (Auto) 9.1 % (20.0-40.0) L 10/23/18 08:14 [place] % (Auto) 10.0 % (0.0-10.0) 10/23/18 08:14 Eos % (Auto) 3.8 % (0.0-4.0) 10/23/18 08:14 Baso % (Auto) 0.9 % (0.0-2.0) 10/23/18 08:14 Neut # (Auto) 6.8 K/uL (1.8-7.0) 10/23/18 08:14 Lymph # (Auto) 0.8 K/uL (1.0-4.3) L 10/23/18 08:14 [place] # (Auto) 0.9 K/uL (0.0-0.8) H 10/23/18 08:14 Eos # (Auto) 0.3 K/uL (0.0-0.7) 10/23/18 08:14 Baso # (Auto) 0.1 K/uL (0.0-0.2) 10/23/18 08:14 Neutrophils % (Manual) 81 % (50-75) H 10/23/18 08:14 Band Neutrophils % 2 % (0-2) 10/17/18 11:00 Lymphocytes % (Manual) 8 % (20-40) L 10/23/18 08:14 Monocytes % (Manual) 9 % (0-10) 10/23/18 08:14 Eosinophils % (Manual) 2 % (0-4) 10/23/18 08:14 Basophils % (Manual) 1 % (0-2) 10/17/18 11:00 Platelet Estimate Normal (NORMAL) 10/23/18 08:14 RBC Morphology Normal 10/23/18 08:14 Polychromasia Slight 10/22/18 07:46 Hypochromasia (manual) Slight 10/22/18 07:46 Anisocytosis (manual) Slight 10/17/18 11:00 PT 10.0 SECONDS (9.7-12.2) 10/20/18 17:05 INR 0.9 10/20/18 17:05 APTT 29.6 SECONDS (21-34) 10/20/18 17:05 Sodium 134 mmol/L (132-148) 10/23/18 08:14 Potassium 4.4 mmol/L (3.6-5.2) 10/23/18 08:14 Chloride 103 mmol/L (98-107) 10/23/18 08:14 Carbon Dioxide 27 mmol/L (22-30) 10/23/18 08:14 Anion Gap 8 (10-20) L 10/23/18 08:14 BUN 33 mg/dL (9-20) H 10/23/18 08:14 Creatinine 1.1 mg/dL (0.8-1.5) 10/23/18 08:14 Est GFR ( Amer) > 60 10/23/18 08:14 Est GFR (Non-Af Amer) > 60 10/23/18 08:14 POC Glucose (mg/dL) 291 mg/dL (65-110) H 10/23/18 15:37 Random Glucose 185 mg/dL (75-110) H D 10/23/18 08:14 Hemoglobin A1c 6.9 % (4.2-6.5) H D 10/18/18 08:21 Calcium 8.4 mg/dl (8.6-10.4) L 10/23/18 08:14 Phosphorus 4.1 mg/dL (2.5-4.5) 10/23/18 08:14 Magnesium 2.1 mg/dL (1.6-2.3) 10/23/18 08:14 Total Bilirubin 0.5 mg/dL (0.2-1.3) 10/23/18 08:14 AST 43 U/L (17-59) 10/23/18 08:14 ALT 54 U/L (21-72) 10/23/18 08:14 Alkaline Phosphatase 205 U/L (38-126) H 10/23/18 08:14 Total Protein 5.9 g/dL (6.3-8.3) L 10/23/18 08:14 Albumin 2.8 g/dL (3.5-5.0) L 10/23/18 08:14 Globulin 3.0 gm/dL (2.2-3.9) 10/23/18 08:14 Albumin/Globulin Ratio 0.9 (1.0-2.1) L 10/23/18 08:14 Triglycerides 96 mg/dL (0-149) D 10/18/18 08:21 Cholesterol 172 mg/dL (0-199) 10/18/18 08:21 LDL Cholesterol Direct 80 mg/dL (0-129) 10/18/18 08:21 HDL Cholesterol 81 mg/dL (30-70) H 10/18/18 08:21 Free PSA <0.1 ng/mL 10/17/18 16:41 % Free PSA Unable to calculate % (calc) (>25) 10/17/18 16:41 Total PSA <0.1 ng/mL (< or = 4.0) 10/17/18 16:41 Urine Color Red (YELLOW) 10/17/18 12:37 Urine Clarity Hazy (Clear) 10/17/18 12:37 Urine pH 6.0 (5.0-8.0) 10/17/18 12:37 Ur Specific [place] 1.011 (1.003-1.030) 10/17/18 12:37 Urine Protein 2+ mg/dL (NEGATIVE) H 10/17/18 12:37 Urine Glucose (UA) 1+ mg/dL (Normal) H 10/17/18 12:37 Urine Ketones Negative mg/dL (NEGATIVE) 10/17/18 12:37 Urine Blood 3+ (NEGATIVE) H 10/17/18 12:37 Urine Nitrate Negative (NEGATIVE) 10/17/18 12:37 Urine Bilirubin Negative (NEGATIVE) 10/17/18 12:37 Urine Urobilinogen Normal mg/dL (0.2-1.0) 10/17/18 12:37 Ur Leukocyte Esterase Trace [place]/uL (Negative) 10/17/18 12:37 Urine WBC (Auto) 9 /hpf (0-5) H 10/17/18 12:37 Urine RBC (Auto) 5017 /hpf (0-3) H 10/17/18 12:37 Blood Type A POSITIVE 10/17/18 11:00 Antibody Screen Negative 10/17/18 11:00 - Hospital Course Hospital Course: On admission: Patient is a 73 year old male with PMHx of prostate cancer, DM, HTN, arthritis, and CAD who presents to the ED with pete red urine. Patient states he does not know why he is here but that his daughter, a nurse, brought him in. Patient is a poor historian and states that Dr. Durán will provide his information. Patient admits to being noncompliant with his medications and stating that he has not seen Dr. Durán in a long time. Patient was recently hospitalized at [facility] 09/02-09/29 for anemia due to hematuria. At that time Dr. Boo performed multiple colonoscopies but the hematuria persisted. Patient also required multiple blood transfusions to stabilize hemoglobin. During this visit, patients right molar fell out while eating a dinner roll. Patient admits to hematuria and urinary hesitancy. Patient denies fever, chills, nausea, vomiting, shortness of breath, chest pain, abdominal pain, dysuria, weakness, dizziness, headache, or generalized body aches. Hospital Course: Patient admitted for anemia and hemorrhagic cystitis 2/2 Prostate CA s/p radiation. Patient's hemoglobin was 7.9 on admission. Patient received 2 units pRBCS on 10/18/18 and hgb improved to 9.8. Dr. Wellington, urology was consulted. Patient was taken to OR on 10/21/18 for cystoscopy with clot evacuation, bladder biopsy and fulguration of bladder and prostate. Patient tolerated procedure well. He had 24 hours of CBI with clear urine. However on discontinuing CBI, patient's urine noted to be wine colored on 10/23/18. Hemoglobin remained stable at 9.2. Dr. Wellington recommends that patient remain with sanchez with manual irrigation every 4 hours and no additional inpatient treatment at this time. Recommends patient start hyperbaric oxygen therapy. Patient's information was forwarded to [facility] [phone]. As per [facility] staff, therapy must be started on an outpatient basis. They are to follow up with Shruthi, patient's daughter to schedule an appointment. Shruthi was called and made aware. She confirmed that she will follow up with Zoraida Clyde. Discharge instructions: Patient is stable for discharge as per Dr. Durán. Patient will be transferred with a sanchez in place. Sanchez is to be manually irrigated every 4 hours. Patient is to be transferred to [facility], patient should be discharged from [facility] on the following medications: amlodipine 10mg PO daily Carvedilol 6.25mg BID Lisinopril 40mg PO daily Gabapentin 300mg PO TID Finasteride 5mg PO daily Crestor 5mg PO HS Tamsulosin 0.4mg PO Q12H Percocet 1 tab Q6H PRN severe pain Sitagliptin 50mg PO daily Lantus 15 units HS Patient will need to follow up with Dr. Durán, his PMD within 7 days of discharge for continuation of care and any adjustment of medication. Please follow up with Dr Ya, your personal urologist within 7 days of discharge. The urologist that saw you while you were in the hospital, Dr. Wellington, damien mmended that you start Hyperbaric Oxygen therapy, which will help your bleeding. We started the process to get you an appointment for hyperbaric oxygen therapy at [facility] [phone]. However, you will need to follow up with Zoraida Tang in order to finish the process of scheduling your appointment. They have your daughter's phone number and will reach out to her after the weekend. Your daughter has been made aware and has confirmed that she will follow up the scheduling process. Return to the emergency room for new or worsening symptoms. Discharge Exam - Head Exam Head Exam: ATRAUMATIC, NORMOCEPHALIC - Additional Findings Additional findings: - Constitutional Appears: No Acute Distress - Head Exam Head Exam: ATRAUMATIC, NORMOCEPHALIC - Eye Exam Eye Exam: EOMI, Normal appearance, PERRL - ENT Exam ENT Exam: Mucous Membranes Moist - Neck Exam Neck Exam: Full ROM, Normal Inspection - Respiratory Exam Respiratory Exam: Clear to Ausculation Bilateral, NORMAL BREATHING PATTERN. absent: Rales, Rhonchi, Wheezes - Cardiovascular Exam Cardiovascular Exam: REGULAR RHYTHM, +S1, +S2 - GI/Abdominal Exam GI & Abdominal Exam: Soft, Normal Bowel Sounds. absent: Distended, Firm, Guarding, Tenderness - Extremities Exam Extremities Exam: Full ROM, Normal Inspection. absent: Calf Tenderness, Pedal Edema, Tenderness - Neurological Exam Neurological Exam: Alert, Awake - Psychiatric Exam Psychiatric exam: Normal Affect, Normal Mood - Skin Skin Exam: Dry, Normal Color Discharge Plan - Follow Up Plan Condition: FAIR Disposition: HOME/ ROUTINE Additional Instructions: Patient is stable for discharge as per Dr. Durán. Patient will be transferred with a sanchez in place. Sanchez is to be manually irrigated every 4 hours. Patient is to be transferred to [facility], patient should be discharged from [facility] on the following medications: amlodipine 10mg PO daily Carvedilol 6.25mg BID Lisinopril 40mg PO daily Gabapentin 300mg PO TID Finasteride 5mg PO daily Crestor 5mg PO HS Tamsulosin 0.4mg PO Q12H Percocet 1 tab Q6H PRN severe pain Sitagliptin 50mg PO daily Lantus 15 units HS Patient will need to follow up with Dr. Durán, his PMD within 7 days of discharge for continuation of care and any adjustment of medication. Please follow up with Dr Ya, your personal urologist within 7 days of discharge. The urologist that saw you while you were in the hospital, Dr. Wellington, recommended that you start Hyperbaric Oxygen therapy, which will help your bleeding. We started the process to get you an appointment for hyperbaric oxygen therapy at [facility] [phone]. However, you will need to follow up with Zoraida Tang in order to finish the process of scheduling your appointment. They have your daughter's phone number and will reach out to her after the weekend. Return to the emergency room for new or worsening symptoms.
[2018-10-23] MEDS: Oxycodone/Acetaminophen 5/325 mg Tab PO PRN ×2 (16:36→23:54)
[2018-10-23] MEDS: (Lantus) Insulin Glargine, Recombinant SC SCH (21:35)
[2018-10-24] MEDS: Oxycodone/Acetaminophen 5/325 mg Tab PO PRN ×2 (05:42→20:08)
[2018-10-24 07:13] LABS: ALB/GLOB RATIO 0.9 (1.0-2.1); ALBUMIN 2.5 g/dL (3.5-5.0); ALT/SGPT 58 U/L (21-72); AST/SGOT 49 U/L (17-59); BLOOD UREA NITROGEN 37 mg/dL (9-20); CALCIUM 8.1 mg/dl (8.6-10.4); GFR NON-AFRICAN AMERICAN 59
[2018-10-24 07:15] LABS: BASO % 0.6 % (0.0-2.0); EOS # 0.3 K/uL (0.0-0.7); EOS % 4.5 % (0.0-4.0); HEMOGLOBIN 7.5 g/dL (12.0-18.0); LYMPH # 0.8 K/uL (1.0-4.3); LYMPH % 11.3 % (20.0-40.0); MEAN CELL VOLUME 88.8 fL (80.0-94.0); MEAN CORPUSCULAR HEMOGLOBIN 31.4 pg (27.0-31.0); MEAN CORPUSCULAR HGB CONC 35.3 g/dL (33.0-37.0); MEAN PLATELET VOLUME 8.1 fL (7.2-11.7); MONO # 0.8 K/uL (0.0-0.8); MONO % 12.1 % (0.0-10.0); NEUT # 4.8 K/uL (1.8-7.0); NEUT % 71.5 % (50.0-75.0); RBC 2.39 Mil/uL (4.40-5.90); RED CELL DISTRIBUTION WIDTH 13.8 % (11.5-14.5); WHITE BLOOD COUNT 6.7 K/uL (4.8-10.8)
[2018-10-24] MEDS: (Novolin R) Insulin Human Regular 100 units/ml vial SC SCH ×4 (08:25→21:58)
[2018-10-24 12:54] LABS: HEMOGLOBIN 8.6 g/dL (12.0-18.0)
--- NOTE | 2018-10-24 13:28 | CP.PCM.PCO ---
Physician Communication Note - Physician Communication Note Physician Communication Note: Pt's hgb noted to be 8.6 from 9.2, chronic gross hematuria.
[2018-10-24 16:02] VITALS: O2SAT 98
[2018-10-24 19:15] VITALS: BP 155/80; PULSE 82; RESP 18; TEMP 98.5
[2018-10-24] MEDS: (Lantus) Insulin Glargine, Recombinant SC SCH (21:57)
== END 2018-10-24 22:35 | DRG 713 ==
LOC: C.ER 10:12 → C.9E 13:50 → C.3T 15:21
PROVIDERS: ADMIT Internal Medicine; ATTEND Internal Medicine
PROC: 0T5B8ZZ Destruction of Bladder, Via Natural or Artificial Opening Endoscopic (ICD-10-PCS; 2018-10-21)
PROC: 0TCB8ZZ Extirpation of Matter from Bladder, Via Natural or Artificial Opening Endoscopic (ICD-10-PCS; 2018-10-21)
PROC: 0T9B70Z Drainage of Bladder with Drainage Device, Via Natural or Artificial Opening (ICD-10-PCS; 2018-10-21)
PROC: 0V508ZZ Destruction of Prostate, Via Natural or Artificial Opening Endoscopic (ICD-10-PCS; principal; 2018-10-21 08:15)
DX: N42.1 Congestion and hemorrhage of prostate (principal); N30.41 Irradiation cystitis with hematuria; C61 Malignant neoplasm of prostate; R33.9 Retention of urine, unspecified; I10 Essential (primary) hypertension; E11.40 Type 2 diabetes mellitus with diabetic neuropathy, unspecified; D50.0 Iron deficiency anemia secondary to blood loss (chronic); I25.10 Atherosclerotic heart disease of native coronary artery without angina pectoris; E78.00 Pure hypercholesterolemia, unspecified; Z87.891 Personal history of nicotine dependence; Z91.14 Patient's other noncompliance with medication regimen; Z92.3 Personal history of irradiation; Z79.4 Long term (current) use of insulin; Z79.899 Other long term (current) drug therapy